=== PATIENT | female | born 1950 | race African-American/Black ===

== ENCOUNTER 2016-04-24 18:46 | Emergency (ER) | payer OTHER ==
[~2016-04-24] VITALS: Ht 162.6 cm; Wt 77.0 kg
[~2016-04-24 18:46] MED LIST: AMLO10TA2 PO; ASPI81TA11 PO; CHOL1TAB29 PO; LEVEMIR SQ; LIPI80TA PO; LOSA50TA PO/NG; MACR100C2 PO; MECL-62 PO; NOVOLOGP2 SQ; OMEP20TA PO
[2016-04-24 18:48] VITALS: BP 169/78; PULSE 86; RESP 16; TEMP 98.5; O2SAT 97
--- NOTE | 2016-04-24 23:25 | PD ---
HPI Chief Complaint: Complaint Time Seen by Provider: 23:24 Travel History International Travel<30 days: No Contact w/Intl Traveler<30days: No Traveled to known affect area: No History of Present Illness HPI 65-year-old female came to the emergency room with history of lower abdominal pain and lower back pain which seems to be chronic. However her daughter is here with her and the daughter says that every time she gets worsening of these pain symptoms she ends up having a UTI. This time it has been hurting for past 2 days. Also patient has history of renal insufficiency and has been followed up by the high man Dr. Gibson. Daughter wanted her to be checked out. Vital signs were stable. There was blood work was was initiated by the provider in triage. Patient has history of diabetes. PFSH Past Medical History Narrative Medical List of her past medical history is reviewed from the nursing note. Hx Anticoagulant Therapy: Yes (Warfarin for clot in arm per daughter ) Anemia: Yes Arthritis: Yes Blood Disorders: No Anxiety: No Depression: Yes Heart Rhythm Problems: No Cancer: No Cardiovascular Problems: Yes High Cholesterol: Yes Chemotherapy: No Chest Pain: Yes Congestive Heart Failure: No Cerebrovascular Accident: Yes (2015) Diabetes: Yes (INSULIN DEPENDENT) Diminished Hearing: No Deep Vein Thrombosis: Yes Endocrine: Yes Gastrointestinal Disorders: Yes (GERD) GERD: Yes Genitourinary: Yes (HISTORY OF RENAL DISEASE) Headaches: No Hypertension: Yes Immune Disorder: No Musculoskeletal: Yes (RIGHT BKA ) Neurologic: Yes (PERIPHERAL NEUROPATHY) Psychiatric: Yes Reproductive: Yes ( 20 YEARS AGO) Respiratory: No Integumentary: Yes (R BKA ULCER.) Seizures: Yes Thyroid Disease: No PNEUMOCCOCAL Vaccine (Year): 2 Menopausal: Yes : 6 Para: 4 : 2 Past Surgical History Abdominal Surgery: Yes (GALLBLADDER REMOVAL) Cardiac Surgery: No Section: Yes (X 1) Cholecystectomy: Yes Endocrine Surgery: No Eye Surgery: Yes (LASER) Gynecologic Surgery: Yes (CSECTION) Hysterectomy: No Oral Surgery: Yes (DENTURES) Thoracic Surgery: No Other Surgery: Yes (RIGHT BKA) Social History Alcohol Use: No Tobacco Use: No Substance Use: No Allergies-Medications (Allergen,Severity, Reaction): Coded Allergies: Amoxicillin (Verified Allergy, Severe, Hives, 04/24/16) Cipro (Verified Allergy, Intermediate, Hives, 04/24/16) Comments List of her allergies reviewed from the nursing note. Reported Meds & Prescriptions Reported Meds & Active Scripts Active Aspirin EC (Aspirin) 81 Mg Tabdr 162 Mg PO DAILY 30 Days Reported Novolog Inj (Insulin Aspart) 1,000 Unit/10 Ml Vial 0 SQ ACHS SLIDING SCALE Sliding Scale as directed. BSG <70 no insulin 150-199 1unit, 200-249 3units, 250-299 5units, 300-349 7units, >349 9units. max dose @ hs 2units. Amlodipine (Amlodipine Besylate) 10 Mg Tab 10 Mg PO DAILY D3 2000 (Cholecalciferol) 2,000 Unit Tab 1 Cap PO DAILY Levemir Inj (Insulin Detemir) 1,000 unit/ 10 ML Vial 15 Units SQ HS Do not mix with any other Insulin. Lipitor (Atorvastatin Calcium) 80 Mg Tab 80 Mg PO DAILY Losartan (Losartan Potassium) 50 Mg Tab 100 Mg PO/NG DAILY Narrative Medication List of her home medications reviewed from the nursing note. Review of Systems Except as stated in HPI: all other systems reviewed are Neg Physical Exam Narrative GENERAL: Awake, alert, no obvious distress. SKIN: Warm and dry. HEAD: Atraumatic. Normocephalic. EYES: Pupils equal and round. No scleral icterus. No injection or drainage. ENT: No nasal bleeding or discharge. Mucous membranes pink and moist. NECK: Trachea midline. No JVD. CARDIOVASCULAR: Regular rate and rhythm. No murmur appreciated. RESPIRATORY: No accessory muscle use. Clear to auscultation. Breath sounds equal bilaterally. GASTROINTESTINAL: Abdomen soft, non-tender, nondistended. Hepatic and splenic margins not palpable. MUSCULOSKELETAL: No obvious deformities. No clubbing. No cyanosis. No edema. Right BKA. NEUROLOGICAL: Awake and alert. No obvious cranial nerve deficits. Motor grossly within normal limits. Normal speech. PSYCHIATRIC: Appropriate mood and affect; insight and judgment normal. Data Data Last Documented VS Vital Signs Date Time Temp Pulse Resp B/P Pulse Ox O2 Delivery O2 Flow Rate FiO2 04/24/16 18:48 98.5 86 16 169/78 97 Room Air Orders Urinalysis - C+S If Indicated (04/24/16 21:01) Complete Blood Count With Diff (04/24/16 23:30) Comprehensive Metabolic Panel (04/24/16 23:30) Sodium Chlorid 0.9% 500 Ml Inj (Ns 500 M (04/25/16 01:00) Labs Laboratory Tests Test 04/24/16 04/25/16 23:50 00:00 White Blood Count 10.7 TH/MM3 Red Blood Count 3.42 MIL/MM3 Hemoglobin 10.7 GM/DL Hematocrit 31.5 % Mean Corpuscular Volume 92.1 FL Mean Corpuscular Hemoglobin 31.4 PG Mean Corpuscular Hemoglobin 34.1 % Concent Red Cell Distribution Width 15.5 % Platelet Count 245 TH/MM3 Mean Platelet Volume 8.7 FL Neutrophils (%) (Auto) 59.1 % Lymphocytes (%) (Auto) 33.9 % Monocytes (%) (Auto) 4.6 % Eosinophils (%) (Auto) 1.8 % Basophils (%) (Auto) 0.6 % Neutrophils # (Auto) 6.3 TH/MM3 Lymphocytes # (Auto) 3.6 TH/MM3 Monocytes # (Auto) 0.5 TH/MM3 Eosinophils # (Auto) 0.2 TH/MM3 Basophils # (Auto) 0.1 TH/MM3 CBC Comment DIFF FINAL Differential Comment Sodium Level 141 MEQ/L Potassium Level 4.2 MEQ/L Chloride Level 108 MEQ/L Carbon Dioxide Level 26.0 MEQ/L Anion Gap 7 MEQ/L Blood Urea Nitrogen 48 MG/DL Creatinine 2.27 MG/DL Estimat Glomerular Filtration 26 ML/MIN Rate Random Glucose 191 MG/DL Calcium Level 8.7 MG/DL Total Bilirubin 0.1 MG/DL Aspartate Amino Transf 9 U/L (AST/SGOT) Alanine Aminotransferase 22 U/L (ALT/SGPT) Alkaline Phosphatase 91 U/L Total Protein 8.0 GM/DL Albumin 3.3 GM/DL Urine Color LIGHT-YELLOW Urine Turbidity HAZY Urine pH 5.5 Urine Specific [place] 1.012 Urine Protein 100 mg/dL Urine Glucose (UA) NEG mg/dL Urine Ketones NEG mg/dL Urine Occult Blood NEG Urine Nitrite NEG Urine Bilirubin NEG Urine Urobilinogen LESS THAN 2.0 MG/DL Urine Leukocyte Esterase NEG Urine RBC 2 /hpf Urine WBC 2 /hpf Urine Amorphous Sediment OCC Microscopic Urinalysis Comment CATH-CULT NOT IND MDM Medical Decision Making Medical Screen Exam Complete: Yes Emergency Medical Condition: Yes Medical Record Reviewed: Yes Differential Diagnosis UTI, renal insufficiency Narrative Course 1:12 AM blood test results of back and within normal limit except for her BUN and creatinine which were elevated. When compared to her past BUN and creatinine this time it seems to be higher than before. I ordered 500 cc of IV fluid bolus. I have discussed this result with patient's daughter. I expressed my concern and asked her to follow up with her high man on Wednesday. Her UA did not show any infection. Procedures EKG Prior to Arrival: No Diagnosis Primary Impression: Chronic renal failure, stage 4 (severe) Additional Impressions: Chronic pelvic pain in female Dehydration Referrals: Primary Care Physician Additional Instructions: Please follow-up with your high man on Wednesday. Please return to the ER if the condition worsens. Drink lots of fluid. Med/Other Pt SpecificInfo: No Change to Meds Disposition: 01 DISCHARGE HOME Condition: Stable Mily Rios MD Apr 24, 2016 23:25
[2016-04-25 00:08] LABS: AUTOMATED NEUTROPHIL # 6.3 TH/MM3 (1.8-7.7); BASOPHIL # 0.1 TH/MM3 (0-0.2); BASOPHIL % 0.6 % (0.0-2.0); EOSINOPHIL # 0.2 TH/MM3 (0-0.4); EOSINOPHIL % 1.8 % (0.0-4.0); HEMATOCRIT 31.5 % (35.0-46.0); HEMO FLAGS DIFF FINAL; LYMPH % 33.9 % (9.0-44.0); LYMPHOCYTE # 3.6 TH/MM3 (1.0-4.8); MEAN CELL VOLUME 92.1 FL (80.0-100.0); MEAN CORPUSCULAR HEMOGLOBIN 31.4 PG (27.0-34.0); MEAN CORPUSCULAR HGB CONC 34.1 % (32.0-36.0); MONO % 4.6 % (0.0-8.0); NEUT % 59.1 % (16.0-70.0); PLATELET COUNT 245 TH/MM3 (150-450); RED BLOOD COUNT 3.42 MIL/MM3 (4.00-5.30); RED CELL DISTRIBUTION WIDTH 15.5 % (11.6-17.2); WHITE BLOOD COUNT 10.7 TH/MM3 (4.0-11.0)
[2016-04-25 00:30] LABS: ANION GAP 7 MEQ/L (5-15); AST (GOT) 9 U/L (15-37); BLOOD UREA NITROGEN 48 MG/DL (7-18); CHLORIDE 108 MEQ/L (98-107); GLOMERULAR FILTRATION RATE 26 ML/MIN (>89); POTASSIUM 4.2 MEQ/L (3.5-5.1); SODIUM (NA) 141 MEQ/L (136-145)
[2016-04-25 00:33] LABS: ALKALINE PHOSPHATASE 91 U/L (45-117); ALT (GPT) 22 U/L (10-53); TOTAL BILIRUBIN ADULT 0.1 MG/DL (0.2-1.0)
[2016-04-25 00:47] LABS: BLOOD, URINE NEG (NEG); GLUCOSE,URINE NEG (NEG); KETONE, URINE NEG (NEG); NITRITE,URINE NEG (NEG); PH, URINE 5.5 (5.0-8.5); URINE COLOR LIGHT-YELLOW (YELLW/STRAW)
[2016-04-25 00:49] LABS: COMMENT (UR) CATH-CULT NOT IND; CULTURE IF INDICATED CATH CULTURE NOT IND
[2016-04-25] MEDS ORDERED: SODIUM CHLORID 0.9% 500 ML INJ 500 ML IV ONE (01:00)
== END 2016-04-25 02:07 | disposition home or self-care (01) ==
LOC: NEPC 18:46
DX: N18.4 Chronic kidney disease, stage 4 (severe) (principal); I12.9 Hypertensive chronic kidney disease with stage 1 through stage 4 chronic kidney disease, or unspecified chronic kidney disease; G89.29 Other chronic pain; R10.2 Pelvic and perineal pain; E11.22 Type 2 diabetes mellitus with diabetic chronic kidney disease; R82.99 Other abnormal findings in urine; Z79.01 Long term (current) use of anticoagulants; D64.9 Anemia, unspecified; M19.90 Unspecified osteoarthritis, unspecified site; E78.00 Pure hypercholesterolemia, unspecified; Z79.4 Long term (current) use of insulin; Z89.511 Acquired absence of right leg below knee
CPT/HCPCS: 80053; 81001; 85025; 96360; 99284; J7040

== ENCOUNTER 2016-05-09 19:42 | Emergency (ER) | payer OTHER ==
[~2016-05-09] VITALS: Ht 167.6 cm; Wt 72.0 kg
[~2016-05-09 19:42] MED LIST changes: -MACR100C2 PO; -MECL-62 PO; -OMEP20TA PO
[2016-05-09 19:49] VITALS: BP 162/72; PULSE 76; RESP 16; TEMP 98.1; O2SAT 96
[2016-05-09] MEDS ORDERED: SODIUM CHLOR 0.9% 1000 ML INJ 1,000 ML IV SCH (19:58)
[2016-05-09] MEDS ORDERED: ONDANSETRON HCL 4 MG/2 ML VIAL IVP ONE (20:00)
[2016-05-09] MEDS ORDERED: SODIUM CHLORIDE 0.9% FLUSH 5 ML FLUSH IVF PRN (20:00)
--- NOTE | 2016-05-09 20:08 | PD ---
HPI . Abdominal discomfort Chief Complaint: Abdominal Pain Time Seen by Provider: 19:47 Travel History International Travel<30 days: No Contact w/Intl Traveler<30days: No Traveled to known affect area: No History of Present Illness HPI Patient presents by [facility] with the chief complaint of "my stomach feels yucky." She states that this started sometime after supper tonight. She is not able to further elaborate. She specifically denies fever, vomiting or diarrhea, urinary tract symptoms or constipation. She is unable to tell me whether or not there are any exacerbating or relieving factors. PFSH Past Medical History Hx Anticoagulant Therapy: Yes (Warfarin for clot in arm per daughter ) Anemia: Yes Arthritis: Yes Blood Disorders: No Anxiety: No Depression: Yes Heart Rhythm Problems: No Cancer: No Cardiovascular Problems: Yes High Cholesterol: Yes Chemotherapy: No Chest Pain: Yes Congestive Heart Failure: No Cerebrovascular Accident: Yes Diabetes: Yes Patient Takes Glucophage: No Diminished Hearing: No Deep Vein Thrombosis: Yes Endocrine: Yes Gastrointestinal Disorders: Yes (GERD) GERD: Yes Genitourinary: Yes (HISTORY OF RENAL DISEASE) Headaches: No Hypertension: Yes Immune Disorder: No Musculoskeletal: Yes (RIGHT BKA ) Neurologic: Yes (PERIPHERAL NEUROPATHY) Psychiatric: Yes Reproductive: Yes ( 20 YEARS AGO) Respiratory: No Integumentary: Yes (R BKA ULCER.) Seizures: Yes Thyroid Disease: No PNEUMOCCOCAL Vaccine (Year): 2 ?: Not Menopausal: Yes : 6 Para: 4 : 2 Past Surgical History Abdominal Surgery: Yes (GALLBLADDER REMOVAL) Cardiac Surgery: No Section: Yes (X 1) Cholecystectomy: Yes Endocrine Surgery: No Eye Surgery: Yes (LASER) Gynecologic Surgery: Yes (CSECTION) Hysterectomy: No Oral Surgery: Yes (DENTURES) Thoracic Surgery: No Other Surgery: Yes (RIGHT BKA) Social History Alcohol Use: No Tobacco Use: No (never) Substance Use: No Allergies-Medications (Allergen,Severity, Reaction): Coded Allergies: Amoxicillin (Verified Allergy, Severe, Hives, 05/09/16) Cipro (Verified Allergy, Intermediate, Hives, 05/09/16) Reported Meds & Prescriptions Reported Meds & Active Scripts Active Aspirin EC (Aspirin) 81 Mg Tabdr 162 Mg PO DAILY 30 Days Reported Novolog Inj (Insulin Aspart) 1,000 Unit/10 Ml Vial 0 SQ ACHS SLIDING SCALE Sliding Scale as directed. BSG <70 no insulin 150-199 1unit, 200-249 3units, 250-299 5units, 300-349 7units, >349 9units. max dose @ hs 2units. Amlodipine (Amlodipine Besylate) 10 Mg Tab 10 Mg PO DAILY D3 2000 (Cholecalciferol) 2,000 Unit Tab 1 Cap PO DAILY Levemir Inj (Insulin Detemir) 1,000 unit/ 10 ML Vial 15 Units SQ HS Do not mix with any other Insulin. Lipitor (Atorvastatin Calcium) 80 Mg Tab 80 Mg PO DAILY Losartan (Losartan Potassium) 50 Mg Tab 100 Mg PO/NG DAILY Review of Systems Except as stated in HPI: all other systems reviewed are Neg General / Constitutional: No: Fever, Chills Cardiovascular: No: Chest Pain or Discomfort Respiratory: No: Shortness of Breath Gastrointestinal: Positive: Abdominal Pain, No: Nausea, Vomiting, Diarrhea, Constipation Genitourinary: Positive: Decreased Urinary Output (per the daughter's history) , No: Urgency, Frequency, Dysuria Physical Exam Narrative GENERAL: The patient is smiling and interacting with the staff and in no distress. SKIN: Warm and dry. HEAD: Atraumatic. Normocephalic. EYES: Pupils equal and round. ENT: No nasal bleeding or discharge. Mucous membranes pink and moist. NECK: Trachea midline. Neck is supple. CARDIOVASCULAR: Regular rate and rhythm. Heart sounds are normal. RESPIRATORY: No accessory muscle use. Lungs are clear with full air movement throughout. GASTROINTESTINAL: Abdomen soft, non-tender, nondistended. MUSCULOSKELETAL: No obvious deformities. She is status post amputation of her right lower extremity. The left lower extremity has no edema. NEUROLOGICAL: Awake and alert. No obvious cranial nerve deficits. Motor grossly within normal limits. Normal speech. PSYCHIATRIC: Appropriate mood and affect; insight and judgment normal. Data Data Last Documented VS Vital Signs Date Time Temp Pulse Resp B/P Pulse Ox O2 Delivery O2 Flow Rate FiO2 05/09/16 22:00 68 18 143/63 97 Room Air 05/09/16 19:49 98.1 Orders Basic Metabolic Panel (Bmp) (05/09/16 19:58) Complete Blood Count With Diff (05/09/16 19:58) Urinalysis - C+S If Indicated (05/09/16 19:58) Abdomen, Flat & Upright (2/18/17 ) Iv Access Insert/Monitor (05/09/16 19:58) Ondansetron Inj (Zofran Inj) (05/09/16 20:00) Sodium Chlor 0.9% 1000 Ml Inj (Ns 1000 M (05/09/16 19:58) Sodium Chloride 0.9% Flush (Ns Flush) (05/09/16 20:00) Electrocardiogram (05/09/16 19:58) Chest, Single Ap (05/09/16 19:58) Cath For Specimen (05/09/16 19:58) Urine Culture (05/09/16 22:10) Labs Laboratory Tests Test 05/09/16 05/09/16 20:45 22:10 White Blood Count 9.5 TH/MM3 Red Blood Count 3.48 MIL/MM3 Hemoglobin 10.7 GM/DL Hematocrit 31.4 % Mean Corpuscular Volume 90.3 FL Mean Corpuscular Hemoglobin 30.9 PG Mean Corpuscular Hemoglobin 34.2 % Concent Red Cell Distribution Width 15.7 % Platelet Count 263 TH/MM3 Mean Platelet Volume 9.0 FL Neutrophils (%) (Auto) 56.1 % Lymphocytes (%) (Auto) 35.4 % Monocytes (%) (Auto) 4.7 % Eosinophils (%) (Auto) 1.8 % Basophils (%) (Auto) 2.0 % Neutrophils # (Auto) 5.3 TH/MM3 Lymphocytes # (Auto) 3.4 TH/MM3 Monocytes # (Auto) 0.4 TH/MM3 Eosinophils # (Auto) 0.2 TH/MM3 Basophils # (Auto) 0.2 TH/MM3 CBC Comment AUTO DIFF Differential Total Cells 100 Counted Neutrophils % (Manual) 57 % Band Neutrophils % 1 % Lymphocytes % 37 % Monocytes % 4 % Eosinophils % 1 % Neutrophils # (Manual) 5.5 TH/MM3 Differential Comment FINAL DIFF MANUAL Platelet Estimate NORMAL Platelet Morphology Comment NORMAL Red Cell Morphology Comment NORMAL Hematology Comments Sodium Level 141 MEQ/L Potassium Level 4.7 MEQ/L Chloride Level 108 MEQ/L Carbon Dioxide Level 24.5 MEQ/L Anion Gap 9 MEQ/L Blood Urea Nitrogen 42 MG/DL Creatinine 2.27 MG/DL Estimat Glomerular Filtration 26 ML/MIN Rate Random Glucose 166 MG/DL Calcium Level 8.3 MG/DL Urine Color LIGHT-YELLOW Urine Turbidity HAZY Urine pH 6.0 Urine Specific [place] 1.009 Urine Protein 100 mg/dL Urine Glucose (UA) NEG mg/dL Urine Ketones NEG mg/dL Urine Occult Blood NEG Urine Nitrite NEG Urine Bilirubin NEG Urine Urobilinogen LESS THAN 2.0 MG/DL Urine Leukocyte Esterase LARGE Urine RBC 11 /hpf Urine WBC 55 /hpf Urine WBC Clumps OCC Urine Squamous Epithelial 1 /hpf Cells Urine Bacteria OCC /hpf Microscopic Urinalysis Comment CULTURE INDICATED MDM Medical Decision Making Medical Screen Exam Complete: Yes Emergency Medical Condition: Yes Medical Record Reviewed: Yes (patient was seen here with very similar symptoms on 04/25. The only real abnormality at that time was slightly worsening renal function. She was treated with an IV fluid bolus.) Interpretation(s) EKG shows a normal sinus rhythm with a ventricular rate of 72. No ST segment elevation or depression. Differential Diagnosis Differential diagnosis of abdominal pain includes but is not limited to gastritis, pancreatitis, hepatitis, gastroenteritis, gallbladder disease, constipation, urinary retention, UTI, peptic ulcer disease, diverticulitis or appendicitis Narrative Course Patient presents some very vague complaints of abdominal discomfort. She has a benign abdominal exam. Last Impressions Chest X-Ray 05/09/161957 Signed Impressions: Service Date/Time: Monday, May 09, 2016 20:28 - CONCLUSION: 1. No acute findings. Efra Banks MD Abdomen X-Ray 05/09/16 0000 Signed Impressions: Service Date/Time: Monday, May 09, 2016 20:32 - CONCLUSION: 1. Nonspecific bowel gas pattern. Mild constipation. Mild lumbar levoscoliosis. Efra Banks MD X-rays were independently viewed by me. UA does show a UTI. Diagnosis Primary Impression: Abdominal pain Qualified Code: R10.84 - Generalized abdominal pain Additional Impressions: Constipation Qualified Code: K59.00 - Constipation, unspecified constipation type UTI (urinary tract infection) Qualified Code: N30.00 - Acute cystitis without hematuria Patient Instructions: Constipation (ED), General Instructions, Urinary Tract Infection in Women (DC) Med/Other Pt SpecificInfo: Prescription(s) given Scripts Cephalexin (Keflex)500 Mg [id number] Mg PO Q8H #21 CAP Ref 0 Prov:Peg Pastor MD 05/09/16 Disposition: 01 DISCHARGE HOME Condition: Stable Peg Pastor MD May 09, 2016 20:08
--- NOTE | 2016-05-09 20:51 | RADRPT ---
EXAM DATE/TIME: 05/09/2016 20:28 [facility] COMPARISON: No previous studies available for comparison. INDICATIONS : Patient has had headache, chest and abdomen pain for six months. MEDICAL HISTORY : Diabetes mellitus type I. SURGICAL HISTORY : None. ENCOUNTER: Initial ACUITY: 4 - 6 months PAIN SCORE: 7/10 LOCATION: Bilateral chest FINDINGS: A single view of the chest demonstrates no focal consolidation or effusion. Heart size within normal limits. No pneumothorax. CONCLUSION: 1. No acute findings. Efra Banks MD on May 09, 2016 at 20:48 Board Certified Radiologist. This report was verified electronically.
--- NOTE | 2016-05-09 20:52 | RADRPT ---
EXAM DATE/TIME: 05/09/2016 20:32 [facility] COMPARISON: No previous studies available for comparison. INDICATIONS : Patient has had headache, chest and abdomen pain for six months. MEDICAL HISTORY : Diabetes mellitus type I. SURGICAL HISTORY : None. ENCOUNTER: Initial ACUITY: 4 - 6 months PAIN SCORE: 10/10 LOCATION: Bilateral Abdomen. FINDINGS: Bowel gas pattern nonspecific without evidence for obstruction. Mild constipation. No free air. Advan sunni degenerative change in lumbar spine with mild levoscoliosis. CONCLUSION: 1. Nonspecific bowel gas pattern. Mild constipation. Mild lumbar levoscoliosis. Efra Banks MD on May 09, 2016 at 20:49 Board Certified Radiologist. This report was verified electronically.
[2016-05-09 21:08] LABS: AUTOMATED NEUTROPHIL # 5.3 TH/MM3 (1.8-7.7); BASOPHIL # 0.2 TH/MM3 (0-0.2); EOSINOPHIL # 0.2 TH/MM3 (0-0.4); EOSINOPHIL % 1.8 % (0.0-4.0); HEMATOCRIT 31.4 % (35.0-46.0); HEMO FLAGS AUTO DIFF; LYMPH % 35.4 % (9.0-44.0); LYMPHOCYTE # 3.4 TH/MM3 (1.0-4.8); MEAN CELL VOLUME 90.3 FL (80.0-100.0); MEAN CORPUSCULAR HEMOGLOBIN 30.9 PG (27.0-34.0); MEAN CORPUSCULAR HGB CONC 34.2 % (32.0-36.0); MONO % 4.7 % (0.0-8.0); NEUT % 56.1 % (16.0-70.0); PLATELET COUNT 263 TH/MM3 (150-450); RED BLOOD COUNT 3.48 MIL/MM3 (4.00-5.30); RED CELL DISTRIBUTION WIDTH 15.7 % (11.6-17.2); WHITE BLOOD COUNT 9.5 TH/MM3 (4.0-11.0)
[2016-05-09 21:31] LABS: BANDS 1 % (0-6); EOSINOPHILS 1 % (0-4); NEUTROPHIL # MANUAL DIFF 5.5 TH/MM3 (1.8-7.7); PLATELET ESTIMATE SMEAR NORMAL (NORMAL); PLATELET MORPHOLOGY NORMAL (NORMAL); POLYS (SEG NEUTROPHILS) 57 % (16-70); WBC DIFF SAMPLE 100
[2016-05-09 21:32] LABS: SCAN/DIFF FINAL DIFF MANUAL
[2016-05-09 21:41] LABS: BICARBONATE 24.5 MEQ/L (21.0-32.0); POTASSIUM 4.7 MEQ/L (3.5-5.1)
[2016-05-09 22:00] VITALS: BP 143/63; PULSE 68; RESP 18; O2SAT 97
[2016-05-09 22:33] LABS: BACTERIA, URINE OCC /hpf; BLOOD, URINE NEG (NEG); COMMENT (UR) CULTURE INDICATED; CULTURE IF INDICATED CULTURE INDICATED; GLUCOSE,URINE NEG (NEG); KETONE, URINE NEG (NEG); NITRITE,URINE NEG (NEG); SQUAMOUS EPITHELIAL CELL URINE 1 /hpf (0-5); URINE COLOR LIGHT-YELLOW (YELLW/STRAW)
[2016-05-09] MEDS ORDERED: CEPH-460 PO (22:50)
[2016-05-09] MEDS ORDERED: LIDOCAINE HCL 1% PF 30 ML VIAL XX ONE (23:00)
[2016-05-09] MEDS ORDERED: cefTRIAXone INJ 1,000 MG in SODIUM CHLORIDE 0.9% INJ 100 ML IV ONE (23:00)
--- NOTE | 2016-05-10 15:44 | EKG ---
Date Performed: 05/09/2016 Time Performed: 21:15:17 PTAGE: 65 years EKG: Sinus rhythm Borderline left axis deviation. Poor R wave progression which may be normal variant When compared to previous tracing, no significant change. ABNORMAL ECG PREVIOUS TRACING : 03/08/2016 19.13 DOCTOR: Trey Mora Interpretating Date/Time 05/10/2016 15:43:35
== END 2016-05-09 23:52 | disposition home or self-care (01) ==
LOC: NEPC 19:42
DX: R10.84 Generalized abdominal pain (principal); K59.00 Constipation, unspecified; N39.0 Urinary tract infection, site not specified; D64.9 Anemia, unspecified; E78.00 Pure hypercholesterolemia, unspecified; E11.9 Type 2 diabetes mellitus without complications; I10 Essential (primary) hypertension; Z86.718 Personal history of other venous thrombosis and embolism; Z86.73 Personal history of transient ischemic attack (TIA), and cerebral infarction without residual deficits; Z79.01 Long term (current) use of anticoagulants
CPT/HCPCS: 71010; 74020; 80048; 81001; 85007; 85027; 87086; 93005; 96372; 99284; J0696

== ENCOUNTER 2016-05-14 09:40 | Inpatient (IN) | payer OTHER, MEDICARE ==
[~2016-05-14] VITALS: Ht 162.6 cm; Wt 77.3 kg
[~2016-05-14 09:40] MED LIST changes: +CEPH-460 PO
[2016-05-14 09:44] VITALS: BP 171/76; PULSE 86; RESP 22; TEMP 98.3; O2SAT 98
[2016-05-14 09:48] VITALS: BP 171/76; PULSE 86; RESP 24; O2SAT 98
[2016-05-14] MEDS ORDERED: SODIUM CHLORIDE 0.9% FLUSH 5 ML FLUSH IVF PRN (10:00)
[2016-05-14 10:40] LABS: AUTOMATED NEUTROPHIL # 6.1 TH/MM3 (1.8-7.7); BASOPHIL # 0.1 TH/MM3 (0-0.2); BASOPHIL % 0.7 % (0.0-2.0); EOSINOPHIL # 0.1 TH/MM3 (0-0.4); HEMATOCRIT 32.7 % (35.0-46.0); HEMO FLAGS DIFF FINAL; LYMPH % 26.2 % (9.0-44.0); LYMPHOCYTE # 2.4 TH/MM3 (1.0-4.8); MEAN CELL VOLUME 91.9 FL (80.0-100.0); MEAN CORPUSCULAR HEMOGLOBIN 30.7 PG (27.0-34.0); MEAN CORPUSCULAR HGB CONC 33.4 % (32.0-36.0); MONO % 4.5 % (0.0-8.0); NEUT % 67.6 % (16.0-70.0); PLATELET COUNT 262 TH/MM3 (150-450); RED BLOOD COUNT 3.56 MIL/MM3 (4.00-5.30); RED CELL DISTRIBUTION WIDTH 15.7 % (11.6-17.2)
--- NOTE | 2016-05-14 10:44 | RADRPT ---
EXAM DATE/TIME: 05/14/2016 10:16 [facility] COMPARISON: CT BRAIN W/O CONTRAST, March 08, 2016, 17:54. INDICATIONS : Altered mental status. Confused and slurred speech. RADIATION DOSE: 36.37 CTDIvol (mGy) MEDICAL HISTORY : Cardiovascular disease. Diabetes mellitus type 2. CVA. SURGICAL HISTORY : None. ENCOUNTER: Initial ACUITY: 1 day PAIN SCALE: 0/10 LOCATION: cranial TECHNIQUE: Multiple contiguous axial images were obtained of the head. Using automated exposure control and adj ustment of the mA and/or kV according to patient size, radiation dose was kept as low as reasonably a chievable to obtain optimal diagnostic quality images. FINDINGS: There is stable left temporoparietal encephalomalacia and adjacent white matter hypodensity. Right he misphere is stable and unremarkable. There is no evidence of intracranial mass or hemorrhage. There i s nothing to suggest acute infarction. The visualized extracranial structures are stable and benign. CONCLUSION: Stable brain appearance. No acute intracranial finding Alton Garay MD on May 14, 2016 at 10:37 Board Certified Radiologist. This report was verified electronically.
[2016-05-14] MEDS ORDERED: ZANT150T2 PO (10:49)
[2016-05-14] MEDS ORDERED: LOSA100T PO (10:49)
[2016-05-14 10:50] LABS: APTT (PATIENT) 27.4 SEC (24.3-30.1); PROTHROMBIN TIME - PATIENT 10.9 SEC (9.8-11.6)
[2016-05-14 10:58] LABS: ALT (GPT) 23 U/L (10-53); ANION GAP 6 MEQ/L (5-15); AST (GOT) 14 U/L (15-37); BICARBONATE 27.8 MEQ/L (21.0-32.0); BLOOD UREA NITROGEN 40 MG/DL (7-18); CHLORIDE 107 MEQ/L (98-107); GLOMERULAR FILTRATION RATE 25 ML/MIN (>89); POTASSIUM 4.6 MEQ/L (3.5-5.1); SODIUM (NA) 141 MEQ/L (136-145)
[2016-05-14 11:00] LABS: ALKALINE PHOSPHATASE 91 U/L (45-117); TOTAL BILIRUBIN ADULT 0.3 MG/DL (0.2-1.0)
--- NOTE | 2016-05-14 11:13 | PD ---
HPI Chief Complaint: Altered Mental Status Time Seen by Provider: 09:46 Travel History International Travel<30 days: No Contact w/Intl Traveler<30days: No Traveled to known affect area: No History of Present Illness HPI This is a 65-year-old female who presents to the emergency department with onset of difficulty speaking. The patient was last seen normal at 2 AM last evening. When she woke up this morning she has been confused, having difficulty expressing herself and has been acting strangely. Patient came in as a stroke alert back in October of last year, and had very similar symptoms. At that time she had a reassuring MRI and was diagnosed with a possible TIA. She also had an intracranial hemorrhage several years ago. Patient is currently on 162 of aspirin for stroke prevention. Patient doesn't provide much history and history was obtained via [facility]. PFSH Past Medical History Medical History: Unable to Obtain Hx Anticoagulant Therapy: Yes (Warfarin for clot in arm per daughter ) Anemia: Yes Arthritis: Yes Blood Disorders: No Anxiety: No Depression: Yes Heart Rhythm Problems: No Cancer: No Cardiovascular Problems: Yes High Cholesterol: Yes Chemotherapy: No Chest Pain: Yes Congestive Heart Failure: No Cerebrovascular Accident: Yes Diabetes: Yes Patient Takes Glucophage: No Diminished Hearing: No Deep Vein Thrombosis: Yes Endocrine: Yes Gastrointestinal Disorders: Yes (GERD) GERD: Yes Genitourinary: Yes (HISTORY OF RENAL DISEASE) Headaches: No Hypertension: Yes Immune Disorder: No Musculoskeletal: Yes (RIGHT BKA ) Neurologic: Yes (PERIPHERAL NEUROPATHY) Psychiatric: Yes Reproductive: Yes ( 20 YEARS AGO) Respiratory: No Integumentary: Yes (R BKA ULCER.) Seizures: Yes Thyroid Disease: No Influenza Vaccination: No PNEUMOCCOCAL Vaccine (Year): 2 ?: Unknown Menopausal: Yes : 6 Para: 4 : 2 Past Surgical History Surgical History: Unable to Obtain Abdominal Surgery: Yes (GALLBLADDER REMOVAL) Cardiac Surgery: No Section: Yes (X 1) Cholecystectomy: Yes Endocrine Surgery: No Eye Surgery: Yes (LASER) Gynecologic Surgery: Yes (CSECTION) Hysterectomy: No Oral Surgery: Yes (DENTURES) Thoracic Surgery: No Other Surgery: Yes (RIGHT BKA) Social History Alcohol Use: No (UNABLE TO ASSESS) Tobacco Use: No (never) Substance Use: No Allergies-Medications (Allergen,Severity, Reaction): Coded Allergies: Amoxicillin (Verified Allergy, Severe, Hives, 2/23/17) Cipro (Verified Allergy, Intermediate, Hives, 05/14/16) Reported Meds & Prescriptions Reported Meds & Active Scripts Active Keflex (Cephalexin) 500 Mg Cap 500 Mg PO Q8H Aspirin EC (Aspirin) 81 Mg Tabdr 162 Mg PO DAILY 30 Days Reported Zantac (Ranitidine HCl) 150 Mg Tab 150 Mg PO BID Losartan (Losartan Potassium) 100 Mg Tab 100 Mg PO DAILY Novolog Inj (Insulin Aspart) 1,000 Unit/10 Ml Vial 0 SQ ACHS SLIDING SCALE Sliding Scale as directed. BSG <70 no insulin 150-199 1unit, 200-249 3units, 250-299 5units, 300-349 7units, >349 9units. max dose @ hs 2units. Amlodipine (Amlodipine Besylate) 10 Mg Tab 10 Mg PO DAILY D3 2000 (Cholecalciferol) 2,000 Unit Tab 2,000 Units PO DAILY Levemir Inj (Insulin Detemir) 1,000 unit/ 10 ML Vial 50 Units SQ HS Do not mix with any other Insulin. Lipitor (Atorvastatin Calcium) 80 Mg Tab 80 Mg PO DAILY Review of Systems ROS Limitations: Speech Impaired Physical Exam Narrative GENERAL:Well appearing, no acute distress SKIN: Warm and dry. HEAD: Atraumatic. Normocephalic. EYES: Pupils equal and round. No injection or drainage. ENT: Moist mucous membranes NECK: Trachea midline. CARDIOVASCULAR: Regular rate and rhythm. No murmur appreciated. RESPIRATORY: Clear to auscultation. Breath sounds equal bilaterally. GASTROINTESTINAL: Abdomen soft, non-tender, nondistended. MUSCULOSKELETAL: No obvious deformities. NEUROLOGICAL: Awake and alert. No obvious cranial nerve deficits. No upper or lower extremity drift. No upper extremity ataxia, but intermittently uncooperative with exam. Patient has no difficulty naming objects but intermittently diverse her attention to other things during her exam. She does appear to have some expressive aphasia, uncertain if this is organic PSYCHIATRIC: Incongruent mood and affect. Patient is smiling despite difficulty speaking and confusion. Data Data Last Documented VS Vital Signs Date Time Temp Pulse Resp B/P Pulse Ox O2 Delivery O2 Flow Rate FiO2 05/14/16 09:48 86 24 171/76 98 Room Air 05/14/16 09:44 98.3 Orders Prothrombin Time / Inr (Pt) (05/14/16 09:54) Act Partial Throm Time (Ptt) (05/14/16 09:54) Complete Blood Count With Diff (05/14/16 09:54) Comprehensive Metabolic Panel (05/14/16 09:54) Drug Screen, Random Urine (05/14/16 09:54) Urinalysis - C+S If Indicated (05/14/16 09:54) Ct Brain W/O Iv Contrast(Rout) (05/14/16 09:54) Ecg Monitoring (05/14/16 09:54) Iv Access Insert/Monitor (05/14/16 09:54) Oximetry (05/14/16 09:54) Sodium Chloride 0.9% Flush (Ns Flush) (05/14/16 10:00) Labs Laboratory Tests Test 05/14/16 10:30 White Blood Count 9.0 TH/MM3 Red Blood Count 3.56 MIL/MM3 Hemoglobin 10.9 GM/DL Hematocrit 32.7 % Mean Corpuscular Volume 91.9 FL Mean Corpuscular Hemoglobin 30.7 PG Mean Corpuscular Hemoglobin 33.4 % Concent Red Cell Distribution Width 15.7 % Platelet Count 262 TH/MM3 Mean Platelet Volume 9.2 FL Neutrophils (%) (Auto) 67.6 % Lymphocytes (%) (Auto) 26.2 % Monocytes (%) (Auto) 4.5 % Eosinophils (%) (Auto) 1.0 % Basophils (%) (Auto) 0.7 % Neutrophils # (Auto) 6.1 TH/MM3 Lymphocytes # (Auto) 2.4 TH/MM3 Monocytes # (Auto) 0.4 TH/MM3 Eosinophils # (Auto) 0.1 TH/MM3 Basophils # (Auto) 0.1 TH/MM3 CBC Comment DIFF FINAL Differential Comment Prothrombin Time 10.9 SEC Prothromb Time International 1.0 RATIO Ratio Activated Partial 27.4 SEC Thromboplast Time Sodium Level 141 MEQ/L Potassium Level 4.6 MEQ/L Chloride Level 107 MEQ/L Carbon Dioxide Level 27.8 MEQ/L Anion Gap 6 MEQ/L Blood Urea Nitrogen 40 MG/DL Creatinine 2.38 MG/DL Estimat Glomerular Filtration 25 ML/MIN Rate Random Glucose 188 MG/DL Calcium Level 8.4 MG/DL Total Bilirubin 0.3 MG/DL Aspartate Amino Transf 14 U/L (AST/SGOT) Alanine Aminotransferase 23 U/L (ALT/SGPT) Alkaline Phosphatase 91 U/L Total Protein 8.0 GM/DL Albumin 3.3 GM/DL MDM Medical Decision Making Medical Screen Exam Complete: Yes Emergency Medical Condition: Yes Interpretation(s) EKG: nsr, st depressions in the lateral leads No leukocytosis Anemia Chronic renal insufficiency Coags are normal CT of the head: No intercranial hemorrhage Differential Diagnosis Ischemic stroke, hemorrhagic stroke, TIA, stroke recrudescence, delirium, psychosis Narrative Course This is a 65-year-old female who presents to the emergency department with confusion and difficulty speaking. She seems to have receptive and expressive aphasia. The pattern of her difficulty speaking seems a little inconsistent and her ability to follow commands also is inconsistent. She is placed on a monitor and an IV was established. Labs are obtained which demonstrate chronic kidney disease but otherwise are unrevealing. CT of the head was negative for intracranial hemorrhage. Patient will be admitted for stroke evaluation. She may be having recrudescence of symptoms related to her prior intracranial hemorrhage, or this could reflect a new stroke. I also think a psychiatric etiology is on the differential diagnosis given the nature of her presentation. Diagnosis Primary Impression: Altered mental status Qualified Code: R41.82 - Altered mental status, unspecified altered mental status type Admitting Information Admitting Physician Requests: Fabiana Munoz MD May 14, 2016 11:12
[2016-05-14 11:27] VITALS: BP 156/68; PULSE 87; RESP 20; O2SAT 97
[2016-05-14] MEDS ORDERED: SODIUM CHLORIDE 0.9% FLUSH 5 ML FLUSH FLUSH PRN (12:30)
[2016-05-14] MEDS ORDERED: NALOXONE HCL 0.4 MG/ML AMP IV PRN (12:30)
[2016-05-14] MEDS: SODIUM CHLOR 0.9% 1000 ML INJ 1,000 ML IV SCH ×2 (13:26→20:04)
[2016-05-14 13:43] LABS: BACTERIA, URINE OCC /hpf; BLOOD, URINE NEG (NEG); COMMENT (UR) CATH-CULTURE IND; CULTURE IF INDICATED CATH CULTURE IND; GLUCOSE,URINE NEG (NEG); KETONE, URINE NEG (NEG); NITRITE,URINE NEG (NEG); PH, URINE 6.5 (5.0-8.5); SQUAMOUS EPITHELIAL CELL URINE 1 /hpf (0-5); URINE COLOR LIGHT-YELLOW (YELLW/STRAW)
[2016-05-14 13:45] LABS: CREATINE KINASE 87 U/L (26-192)
--- NOTE | 2016-05-14 13:53 | HHI.HP ---
[facility] Alton Mcqueen, DO Admission Diagnosis aphasia Diagnoses: (1) History of CVA with residual deficit (2) Aphasia (3) UTI (urinary tract infection) (4) History of DVT (deep vein thrombosis) (5) CKD (chronic kidney disease) stage 3, GFR 30-59 ml/min (6) Hyperlipidemia (7) Hypertension (8) Type 2 diabetes mellitus Travel History International Travel<30 Days: No Contact w/Intl Traveler <30 Da: No Traveled to Known Affected Are: No History of Present Illness 65-year-old female with a PMH of HTN, DM, Right BKA, h/o DVT , h/o ICH and h/o CVA with residual effects was brought to the ED by eval for evaluation of acute onset of worsening aphasia and increased confusion. Daughter stated patient as she was talking, she was not making sense and was quite incoherent with worsening aphasia. Symptoms lasted well over 5 minutes. Back in October 2015, patient was admitted to hospital for similar complaints and had a reassuring MRI and other times she was diagnosed with for possible TIA. She was recently seen in the ED and was diagnosed with UTI and discharged home on Keflex 500 mg 3 times a day 7 days, which patient started on 05/11/16. Although patient complains currently of nausea, she denies any emesis, febrile episode production. There is no GI bleed. Review of Systems Other 12 systems reviewed and are negative except for the one mentioned in the history of present illness Past Family Social History Past Medical History HTN, DM, Right BKA, h/o DVT , h/o ICH and h/o CVA Past Surgical History Right BKA, Cholecystectomy, Eye Surgery, Reported Medications Keflex (Cephalexin) 500 Mg Cap 500 Mg PO Q8H Aspirin EC (Aspirin) 81 Mg Tabdr 162 Mg PO DAILY 30 Days Reported Zantac (Ranitidine HCl) 150 Mg Tab 150 Mg PO BID Losartan (Losartan Potassium) 100 Mg Tab 100 Mg PO DAILY Novolog Inj (Insulin Aspart) 1,000 Unit/10 Ml Vial 0 SQ ACHS SLIDING SCALE Sliding Scale as directed. BSG <70 no insulin 150-199 1unit, 200-249 3units, 250-299 5units, 300-349 7units, >349 9units. max dose @ hs 2units. Amlodipine (Amlodipine Besylate) 10 Mg Tab 10 Mg PO DAILY D3 2000 (Cholecalciferol) 2,000 Unit Tab 2,000 Units PO DAILY Levemir Inj (Insulin Detemir) 1,000 unit/ 10 ML Vial 50 Units SQ HS Do not mix with any other Insulin. Lipitor (Atorvastatin Calcium) 80 Mg Tab 80 Mg PO DAILY Allergies: Coded Allergies: Amoxicillin (Verified Allergy, Severe, Hives, 05/14/16) Cipro (Verified Allergy, Intermediate, Hives, 05/14/16) Family History positive for DM and CAD. Social History Negative for alcohol, tobacco or drugs. Physical Exam Vital Signs Vital Signs Date Time Temp Pulse Resp B/P Pulse Ox O2 Delivery O2 Flow Rate FiO2 05/14/16 11:27 87 20 156/68 97 Room Air 05/14/16 09:48 86 24 171/76 98 Room Air 05/14/16 09:44 98.3 86 22 171/76 98 Physical Exam GENERAL: This is a well-nourished, well-developed patient, in no apparent distress. SKIN: No rashes, ecchymoses or lesions. Cool and dry. HEAD: Atraumatic. Normocephalic. No temporal or scalp tenderness. EYES: Pupils equal round and reactive. Extraocular motions intact. No scleral icterus. No injection or drainage. ENT: Nose without bleeding, purulent drainage or septal hematoma. Throat without erythema, tonsillar hypertrophy or exudate. Uvula midline. Airway patent. NECK: Trachea midline. No JVD or lymphadenopathy. Supple, nontender, no meningeal signs. CARDIOVASCULAR: Regular rate and rhythm without murmurs, gallops, or rubs. RESPIRATORY: Clear to auscultation. Breath sounds equal bilaterally. No wheezes , rales, or rhonchi. GASTROINTESTINAL: Abdomen soft, non-tender, nondistended. No hepato-splenomegaly , or palpable masses. No guarding. MUSCULOSKELETAL: Extremities without clubbing, cyanosis, or edema. No joint tenderness, effusion, or edema noted. Right BKA NEUROLOGICAL: Awake and alert. Cranial nerves II through XII intact. Motor and sensory grossly within normal limits. Aphasic Laboratory Laboratory Tests Test 05/14/16 05/14/16 05/14/16 10:30 12:35 13:20 White Blood Count 9.0 Red Blood Count 3.56 Hemoglobin 10.9 Hematocrit 32.7 Mean Corpuscular Volume 91.9 Mean Corpuscular Hemoglobin 30.7 Mean Corpuscular Hemoglobin 33.4 Concent Red Cell Distribution Width 15.7 Platelet Count 262 Mean Platelet Volume 9.2 Neutrophils (%) (Auto) 67.6 Lymphocytes (%) (Auto) 26.2 Monocytes (%) (Auto) 4.5 Eosinophils (%) (Auto) 1.0 Basophils (%) (Auto) 0.7 Neutrophils # (Auto) 6.1 Lymphocytes # (Auto) 2.4 Monocytes # (Auto) 0.4 Eosinophils # (Auto) 0.1 Basophils # (Auto) 0.1 CBC Comment DIFF FINAL Differential Comment Prothrombin Time 10.9 Prothromb Time International 1.0 Ratio Activated Partial 27.4 Thromboplast Time Sodium Level 141 Potassium Level 4.6 Chloride Level 107 Carbon Dioxide Level 27.8 Anion Gap 6 Blood Urea Nitrogen 40 Creatinine 2.38 Estimat Glomerular Filtration 25 Rate Random Glucose 188 Calcium Level 8.4 Total Bilirubin 0.3 Aspartate Amino Transf 14 (AST/SGOT) Alanine Aminotransferase 23 (ALT/SGPT) Alkaline Phosphatase 91 Total Protein 8.0 Albumin 3.3 Total Creatine Kinase 87 Troponin I LESS THAN 0.02 Urine Color LIGHT-YELLOW Urine Turbidity CLEAR Urine pH 6.5 Urine Specific [place] 1.013 Urine Protein 100 Urine Glucose (UA) NEG Urine Ketones NEG Urine Occult Blood NEG Urine Nitrite NEG Urine Bilirubin NEG Urine Urobilinogen LESS THAN 2.0 Urine Leukocyte Esterase SMALL Urine RBC LESS THAN 1 Urine WBC 10 Urine Squamous Epithelial 1 Cells Urine Bacteria OCC Microscopic Urinalysis Comment CATH-CULTURE IND Date/Time Procedure Status Source Growth 05/14/16 13:20 Urine Culture Received Urine Catheterized Urine Pending Result Diagram: 05/14/16 1030 05/14/16 1030 Imaging Last Impressions Head CT 05/14/16 0954 Signed Impressions: Service Date/Time: April 10:16 - CONCLUSION: Stable brain appearance. No acute intracranial finding Alton Garay MD Assessment and Plan Problem List: (1) Aphasia ICD Code: R47.01 Status: Acute (2) History of DVT (deep vein thrombosis) ICD Code: Z86.718 (3) CKD (chronic kidney disease) stage 3, GFR 30-59 ml/min ICD Code: N18.3 Status: Acute (4) Hypertension ICD Code: I10 Status: Chronic (5) Type 2 diabetes mellitus ICD Code: E11.9 Status: Chronic (6) History of intracranial hemorrhage ICD Code: Z86.79 (7) possible tia Status: Acute (8) History of CVA with residual deficit ICD Code: I69.30 Status: Acute Assessment and Plan 65-year-old female with History of CVA with residual effect now with worsening aphasia: CT head noted and review by me with finding of Stable brain appearance. No acute intracranial finding. Will consult neurology. Secondary to worsening renal function, will hydrate prior to obtaining brain MRI/MRA. Check carotid ultrasound as well as 2 -D echo. Allow for permissive hypertension. PT/OT/speech therapy consulted. Resume aspirin, Lipitor UTI: Complete antibiotic therapy with Keflex 500 mg by mouth daily 8H Diabetes type 2: Starts insulin sliding scale and resume outpatient medication Prior history of DVT: Chronic, patient no longer on Coumadin Hyperlipidemia: Resume statin Chronic kidney disease: Consult nephrology Dr. Thacker, check renal ultrasound DVT prophylaxis: Bilateral SCDs Code Status Full code Discussed Condition With Patient, daughter, ED physician Physician Certification 2 Midnight Certification Type: Admission for Inpatient Services Order for Inpatient Services The services are ordered in accordance with Medicare regulations or non- Medicare payer requirements, as applicable. In the case of services not specified as inpatient-only, they are appropriately provided as inpatient services in accordance with the 2-midnight benchmark. Estimated LOS (days): 2 days is the estimated time the patient will need to remain in the hospital, assuming treatment plan goals are met and no additional complications. Post-Hospital Plan: Not yet determined Keny Jj MD May 14, 2016 13:53
[2016-05-14] MEDS ORDERED: GLUCAGON 1 MG/ML VIAL OTHER PRN (14:00)
[2016-05-14] MEDS ORDERED: DEXTROSE 50% IN WATER 50 ML VIAL(D50) IV PUSH PRN (14:00)
[2016-05-14] MEDS: CEPHALEXIN MONOHYDRATE 500 MG CAP PO SCH ×2 (14:08→22:25)
[2016-05-14 14:18] LABS: AMPHETAMINE, URINE NEG (NEG); BARBITURATES, URINE NEG (NEG); COCAINE, URINE NEG (NEG)
[2016-05-14 15:08] VITALS: BP 178/79; PULSE 86; RESP 16; O2SAT 97
--- NOTE | 2016-05-14 15:08 | RADRPT ---
EXAM DATE/TIME: 05/14/2016 14:06 [facility] COMPARISON: US KIDNEY/RENAL/BLADDER, December 05, 2013, 13:56. INDICATIONS : Increased BUN and Creatinine. MEDICAL HISTORY : Gastroesophageal reflux disease. Stroke. Hypercholesterolemia. Hypertension. Peripheral neuropath y. Syncope. Renal disease. Diabetic. SURGICAL HISTORY : Cholecystectomy. section. Cataract surgery. Right below the knee amputation. ENCOUNTER: Subsequent ACUITY: 1 day PAIN SCORE: 3/10 LOCATION: Bilateral flank MEASUREMENTS: RIGHT KIDNEY: 11.9 x 6.2 x 6.2 cm LEFT KIDNEY: 12.8 x 5.4 x 5.3 cm FINDINGS: RIGHT KIDNEY: Renal cortex is normal in thickness and echotexture. No hydronephrosis, stone, or mass. LEFT KIDNEY: Renal cortex is normal in thickness and echotexture. No hydronephrosis, stone, or mass. Simple cyst exophytic from the lower pole and 1.5 x 1.4 x 1.0 cm. BLADDER: Within normal limits given the degree of distension. CONCLUSION: No acute findings. No evidence of hydronephrosis or mass. Jabari Gonzalez MD on May 14, 2016 at 15:06 Board Certified Radiologist. This report was verified electronically.
--- NOTE | 2016-05-14 15:34 | RADRPT ---
EXAM DATE/TIME: 05/14/2016 14:16 [facility] COMPARISON: US CAROTID ARTERIES, November 25, 2013, 22:04. INDICATIONS : Transient ischemic attack. MEDICAL HISTORY : Gastroesophageal reflux disease. Stroke. Hypercholesterolemia. Hypertension. Peripheral neuropath y. Syncope. Renal disease. Diabetic. SURGICAL HISTORY : Cholecystectomy. section. Cataract surgery. Right below the knee amputation. ENCOUNTER: Subsequent ACUITY: 1 day PAIN SCORE: 0/10 LOCATION: Bilateral neck PEAK SYSTOLIC VELOCITIES (cm/sec): ICA/CCA RATIO: Right: 2.6 Left: 1.0 ICA: Right: 200 Left: 94 CCA: Right: 77 Left: 97 ECA: Right: 103 Left: 128 VERTEBRAL: Right: 58 antegrade Left: 74 antegrade Elevated flow velocities and ICA/CCA ratios have been found to correlate with increased degrees of vessel stenosis, calculated as percentage of diameter relative to a normal segment of distal ICA/CCA FINDINGS: RIGHT CAROTID: No significant stenosis is visualized. There is mild calcified and noncalcified plaque in the caroti d bulb. The waveforms are within normal limits. LEFT CAROTID: No significant stenosis is visualized. There is mild calcified and noncalcified plaque in the caroti d bulb. The internal carotid artery is tortuous. The waveforms are within normal limits. VERTEBRAL ARTERIES: Antegrade flow is seen in both vertebral arteries. MISCELLANEOUS: None. CONCLUSION: 1. Mild atherosclerotic disease within the carotid bulbs bilaterally. However, no significant stenosi s is identified within either internal carotid artery (less than 50% stenosis). 2. There is antegrade flow in both vertebral arteries. Alton Tapia MD on May 14, 2016 at 15:30 Board Certified Radiologist. This report was verified electronically.
[2016-05-14] MEDS: INSULIN ASPART SUPPLEMENTAL SCALE SQ SCH ×2 (16:16→21:00)
[2016-05-14 17:00] VITALS: BP 146/66; PULSE 87; RESP 20; TEMP 97; O2SAT 95
--- NOTE | 2016-05-14 17:58 | MB ---
cc: DAVID SKY DATE OF CONSULTATION: 05/14/2016. HISTORY OF PRESENT ILLNESS: A 65-year-old right-handed woman with a history of right below-knee amputation who has been seen by neurology several times since 2010. The last visit was by Dr. Haji in December of 2015. He noted a history of hypertension, diabetes, the amputation, DVT on coumadin, history of left occipital stroke, left temporal thalamic stroke in 2013, left intracranial hemorrhage in June of 2014. He had her down as alert and oriented at that time. He thought she had a little bit of a homonymous hemianopsia, a little right facial droop. From a neurologic standpoint, he did not think she needed to be anticoagulated. The patient was just in the emergency room. She said her stomach did not feel good. She was subsequently discharged and came back in her to the emergency room today. Difficulty speaking. She was last seen normal about 2:00 a.m. last evening. She woke up this morning confused with difficulty expressing herself, acting strangely. She was on 162 of aspirin. REVIEW OF SYSTEMS: Really cannot get from the patient. ALLERGIES: 1. AMOXICILLIN. 2. CIPRO. MEDICATIONS: 1. Keflex. 2. Aspirin 162. 3. Zantac. 4. Losartan. 5. Insulin. 6. Amlodipine. 7. Levemir. 8. Lipitor. PHYSICAL EXAMINATION: VITAL SIGNS: She has been in sinus rhythm in the emergency room, afebrile, 86, 22, 178/79. NECK: There are no carotid bruits. HEART: Regular rhythm. I do not detect a murmur. NEUROLOGICAL EXAMINATION: Her visual arnold appear to be full. Face was symmetric. Tongue was midline. Pupils were equal. She moved all of her extremities well. Her left toe was down. DTRs are trace to absent. Her speech appears fluent but she does not know the month or the year and she may have some aphasia. She could not show me her thumb. She pointed to her stomach when I asked her where her thumbs were. LABORATORY DATA: CBC was essentially normal. Sedimentation rate was 92 back in 2013. Hepatitis screen has been negative. KARL has been negative in the past. Hypercoagulable screen has been negative in the past. Urine drug screen is normal. Urinalysis here: Small amount of leukocyte esterase only, 10 white cells. Basic metabolic profile: Creatinine 2.38, which appears to be about her baseline. Sodium is normal. Liver function tests are normal. Ammonia level is normal. Troponin is negative. An SPEP in the past was normal in 2015. LDL cholesterol has been normal in October of last year. B12 was normal in 2010. TSH was normal in 2010. Coags are normal. IMAGING STUDIES: Carotid ultrasound is negative. CT scan of the brain is noted as stable on review of the films. There appears to be an old left deep temporal lobe infarct and a left occipital lobe infarct. She had an MRI of the brain in 2011 which showed left occipital lobe infarct. MRA [place] at that time was read as normal. Another MRI in 2013: subacute infarct left thalamus and left temporal lobe and multiple infarcts on the left at that time. She had another MRI in November of 2013 that showed stable subacute infarcts. MRI of the brain normal in October of 2015. CTA of the head at that time was normal. CTA of the neck at that time was negative. Review of the MRI from October shows a left cerebellar chronic infarct, fairly large left medial temporal lobe infarct and some extension into the left occipital lobe white matter. Also a small old left thalamic infarct. IMPRESSION: Multiple infarcts in the past. A seizure is a possibility or another stroke. RECOMMENDATIONS / PLAN: 1. We will check an MRI of the brain. She has had multiple likely embolic infarcts and she has never been found to have atrial fibrillation, which I do not see in the chart. She certainly could have cardioembolic effects and this needs to be looked at with prolonged heart monitoring. 2. On reviewing her MRI films, she did have an acute left cortically based infarct in the left middle cerebral artery territory and a small left thalamic infarct subacute at that time in November of 2013. In November of 2011, films I cannot review unfortunately but it was read as an acute left occipital lobe infarct. She did have in June of 2014 a left medial temporal intracranial hemorrhage of moderate size. She is on coumadin with an INR of 3.9. She had another elevated INR of greater than 14 in December of 2015; however, did not have a hemorrhage at that time and did not have an acute stroke. So will see what her MRI shows now. MD JOHN Menjivar/CESAR /5:15 PM /5:35 PM
--- NOTE | 2016-05-14 19:30 | RADRPT ---
EXAM DATE/TIME: 05/14/2016 18:57 This report includes an Addendum and supersedes previous reports for this exam. [facility] COMPARISON: MRI BRAIN W/O CONTRAST, October 30, 2015, 14:59. CT BRAIN W/O CONTRAST, May 14, 2016, 10:16. INDICATIONS : CVA. Aphasia. MEDICAL HISTORY : Diabetes mellitus type 2. Renal insufficiency. Deep venous thrombosis. SURGICAL HISTORY : Cholecystectomy. section. Right BKA. Cataracts. ENCOUNTER: Subsequent ACUITY: 1 day PAIN SCORE: 0/10 LOCATION: head. TECHNIQUE: Multiplanar, multisequence MRI of the brain was performed without contrast. FINDINGS: Relative to prior MRI of the October 30, 2015 there is no significant interval change.Midline structur es and major anatomic landmarks are correctly situated with normal ventricles. No evidence of new hem orrhage, extradural defect, mass, or acute infarction or diffusion restriction abnormality. Persisten t evidence of scattered periventricular and deep white matter microvascular ischemic demyelinization is appreciated with stable evidence of remote left parietal-occipital and cerebellar hemispheric infa rct. CONCLUSION: Stable MRI of the brain as described above with no new acute abnormality Jairo Lubin MD on May 14, 2016 at 19:24 Board Certified Radiologist. This report was verified electronically. ADDENDUM: There is 5 mm area of restricted diffusion in the left occipital region. This would be consistent wi th an ischemic event. Flynn Garcia MD FACR on May 15, 2016 at 9:08 Board Certified Radiologist. This report was verified electronically.
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
[2016-05-14 20:00] VITALS: BP 131/74; PULSE 87; PULSE 89; RESP 22; TEMP 98.1; O2SAT 97
[2016-05-14] MEDS ORDERED: INSULIN DETEMIR 100 UNITS/ML VIAL SQ SCH (21:00)
[2016-05-14] MEDS: SODIUM CHLORIDE 0.9% FLUSH 5 ML FLUSH FLUSH SCH (21:00)
[2016-05-14] MEDS ORDERED: SENNOSIDES 8.6 MG TAB PO PRN (21:00)
[2016-05-14] MEDS: INSULIN DETEMIR 100 UNITS/ML VIAL SQ SCH (22:25)
[2016-05-14] MEDS: FAMOTIDINE 20 MG TAB PO SCH (22:25)
[2016-05-14 23:31] LABS: CREATINE KINASE 82 U/L (26-192)
[2016-05-15] VITALS (7 sets, daily range): BP systolic 70–173; BP diastolic 62–79; PULSE 50–84; RESP 18–20; TEMP 97.6–99; O2SAT 96–100
[2016-05-15] MEDS: SODIUM CHLOR 0.9% 1000 ML INJ 1,000 ML IV SCH ×3 (02:44→18:30)
[2016-05-15] MEDS: INSULIN ASPART SUPPLEMENTAL SCALE SQ SCH ×4 (05:58→21:00)
[2016-05-15] MEDS: CEPHALEXIN MONOHYDRATE 500 MG CAP PO SCH ×3 (05:58→21:45)
[2016-05-15 07:32] LABS: AUTOMATED NEUTROPHIL # 5.2 TH/MM3 (1.8-7.7); BASOPHIL # 0.1 TH/MM3 (0-0.2); BASOPHIL % 0.8 % (0.0-2.0); EOSINOPHIL # 0.1 TH/MM3 (0-0.4); EOSINOPHIL % 1.5 % (0.0-4.0); HEMATOCRIT 29.2 % (35.0-46.0); HEMO FLAGS DIFF FINAL; LYMPH % 31.3 % (9.0-44.0); LYMPHOCYTE # 2.7 TH/MM3 (1.0-4.8); MEAN CELL VOLUME 91.9 FL (80.0-100.0); MEAN CORPUSCULAR HEMOGLOBIN 31.2 PG (27.0-34.0); MEAN CORPUSCULAR HGB CONC 33.9 % (32.0-36.0); MONO % 6.1 % (0.0-8.0); NEUT % 60.3 % (16.0-70.0); PLATELET COUNT 227 TH/MM3 (150-450); RED BLOOD COUNT 3.18 MIL/MM3 (4.00-5.30); RED CELL DISTRIBUTION WIDTH 15.6 % (11.6-17.2); WHITE BLOOD COUNT 8.6 TH/MM3 (4.0-11.0)
[2016-05-15 07:48] LABS: ALKALINE PHOSPHATASE 81 U/L (45-117); ALT (GPT) 21 U/L (10-53); ANION GAP 8 MEQ/L (5-15); AST (GOT) 13 U/L (15-37); BICARBONATE 24.3 MEQ/L (21.0-32.0); BLOOD UREA NITROGEN 31 MG/DL (7-18); CHLORIDE 110 MEQ/L (98-107); GLOMERULAR FILTRATION RATE 30 ML/MIN (>89); HDL CHOLESTEROL 35.4 MG/DL (40.0-60.0); LDL CHOLESTEROL 74 MG/DL (0-99); POTASSIUM 4.5 MEQ/L (3.5-5.1); SODIUM (NA) 142 MEQ/L (136-145); TOTAL BILIRUBIN ADULT 0.2 MG/DL (0.2-1.0)
--- NOTE | 2016-05-15 08:28 | HHI.PR ---
Subjective Remarks sr Objective Vital Signs Date Time Temp Pulse Resp B/P Pulse Ox O2 Delivery O2 Flow Rate FiO2 05/15/16 08:22 98.7 79 18 165/76 98 05/15/16 04:00 97.7 82 18 70/ 98 05/15/16 03:37 84 05/15/16 00:00 97.6 50 20 138/70 97 05/14/16 20:00 98.1 89 22 131/74 97 05/14/16 20:00 87 05/14/16 17:00 97.0 87 20 146/66 95 05/14/16 15:08 86 16 178/79 97 Room Air 05/14/16 11:27 87 20 156/68 97 Room Air 05/14/16 09:48 86 24 171/76 98 Room Air 05/14/16 09:44 98.3 86 22 171/76 98 I/O 05/14/16 05/14/16 05/14/16 05/15/16 05/15/16 05/15/16 07:00 15:00 23:00 07:00 15:00 23:00 Intake Total 1396 ml Balance 1396 ml Intake Tube Feeding 1396 ml Result Diagram: 05/15/16 0658 05/15/16 0658 Objective Remarks awke confused some aphasia Assessment and Plan Assessment and Plan imp there is a small acute left occipital cva now considering all the prior cva mult territories she is having cardioemboli she needs loop recorder placed and for now i am recommending coumadin until we can document afib and if we can we could consider left atrial appendage ablation her daughter will need to closely follow and mange the inr as she had a ich with inr <3 in past and she had an inr 14 at one time willconsult cards for loop Darrius Moore MD May 15, 2016 08:28
[2016-05-15] MEDS: SODIUM CHLORIDE 0.9% FLUSH 5 ML FLUSH FLUSH SCH ×2 (09:36→21:45)
[2016-05-15] MEDS: ATORVASTATIN 80 MG TAB PO SCH (09:37)
[2016-05-15] MEDS: ASPIRIN EC 81 MG TABEC PO SCH (09:37)
[2016-05-15] MEDS: LOSARTAN 50 MG TAB PO SCH (09:38)
[2016-05-15] MEDS: FAMOTIDINE 20 MG TAB PO SCH ×2 (09:38→21:45)
--- NOTE | 2016-05-15 11:08 | HHI.PR ---
Subjective Remarks Follow-up small acute left occipital CVA 05/15/16-patient seen and examined, stable, still aphasic however improvement of mentation. Denies any chest pain or shortness of breath. Objective Vitals Vital Signs Date Time Temp Pulse Resp B/P Pulse Ox O2 Delivery O2 Flow Rate FiO2 05/15/16 08:22 98.7 79 18 165/76 98 05/15/16 04:00 97.7 82 18 70/ 98 05/15/16 03:37 84 05/15/16 00:00 97.6 50 20 138/70 97 05/14/16 20:00 98.1 89 22 131/74 97 05/14/16 20:00 87 05/14/16 17:00 97.0 87 20 146/66 95 05/14/16 15:08 86 16 178/79 97 Room Air 05/14/16 11:27 87 20 156/68 97 Room Air I/O 05/14/16 05/14/16 05/14/16 05/15/16 05/15/16 05/15/16 07:00 15:00 23:00 07:00 15:00 23:00 Intake Total 1396 ml Balance 1396 ml Intake Tube Feeding 1396 ml Result Diagram: 05/15/16 0658 05/15/16 0658 Imaging Last Impressions Brain MRI 05/14/16 1728 Signed Impressions: Service Date/Time: April 18:57 - CONCLUSION: Stable MRI of the brain as described above with no new acute abnormality Jairo Lubin MD ADDENDUM: There is 5 mm area of restricted diffusion in the left occipital region. This would be consistent with an ischemic event. Flynn Garcia MD FACR Head CT 05/14/16 0954 Signed Impressions: Service Date/Time: April 10:16 - CONCLUSION: Stable brain appearance. No acute intracranial finding Alton Garay MD Renal Ultrasound 05/14/16 0000 Signed Impressions: Service Date/Time: April 14:06 - CONCLUSION: No acute findings. No evidence of hydronephrosis or mass. Jabari Gonzalez MD Carotid Artery Ultrasound 05/14/16 0000 Signed Impressions: Service Date/Time: April 14:16 - CONCLUSION: 1. Mild atherosclerotic disease within the carotid bulbs bilaterally. However, no significant stenosis is identified within either internal carotid artery (less than 50%% stenosis). 2. There is antegrade flow in both vertebral arteries. Alton Tapia MD Objective Remarks GENERAL: NAD and aphasic SKIN: Warm and dry. HEAD: Normocephalic. EYES: No scleral icterus. No injection or drainage. NECK: Supple, trachea midline. No JVD or lymphadenopathy. CARDIOVASCULAR: Regular rate and rhythm without murmurs, gallops, or rubs. RESPIRATORY: Breath sounds equal bilaterally. No accessory muscle use. GASTROINTESTINAL: Abdomen soft, non-tender, nondistended. MUSCULOSKELETAL: No cyanosis, or edema. BACK: Nontender without obvious deformity. No CVA tenderness. A/P Problem List: (1) Aphasia ICD Code: R47.01 Status: Acute (2) History of DVT (deep vein thrombosis) ICD Code: Z86.718 (3) CKD (chronic kidney disease) stage 3, GFR 30-59 ml/min ICD Code: N18.3 Status: Acute (4) Hypertension ICD Code: I10 Status: Chronic (5) Type 2 diabetes mellitus ICD Code: E11.9 Status: Chronic (6) History of intracranial hemorrhage ICD Code: Z86.79 (7) possible tia Status: Acute (8) History of CVA with residual deficit ICD Code: I69.30 Status: Acute (9) Occipital stroke ICD Code: I63.9 Status: Acute (10) Acute renal failure superimposed on stage 3 chronic kidney disease ICD Code: N17.9 Status: Acute Assessment and Plan 65-year-old female with History of CVA with residual effect now with small acute left occipital CVA: CT head with finding of Stable brain appearance. Brain MRI with finding of 5 mm area of restricted diffusion in the left occipital region. Appreciate input from neurology pending consult from cardiology as patient will be needed loop recorder to rule out cardioembolic event. Needs Coumadin, continue with aspirin , Lipitor as well as permissive hypertension. PT/OT/speech therapy consulted. UTI: Complete antibiotic therapy with Keflex 500 mg by mouth daily 8H Diabetes type 2: insulin sliding scale and continue Levemir 50 units at bedtime Prior history of DVT: Chronic, patient no longer on Coumadin Hyperlipidemia: continue statin Acute on Chronic kidney disease III: Improving renal indices, continue gentle IV fluid hydration and appreciate input from nephrology. DVT prophylaxis: Bilateral SCDs Problem Qualifiers (1) Type 2 diabetes mellitus: Keny Jj MD May 15, 2016 11:08
--- NOTE | 2016-05-15 13:41 | HHI.NPPN ---
Subjective History of Present Illness 65 year old female with CKD CVA, now with a new CVA occipital area left Review of Systems General Constitutional: Fatigue Eyes Eyes: Vision Change Objective Data Data 05/14/16 05/15/16 19:00 07:00 Intake Total 1396 ml Balance 1396 ml Intake Tube Feeding 1396 ml Vital Signs Date Time Temp Pulse Resp B/P Pulse Ox O2 Delivery O2 Flow Rate FiO2 05/15/16 12:00 99.0 81 18 145/67 98 05/15/16 08:22 98.7 79 18 165/76 98 05/15/16 04:00 97.7 82 18 70/ 98 05/15/16 03:37 84 05/15/16 00:00 97.6 50 20 138/70 97 05/14/16 20:00 98.1 89 22 131/74 97 05/14/16 20:00 87 05/14/16 17:00 97.0 87 20 146/66 95 05/14/16 15:08 86 16 178/79 97 Room Air -: 05/15/16 0658 05/15/16 0658 Physical Exam General Appearance: Well Developed Neck Neck Exam: Neck Supple Pulmonary Resp Exam: Clear Bilaterally, Breath Sounds Equal Cardiology CV Exam: Regular, Normal Sinus Rhythm Gastrointestinal/Abdomen GI Exam: Soft, Non-Tender Assessment/Plan Problem List: (1) Acute renal failure Plan: Patient improved had CVA Cr declining UTI give Macrobid (2) CKD (chronic kidney disease) stage 3, GFR 30-59 ml/min Plan: GFR around 39 as baseline (3) Type 2 diabetes mellitus Plan: Monitor blood glucose level (4) UTI (urinary tract infection) Plan: start Macrobid (5) Occipital stroke Plan: Neurology following Problem Qualifiers (1) Acute renal failure: Qualified Code: N17.9 - Acute renal failure, unspecified acute renal failure type (2) Type 2 diabetes mellitus: Natasha Thacker MD May 15, 2016 13:40
[2016-05-15] MEDS: ACETAMINOPHEN 325 MG TAB PO PRN (14:59)
[2016-05-15] MEDS: NITROFURANTOIN MONOHYD MACROCR 100 MG CAP PO SCH ×2 (15:00→18:43)
--- NOTE | 2016-05-15 15:20 | MG ---
cc: FARHAN MCNEAL M.D. Lab No: [id number] Date: 05/15/2016 Age: 65 Sex: F Awake, drowsy, asleep, with photic stimulation only. EEG 11/30/2013 normal. MRI stable. A 65-year-old woman admitted with difficulty speaking, confused. She was a Stroke Alert, acting peculiar. History of dizziness, cataract, seizure, syncope, renal disease, anemia, right BKA, arthritis, hyperlipidemia. Medicines: Norvasc, Aspirin, Lipitor, Cozaar, insulin, Keflex. DESCRIPTION OF RECORD The patient is awake, has 8 Hz alpha at times, at times 7 Hz, is between normal alpha and theta frequency, 20 microvolts, symmetrical. Quite a bit of eye movement but overall there is no hindrance to the study. EKG looks sinus. Hyperventilation was not performed. Comparing the left side to the right side there may be some left hemispheric slowing frontal temporal at times. Some attenuation. She falls asleep. Photic stimulation, some driving response seen, minimal. IMPRESSION Abnormal EEG due to some left frontotemporal area slowing. At times she is between normal alpha and theta frequency. There may be a mild component of encephalopathy as well versus sedation but the slowing left frontotemporal may be due to structural lesion. Clinical correlation. MD OBIE Oden/SUKI /3:02 PM /3:14 PM
[2016-05-15 16:25] LABS: HEMOGLOBIN A1a 1.4 %; HEMOGLOBIN A1b 2.2 %; HEMOGLOBIN Ao 81.6 %; HEMOGLOBIN LA1C 2.4 %; HEMOGLOBIN P3 6.6 %
--- NOTE | 2016-05-15 17:19 | EKG ---
Date Performed: 05/14/2016 Time Performed: 12:31:28 PTAGE: 65 years EKG: Sinus rhythm NONSPECIFIC T-WAVE ABNORMALITY BORDERLINE ECG PREVIOUS TRACING : 05/09/2016 21.15 Since previous tracing, no significant change noted DOCTOR: Ligia Lewis Interpretating Date/Time 05/15/2016 17:15:28
--- NOTE | 2016-05-15 17:20 | EKG ---
Date Performed: 05/14/2016 Time Performed: 21:08:42 PTAGE: 65 years EKG: Sinus rhythm BORDERLINE LEFT AXIS DEVIATION MINIMAL VOLTAGE CRITERIA FOR LVH, CONSIDER NORMAL VARIANT NONSPECIFIC T-WAVE ABNORMALITY BORDERLINE ECG PREVIOUS TRACING : 05/14/2016 12.31 Since previous tracing, no significant change noted DOCTOR: Ligia Lewis Interpretating Date/Time 05/15/2016 17:15:36
--- NOTE | 2016-05-15 18:16 | MB ---
cc: GAURI LAU M.D. DATE OF CONSULTATION 05/15/16 REASON FOR CONSULTATION Consideration of an implantable loop recorder. HISTORY OF PRESENT ILLNESS The patient is a 65-year-old -[place] female with a history of hypertension, diabetes, deep venous thrombosis, CVAs, peripheral vascular disease status post right [id number] amputation, who presented to the emergency room with difficulty speaking. MRI of the brain shows old CVAs as well as a 5 mm area of possible ischemia in the left occipital region. The patient reports one episode of fluttering palpitations about a week ago lasting a few minutes. She denies any other palpitations. She also denies dizziness, syncope, near-syncope, chest pain, shortness of breath, pedal edema, paroxysmal nocturnal dyspnea. PAST MEDICAL HISTORY 1. Hypertension 2. Diabetes. 3. History of right upper extremity deep venous thrombosis diagnosed 11/28/13 4. History of multiple CVAs including a left temporal thalamic CVA 2013 and left intracranial hemorrhage June 2014 5. Chronic renal insufficiency. 6. Peripheral vascular disease status post right [id number] amputation. MEDICATIONS Cardiac medications 1. Losartan 100 mg daily. 2. Lipitor 80 mg q.h.s. 3. Amlodipine 10 mg daily. 4. Aspirin 162 mg daily. ALLERGIES AMOXICILLIN CIPRO FAMILY HISTORY There is no significant family history of early myocardial infarction. SOCIAL HISTORY The patient denies alcohol or tobacco abuse. REVIEW OF SYSTEMS As in the history of present illness otherwise negative or noncontributory. She also denies headache, visual changes, abdominal pain, melena, dyspepsia, bright red blood per rectum. PHYSICAL EXAMINATION VITAL SIGNS: Blood pressure 173/79 with a pulse of 82, respirations 18. GENERAL: She is a well-developed, well-nourished -[place] female in no acute distress. HEENT: Jugular venous pressure is normal. Carotid pulses are 2+ bilaterally and without bruits. CHEST: Examination of the chest reveals clear lung arnold. CARDIAC: On cardiac examination, she has a regular rhythm and rate without S3-S4 or murmur. ABDOMEN: On abdominal examination, she has a soft, nontender abdomen. Bowel sounds are present. There is no definite hepatosplenomegaly. EXTREMITIES: Examination of the extremities reveals no clubbing, cyanosis or edema. LABORATORY DATA WBC 8.6, hemoglobin 9.9, platelets 227, potassium 4.5, BUN 31, creatinine 2.02, troponin less than 0.02, CK 82. CARDIOLOGY STUDIES EKG shows sinus rhythm, leftward axis, nonspecific T-wave abnormality. IMPRESSION Overall stable cardiac status in this 65-year-old -[place] female with a history of hypertension, diabetes, deep venous thrombosis, multiple CVAs, chronic renal insufficiency admitted with difficulty speaking. I have been asked to see the patient for possible implantable loop recorder placement. She has no definite history of atrial fibrillation. At this point, I would initially recommend an outpatient 3-week Medicomp monitor. In my experience, I have found that the implantable loop recorder tracings sometimes have very low P-wave sensing, and some rhythms such as sinus rhythm with premature atrial complexes may appear to be atrial fibrillation when in fact it is not. RECOMMENDATIONS She can be discharged from a cardiac standpoint; we can set her up for a 3-week Medicomp monitor as an outpatient. MD CLAUDIA Johnson/ /4:28 PM /6:00 PM RADHA
[2016-05-15] MEDS: INSULIN DETEMIR 100 UNITS/ML VIAL SQ SCH (21:45)
[2016-05-16] VITALS (8 sets, daily range): BP systolic 130–177; BP diastolic 67–78; PULSE 79–154; RESP 16–18; TEMP 96.9–97.8; O2SAT 94–98
[2016-05-16] MEDS: SODIUM CHLOR 0.9% 1000 ML INJ 1,000 ML IV SCH (04:30)
[2016-05-16] MEDS: CEPHALEXIN MONOHYDRATE 500 MG CAP PO SCH ×3 (06:12→20:47)
[2016-05-16] MEDS: INSULIN ASPART SUPPLEMENTAL SCALE SQ SCH ×4 (06:13→20:48)
[2016-05-16 07:35] LABS: BICARBONATE 26.4 MEQ/L (21.0-32.0); POTASSIUM 4.5 MEQ/L (3.5-5.1)
[2016-05-16] MEDS: ATORVASTATIN 80 MG TAB PO SCH (08:53)
[2016-05-16] MEDS: NITROFURANTOIN MONOHYD MACROCR 100 MG CAP PO SCH ×2 (08:53→18:30)
[2016-05-16] MEDS: ASPIRIN EC 81 MG TABEC PO SCH (08:54)
[2016-05-16] MEDS: FAMOTIDINE 20 MG TAB PO SCH ×2 (08:54→20:47)
[2016-05-16] MEDS: LOSARTAN 50 MG TAB PO SCH (08:54)
[2016-05-16] MEDS: SODIUM CHLORIDE 0.9% FLUSH 5 ML FLUSH FLUSH SCH ×2 (09:00→20:48)
--- NOTE | 2016-05-16 12:09 | HHI.NPPN ---
Subjective History of Present Illness 65-year-old female with history of chronic kidney disease stage III, diabetes, hypertension, who had slurred speech and an multiphasic She states that she can speak now she has a problem with the left eye and light bothers her she said there was some weakness on the left side of the face. Patient has known history of chronic kidney disease. Additional Remarks Patient is alert, no SOB, feeling better. Review of Systems General Constitutional: Fatigue Eyes Eyes: Vision Change Objective Data Data 05/15/16 05/16/16 19:00 07:00 Intake Total 360 ml Balance 360 ml Intake Oral 360 ml # Voids 2 # Bowel Movements 1 Vital Signs Date Time Temp Pulse Resp B/P Pulse Ox O2 Delivery O2 Flow Rate FiO2 05/16/16 08:17 96.9 85 18 172/77 97 05/16/16 03:09 97.2 79 16 174/76 94 05/16/16 00:00 97.8 80 18 130/70 97 05/15/16 20:00 80 05/15/16 20:00 97.7 79 18 136/62 96 05/15/16 16:08 97.8 82 18 173/79 100 05/15/16 15:59 16 -: 05/15/16 0658 05/16/16 0645 Physical Exam General Appearance: No Acute Distress, Comfortable Neck Neck Exam: Neck Supple Pulmonary Resp Exam: Breath Sounds Equal, Decreased Bases, Diminished Breath Sounds Cardiology CV Exam: Regular, Normal Sinus Rhythm Gastrointestinal/Abdomen GI Exam: Soft, Non-Tender Extremeties Extremities Exam: Trace Edema Neurologic Neuro Exam: Alert, Awake Psychiatric Psych Exam: Appropriate Responses Assessment/Plan Problem List: (1) Acute renal failure Plan: Patient improved had CVA Creatinine is now 2.1, her baseline is close to 1.8. If discharged, will need follow up with Dr. Thacker. (2) CKD (chronic kidney disease) stage 3, GFR 30-59 ml/min Plan: GFR around 39 as baseline (3) Type 2 diabetes mellitus Plan: Monitor blood glucose level (4) UTI (urinary tract infection) Plan: start Macrobid (5) Occipital stroke Plan: Neurology following Problem Qualifiers (1) Acute renal failure: Qualified Code: N17.9 - Acute renal failure, unspecified acute renal failure type (2) Type 2 diabetes mellitus: Roxy Winter MD May 16, 2016 12:09
--- NOTE | 2016-05-16 12:15 | HHI.PR ---
Subjective Remarks Follow-up small acute left occipital CVA 05/15/16-patient seen and examined, stable, still aphasic however improvement of mentation. Denies any chest pain or shortness of breath. 05/16/16-patient seen and examined; speech improving and no complaint Objective Vitals Vital Signs Date Time Temp Pulse Resp B/P Pulse Ox O2 Delivery O2 Flow Rate FiO2 05/16/16 08:17 96.9 85 18 172/77 97 05/16/16 03:09 97.2 79 16 174/76 94 05/16/16 00:00 97.8 80 18 130/70 97 05/15/16 20:00 80 05/15/16 20:00 97.7 79 18 136/62 96 05/15/16 16:08 97.8 82 18 173/79 100 05/15/16 15:59 16 I/O 05/15/16 05/15/16 05/15/16 05/16/16 05/16/16 05/16/16 07:00 15:00 23:00 07:00 15:00 23:00 Intake Total 1396 ml 360 ml 0 ml Balance 1396 ml 360 ml 0 ml Intake Oral 360 ml IV Total 0 ml Tube Feeding 1396 ml # Voids 2 # Bowel Movements 1 Result Diagram: 05/15/16 0658 05/16/16 0645 Imaging Last Impressions Brain MRI 05/14/16 1728 Signed Impressions: Service Date/Time: April 18:57 - CONCLUSION: Stable MRI of the brain as described above with no new acute abnormality Jairo Lubin MD ADDENDUM: There is 5 mm area of restricted diffusion in the left occipital region. This would be consistent with an ischemic event. Flynn Garcia MD FACR Head CT 05/14/16 0954 Signed Impressions: Service Date/Time: April 10:16 - CONCLUSION: Stable brain appearance. No acute intracranial finding Alton Garay MD Renal Ultrasound 05/14/16 0000 Signed Impressions: Service Date/Time: April 14:06 - CONCLUSION: No acute findings. No evidence of hydronephrosis or mass. aJbari Gonzalez MD Carotid Artery Ultrasound 05/14/16 0000 Signed Impressions: Service Date/Time: April 14:16 - CONCLUSION: 1. Mild atherosclerotic disease within the carotid bulbs bilaterally. However, no significant stenosis is identified within either internal carotid artery (less than 50%% stenosis). 2. There is antegrade flow in both vertebral arteries. Alton Tapia MD Objective Remarks GENERAL: NAD and aphasic SKIN: Warm and dry. HEAD: Normocephalic. EYES: No scleral icterus. No injection or drainage. NECK: Supple, trachea midline. No JVD or lymphadenopathy. CARDIOVASCULAR: Regular rate and rhythm without murmurs, gallops, or rubs. RESPIRATORY: Breath sounds equal bilaterally. No accessory muscle use. GASTROINTESTINAL: Abdomen soft, non-tender, nondistended. MUSCULOSKELETAL: No cyanosis, or edema. BACK: Nontender without obvious deformity. No CVA tenderness. A/P Problem List: (1) Aphasia ICD Code: R47.01 Status: Acute (2) History of DVT (deep vein thrombosis) ICD Code: Z86.718 (3) CKD (chronic kidney disease) stage 3, GFR 30-59 ml/min ICD Code: N18.3 Status: Acute (4) Hypertension ICD Code: I10 Status: Chronic (5) Type 2 diabetes mellitus ICD Code: E11.9 Status: Chronic (6) History of intracranial hemorrhage ICD Code: Z86.79 (7) possible tia Status: Acute (8) History of CVA with residual deficit ICD Code: I69.30 Status: Acute (9) Occipital stroke ICD Code: I63.9 Status: Acute (10) Acute renal failure superimposed on stage 3 chronic kidney disease ICD Code: N17.9 Status: Acute Assessment and Plan 65-year-old female with History of CVA with residual effect now with small acute left occipital CVA: CT head with finding of Stable brain appearance. Brain MRI with finding of 5 mm area of restricted diffusion in the left occipital region. Appreciate input from neurology. Patient seen by cardiology and recommended 3 weeks Medicomp monitor outpatient. No evidence of A. fib. Continue with aspirin, Lipitor as well as permissive hypertension. PT/OT/speech therapy consulted. UTI: Complete antibiotic therapy with Keflex 500 mg by mouth daily 8H Diabetes type 2: insulin sliding scale and continue Levemir 50 units at bedtime Prior history of DVT: Chronic, patient no longer on Coumadin Hyperlipidemia: continue statin Acute on Chronic kidney disease III: Improving renal indices, continue gentle IV fluid hydration and appreciate input from nephrology. 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
[2016-05-16] MEDS: ONDANSETRON HCL 4 MG/2 ML VIAL IVP PRN ×2 (18:30→23:32)
[2016-05-16] MEDS: INSULIN DETEMIR 100 UNITS/ML VIAL SQ SCH (20:48)
[2016-05-16] MEDS: ACETAMINOPHEN 325 MG TAB PO PRN (20:50)
[2016-05-17] VITALS (13 sets, daily range): BP systolic 103–151; BP diastolic 51–79; PULSE 96–134; RESP 18–20; TEMP 96.5–101.2; O2SAT 93–98
[2016-05-17] MEDS: ACETAMINOPHEN 325 MG TAB PO PRN ×3 (00:31→09:19)
[2016-05-17] MEDS ORDERED: LACTATED RINGER'S 1000 ML INJ 1,000 ML IV SCH (00:45)
[2016-05-17] MEDS: CEFEPIME INJ 2,000 MG in SODIUM CHLORIDE 0.9% INJ 100 ML IV SCH (01:12)
[2016-05-17 06:18] LABS: BASOPHIL # 0.1 TH/MM3 (0-0.2); BASOPHIL % 0.3 % (0.0-2.0); EOSINOPHIL % 0.1 % (0.0-4.0); HEMO FLAGS DIFF FINAL; LYMPH % 3.1 % (9.0-44.0); LYMPHOCYTE # 0.7 TH/MM3 (1.0-4.8); MEAN CELL VOLUME 91.6 FL (80.0-100.0); MEAN CORPUSCULAR HEMOGLOBIN 31.1 PG (27.0-34.0); MONO % 1.7 % (0.0-8.0); NEUT % 94.8 % (16.0-70.0); PLATELET COUNT 236 TH/MM3 (150-450); RED CELL DISTRIBUTION WIDTH 14.8 % (11.6-17.2); WHITE BLOOD COUNT 22.1 TH/MM3 (4.0-11.0)
[2016-05-17] MEDS: INSULIN ASPART SUPPLEMENTAL SCALE SQ SCH ×4 (06:36→21:00)
[2016-05-17 06:39] LABS: BICARBONATE 23.3 MEQ/L (21.0-32.0); MAGNESIUM 1.7 MG/DL (1.5-2.5); POTASSIUM 5.2 MEQ/L (3.5-5.1)
[2016-05-17] MEDS: SODIUM CHLOR 0.9% 1000 ML INJ 1,000 ML IV SCH ×2 (07:02→21:57)
--- NOTE | 2016-05-17 09:14 | EKG ---
Date Performed: 05/17/2016 Time Performed: 00:41:14 PTAGE: 65 years EKG: Sinus tachycardia. Leftward axis Poor R wave progression Low QRS voltages in precordial kelly ds Abnormal ECG PREVIOUS TRACING : 05/14/2016 21.08 Compared to previous tracing, heart rate has increased. DOCTOR: Jairo Jaimes Interpretating Date/Time 05/17/2016 09:14:24
[2016-05-17] MEDS: ATORVASTATIN 80 MG TAB PO SCH (09:19)
[2016-05-17] MEDS: FAMOTIDINE 20 MG TAB PO SCH ×3 (09:19→21:58)
[2016-05-17] MEDS: ASPIRIN EC 81 MG TABEC PO SCH (09:20)
[2016-05-17] MEDS: LOSARTAN 50 MG TAB PO SCH (09:20)
[2016-05-17] MEDS: SODIUM CHLORIDE 0.9% FLUSH 5 ML FLUSH FLUSH SCH ×2 (09:20→21:00)
--- NOTE | 2016-05-17 10:34 | HHI.NPPN ---
Subjective History of Present Illness 65-year-old female with history of chronic kidney disease stage III, diabetes, hypertension, who had slurred speech and an multiphasic She states that she can speak now she has a problem with the left eye and light bothers her she said there was some weakness on the left side of the face. Patient has known history of chronic kidney disease. Additional Remarks Patient is alert, has low grade fever, no SOB, eating better as per patient. Review of Systems General Constitutional: Fatigue Eyes Eyes: Vision Change Objective Data Data 05/16/16 05/17/16 19:00 07:00 Intake Total 480 ml 1028 ml Balance 480 ml 1028 ml Intake Oral 480 ml 600 ml IV Total 0 ml 428 ml # Voids 3 3 # Bowel Movements 1 2 Vital Signs Date Time Temp Pulse Resp B/P Pulse Ox O2 Delivery O2 Flow Rate FiO2 05/17/16 08:00 100.4 107 18 127/60 98 05/17/16 06:38 98.9 05/17/16 05:35 104 05/17/16 05:24 20 05/17/16 05:09 99.5 05/17/16 04:24 101.2 105 20 137/62 93 05/17/16 02:00 99.4 05/17/16 00:14 100.6 134 20 151/79 94 05/16/16 22:28 154 05/16/16 21:50 20 05/16/16 20:00 83 05/16/16 20:00 97.7 81 18 139/67 98 05/16/16 16:00 97.6 81 18 171/78 95 05/16/16 12:18 97.0 80 18 177/77 96 -: 05/17/16 0600 05/17/16 0500 Microbiology 05/17/16 Aerobic Blood Culture, Received Pending 05/17/16 Anaerobic Blood Culture, Received Pending 05/17/16 Aerobic Blood Culture, Received Pending 05/17/16 Anaerobic Blood Culture, Received Pending Physical Exam General Appearance: No Acute Distress, Comfortable Neck Neck Exam: Neck Supple Pulmonary Resp Exam: Breath Sounds Equal, Decreased Bases, Diminished Breath Sounds Cardiology CV Exam: Regular, Normal Sinus Rhythm Gastrointestinal/Abdomen GI Exam: Soft, Non-Tender Extremeties Extremities Exam: Trace Edema Neurologic Neuro Exam: Alert, Awake Psychiatric Psych Exam: Appropriate Responses Assessment/Plan Problem List: (1) Acute renal failure Plan: Patient improved had CVA Creatinine increased to 2.7, her baseline is close to 1.8. Has also low grade fever. The increase in the Creatinine could be due to infection or pre renal. Started on IVF and now Cefepime. Dr. Thacker will follow from tomorrow. (2) CKD (chronic kidney disease) stage 3, GFR 30-59 ml/min Plan: GFR around 39 as baseline (3) Type 2 diabetes mellitus Plan: Monitor blood glucose level (4) UTI (urinary tract infection) Plan: start Macrobid (5) Occipital stroke Plan: Neurology following Problem Qualifiers (1) Acute renal failure: Qualified Code: N17.9 - Acute renal failure, unspecified acute renal failure type (2) Type 2 diabetes mellitus: Roxy Winter MD May 17, 2016 10:34
[2016-05-17] MEDS ORDERED: hydrALAZINE HCL 25 MG TAB PO PRN (11:30)
[2016-05-17] MEDS ORDERED: Vancomycin Consult Pharmacy 1 EA OTHER SCH (11:30)
[2016-05-17] MEDS ORDERED: VANCOMYCIN INJ 1,000 MG in SODIUM CHLOR 0.9% 250 ML INJ 250 ML IV SCH (11:30)
--- NOTE | 2016-05-17 11:32 | HHI.PR ---
Subjective Remarks Follow-up small acute left occipital CVA 05/15/16-patient seen and examined, stable, still aphasic however improvement of mentation. Denies any chest pain or shortness of breath. 05/16/16-patient seen and examined; speech improving and no complaint 05/17/16-patient seen and examined, Tmax 101.2 at 4:30 AM and currently temperature 100.4 at 8 AM patient was tachycardic with elevated WBC therefore meeting sepsis criteria for which she was started on cefepime last night. Objective Vitals Vital Signs Date Time Temp Pulse Resp B/P Pulse Ox O2 Delivery O2 Flow Rate FiO2 05/17/16 08:00 100.4 107 18 127/60 98 05/17/16 06:38 98.9 05/17/16 05:35 104 05/17/16 05:24 20 05/17/16 05:09 99.5 05/17/16 04:24 101.2 105 20 137/62 93 05/17/16 02:00 99.4 05/17/16 00:14 100.6 134 20 151/79 94 05/16/16 22:28 154 05/16/16 21:50 20 05/16/16 20:00 83 05/16/16 20:00 97.7 81 18 139/67 98 05/16/16 16:00 97.6 81 18 171/78 95 05/16/16 12:18 97.0 80 18 177/77 96 I/O 05/16/16 05/16/16 05/16/16 05/17/16 05/17/16 05/17/16 07:00 15:00 23:00 07:00 15:00 23:00 Intake Total 480 ml 400 ml 628 ml Balance 480 ml 400 ml 628 ml Intake Oral 480 ml 400 ml 200 ml IV Total 0 ml 428 ml # Voids 3 2 1 # Bowel Movements 1 2 Result Diagram: 05/17/16 0600 05/17/16 0500 Imaging Last Impressions Brain MRI 05/14/16 1728 Signed Impressions: Service Date/Time: April 18:57 - CONCLUSION: Stable MRI of the brain as described above with no new acute abnormality Jairo Lubin MD ADDENDUM: There is 5 mm area of restricted diffusion in the left occipital region. This would be consistent with an ischemic event. Flynn Garcia MD FACR Head CT 05/14/16 0954 Signed Impressions: Service Date/Time: April 10:16 - CONCLUSION: Stable brain appearance. No acute intracranial finding Alton Garay MD Renal Ultrasound 05/14/16 0000 Signed Impressions: Service Date/Time: April 14:06 - CONCLUSION: No acute findings. No evidence of hydronephrosis or mass. Jabari Gonzalez MD Carotid Artery Ultrasound 05/14/16 0000 Signed Impressions: Service Date/Time: April 14:16 - CONCLUSION: 1. Mild atherosclerotic disease within the carotid bulbs bilaterally. However, no significant stenosis is identified within either internal carotid artery (less than 50%% stenosis). 2. There is antegrade flow in both vertebral arteries. Alton Tapia MD Objective Remarks GENERAL: NAD and aphasic SKIN: Warm and dry. HEAD: Normocephalic. EYES: No scleral icterus. No injection or drainage. NECK: Supple, trachea midline. No JVD or lymphadenopathy. CARDIOVASCULAR: Regular rate and rhythm without murmurs, gallops, or rubs. RESPIRATORY: Breath sounds equal bilaterally. No accessory muscle use. GASTROINTESTINAL: Abdomen soft, non-tender, nondistended. MUSCULOSKELETAL: No cyanosis, or edema. BACK: Nontender without obvious deformity. No CVA tenderness. A/P Problem List: (1) Aphasia ICD Code: R47.01 Status: Acute (2) History of DVT (deep vein thrombosis) ICD Code: Z86.718 (3) CKD (chronic kidney disease) stage 3, GFR 30-59 ml/min ICD Code: N18.3 Status: Acute (4) Hypertension ICD Code: I10 Status: Chronic (5) Type 2 diabetes mellitus ICD Code: E11.9 Status: Chronic (6) History of intracranial hemorrhage ICD Code: Z86.79 (7) possible tia Status: Acute (8) History of CVA with residual deficit ICD Code: I69.30 Status: Acute (9) Occipital stroke ICD Code: I63.9 Status: Acute (10) Acute renal failure superimposed on stage 3 chronic kidney disease ICD Code: N17.9 Status: Acute (11) Sepsis ICD Code: A41.9 Status: Acute Assessment and Plan 65-year-old female with Sepsis: Initially no sepsis on admission however patient overnight had T>100.9 and WBC>12K with normal Lactic acid; source like UTI however will check chest x- ray to rule out pulmonary infiltrate. Currently on cefepime and add vancomycin pending blood, repeat urine culture. History of CVA with residual effect now with small acute left occipital CVA: CT head with finding of Stable brain appearance. Brain MRI with finding of 5 mm area of restricted diffusion in the left occipital region. Appreciate input from neurology. Patient seen by cardiology and recommended 3 weeks Medicomp monitor outpatient. No evidence of A. fib. Continue with aspirin, Lipitor as well as permissive hypertension. PT/OT/speech therapy consulted. UTI: Complete antibiotic therapy with Keflex 500 mg by mouth daily 8H Diabetes type 2: insulin sliding scale and continue Levemir 50 units at bedtime Prior history of DVT: Chronic, patient no longer on Coumadin Hyperlipidemia: continue statin Acute on Chronic kidney disease III: Worsening renal indices likely secondary to infection, continue gentle IV fluid hydration and appreciate input from nephrology. DVT prophylaxis: Bilateral SCDs Problem Qualifiers (1) Type 2 diabetes mellitus: Keny Jj MD May 17, 2016 11:31
--- NOTE | 2016-05-17 12:05 | RADRPT ---
EXAM DATE/TIME: 05/17/2016 11:57 [facility] COMPARISON: CHEST SINGLE AP, March 08, 2016, 18:06. CHEST SINGLE AP, May 09, 2016, 20:28. INDICATIONS : Fever MEDICAL HISTORY : Diabetes mellitus type II. SURGICAL HISTORY : None. ENCOUNTER: Subsequent ACUITY: 4 - 6 days PAIN SCORE: Non-responsive. LOCATION: Bilateral chest FINDINGS: No infiltrate, effusion or pneumothorax seen. Borderline cardiomegaly unchanged. CONCLUSION: No evidence of acute cardiopulmonary disease. Alton Nj MD on May 17, 2016 at 12:03 Board Certified Radiologist. This report was verified electronically.
[2016-05-17] MEDS ORDERED: VANCOMYCIN 1,500 MG/NS 500 ML IV ONE ×2 (13:00)
[2016-05-17] MEDS: ONDANSETRON HCL 4 MG/2 ML VIAL IVP PRN (14:53)
[2016-05-17 15:41] LABS: BACTERIA, URINE RARE /hpf; BLOOD, URINE TRACE (NEG); GLUCOSE,URINE NEG (NEG); KETONE, URINE NEG (NEG); NITRITE,URINE NEG (NEG); PH, URINE 5.5 (5.0-8.5); SQUAMOUS EPITHELIAL CELL URINE <1 /hpf (0-5); URINE COLOR YELLOW (YELLW/STRAW)
[2016-05-17 15:47] LABS: COMMENT (UR) CULTURE INDICATED; CULTURE IF INDICATED CULTURE INDICATED
[2016-05-17] MEDS: INSULIN DETEMIR 100 UNITS/ML VIAL SQ SCH (21:58)
[2016-05-17 22:24] LABS: C. DIFF TOXIN PCR POSITIVE (NEGATIVE)
[2016-05-17 22:28] LABS: C. DIFF EPI 027 PRESUMPTIVE POSITIVE (NEGATIVE)
[2016-05-18] VITALS (7 sets, daily range): BP systolic 113–138; BP diastolic 54–69; PULSE 84–125; RESP 18–20; TEMP 97.7–98.4; O2SAT 95–99
[2016-05-18] MEDS: CEFEPIME INJ 2,000 MG in SODIUM CHLORIDE 0.9% INJ 100 ML IV SCH (01:21)
[2016-05-18] MEDS: INSULIN ASPART SUPPLEMENTAL SCALE SQ SCH ×4 (06:18→20:47)
[2016-05-18 07:48] LABS: BASOPHIL # 0.1 TH/MM3 (0-0.2); BASOPHIL % 0.3 % (0.0-2.0); EOSINOPHIL # 0.1 TH/MM3 (0-0.4); EOSINOPHIL % 0.3 % (0.0-4.0); HEMATOCRIT 29.7 % (35.0-46.0); HEMO FLAGS DIFF FINAL; LYMPH % 9.2 % (9.0-44.0); LYMPHOCYTE # 1.8 TH/MM3 (1.0-4.8); MEAN CELL VOLUME 93.6 FL (80.0-100.0); MEAN CORPUSCULAR HEMOGLOBIN 30.1 PG (27.0-34.0); MEAN CORPUSCULAR HGB CONC 32.2 % (32.0-36.0); MONO % 2.8 % (0.0-8.0); NEUT % 87.4 % (16.0-70.0); PLATELET COUNT 187 TH/MM3 (150-450); RED BLOOD COUNT 3.17 MIL/MM3 (4.00-5.30); RED CELL DISTRIBUTION WIDTH 15.1 % (11.6-17.2); WHITE BLOOD COUNT 19.5 TH/MM3 (4.0-11.0)
--- NOTE | 2016-05-18 07:50 | HHI.PR ---
Subjective Remarks sr Objective Vital Signs Date Time Temp Pulse Resp B/P Pulse Ox O2 Delivery O2 Flow Rate FiO2 05/18/16 04:09 98.4 104 20 124/58 96 05/18/16 00:00 98.4 125 20 126/59 95 05/17/16 21:15 96 05/17/16 20:00 98.6 100 20 120/61 96 05/17/16 17:37 101 05/17/16 16:00 98.7 105 18 103/51 98 05/17/16 12:19 96.5 107 18 106/54 98 05/17/16 08:20 104 05/17/16 08:00 100.4 107 18 127/60 98 I/O 05/17/16 05/17/16 05/17/16 05/18/16 05/18/16 05/18/16 07:00 15:00 23:00 07:00 15:00 23:00 Intake Total 628 ml 120 ml 480 ml 1108 ml Balance 628 ml 120 ml 480 ml 1108 ml Intake Oral 200 ml 120 ml 480 ml IV Total 428 ml 1108 ml # Voids 1 3 1 1 # Bowel Movements 2 3 2 2 Result Diagram: 05/17/16 0600 05/17/16 0500 Objective Remarks awake confused some aphasia no change Assessment and Plan Assessment and Plan imp there is a small acute left occipital cva now considering all the prior cva mult territories she is having cardioemboli she needs loop recorder placed and for now i am recommending coumadin until we can document afib and if we can we could consider left atrial appendage ablation her daughter will need to closely follow and mange the inr as she had a ich with inr <3 in past and she had an inr 14 at one time consult cards they will do 30 day monitor to start i am rec med team start coumadin under guidance of daughter or someone who can monitor her daily meds and blood draws at home Darrius Osuna MD May 18, 2016 07:50
[2016-05-18 08:09] LABS: BICARBONATE 20.2 MEQ/L (21.0-32.0); POTASSIUM 4.5 MEQ/L (3.5-5.1)
[2016-05-18] MEDS: SODIUM CHLORIDE 0.9% FLUSH 5 ML FLUSH FLUSH SCH ×2 (09:00→20:48)
[2016-05-18] MEDS: FAMOTIDINE 20 MG TAB PO SCH ×2 (09:55→20:49)
[2016-05-18] MEDS: ASPIRIN EC 81 MG TABEC PO SCH (09:55)
[2016-05-18] MEDS: LOSARTAN 50 MG TAB PO SCH (09:55)
[2016-05-18] MEDS: ATORVASTATIN 80 MG TAB PO SCH (09:55)
[2016-05-18] MEDS: metroNIDAZOLE 500 MG TAB PO SCH ×3 (12:21→20:49)
--- NOTE | 2016-05-18 12:30 | HHI.PR ---
Subjective Remarks Follow-up small acute left occipital CVA 05/15/16-patient seen and examined, stable, still aphasic however improvement of mentation. Denies any chest pain or shortness of breath. 05/16/16-patient seen and examined; speech improving and no complaint 05/17/16-patient seen and examined, Tmax 101.2 at 4:30 AM and currently temperature 100.4 at 8 AM patient was tachycardic with elevated WBC therefore meeting sepsis criteria for which she was started on cefepime last night. 05/18/16-patient seen and examined, currently afebrile. C. difficile positive which patient was started on Flagyl. She is alert and oriented 3 Objective Vitals Vital Signs Date Time Temp Pulse Resp B/P Pulse Ox O2 Delivery O2 Flow Rate FiO2 05/18/16 08:00 97.7 96 18 113/57 98 05/18/16 04:09 98.4 104 20 124/58 96 05/18/16 00:00 98.4 125 20 126/59 95 05/17/16 21:15 96 05/17/16 20:00 98.6 100 20 120/61 96 05/17/16 17:37 101 05/17/16 16:00 98.7 105 18 103/51 98 05/17/16 12:19 96.5 107 18 106/54 98 I/O 05/17/16 05/17/16 05/17/16 05/18/16 05/18/16 05/18/16 07:00 15:00 23:00 07:00 15:00 23:00 Intake Total 628 ml 120 ml 480 ml 1108 ml 759 ml Balance 628 ml 120 ml 480 ml 1108 ml 759 ml Intake Oral 200 ml 120 ml 480 ml IV Total 428 ml 1108 ml 759 ml # Voids 1 3 1 1 # Bowel Movements 2 3 2 2 Result Diagram: 05/18/16 0704 05/18/16 0704 Imaging Last Impressions Chest X-Ray 05/17/16 0000 Signed Impressions: Service Date/Time: Tuesday, May 17, 2016 11:57 - CONCLUSION: No evidence of acute cardiopulmonary disease. Alton Nj MD Brain MRI 05/14/16 1728 Signed Impressions: Service Date/Time: April 18:57 - CONCLUSION: Stable MRI of the brain as described above with no new acute abnormality Jairo Lubin MD ADDENDUM: There is 5 mm area of restricted diffusion in the left occipital region. This would be consistent with an ischemic event. Flynn Garcia MD FACR Head CT 05/14/16 0954 Signed Impressions: Service Date/Time: April 10:16 - CONCLUSION: Stable brain appearance. No acute intracranial finding Alton Garay MD Renal Ultrasound 05/14/16 0000 Signed Impressions: Service Date/Time: April 14:06 - CONCLUSION: No acute findings. No evidence of hydronephrosis or mass. Jabari Gonzalez MD Carotid Artery Ultrasound 05/14/16 0000 Signed Impressions: Service Date/Time: April 14:16 - CONCLUSION: 1. Mild atherosclerotic disease within the carotid bulbs bilaterally. However, no significant stenosis is identified within either internal carotid artery (less than 50%% stenosis). 2. There is antegrade flow in both vertebral arteries. Alton Tapia MD Objective Remarks GENERAL: NAD SKIN: Warm and dry. HEAD: Normocephalic. EYES: No scleral icterus. No injection or drainage. NECK: Supple, trachea midline. No JVD or lymphadenopathy. CARDIOVASCULAR: Regular rate and rhythm without murmurs, gallops, or rubs. RESPIRATORY: Breath sounds equal bilaterally. No accessory muscle use. GASTROINTESTINAL: Abdomen soft, non-tender, nondistended. MUSCULOSKELETAL: No cyanosis, or edema. BACK: Nontender without obvious deformity. No CVA tenderness. Procedures none A/P Problem List: (1) Aphasia ICD Code: R47.01 Status: Acute (2) History of DVT (deep vein thrombosis) ICD Code: Z86.718 (3) CKD (chronic kidney disease) stage 3, GFR 30-59 ml/min ICD Code: N18.3 Status: Acute (4) Hypertension ICD Code: I10 Status: Chronic (5) Type 2 diabetes mellitus ICD Code: E11.9 Status: Chronic (6) History of intracranial hemorrhage ICD Code: Z86.79 (7) possible tia Status: Acute (8) History of CVA with residual deficit ICD Code: I69.30 Status: Acute (9) Occipital stroke ICD Code: I63.9 Status: Acute (10) Acute renal failure superimposed on stage 3 chronic kidney disease ICD Code: N17.9 Status: Acute (11) Sepsis ICD Code: A41.9 Status: Acute (12) Clostridium difficile diarrhea ICD Code: A04.7 Status: Acute Assessment and Plan 65-year-old female with Sepsis: Initially no sepsis on admission however patient overnight had T>100.9 and WBC>12K with normal Lactic acid; source like UTI + C. difficile diarrhea. Currently on cefepime and vancomycin, Flagyl. De-escalate antibiotics accordingly C. difficile diarrhea colitis: Currently on Flagyl and vancomycin History of CVA with residual effect now with small acute left occipital CVA: CT head with finding of Stable brain appearance. Brain MRI with finding of 5 mm area of restricted diffusion in the left occipital region. Appreciate input from neurology. Patient seen by cardiology and recommended 3 weeks Medicomp monitor outpatient. Resume Coumadin. Continue with aspirin, Lipitor . PT/OT/ speech therapy consulted. UTI: Currently on cefepime Diabetes type 2: insulin sliding scale and continue Levemir 50 units at bedtime Prior history of DVT: Chronic, patient no longer on Coumadin Hyperlipidemia: continue statin Acute on Chronic kidney disease III: Worsening renal indices likely secondary to infection, continue gentle IV fluid hydration and appreciate input from nephrology. DVT prophylaxis: Bilateral SCDs Problem Qualifiers (1) Type 2 diabetes mellitus: Keny Jj MD May 18, 2016 12:30
--- NOTE | 2016-05-18 12:49 | HHI.NPPN ---
Subjective History of Present Illness 65-year-old female with history of chronic kidney disease stage III, diabetes, hypertension, who had slurred speech and an multiphasic She states that she can speak now she has a problem with the left eye and light bothers her she said there was some weakness on the left side of the face. Patient has known history of chronic kidney disease. Interval History c diff positive 05/17 Additional Remarks Patient is alert, has low grade fever, no SOB,diarrhea Review of Systems General Constitutional: Fatigue Eyes Eyes: Vision Change Objective Data Data 05/17/16 05/18/16 19:00 07:00 Intake Total 120 ml 1588 ml Balance 120 ml 1588 ml Intake Oral 120 ml 480 ml IV Total 1108 ml # Voids 3 2 # Bowel Movements 3 4 Vital Signs Date Time Temp Pulse Resp B/P Pulse Ox O2 Delivery O2 Flow Rate FiO2 05/18/16 08:00 97.7 96 18 113/57 98 05/18/16 04:09 98.4 104 20 124/58 96 05/18/16 00:00 98.4 125 20 126/59 95 05/17/16 21:15 96 05/17/16 20:00 98.6 100 20 120/61 96 05/17/16 17:37 101 05/17/16 16:00 98.7 105 18 103/51 98 -: 05/18/16 0704 05/18/16 0704 Microbiology 05/17/16 Urine Culture - Preliminary, Resulted NO GROWTH IN 24 HOURS. Physical Exam General Appearance: No Acute Distress, Comfortable Neck Neck Exam: Neck Supple Pulmonary Resp Exam: Breath Sounds Equal, Decreased Bases, Diminished Breath Sounds Cardiology CV Exam: Regular, Normal Sinus Rhythm Gastrointestinal/Abdomen GI Exam: Soft, Non-Tender Extremeties Extremities Exam: Trace Edema Neurologic Neuro Exam: Alert, Awake Psychiatric Psych Exam: Appropriate Responses Assessment/Plan Problem List: (1) Acute renal failure Plan: Patient improved had CVA Creatinine increased to 3.17 give IVF NS change to 150 CC/HR, her baseline is close to 1.8. C diff positive colitis on Metronidazole uti Pseudomonas on Cefepime (2) CKD (chronic kidney disease) stage 3, GFR 30-59 ml/min Plan: GFR around 39 as baseline (3) Type 2 diabetes mellitus Plan: Monitor blood glucose level (4) UTI (urinary tract infection) Plan: start Macrobid (5) Occipital stroke Plan: Neurology following Problem Qualifiers (1) Acute renal failure: Qualified Code: N17.9 - Acute renal failure, unspecified acute renal failure type (2) Type 2 diabetes mellitus: Natasha Thacker MD May 18, 2016 12:49
[2016-05-18] MEDS: SODIUM CHLOR 0.9% 1000 ML INJ 1,000 ML IV SCH ×2 (16:28→20:50)
[2016-05-18 20:43] LABS: INTERNATIONAL NORMALIZED RATIO 1.1 RATIO; PROTHROMBIN TIME - PATIENT 11.8 SEC (9.8-11.6)
[2016-05-18] MEDS: INSULIN DETEMIR 100 UNITS/ML VIAL SQ SCH (20:50)
[2016-05-19] VITALS (8 sets, daily range): BP systolic 106–167; BP diastolic 53–73; PULSE 78–95; RESP 16–20; TEMP 97.1–98.8; O2SAT 95–100
[2016-05-19] MEDS: CEFEPIME INJ 2,000 MG in SODIUM CHLORIDE 0.9% INJ 100 ML IV SCH (01:28)
[2016-05-19] MEDS: INSULIN ASPART SUPPLEMENTAL SCALE SQ SCH ×4 (07:00→22:46)
[2016-05-19] MEDS: metroNIDAZOLE 500 MG TAB PO SCH ×3 (07:13→22:45)
[2016-05-19] MEDS: SODIUM CHLOR 0.9% 1000 ML INJ 1,000 ML IV SCH ×3 (07:14→17:20)
[2016-05-19 07:56] LABS: AUTOMATED NEUTROPHIL # 13.7 TH/MM3 (1.8-7.7); BASOPHIL % 0.2 % (0.0-2.0); EOSINOPHIL # 0.2 TH/MM3 (0-0.4); EOSINOPHIL % 1.2 % (0.0-4.0); HEMATOCRIT 27.7 % (35.0-46.0); HEMO FLAGS DIFF FINAL; LYMPH % 9.6 % (9.0-44.0); LYMPHOCYTE # 1.5 TH/MM3 (1.0-4.8); MEAN CELL VOLUME 93.4 FL (80.0-100.0); MEAN CORPUSCULAR HEMOGLOBIN 31.1 PG (27.0-34.0); MEAN CORPUSCULAR HGB CONC 33.3 % (32.0-36.0); MONO % 3.6 % (0.0-8.0); NEUT % 85.4 % (16.0-70.0); PLATELET COUNT 200 TH/MM3 (150-450); RED BLOOD COUNT 2.97 MIL/MM3 (4.00-5.30); RED CELL DISTRIBUTION WIDTH 15.4 % (11.6-17.2)
[2016-05-19 08:25] LABS: BICARBONATE 21.2 MEQ/L (21.0-32.0); POTASSIUM 4.1 MEQ/L (3.5-5.1)
[2016-05-19] MEDS: ATORVASTATIN 80 MG TAB PO SCH (09:53)
[2016-05-19] MEDS: FAMOTIDINE 20 MG TAB PO SCH ×2 (09:53→22:45)
[2016-05-19] MEDS: ASPIRIN EC 81 MG TABEC PO SCH (09:54)
[2016-05-19] MEDS: SODIUM CHLORIDE 0.9% FLUSH 5 ML FLUSH FLUSH SCH ×2 (09:59→22:52)
[2016-05-19] MEDS: LOSARTAN 50 MG TAB PO SCH (09:59)
[2016-05-19] MEDS ORDERED: VANCOMYCIN INJ 1,250 MG in SODIUM CHLOR 0.9% 250 ML INJ 250 ML IV ONE (11:00)
--- NOTE | 2016-05-19 12:47 | HHI.PR ---
Subjective Remarks Follow-up small acute left occipital CVA 05/15/16-patient seen and examined, stable, still aphasic however improvement of mentation. Denies any chest pain or shortness of breath. 05/16/16-patient seen and examined; speech improving and no complaint 05/17/16-patient seen and examined, Tmax 101.2 at 4:30 AM and currently temperature 100.4 at 8 AM patient was tachycardic with elevated WBC therefore meeting sepsis criteria for which she was started on cefepime last night. 05/18/16-patient seen and examined, currently afebrile. C. difficile positive which patient was started on Flagyl. She is alert and oriented 3 05/19/16-patient seen and examined. No diarrhea episodes 24 hours currently afebrile. No acute event overnight. Objective Vitals Vital Signs Date Time Temp Pulse Resp B/P Pulse Ox O2 Delivery O2 Flow Rate FiO2 05/19/16 09:50 85 05/19/16 09:30 95 05/19/16 08:00 97.1 78 20 106/56 98 05/19/16 05:29 98.8 86 16 143/73 100 05/19/16 00:51 97.7 89 16 117/66 97 05/18/16 20:29 98.3 84 18 124/61 98 05/18/16 18:07 98 05/18/16 16:00 98.0 91 20 138/69 96 I/O 05/18/16 05/18/16 05/18/16 05/19/16 05/19/16 05/19/16 07:00 15:00 23:00 07:00 15:00 23:00 Intake Total 1108 ml 1239 ml 512 ml Output Total 3 ml Balance 1108 ml 1236 ml 512 ml Intake Oral 480 ml IV Total 1108 ml 759 ml 512 ml Output Urine Total 3 ml # Voids 1 # Bowel Movements 2 3 2 Result Diagram: 05/19/1630 05/19/1630 Imaging Last Impressions Chest X-Ray 05/17/16 0000 Signed Impressions: Service Date/Time: Tuesday, May 17, 2016 11:57 - CONCLUSION: No evidence of acute cardiopulmonary disease. Alton Nj MD Brain MRI 05/14/16 1728 Signed Impressions: Service Date/Time: April 18:57 - CONCLUSION: Stable MRI of the brain as described above with no new acute abnormality Jairo Lubin MD ADDENDUM: There is 5 mm area of restricted diffusion in the left occipital region. This would be consistent with an ischemic event. Flynn Garcia MD FACR Head CT 05/14/16 0954 Signed Impressions: Service Date/Time: April 10:16 - CONCLUSION: Stable brain appearance. No acute intracranial finding Alton Garay MD Renal Ultrasound 05/14/16 0000 Signed Impressions: Service Date/Time: April 14:06 - CONCLUSION: No acute findings. No evidence of hydronephrosis or mass. Jabari Gonzalez MD Carotid Artery Ultrasound 05/14/16 Signed Impressions: Service Date/Time: April 14:16 - CONCLUSION: 1. Mild atherosclerotic disease within the carotid bulbs bilaterally. However, no significant stenosis is identified within either internal carotid artery (less than 50%% stenosis). 2. There is antegrade flow in both vertebral arteries. Atlon Tapia MD Objective Remarks GENERAL: NAD SKIN: Warm and dry. HEAD: Normocephalic. EYES: No scleral icterus. No injection or drainage. NECK: Supple, trachea midline. No JVD or lymphadenopathy. CARDIOVASCULAR: Regular rate and rhythm without murmurs, gallops, or rubs. RESPIRATORY: Breath sounds equal bilaterally. No accessory muscle use. GASTROINTESTINAL: Abdomen soft, non-tender, nondistended. MUSCULOSKELETAL: No cyanosis, or edema. BACK: Nontender without obvious deformity. No CVA tenderness. Procedures none A/P Problem List: (1) Aphasia ICD Code: R47.01 Status: Acute (2) History of DVT (deep vein thrombosis) ICD Code: Z86.718 (3) CKD (chronic kidney disease) stage 3, GFR 30-59 ml/min ICD Code: N18.3 Status: Acute (4) Hypertension ICD Code: I10 Status: Chronic (5) Type 2 diabetes mellitus ICD Code: E11.9 Status: Chronic (6) History of intracranial hemorrhage ICD Code: Z86.79 (7) possible tia Status: Acute (8) History of CVA with residual deficit ICD Code: I69.30 Status: Acute (9) Occipital stroke ICD Code: I63.9 Status: Acute (10) Acute renal failure superimposed on stage 3 chronic kidney disease ICD Code: N17.9 Status: Acute (11) Sepsis ICD Code: A41.9 Status: Acute (12) Clostridium difficile diarrhea ICD Code: A04.7 Status: Acute Assessment and Plan 65-year-old female with Sepsis: Initially no sepsis on admission however patient overnight had T>100.9 and WBC>12K with normal Lactic acid; now resolved. Source like UTI + C. difficile diarrhea. Currently on cefepime and Flagyl. C. difficile diarrhea colitis: Improved on Flagyl. History of CVA with residual effect now with small acute left occipital CVA: CT head with finding of Stable brain appearance. Brain MRI with finding of 5 mm area of restricted diffusion in the left occipital region. Appreciate input from neurology. Patient seen by cardiology and recommended 3 weeks Medicomp monitor outpatient. Continue with aspirin, Coumadin, Lipitor . PT/OT/speech therapy consulted. UTI: Currently on cefepime and will switch to by mouth as repeat urine culture negative Diabetes type 2: insulin sliding scale and continue Levemir 50 units at bedtime Prior history of DVT: Chronic, patient no longer on Coumadin Hyperlipidemia: continue statin Acute on Chronic kidney disease III: Improving renal indices likely secondary to infection, continue gentle IV fluid hydration and appreciate input from nephrology. DVT prophylaxis: Bilateral SCDs Problem Qualifiers (1) Type 2 diabetes mellitus: Keny Jj MD May 19, 2016 12:47
--- NOTE | 2016-05-19 13:02 | HHI.NPPN ---
Subjective History of Present Illness 65-year-old female with history of chronic kidney disease stage III, diabetes, hypertension, who had slurred speech and an multiphasic She states that she can speak now she has a problem with the left eye and light bothers her she said there was some weakness on the left side of the face. Patient has known history of chronic kidney disease. Additional Remarks Patient is alert, diarrhea Review of Systems General Constitutional: Fatigue Eyes Eyes: Vision Change Objective Data Data 05/18/16 05/19/16 19:00 07:00 Intake Total 1751 ml Output Total 3 ml Balance 1748 ml Intake Oral 480 ml IV Total 1271 ml Output Urine Total 3 ml # Bowel Movements 3 2 Vital Signs Date Time Temp Pulse Resp B/P Pulse Ox O2 Delivery O2 Flow Rate FiO2 05/19/16 09:50 85 05/19/16 09:30 95 05/19/16 08:00 97.1 78 20 106/56 98 05/19/16 05:29 98.8 86 16 143/73 100 05/19/16 00:51 97.7 89 16 117/66 97 05/18/16 20:29 98.3 84 18 124/61 98 05/18/16 18:07 98 05/18/16 16:00 98.0 91 20 138/69 96 -: 05/19/16 0730 05/19/16 0730 Physical Exam General Appearance: No Acute Distress, Comfortable Neck Neck Exam: Neck Supple Pulmonary Resp Exam: Breath Sounds Equal, Decreased Bases, Diminished Breath Sounds Cardiology CV Exam: Regular, Normal Sinus Rhythm Gastrointestinal/Abdomen GI Exam: Soft, Non-Tender Extremeties Extremities Exam: Trace Edema Neurologic Neuro Exam: Alert, Awake Psychiatric Psych Exam: Appropriate Responses Assessment/Plan Problem List: (1) Acute renal failure Plan: Patient improved had CVA Creatinine declined 2.6 with IVF NS change to 150 CC/HR, her baseline is close to 1.8. C diff positive colitis on Metronidazole uti Pseudomonas on Cefepime (2) CKD (chronic kidney disease) stage 3, GFR 30-59 ml/min Plan: GFR around 39 as baseline (3) Type 2 diabetes mellitus Plan: Monitor blood glucose level (4) UTI (urinary tract infection) Plan: start Macrobid (5) Occipital stroke Plan: Neurology following Problem Qualifiers (1) Acute renal failure: Qualified Code: N17.9 - Acute renal failure, unspecified acute renal failure type (2) Type 2 diabetes mellitus: Natasha Thacker MD May 19, 2016 13:02
[2016-05-19] MEDS ORDERED: LACTCHW3 CHEW (14:27)
[2016-05-19] MEDS ORDERED: METR-1 PO (14:27)
[2016-05-19] MEDS ORDERED: LEVA250T PO (14:27)
[2016-05-19] MEDS ORDERED: COUM5TAB PO (14:27)
--- NOTE | 2016-05-19 14:30 | HHI.DS ---
Discharge Summary Admission Date May 14, 2016 at 12:24 Discharge Date: May 19, 2016 Admitting Diagnosis aphasia (1) Aphasia ICD Code: R47.01 (2) History of DVT (deep vein thrombosis) ICD Code: Z86.718 (3) CKD (chronic kidney disease) stage 3, GFR 30-59 ml/min ICD Code: N18.3 (4) Hypertension ICD Code: I10 (5) Type 2 diabetes mellitus ICD Code: E11.9 (6) History of intracranial hemorrhage ICD Code: Z86.79 (7) possible tia (8) History of CVA with residual deficit ICD Code: I69.30 (9) Occipital stroke ICD Code: I63.9 (10) Acute renal failure superimposed on stage 3 chronic kidney disease ICD Code: N17.9 (11) Sepsis ICD Code: A41.9 (12) Clostridium difficile diarrhea ICD Code: A04.7 Procedures none Brief History - From Admission 65-year-old female with a PMH of HTN, DM, Right BKA, h/o DVT , h/o ICH and h/o CVA with residual effects was brought to the ED by eval for evaluation of acute onset of worsening aphasia and increased confusion. Daughter stated patient as she was talking, she was not making sense and was quite incoherent with worsening aphasia. Symptoms lasted well over 5 minutes. Back in October 2015, patient was admitted to hospital for similar complaints and had a reassuring MRI and other times she was diagnosed with for possible TIA. She was recently seen in the ED and was diagnosed with UTI and discharged home on Keflex 500 mg 3 times a day 7 days, which patient started on 05/11/16. Although patient complains currently of nausea, she denies any emesis, febrile episode production. There is no GI bleed. CBC/BMP: 05/19/16 0730 05/19/16 0730 Significant Findings Laboratory Tests Test 05/17/16 05/17/16 05/17/16 05/18/16 05:00 06:00 14:03 07:04 Potassium Level 5.2 MEQ/L (3.5-5.1) Chloride Level 108 MEQ/L 114 MEQ/L (98-107) (98-107) Blood Urea Nitrogen 39 MG/DL (7-18) 44 MG/DL (7-18) Creatinine 2.78 MG/DL 3.17 MG/DL (0.50-1.00) (0.50-1.00) Estimat Glomerular Filtration 21 ML/MIN (>89) 18 ML/MIN (>89) Rate Random Glucose 209 MG/DL (74-106) Calcium Level 8.2 MG/DL 8.2 MG/DL (8.5-10.1) (8.5-10.1) White Blood Count 22.1 TH/MM3 19.5 TH/MM3 (4.0-11.0) (4.0-11.0) Red Blood Count 3.60 MIL/MM3 3.17 MIL/MM3 (4.00-5.30) (4.00-5.30) Hemoglobin 11.2 GM/DL 9.6 GM/DL (11.6-15.3) (11.6-15.3) Hematocrit 33.0 % 29.7 % (35.0-46.0) (35.0-46.0) Neutrophils (%) (Auto) 94.8 % 87.4 % (16.0-70.0) (16.0-70.0) Lymphocytes (%) (Auto) 3.1 % (9.0-44.0) Neutrophils # (Auto) 21.0 TH/MM3 17.0 TH/MM3 (1.8-7.7) (1.8-7.7) Lymphocytes # (Auto) 0.7 TH/MM3 (1.0-4.8) Urine Turbidity HAZY (CLEAR) Urine Protein 300 mg/dL (NEG-TRACE) Urine Occult Blood TRACE (NEG) Urine Leukocyte Esterase TRACE (NEG) Urine RBC 4 /hpf (0-3) Urine WBC 6 /hpf (0-5) Urine WBC Clumps FEW (NONE) Urine Bacteria RARE /hpf (NONE) Stool C. difficile Toxin (PCR) POSITIVE (NEGATIVE) Stl C. difficile Toxin PRESUMPTIVE Epiderm 027 POSITIVE (NEGATIVE) Carbon Dioxide Level 20.2 MEQ/L (21.0-32.0) Test 05/18/16 05/19/16 19:55 07:30 Prothrombin Time 11.8 SEC (9.8-11.6) White Blood Count 16.0 TH/MM3 (4.0-11.0) Red Blood Count 2.97 MIL/MM3 (4.00-5.30) Hemoglobin 9.2 GM/DL (11.6-15.3) Hematocrit 27.7 % (35.0-46.0) Neutrophils (%) (Auto) 85.4 % (16.0-70.0) Neutrophils # (Auto) 13.7 TH/MM3 (1.8-7.7) Chloride Level 116 MEQ/L (98-107) Blood Urea Nitrogen 39 MG/DL (7-18) Creatinine 2.63 MG/DL (0.50-1.00) Estimat Glomerular Filtration 22 ML/MIN (>89) Rate Calcium Level 8.0 MG/DL (8.5-10.1) Imaging Last Impressions Chest X-Ray 05/17/16 0000 Signed Impressions: Service Date/Time: Tuesday, May 17, 2016 11:57 - CONCLUSION: No evidence of acute cardiopulmonary disease. Alton Nj MD Brain MRI 05/14/16 1728 Signed Impressions: Service Date/Time: April 18:57 - CONCLUSION: Stable MRI of the brain as described above with no new acute abnormality Jairo Lubin MD ADDENDUM: There is 5 mm area of restricted diffusion in the left occipital region. This would be consistent with an ischemic event. Flynn Garcia MD FACR Head CT 05/14/16 0954 Signed Impressions: Service Date/Time: April 10:16 - CONCLUSION: Stable brain appearance. No acute intracranial finding Alton Garay MD Renal Ultrasound 05/14/16 0000 Signed Impressions: Service Date/Time: April 14:06 - CONCLUSION: No acute findings. No evidence of hydronephrosis or mass. Jabari Gonzalez MD Carotid Artery Ultrasound 05/14/16 0000 Signed Impressions: Service Date/Time: April 14:16 - CONCLUSION: 1. Mild atherosclerotic disease within the carotid bulbs bilaterally. However, no significant stenosis is identified within either internal carotid artery (less than 50%% stenosis). 2. There is antegrade flow in both vertebral arteries. Alton Tapia MD PE at Discharge GENERAL: NAD SKIN: Warm and dry. HEAD: Normocephalic. EYES: No scleral icterus. No injection or drainage. NECK: Supple, trachea midline. No JVD or lymphadenopathy. CARDIOVASCULAR: Regular rate and rhythm without murmurs, gallops, or rubs. RESPIRATORY: Breath sounds equal bilaterally. No accessory muscle use. GASTROINTESTINAL: Abdomen soft, non-tender, nondistended. MUSCULOSKELETAL: No cyanosis, or edema. BACK: Nontender without obvious deformity. No CVA tenderness. Hospital Course Patient was initially admitted secondary to CVA for which neurology was consulted and ischemic stroke protocol was initiated. She was found to have a small acute left hospital CVA. Unable to rule out A. fib cardiology was consulted and recommended 3 weeks Medicomp monitor outpatient. Coumadin was resumed as patient was continued on Lipitor and oral antihypertensive medication will resume after provisional repetition were discontinued. Hospitalization was complicated by sepsis secondary to UTI and C. difficile for which patient was treated accordingly, initially with IV cefepime for UTI and by mouth Flagyl for C. difficile. Her conditions improved and she was subsequently switched to by mouth antibiotics. Due to worsening acute on chronic kidney disease, nephrology was consulted and patient's renal function improved with gentle IV fluid hydration and monitor BUN and creatinine. She was placed on a sliding scale insulin and basal insulin was resumed. PT/OT was consulted. Prior to discharge, patient conditions improved vitals remained stable Pt Condition on Discharge: Fair Discharge Disposition: Discharge to SNF Discharge Time: > 30 minutes Discharge Instructions DIET: Follow Instructions for: Diabetic Diet Speech Therapy-Diet Recommends: Mechanical Soft Activities you can perform: Regular-No Restrictions Follow up Referrals: Cardiology Neurology PCP Follow-up - 2-3 Days New Medications: Lactobacillus Acidophilus (Lactinex) 1 Chew 1 TAB CHEW DAILY Nutritional Supplement #30 Ref 0 TAB Levofloxacin (Levaquin) 250 Mg Tab 250 MG PO Q48H Infection #3 TAB Metronidazole (Flagyl) 500 Mg Tab 500 MG PO Q8HR Infection #30 TAB Warfarin (Coumadin) 5 Mg Tab 5 MG PO DAILY@1600 Prevent Blood Clot #30 TAB Continued Medications: Amlodipine (Amlodipine) 10 Mg Tab 10 MG PO DAILY Blood Pressure Management Ref [address] (Aspirin EC) 81 Mg Tabdr 162 MG PO DAILY prevent stroke Days 30 TAB Atorvastatin (Lipitor) 80 Mg Tab 80 MG PO DAILY Cholesterol Management Ref 0 TAB Cholecalciferol (D3 2000) 2,000 Unit Tab 2000 UNITS PO DAILY Nutritional Supplement Insulin Aspart Inj (Novolog Inj) 1,000 Unit/10 Ml Vial 0 SQ ACHS SLIDING SCALE Sliding Scale as directed. BSG <70 no insulin 150-199 1unit, 200-249 3units, 250-299 5units, 300-349 7units, >349 9units. max dose @ hs 2units. Blood Sugar Management Ref 0 ML Insulin Detemir Inj (Levemir Inj) 1,000 unit/ 10 ML Vial 15 UNITS SQ HS Do not mix with any other Insulin. Blood Sugar Management Ref 0 VIAL Losartan (Losartan) 100 Mg Tab 100 MG PO DAILY Blood Pressure Management #30 Ref 0 TAB Ranitidine (Zantac) 150 Mg Tab 150 MG PO BID Reduce Stomach Acid #60 Ref 0 TAB Discontinued Medications: Cephalexin (Keflex) 500 Mg Cap 500 MG PO Q8H Infection #21 Ref 0 Keny Zavala MD May 19, 2016 14:30 Losartan (Losartan) 100 Mg Tab 100 MG PO DAILY Blood Pressure Management #30 Ref 0 TAB Ranitidine (Zantac) 150 Mg Tab 150 MG PO BID Reduce Stomach Acid #60 Ref 0 TAB Discontinued Medications: Cephalexin (Keflex) 500 Mg Cap 500 MG PO Q8H Infection #21 Ref 0 Keny Zavala MD May 19, 2016 14:30
[2016-05-19] MEDS ORDERED: WARFARIN SOD 5 MG TAB PO SCH (16:00)
[2016-05-19] MEDS: WARFARIN SOD 5 MG TAB PO SCH (17:19)
[2016-05-19] MEDS: INSULIN DETEMIR 100 UNITS/ML VIAL SQ SCH (22:46)
[2016-05-20 01:12] VITALS: BP 151/69; PULSE 90; RESP 18; TEMP 98; O2SAT 100
[2016-05-20 05:34] VITALS: BP 144/79; PULSE 86; RESP 18; TEMP 98; O2SAT 98
[2016-05-20] MEDS: metroNIDAZOLE 500 MG TAB PO SCH ×2 (06:16→13:53)
[2016-05-20] MEDS: SODIUM CHLOR 0.9% 1000 ML INJ 1,000 ML IV SCH ×2 (06:16→14:40)
[2016-05-20] MEDS: INSULIN ASPART SUPPLEMENTAL SCALE SQ SCH ×2 (06:17→11:00)
[2016-05-20 08:00] VITALS: BP 149/68; PULSE 84; RESP 16; TEMP 97.3; O2SAT 96
[2016-05-20] MEDS ORDERED: PNEUMOCOCCAL POLYVALENT INJ 25 MCG/0.5 ML SYR IM ONE (09:00)
[2016-05-20] MEDS ORDERED: LEVOFLOXACIN 250 MG TAB PO SCH (09:00)
[2016-05-20] MEDS: SODIUM CHLORIDE 0.9% FLUSH 5 ML FLUSH FLUSH SCH (09:00)
[2016-05-20 09:28] LABS: AUTOMATED NEUTROPHIL # 8.8 TH/MM3 (1.8-7.7); BASOPHIL # 0.1 TH/MM3 (0-0.2); BASOPHIL % 0.4 % (0.0-2.0); EOSINOPHIL # 0.3 TH/MM3 (0-0.4); EOSINOPHIL % 2.1 % (0.0-4.0); HEMATOCRIT 27.9 % (35.0-46.0); HEMO FLAGS DIFF FINAL; LYMPH % 17.5 % (9.0-44.0); LYMPHOCYTE # 2.1 TH/MM3 (1.0-4.8); MEAN CORPUSCULAR HEMOGLOBIN 30.5 PG (27.0-34.0); MEAN CORPUSCULAR HGB CONC 32.4 % (32.0-36.0); MONO % 6.4 % (0.0-8.0); NEUT % 73.6 % (16.0-70.0); PLATELET COUNT 195 TH/MM3 (150-450); RED BLOOD COUNT 2.97 MIL/MM3 (4.00-5.30); RED CELL DISTRIBUTION WIDTH 15.3 % (11.6-17.2); WHITE BLOOD COUNT 11.9 TH/MM3 (4.0-11.0)
[2016-05-20 09:31] LABS: PROTHROMBIN TIME - PATIENT 10.6 SEC (9.8-11.6)
[2016-05-20 09:54] LABS: BICARBONATE 19.5 MEQ/L (21.0-32.0); POTASSIUM 4.2 MEQ/L (3.5-5.1)
--- NOTE | 2016-05-20 09:56 | HHI.PR ---
Subjective Remarks Follow-up small acute left occipital CVA 05/15/16-patient seen and examined, stable, still aphasic however improvement of mentation. Denies any chest pain or shortness of breath. 05/16/16-patient seen and examined; speech improving and no complaint 05/17/16-patient seen and examined, Tmax 101.2 at 4:30 AM and currently temperature 100.4 at 8 AM patient was tachycardic with elevated WBC therefore meeting sepsis criteria for which she was started on cefepime last night. 05/18/16-patient seen and examined, currently afebrile. C. difficile positive which patient was started on Flagyl. She is alert and oriented 3 05/19/16-patient seen and examined. No diarrhea episodes 24 hours currently afebrile. No acute event overnight. 05/20/16-patient seen and examined. Stable, diarrhea episodes resolved 48 hours. No complaint. Speech back to normal Objective Vitals Vital Signs Date Time Temp Pulse Resp B/P Pulse Ox O2 Delivery O2 Flow Rate FiO2 05/20/16 08:00 97.3 84 16 149/68 96 05/20/16 05:34 98.0 86 18 144/79 98 05/20/16 01:12 98.0 90 18 151/69 100 05/19/16 20:44 97.2 86 16 143/64 98 05/19/16 15:44 97.8 87 20 167/69 95 05/19/16 12:00 98.7 81 20 122/53 96 I/O 05/19/16 05/19/16 05/19/16 05/20/16 05/20/16 05/20/16 07:00 15:00 23:00 07:00 15:00 23:00 Intake Total 652 ml Balance 652 ml IV Total 652 ml # Voids 4 3 # Bowel Movements 2 3 2 Result Diagram: 05/20/16 0851 05/19/16 0730 Objective Remarks GENERAL: NAD SKIN: Warm and dry. HEAD: Normocephalic. EYES: No scleral icterus. No injection or drainage. NECK: Supple, trachea midline. No JVD or lymphadenopathy. CARDIOVASCULAR: Regular rate and rhythm without murmurs, gallops, or rubs. RESPIRATORY: Breath sounds equal bilaterally. No accessory muscle use. GASTROINTESTINAL: Abdomen soft, non-tender, nondistended. MUSCULOSKELETAL: No cyanosis, or edema. BACK: Nontender without obvious deformity. No CVA tenderness. Procedures none A/P Problem List: (1) Aphasia ICD Code: R47.01 Status: Acute (2) History of DVT (deep vein thrombosis) ICD Code: Z86.718 (3) CKD (chronic kidney disease) stage 3, GFR 30-59 ml/min ICD Code: N18.3 Status: Acute (4) Hypertension ICD Code: I10 Status: Chronic (5) Type 2 diabetes mellitus ICD Code: E11.9 Status: Chronic (6) History of intracranial hemorrhage ICD Code: Z86.79 (7) possible tia Status: Acute (8) History of CVA with residual deficit ICD Code: I69.30 Status: Acute (9) Occipital stroke ICD Code: I63.9 Status: Acute (10) Acute renal failure superimposed on stage 3 chronic kidney disease ICD Code: N17.9 Status: Acute (11) Sepsis ICD Code: A41.9 Status: Resolved (12) Clostridium difficile diarrhea ICD Code: A04.7 Status: Acute Assessment and Plan 65-year-old female with Sepsis: Initially no sepsis on admission. now resolved. Source like UTI + C. difficile diarrhea. C. difficile diarrhea colitis: Improved on Flagyl. History of CVA with residual effect now with small acute left occipital CVA: CT head with finding of Stable brain appearance. Brain MRI with finding of 5 mm area of restricted diffusion in the left occipital region. Appreciate input from neurology. Patient seen by cardiology and recommended 3 weeks Medicomp monitor outpatient. Continue with aspirin, Coumadin, Lipitor . PT/OT/speech therapy consulted. UTI: s/p Cefepime; give Levaquin 250 mg by mouth every 48H starting today Diabetes type 2: insulin sliding scale and continue Levemir 50 units at bedtime Prior history of DVT: Chronic, patient no longer on Coumadin Hyperlipidemia: continue statin Acute on Chronic kidney disease III: Improving , continue gentle IV fluid hydration and appreciate input from nephrology. DVT prophylaxis: Bilateral SCDs Discharge Planning Discharge to SNF today Problem Qualifiers (1) Type 2 diabetes mellitus: Keny Jj MD May 20, 2016 09:56
[2016-05-20] MEDS ORDERED: INFLUENZA VIRUS VACCINE (QUADRIVALENT) 0.5 ML SYR IM ONE (10:00)
[2016-05-20] MEDS ORDERED: LEVOFLOXACIN 250 MG TAB PO ONE (10:15)
--- NOTE | 2016-05-20 10:24 | HHI.NPPN ---
Subjective History of Present Illness 65-year-old female with history of chronic kidney disease stage III, diabetes, hypertension, who had slurred speech and an multiphasic She states that she can speak now she has a problem with the left eye and light bothers her she said there was some weakness on the left side of the face. Patient has known history of chronic kidney disease. Additional Remarks Patient is alert, diarrhea Review of Systems General Constitutional: Fatigue Eyes Eyes: Vision Change Objective Data Data 05/19/16 05/20/16 19:00 07:00 Intake Total 652 ml Balance 652 ml IV Total 652 ml # Voids 4 3 # Bowel Movements 3 2 Vital Signs Date Time Temp Pulse Resp B/P Pulse Ox O2 Delivery O2 Flow Rate FiO2 05/20/16 08:00 97.3 84 16 149/68 96 05/20/16 05:34 98.0 86 18 144/79 98 05/20/16 01:12 98.0 90 18 151/69 100 05/19/16 20:44 97.2 86 16 143/64 98 05/19/16 15:44 97.8 87 20 167/69 95 05/19/16 12:00 98.7 81 20 122/53 96 -: 05/20/16 0851 05/20/16 0851 Physical Exam General Appearance: No Acute Distress, Comfortable Neck Neck Exam: Neck Supple Pulmonary Resp Exam: Breath Sounds Equal, Decreased Bases, Diminished Breath Sounds Cardiology CV Exam: Regular, Normal Sinus Rhythm Gastrointestinal/Abdomen GI Exam: Soft, Non-Tender Extremeties Extremities Exam: Trace Edema Neurologic Neuro Exam: Alert, Awake Psychiatric Psych Exam: Appropriate Responses Assessment/Plan Problem List: (1) Acute renal failure Plan: Patient improved had CVA Creatinine declined 2.2 with IVF NS 150 CC/HR, I will decrease IVF to 100 cc / hr her baseline is close to 1.8. C diff positive colitis on Metronidazole uti Pseudomonas off Cefepime (2) CKD (chronic kidney disease) stage 3, GFR 30-59 ml/min Plan: GFR around 39 as baseline (3) Type 2 diabetes mellitus Plan: Monitor blood glucose level (4) UTI (urinary tract infection) Plan: start Macrobid (5) Occipital stroke Plan: Neurology following Problem Qualifiers (1) Acute renal failure: Qualified Code: N17.9 - Acute renal failure, unspecified acute renal failure type (2) Type 2 diabetes mellitus: Natasha Thacker MD May 20, 2016 10:24
[2016-05-20] MEDS: FAMOTIDINE 20 MG TAB PO SCH (10:35)
[2016-05-20] MEDS: ATORVASTATIN 80 MG TAB PO SCH (10:36)
[2016-05-20] MEDS: ASPIRIN EC 81 MG TABEC PO SCH (10:36)
[2016-05-20] MEDS: LOSARTAN 50 MG TAB PO SCH (10:36)
[2016-05-20 12:00] VITALS: BP 152/68; PULSE 81; RESP 16; TEMP 97.1; O2SAT 97
[2016-05-20 15:37] VITALS: BP 142/68; PULSE 85; RESP 16; TEMP 97.3; O2SAT 97
[2016-05-20] MEDS: WARFARIN SOD 5 MG TAB PO SCH (15:54)
== END 2016-05-20 16:05 | DRG 64 ==
LOC: NEPC 09:40 → NEDA 11:48 → OBSVTOIN 12:24 → N05B 17:07
PROVIDERS: ADMIT Hospitalist; ATTEND Hospitalist
DX: I63.9 Cerebral infarction, unspecified (principal); A41.9 Sepsis, unspecified organism; N17.9 Acute kidney failure, unspecified; N18.4 Chronic kidney disease, stage 4 (severe); E11.21 Type 2 diabetes mellitus with diabetic nephropathy; N39.0 Urinary tract infection, site not specified; A04.7 Enterocolitis due to Clostridium difficile; R47.01 Aphasia; Z86.718 Personal history of other venous thrombosis and embolism; E78.5 Hyperlipidemia, unspecified; B96.5 Pseudomonas (aeruginosa) (mallei) (pseudomallei) as the cause of diseases classified elsewhere; D64.9 Anemia, unspecified; E11.22 Type 2 diabetes mellitus with diabetic chronic kidney disease; E11.319 Type 2 diabetes mellitus with unspecified diabetic retinopathy without macular edema; I73.9 Peripheral vascular disease, unspecified; G62.9 Polyneuropathy, unspecified; I12.9 Hypertensive chronic kidney disease with stage 1 through stage 4 chronic kidney disease, or unspecified chronic kidney disease; K21.9 Gastro-esophageal reflux disease without esophagitis; M19.90 Unspecified osteoarthritis, unspecified site; R56.9 Unspecified convulsions; Z79.01 Long term (current) use of anticoagulants; Z89.511 Acquired absence of right leg below knee; F32.9 Major depressive disorder, single episode, unspecified; Z86.73 Personal history of transient ischemic attack (TIA), and cerebral infarction without residual deficits
CPT/HCPCS: 70450; 70551; 71010; 76775; 76937; 80048; 80053; 80061; 80202; 80307; 81001; 82140; 82550; 82948; 83036; 83605; 83735; 84484; 85025; 85610; 85730; 87040; 87077; 87086; 87186; 87493; 90686; 90732; 93005; 93880; 95819; J0692; J1815; J2405; J3370; J7030; J7040; J7050; J7120; Q2038

== ENCOUNTER 2016-07-31 18:38 | Emergency (ER) | payer OTHER ==
[~2016-07-31] VITALS: Ht 162.6 cm; Wt 78.0 kg
[~2016-07-31 18:38] MED LIST changes: -CEPH-460 PO; +COUM5TAB PO; +LACTCHW3 CHEW; +LEVA250T PO; +LOSA100T PO; -LOSA50TA PO/NG; +METR-1 PO; +ZANT150T2 PO
[2016-07-31 18:39] VITALS: BP 156/70; PULSE 84; RESP 16; TEMP 97.5; O2SAT 97
--- NOTE | 2016-07-31 18:48 | PD ---
Physical Exam Date Seen by Provider: July 31, 2016 Time Seen by Provider: 18:43 Narrative 66 YOBF BACK PAIN,N/V WAS ON MEDS FOR UTI LAST WEEK. H/O CVA 10/10 PAIN. WORSE WITH MOVEMENT BETTER ON HER SIDE VS NOTED wating for bed asignment Data Data Last Documented VS Vital Signs Date Time Temp Pulse Resp B/P Pulse Ox O2 Delivery O2 Flow Rate FiO2 07/31/16 18:39 97.5 84 16 156/70 97 Room Air [facility] Medical Record Reviewed: No Supervised Visit with BAHMAN: Efra Plata July 31, 2016 18:48
[2016-07-31] MEDS ORDERED: APIX2.5T PO (19:01)
--- NOTE | 2016-07-31 19:19 | PD ---
HPI Chief Complaint: Pain: Acute or Chronic Time Seen by Provider: 19:05 Travel History International Travel<30 days: No Contact w/Intl Traveler<30days: No Traveled to known affect area: No History of Present Illness HPI Patient is a 66-year-old female with history of frequent UTIs here with complaint of same. Patient just finished Cipro last week for UTI. Today she began to have suprapubic pressure, radiating to the low back with small volume urinary frequency, hesitancy. Urine is darker in color but no camilo hematuria. Patient states that since December 2015 she has been getting frequent urinary tract infection that this is fairly classic for her. Review patient has had Escherichia coli and pseudomonal urinary tract infections back in April on file with us here. No flank pain, nausea vomiting, fevers or chills. PFSH Past Medical History Hx Anticoagulant Therapy: Yes (Warfarin for clot in arm per daughter ) Anemia: Yes Arthritis: Yes Blood Disorders: No Anxiety: No Depression: Yes Heart Rhythm Problems: No Cancer: No Cardiovascular Problems: Yes High Cholesterol: Yes Chemotherapy: No Chest Pain: Yes Congestive Heart Failure: No Cerebrovascular Accident: Yes (RIGHT CVA 2014) Diabetes: Yes Patient Takes Glucophage: No Diminished Hearing: No Deep Vein Thrombosis: Yes Endocrine: Yes Gastrointestinal Disorders: Yes (GERD) GERD: Yes Genitourinary: Yes (HISTORY OF RENAL DISEASE) Headaches: No Hypertension: Yes Immune Disorder: No Musculoskeletal: Yes (RIGHT BKA ) Neurologic: Yes (PERIPHERAL NEUROPATHY) Psychiatric: Yes Reproductive: Yes ( 20 YEARS AGO) Respiratory: No Integumentary: Yes (R BKA ULCER.) Seizures: Yes Thyroid Disease: No Tetanus Vaccination: < 5 Years Influenza Vaccination: Yes PNEUMOCCOCAL Vaccine (Year): 2 Menopausal: Yes : 6 Para: 4 : 2 Past Surgical History Abdominal Surgery: Yes (GALLBLADDER REMOVAL) Cardiac Surgery: No Section: Yes (X 1) Cholecystectomy: Yes Endocrine Surgery: No Eye Surgery: Yes (LASER) Gynecologic Surgery: Yes (CSECTION) Hysterectomy: No Oral Surgery: Yes (DENTURES) Thoracic Surgery: No Other Surgery: Yes (RIGHT BKA) Social History Alcohol Use: No Tobacco Use: No Substance Use: No Allergies-Medications (Allergen,Severity, Reaction): Coded Allergies: Amoxicillin (Verified Allergy, Severe, Hives, 07/31/16) Cipro (Verified Allergy, Intermediate, Hives, 07/31/16) Reported Meds & Prescriptions Reported Meds & Active Scripts Active Lactinex (Lactobacillus Acidophilus) 1 Chew 1 Tab CHEW DAILY Reported Eliquis (Apixaban) 2.5 Mg Tab 2.5 Mg PO BID Losartan (Losartan Potassium) 100 Mg Tab 100 Mg PO DAILY Novolog Inj (Insulin Aspart) 1,000 Unit/10 Ml Vial 0 SQ ACHS SLIDING SCALE Sliding Scale as directed. BSG <70 no insulin 150-199 1unit, 200-249 3units, 250-299 5units, 300-349 7units, >349 9units. max dose @ hs 2units. Amlodipine (Amlodipine Besylate) 10 Mg Tab 10 Mg PO DAILY D3 2000 (Cholecalciferol) 2,000 Unit Tab 2,000 Units PO DAILY Levemir Inj (Insulin Detemir) 1,000 unit/ 10 ML Vial 15 Units SQ HS Do not mix with any other Insulin. Lipitor (Atorvastatin Calcium) 80 Mg Tab 80 Mg PO DAILY Review of Systems Except as stated in HPI: all other systems reviewed are Neg Physical Exam Narrative GENERAL: Pleasant female in no acute distress SKIN: Focused skin assessment warm/dry. HEAD: Normocephalic. EYES: No scleral icterus. No injection or drainage. ENT: Mucous membranes pink and moist. CARDIOVASCULAR: Regular rate and rhythm. RESPIRATORY: No accessory muscle use. GASTROINTESTINAL: Abdomen soft, non-tender, nondistended. No CVA tenderness MUSCULOSKELETAL: Normal gait NEUROLOGICAL: Awake and alert. Normal speech. PSYCHIATRIC: Appropriate mood and affect; insight and judgment normal. Data Data Last Documented VS Vital Signs Date Time Temp Pulse Resp B/P Pulse Ox O2 Delivery O2 Flow Rate FiO2 07/31/16 18:55 17 07/31/16 18:39 97.5 84 156/70 97 Room Air Orders Urinalysis - C+S If Indicated (07/31/16 19:05) Cath For Specimen (07/31/16 19:15) Labs Laboratory Tests Test 07/31/16 19:30 Urine Color LIGHT-YELLOW Urine Turbidity HAZY Urine pH 5.5 Urine Specific [place] 1.007 Urine Protein 100 mg/dL Urine Glucose (UA) NEG mg/dL Urine Ketones NEG mg/dL Urine Occult Blood NEG Urine Nitrite NEG Urine Bilirubin NEG Urine Urobilinogen LESS THAN 2.0 MG/DL Urine Leukocyte Esterase TRACE Urine WBC LESS THAN 1 /hpf Urine Squamous Epithelial <1 /hpf Cells Urine Amorphous Sediment OCC Urine Bacteria OCC /hpf Urine Hyaline Casts 169 /lpf Microscopic Urinalysis Comment CULT NOT INDICATED MDM Medical Decision Making Medical Screen Exam Complete: Yes Emergency Medical Condition: Yes Medical Record Reviewed: Yes Differential Diagnosis 66-year-old female with small volume frequent urinary frequency, dark urine 1 day. Differential includes UTI, cystitis versus pyelonephritis, ureterolithiasis, interstitial cystitis. Narrative Course Urinalysis showed leukocyte esterase and bacteria. Given her symptoms we'll treat. Diagnosis Primary Impression: Cystitis Referrals: Primary Care Physician as needed Additional Instructions: Antibiotics as prescribed. Med/Other Pt SpecificInfo: Prescription(s) given Scripts Cephalexin (Keflex)500 Mg [id number] Mg PO Q8H 7 Days Ref 0 Prov:Judith Sam MD 07/31/16 Disposition: 01 DISCHARGE HOME Condition: Stable Judith Sam MD July 31, 2016 19:19
[2016-07-31 20:07] LABS: BACTERIA, URINE OCC /hpf; BLOOD, URINE NEG (NEG); COMMENT (UR) CULT NOT INDICATED; CULTURE IF INDICATED CULT NOT INDICATED; GLUCOSE,URINE NEG (NEG); HYALINE CAST, URINE 169 /lpf (RARE); KETONE, URINE NEG (NEG); NITRITE,URINE NEG (NEG); PH, URINE 5.5 (5.0-8.5); SQUAMOUS EPITHELIAL CELL URINE <1 /hpf (0-5); URINE COLOR LIGHT-YELLOW (YELLW/STRAW)
[2016-07-31] MEDS ORDERED: CEPH-460 PO (20:20)
== END 2016-07-31 20:59 | disposition home or self-care (01) ==
LOC: NEPD 18:38
DX: N30.90 Cystitis, unspecified without hematuria (principal); F32.9 Major depressive disorder, single episode, unspecified; E78.00 Pure hypercholesterolemia, unspecified; Z86.73 Personal history of transient ischemic attack (TIA), and cerebral infarction without residual deficits; E11.9 Type 2 diabetes mellitus without complications; Z86.718 Personal history of other venous thrombosis and embolism; K21.9 Gastro-esophageal reflux disease without esophagitis; I10 Essential (primary) hypertension
CPT/HCPCS: 81001; 99283; P9612

== ENCOUNTER 2016-10-30 11:32 | Emergency (ER) | payer OTHER ==
[~2016-10-30] VITALS: Ht 162.6 cm; Wt 75.0 kg
[~2016-10-30 11:32] MED LIST changes: +APIX2.5T PO; -ASPI81TA11 PO; +CEPH-460 PO; -COUM5TAB PO; -LEVA250T PO; -METR-1 PO; -ZANT150T2 PO
[2016-10-30 11:33] VITALS: BP 153/67; PULSE 79; RESP 12; TEMP 98.6; O2SAT 97
--- NOTE | 2016-10-30 11:40 | PD ---
Physical Exam Date Seen by Provider: Oct 30, 2016 Time Seen by Provider: 11:37 Narrative Pt states she has been nauseated and has had a loss of appetite since yesterday. LUQ abdominal pain. Intermittent in nature for the last 24 hours, no fevers, dysuria. Reports pain as a 2/10. Pt is a diabetic, denies hyperglycemia. Data Data Last Documented VS Vital Signs Date Time Temp Pulse Resp B/P Pulse Ox O2 Delivery O2 Flow Rate FiO2 10/30/16 11:33 98.6 79 12 153/67 97 MDM Supervised Visit with BAHMAN: Lizz Dumont Oct 30, 2016 11:40
[2016-10-30 12:14] LABS: AUTOMATED NEUTROPHIL # 7.1 TH/MM3 (1.8-7.7); BASOPHIL # 0.1 TH/MM3 (0-0.2); BASOPHIL % 0.8 % (0.0-2.0); EOSINOPHIL # 0.1 TH/MM3 (0-0.4); EOSINOPHIL % 1.3 % (0.0-4.0); HEMATOCRIT 33.5 % (35.0-46.0); HEMO FLAGS DIFF FINAL; LYMPH % 31.6 % (9.0-44.0); LYMPHOCYTE # 3.6 TH/MM3 (1.0-4.8); MEAN CELL VOLUME 93.1 FL (80.0-100.0); MEAN CORPUSCULAR HEMOGLOBIN 30.3 PG (27.0-34.0); MEAN CORPUSCULAR HGB CONC 32.6 % (32.0-36.0); MONO % 3.1 % (0.0-8.0); NEUT % 63.2 % (16.0-70.0); PLATELET COUNT 275 TH/MM3 (150-450); RED CELL DISTRIBUTION WIDTH 14.5 % (11.6-17.2); WHITE BLOOD COUNT 11.3 TH/MM3 (4.0-11.0)
[2016-10-30 12:19] LABS: BACTERIA, URINE FEW /hpf; BLOOD, URINE TRACE (NEG); COMMENT (UR) CULTURE INDICATED; CULTURE IF INDICATED CULTURE INDICATED; GLUCOSE,URINE NEG (NEG); KETONE, URINE NEG (NEG); NITRITE,URINE NEG (NEG); PH, URINE 5.5 (5.0-8.5); SQUAMOUS EPITHELIAL CELL URINE 2 /hpf (0-5); URINE COLOR LIGHT-YELLOW (YELLW/STRAW)
[2016-10-30 12:36] LABS: ANION GAP 6 MEQ/L (5-15); AST (GOT) 20 U/L (15-37); BICARBONATE 22.8 MEQ/L (21.0-32.0); BLOOD UREA NITROGEN 52 MG/DL (7-18); CHLORIDE 107 MEQ/L (98-107); GLOMERULAR FILTRATION RATE 23 ML/MIN (>89); POTASSIUM 4.2 MEQ/L (3.5-5.1); SODIUM (NA) 136 MEQ/L (136-145)
[2016-10-30 12:37] LABS: ALT (GPT) 36 U/L (10-53)
[2016-10-30 12:39] LABS: ALKALINE PHOSPHATASE 116 U/L (45-117); TOTAL BILIRUBIN ADULT 0.2 MG/DL (0.2-1.0)
[2016-10-30 12:42] VITALS: BP 146/65; PULSE 75; RESP 16; TEMP 98; O2SAT 97
[2016-10-30] MEDS ORDERED: INSU1INJ14 SQ (12:47)
[2016-10-30] MEDS ORDERED: CEPHALEXIN MONOHYDRATE 500 MG CAP PO ONE (13:00)
[2016-10-30] MEDS ORDERED: CEPH-460 PO (13:22)
--- NOTE | 2016-10-30 13:23 | PD ---
HPI Chief Complaint: GI Complaint Time Seen by Provider: 12:37 Travel History International Travel<30 days: No Contact w/Intl Traveler<30days: No Traveled to known affect area: No History of Present Illness HPI This 66 year-old woman who presents to the emergency department complaining of feeling sick with assessed on for the past couple days. Decreased appetite but no vomiting. She had some mild lower abdominal pain and some back pain similar to previous urinary tract infections. No fevers or chills. She is prone to urinary tract infections and is following up with urology to look more into this. 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 Chronic kidney disease PNEUMOCCOCAL Vaccine (Year): 2 Menopausal: Yes : 6 Para: 4 Social History Alcohol Use: No Tobacco Use: No Allergies-Medications (Allergen,Severity, Reaction): Coded Allergies: Amoxicillin (Verified Allergy, Severe, Hives, 07/31/16) Cipro (Verified Allergy, Intermediate, Hives, 07/31/16) Reported Meds & Prescriptions Reported Meds & Active Scripts Active Reported Tresiba Flextouch Pen Inj (Insulin Degludec Inj) 300 unit/3 ML Pen 15 Units SQ DAILY Eliquis (Apixaban) 2.5 Mg Tab 2.5 Mg PO BID Losartan (Losartan Potassium) 100 Mg Tab 100 Mg PO DAILY Amlodipine (Amlodipine Besylate) 10 Mg Tab 10 Mg PO DAILY D3 2000 (Cholecalciferol) 2,000 Unit Tab 2,000 Units PO DAILY Levemir Inj (Insulin Detemir) 1,000 unit/ 10 ML Vial 15 Units SQ HS Do not mix with any other Insulin. Lipitor (Atorvastatin Calcium) 80 Mg Tab 80 Mg PO DAILY Review of Systems Except as stated in HPI: all other systems reviewed are Neg Physical Exam Narrative GENERAL: Well-appearing 89 old woman, no acute distress. SKIN: Focused skin assessment warm/dry. HEAD: Atraumatic. Normocephalic. EYES: Pupils equal and round. No scleral icterus. No injection or drainage. ENT: No nasal bleeding or discharge. Mucous membranes pink and moist. NECK: Trachea midline. No JVD. CARDIOVASCULAR: Regular rate and rhythm. No murmur appreciated. RESPIRATORY: No accessory muscle use. Clear to auscultation. Breath sounds equal bilaterally. GASTROINTESTINAL: Abdomen soft, non-tender, nondistended. Hepatic and splenic margins not palpable. Data Data Last Documented VS Vital Signs Date Time Temp Pulse Resp B/P Pulse Ox O2 Delivery O2 Flow Rate FiO2 10/30/16 12:45 16 10/30/16 12:42 98.0 75 146/65 97 Room Air Orders Complete Blood Count With Diff (10/30/16 11:39) Comprehensive Metabolic Panel (10/30/16 11:39) Urinalysis - C+S If Indicated (10/30/16 11:39) Lipase (10/30/16 11:39) Urine Culture (10/30/16 11:55) Cephalexin (Keflex) (10/30/16 13:00) Labs Laboratory Tests Test 10/30/16 11:55 White Blood Count 11.3 TH/MM3 Red Blood Count 3.60 MIL/MM3 Hemoglobin 10.9 GM/DL Hematocrit 33.5 % Mean Corpuscular Volume 93.1 FL Mean Corpuscular Hemoglobin 30.3 PG Mean Corpuscular Hemoglobin 32.6 % Concent Red Cell Distribution Width 14.5 % Platelet Count 275 TH/MM3 Mean Platelet Volume 8.2 FL Neutrophils (%) (Auto) 63.2 % Lymphocytes (%) (Auto) 31.6 % Monocytes (%) (Auto) 3.1 % Eosinophils (%) (Auto) 1.3 % Basophils (%) (Auto) 0.8 % Neutrophils # (Auto) 7.1 TH/MM3 Lymphocytes # (Auto) 3.6 TH/MM3 Monocytes # (Auto) 0.4 TH/MM3 Eosinophils # (Auto) 0.1 TH/MM3 Basophils # (Auto) 0.1 TH/MM3 CBC Comment DIFF FINAL Differential Comment Urine Color LIGHT-YELLOW Urine Turbidity HAZY Urine pH 5.5 Urine Specific [place] 1.010 Urine Protein 100 mg/dL Urine Glucose (UA) NEG mg/dL Urine Ketones NEG mg/dL Urine Occult Blood TRACE Urine Nitrite NEG Urine Bilirubin NEG Urine Urobilinogen LESS THAN 2.0 MG/DL Urine Leukocyte Esterase LARGE Urine RBC 5 /hpf Urine WBC 55 /hpf Urine Squamous Epithelial 2 /hpf Cells Urine Bacteria FEW /hpf Microscopic Urinalysis Comment CULTURE INDICATED Sodium Level 136 MEQ/L Potassium Level 4.2 MEQ/L Chloride Level 107 MEQ/L Carbon Dioxide Level 22.8 MEQ/L Anion Gap 6 MEQ/L Blood Urea Nitrogen 52 MG/DL Creatinine 2.51 MG/DL Estimat Glomerular Filtration 23 ML/MIN Rate Random Glucose 103 MG/DL Calcium Level 8.8 MG/DL Total Bilirubin 0.2 MG/DL Aspartate Amino Transf 20 U/L (AST/SGOT) Alanine Aminotransferase 36 U/L (ALT/SGPT) Alkaline Phosphatase 116 U/L Total Protein 8.3 GM/DL Albumin 3.1 GM/DL Lipase 105 U/L [facility] Medical Decision Making Medical Screen Exam Complete: Yes Emergency Medical Condition: Yes Interpretation(s) LABS: CBC remarkable for mild leukocytosis, mild anemia CMP remarkable for creatinine of 2.5 consistent with baseline UA remarkable for pyuria Differential Diagnosis UTI, colitis, appendicitis, sepsis, other Narrative Course Medical decision-making 66 year-old woman presents emergent department with nausea and decreased appetite lower abdominal pain is some back pain consistent with previous urinary tract infections. UA does show pyuria. The suggestive of UTI. She looks otherwise well. She is allergic to penicillin but has done okay with later generation cephalosporins in the past. We'll give her a dose of Keflex here as well as some Zofran. Outpatient follow-up. Diagnosis Primary Impression: UTI (urinary tract infection) Additional Instructions: Take Keflex as prescribed. Return to the emergency department for any new or worsening symptoms. Follow-up with your primary doctor as planned. Med/Other Pt SpecificInfo: Prescription(s) given Scripts Cephalexin (Keflex)500 Mg [id number] Mg PO Q12HR 7 Days Ref 0 Prov:Armando Ramos MD 10/30/16 Disposition: 01 DISCHARGE HOME Condition: Stable Armando Ramos MD Oct 30, 2016 13:22
== END 2016-10-30 14:05 | disposition home or self-care (01) ==
LOC: NEPD 11:32
DX: N39.0 Urinary tract infection, site not specified (principal); I12.9 Hypertensive chronic kidney disease with stage 1 through stage 4 chronic kidney disease, or unspecified chronic kidney disease; E11.22 Type 2 diabetes mellitus with diabetic chronic kidney disease; N18.9 Chronic kidney disease, unspecified; Z79.4 Long term (current) use of insulin; Z86.718 Personal history of other venous thrombosis and embolism; Z79.01 Long term (current) use of anticoagulants; Z86.73 Personal history of transient ischemic attack (TIA), and cerebral infarction without residual deficits
CPT/HCPCS: 80053; 81001; 83690; 85025; 87086; 99283

== ENCOUNTER 2017-01-20 09:14 | Emergency (ER) | payer OTHER ==
[~2017-01-20 09:14] MED LIST changes: -CHOL1TAB29 PO; +D200CAP PO; +INSU1INJ14 SQ; -LACTCHW3 CHEW; -LEVEMIR SQ; -NOVOLOGP2 SQ
[2017-01-20 09:30] VITALS: BP 183/77; PULSE 86; RESP 20; TEMP 98.5; O2SAT 99
[2017-01-20] MEDS ORDERED: SODIUM CHLOR 0.9% 1000 ML INJ 1,000 ML IV SCH (09:39)
--- NOTE | 2017-01-20 09:46 | PD ---
HPI Chief Complaint: weakness, right leg pain Time Seen by Provider: 09:30 Travel History International Travel<30 days: No Contact w/Intl Traveler<30days: No Traveled to known affect area: No History of Present Illness HPI This is a 66-year-old female with a history of HTN, DM, Right BKA, h/o DVT , h /o ICH and h/o CVA who presents via EMS for evaluation. The patient is complaining of generalized weakness and right leg pain. This is been going on for the past few days. According to EMS the daughter spoke to the patient over the phone this morning and her daughter called EMS because the patient reported that she could not get out of bed. According to EMS she was covered and diarrhea in bed. Her right leg pain seems to be localized to the right knee region and she reports that it is a mild aching pain. The patient was seen here on January 17 and diagnosed with presumed urinary tract infection. She was started on Keflex which she reports that she has been taking as prescribed. She reports that the diarrhea started this morning. She is a poor historian. She denies abdominal pain, nausea or vomiting, fevers or chills, headache, focal weakness, slurred speech. She has no other complaints. PFSH Past Medical History Hx Anticoagulant Therapy: Yes Anemia: Yes Arthritis: Yes Blood Disorders: No Anxiety: No Depression: Yes Heart Rhythm Problems: No Cancer: No Cardiovascular Problems: Yes (HTN) High Cholesterol: Yes Chemotherapy: No Chest Pain: Yes Congestive Heart Failure: No Cerebrovascular Accident: Yes Diabetes: Yes Diminished Hearing: No Deep Vein Thrombosis: Yes Endocrine: Yes Gastrointestinal Disorders: Yes (GERD) GERD: Yes Genitourinary: Yes (renal disease, chronic UTI) Headaches: No Hypertension: Yes Immune Disorder: No Musculoskeletal: Yes (RIGHT BKA ) Neurologic: Yes (PERIPHERAL NEUROPATHY) Psychiatric: Yes Reproductive: Yes ( 20 YEARS AGO) Respiratory: No Integumentary: Yes (R BKA ULCER.) Seizures: Yes Thyroid Disease: No PNEUMOCCOCAL Vaccine (Year): 2 Menopausal: Yes : 6 Para: 4 : 2 Past Surgical History Abdominal Surgery: Yes (GALLBLADDER REMOVAL) Cardiac Surgery: No Section: Yes (X 1) Cholecystectomy: Yes Endocrine Surgery: No Eye Surgery: Yes (LASER) Gynecologic Surgery: Yes (CSECTION) Hysterectomy: No Oral Surgery: Yes (DENTURES) Thoracic Surgery: No Other Surgery: Yes (RIGHT BKA) Social History Alcohol Use: No Tobacco Use: No Substance Use: No Allergies-Medications (Allergen,Severity, Reaction): Coded Allergies: amoxicillin (Unverified Allergy, Severe, Hives, 01/17/17) ciprofloxacin (Unverified Allergy, Intermediate, Hives, 01/17/17) Reported Meds & Prescriptions Reported Meds & Active Scripts Active Keflex (Cephalexin) 500 Mg Capsule 500 Mg PO Q12HR 7 Days Reported D3 Super Strength (Cholecalciferol) 2,000 Unit Cap 2,000 Units PO DAILY Tresiba Flextouch Pen Inj (Insulin Degludec Inj) 300 unit/3 ML Pen 15 Units SQ DAILY Eliquis (Apixaban) 2.5 Mg Tab 2.5 Mg PO BID Losartan (Losartan Potassium) 100 Mg Tab 100 Mg PO DAILY Amlodipine (Amlodipine Besylate) 10 Mg Tab 10 Mg PO DAILY Lipitor (Atorvastatin Calcium) 80 Mg Tab 80 Mg PO DAILY Review of Systems Except as stated in HPI: all other systems reviewed are Neg Physical Exam Narrative GENERAL: Pleasant well-developed well-nourished female who is awake and alert. She is oriented to person and place but does not know what year it is. SKIN: Warm and dry. HEAD: Atraumatic. Normocephalic. EYES: Pupils equal and round. No scleral icterus. No injection or drainage. ENT: No nasal bleeding or discharge. Mucous membranes pink and moist. NECK: Trachea midline. No JVD. CARDIOVASCULAR: Regular rate and rhythm. No murmur appreciated. RESPIRATORY: No accessory muscle use. Clear to auscultation. Breath sounds equal bilaterally. GASTROINTESTINAL: Abdomen soft, non-tender, nondistended. Hepatic and splenic margins not palpable. MUSCULOSKELETAL: Right leg BKA. The right leg is nontender to palpation. There is no edema. The leg feels warm and well perfused. There is no ulceration or erythema. NEUROLOGICAL: Awake and alert, oriented to person and place. No obvious cranial nerve deficits. Motor grossly within normal limits. Normal speech. Data Data Last Documented VS Vital Signs Date Time Temp Pulse Resp B/P (MAP) Pulse Ox O2 Delivery O2 Flow Rate FiO2 01/20/17 09:48 86 20 98 Room Air 01/20/17 09:48 98.5 183/77 (112) Orders Orders Complete Blood Count With Diff (11/1/17 09:39) Comprehensive Metabolic Panel (01/20/17 09:39) Sodium Chlor 0.9% 1000 Ml Inj (Ns 1000 M (01/20/17 09:39) Electrocardiogram (01/20/17 09:39) Act Partial Throm Time (Ptt) (01/20/17 09:39) Prothrombin Time / Inr (Pt) (01/20/17 09:39) C Diff Toxin Pcr (01/20/17 09:39) Ct Brain W/O Iv Contrast(Rout) (01/20/17 ) Labs Laboratory Tests Test 01/20/17 10:15 White Blood Count 10.3 TH/MM3 Red Blood Count 3.45 MIL/MM3 Hemoglobin 10.5 GM/DL Hematocrit 32.1 % Mean Corpuscular Volume 93.0 FL Mean Corpuscular Hemoglobin 30.4 PG Mean Corpuscular Hemoglobin Concent 32.7 % Red Cell Distribution Width 14.3 % Platelet Count 225 TH/MM3 Mean Platelet Volume 8.2 FL Neutrophils (%) (Auto) 68.9 % Lymphocytes (%) (Auto) 25.1 % Monocytes (%) (Auto) 4.2 % Eosinophils (%) (Auto) 1.0 % Basophils (%) (Auto) 0.8 % Neutrophils # (Auto) 7.1 TH/MM3 Lymphocytes # (Auto) 2.6 TH/MM3 Monocytes # (Auto) 0.4 TH/MM3 Eosinophils # (Auto) 0.1 TH/MM3 Basophils # (Auto) 0.1 TH/MM3 CBC Comment DIFF FINAL Differential Comment Prothrombin Time 11.4 SEC Prothromb Time International Ratio 1.0 RATIO Activated Partial Thromboplast Time 30.4 SEC Blood Urea Nitrogen 42 MG/DL Creatinine 2.30 MG/DL Random Glucose 108 MG/DL Total Protein 7.3 GM/DL Albumin 2.8 GM/DL Calcium Level 8.6 MG/DL Alkaline Phosphatase 113 U/L Aspartate Amino Transf (AST/SGOT) 19 U/L Alanine Aminotransferase (ALT/SGPT) 25 U/L Total Bilirubin 0.3 MG/DL Sodium Level 143 MEQ/L Potassium Level 4.3 MEQ/L Chloride Level 111 MEQ/L Carbon Dioxide Level 22.9 MEQ/L Anion Gap 9 MEQ/L Estimat Glomerular Filtration Rate 26 ML/MIN MDM Medical Decision Making Medical Screen Exam Complete: Yes Emergency Medical Condition: Yes Medical Record Reviewed: Yes Differential Diagnosis Phantom limb pain, diabetic neuropathy, muscle strain, DVT, arterial occlusion, osteomyelitis, C. difficile, dehydration, electrolyte abnormality Narrative Course Plan is for basic lab work, EKG. She'll be given IV fluids. Reportedly she is developed diarrhea this morning and she was prescribed Keflex 3 days ago so we will attempt to obtain C. difficile PCR. I spoke to the patient's daughter on the phone he reports that she was concerned because yesterday while on a walk the patient is complaining of some weakness in her right arm. The weakness resolved shortly afterwards yesterday according to the daughter. She has a history of CVA in the past and they're concerned that this may be causing her symptoms today and that is why EMS was called. She has no weakness on examination. The patient's lab and imaging studies have been reviewed and found to be reassuring. She has chronic kidney disease. She has no leukocytosis, fever or tachycardia and her abdomen is nontender so I doubt that the patient has C. difficile. The patient's daughter has arrived and discussed her workup with her and she is agreeable with her going home. The Keflex will be discontinued. Prior to discharge if she is able to make a stool sample this will be sent for C. difficile testing. Diagnosis Primary Impression: Generalized weakness Additional Impression: Diarrhea Qualified Codes: R19.7 - Diarrhea, unspecified Additional Instructions: Quit taking Keflex. Follow-up close with primary care physician. Return for any new or worsening symptoms. Med/Other Pt SpecificInfo: No Change to Meds Disposition: 01 DISCHARGE HOME Condition: Stable Dylon Minaya Jan 20, 2017 09:45
[2017-01-20 09:48] VITALS: BP 183/77; PULSE 86; RESP 20; TEMP 98.5; O2SAT 99
[2017-01-20 10:34] LABS: AUTOMATED NEUTROPHIL # 7.1 TH/MM3 (1.8-7.7); BASOPHIL # 0.1 TH/MM3 (0-0.2); BASOPHIL % 0.8 % (0.0-2.0); EOSINOPHIL # 0.1 TH/MM3 (0-0.4); HEMATOCRIT 32.1 % (35.0-46.0); HEMO FLAGS DIFF FINAL; LYMPH % 25.1 % (9.0-44.0); LYMPHOCYTE # 2.6 TH/MM3 (1.0-4.8); MEAN CORPUSCULAR HEMOGLOBIN 30.4 PG (27.0-34.0); MEAN CORPUSCULAR HGB CONC 32.7 % (32.0-36.0); MONO % 4.2 % (0.0-8.0); NEUT % 68.9 % (16.0-70.0); PLATELET COUNT 225 TH/MM3 (150-450); RED BLOOD COUNT 3.45 MIL/MM3 (4.00-5.30); RED CELL DISTRIBUTION WIDTH 14.3 % (11.6-17.2); WHITE BLOOD COUNT 10.3 TH/MM3 (4.0-11.0)
[2017-01-20 10:43] LABS: APTT (PATIENT) 30.4 SEC (24.3-30.1); PROTHROMBIN TIME - PATIENT 11.4 SEC (9.8-11.6)
[2017-01-20 10:51] LABS: ANION GAP 9 MEQ/L (5-15); AST (GOT) 19 U/L (15-37); BICARBONATE 22.9 MEQ/L (21.0-32.0); BLOOD UREA NITROGEN 42 MG/DL (7-18); CHLORIDE 111 MEQ/L (98-107); GLOMERULAR FILTRATION RATE 26 ML/MIN (>89); POTASSIUM 4.3 MEQ/L (3.5-5.1); SODIUM (NA) 143 MEQ/L (136-145)
[2017-01-20 10:56] LABS: ALKALINE PHOSPHATASE 113 U/L (45-117); ALT (GPT) 25 U/L (10-53); TOTAL BILIRUBIN ADULT 0.3 MG/DL (0.2-1.0)
--- NOTE | 2017-01-20 11:10 | RADRPT ---
EXAM DATE/TIME: 01/20/2017 10:50 [facility] COMPARISON: MRI BRAIN W/O CONTRAST, May 14, 2016, 18:57. CT BRAIN W/O CONTRAST, May 14, 2016, 10:16. INDICATIONS : Generalized weakness. RADIATION DOSE: 56.35 CTDIvol (mGy) MEDICAL HISTORY : Stroke. Seizures. Hypertension. SURGICAL HISTORY : None. ENCOUNTER: Initial ACUITY: 1 day PAIN SCALE: 0/10 LOCATION: Bilateral cranial TECHNIQUE: Multiple contiguous axial images were obtained of the head. Using automated exposure control and adj ustment of the mA and/or kV according to patient size, radiation dose was kept as low as reasonably a chievable to obtain optimal diagnostic quality images. DICOM format image data is available electro nically for review and comparison. FINDINGS: Study remains abnormal with an old infarct deep in the left mid to posterior temporal region. The ri ght hemisphere is unremarkable. Moderate periventricular white matter changes are noted. Ventricle size is appropriate. There are no extra-axial fluid collections appreciated. Posterior fossa is unremarkable. CONCLUSION: Negative for acute process. Flynn Garcia MD FACR on January 20, 2017 at 11:07 Board Certified Radiologist. This report was verified electronically.
[2017-01-20 12:58] VITALS: BP 162/78
[2017-01-20 15:40] LABS: C. DIFF EPI 027 PRESUMPTIVE NEGATIVE (NEGATIVE)
--- NOTE | 2017-01-21 16:51 | EKG ---
Date Performed: 01/20/2017 Time Performed: 10:01:10 PTAGE: 66 years EKG: Sinus rhythm POSSIBLE LEFT ATRIAL ENLARGEMENT When compare to previous tracing, rate has slowed. BORDERLINE ECG PREVIOUS TRACING : 05/17/2016 00.41 DOCTOR: Oumar Nascimento Interpretating Date/Time 01/21/2017 16:49:26
== END 2017-01-20 12:59 | disposition home or self-care (01) ==
LOC: NEPD 09:14
DX: R53.1 Weakness (principal); R19.7 Diarrhea, unspecified; E11.42 Type 2 diabetes mellitus with diabetic polyneuropathy; I10 Essential (primary) hypertension; E78.00 Pure hypercholesterolemia, unspecified; K21.9 Gastro-esophageal reflux disease without esophagitis; D64.9 Anemia, unspecified; Z86.73 Personal history of transient ischemic attack (TIA), and cerebral infarction without residual deficits; Z89.511 Acquired absence of right leg below knee
CPT/HCPCS: 70450; 80053; 85025; 85610; 85730; 87493; 93005; 96360; 96361; 99285; J7030

== ENCOUNTER 2017-01-29 15:50 | Emergency (ER) | payer OTHER ==
[~2017-01-29] VITALS: Ht 154.9 cm; Wt 82.0 kg
[2017-01-29 15:51] VITALS: BP 191/81; PULSE 90; RESP 14; TEMP 97.9; O2SAT 98
--- NOTE | 2017-01-29 17:03 | PD ---
HPI Chief Complaint: Pain: Acute or Chronic Time Seen by Provider: 16:21 Travel History International Travel<30 days: No Contact w/Intl Traveler<30days: No Traveled to known affect area: No History of Present Illness HPI 66-year-old female with a history of HTN, DM, Right BKA ,and h/o CVA presents to the emergency room for evaluation of right eye blurriness. Patient is difficult to extract information from. States she has been having right eye blurriness for the past year. She states she can see better if only one eye is open. When closing her left eye, she has extreme blurriness in the right eye but if she closes her right eye, she can see okay with the left. When both eyes are open she states it is too difficult to see. She has associated photophobia and the right eye. She has history of recurrent headaches over the past year as well but none at this time. Her daughter provides a better history. Daughter states she has been complaining of eye problems for the past year. She went to the bun icer 2 months ago and has a follow-up appointment at the end of this month. Daughter called the bun icer today for an emergency appointment and he recommended she come to the emergency room for evaluation. Daughter states over the past week she has had increasingly worsening vision in the right eye. PFSH Past Medical History Hx Anticoagulant Therapy: Yes Anemia: Yes Arthritis: Yes Blood Disorders: No Anxiety: No Depression: Yes Heart Rhythm Problems: No Cancer: No Cardiovascular Problems: Yes (HTN) High Cholesterol: Yes Chemotherapy: No Chest Pain: Yes Congestive Heart Failure: No Cerebrovascular Accident: Yes Diabetes: Yes Patient Takes Glucophage: No Diminished Hearing: No Deep Vein Thrombosis: Yes Endocrine: Yes Gastrointestinal Disorders: Yes (GERD) GERD: Yes Genitourinary: Yes (renal disease, chronic UTI) Headaches: No Hypertension: Yes Immune Disorder: No Implanted Vascular Access Dvce: No Musculoskeletal: Yes (RIGHT BKA ) Neurologic: Yes (PERIPHERAL NEUROPATHY) Psychiatric: Yes Reproductive: Yes ( 20 YEARS AGO) Respiratory: No Integumentary: Yes (R BKA ULCER.) Seizures: Yes Thyroid Disease: No PNEUMOCCOCAL Vaccine (Year): 2 Menopausal: Yes : 6 Para: 4 : 2 Past Surgical History Abdominal Surgery: Yes (GALLBLADDER REMOVAL) Cardiac Surgery: No Section: Yes (X 1) Cholecystectomy: Yes Endocrine Surgery: No Eye Surgery: Yes (LASER) Gynecologic Surgery: Yes (CSECTION) Hysterectomy: No Neurologic Surgery: No Oral Surgery: Yes (DENTURES) Pacemaker: No Thoracic Surgery: No Other Surgery: Yes (RIGHT BKA) Social History Alcohol Use: No Tobacco Use: No Substance Use: No Allergies-Medications (Allergen,Severity, Reaction): Coded Allergies: amoxicillin (Unverified Allergy, Severe, Hives, 01/29/17) ciprofloxacin (Unverified Allergy, Intermediate, Hives, 01/29/17) Reported Meds & Prescriptions Reported Meds & Active Scripts Active Keflex (Cephalexin) 500 Mg Capsule 500 Mg PO Q12HR 7 Days Reported D3 Super Strength (Cholecalciferol) 2,000 Unit Cap 2,000 Units PO DAILY Tresiba Flextouch Pen Inj (Insulin Degludec Inj) 300 unit/3 ML Pen 15 Units SQ DAILY Eliquis (Apixaban) 2.5 Mg Tab 2.5 Mg PO BID Losartan (Losartan Potassium) 100 Mg Tab 100 Mg PO DAILY Amlodipine (Amlodipine Besylate) 10 Mg Tab 10 Mg PO DAILY Lipitor (Atorvastatin Calcium) 80 Mg Tab 80 Mg PO DAILY Review of Systems Except as stated in HPI: all other systems reviewed are Neg Physical Exam Narrative GENERAL: Well-nourished, well-developed female in no acute distress. Afebrile. Ambulatory. Patient opens both eyes while wearing sunglasses without difficulty. SKIN: Focused skin assessment warm/dry. HEAD: Normocephalic. EYES: PERRL, EOMI, no discharge or injection. No scleral icterus. Visual acuity is 20/40 in the right and 20/200 in the left. Fluorescein staining reveals no corneal abrasion, foreign body, or ulceration. Diffuse uptake bilaterally. Negative Simona sign. Intraocular pressure is 18 mmHg in the right eye. NECK: Supple, trachea midline. No JVD or lymphadenopathy. CARDIOVASCULAR: Regular rate and rhythm without murmurs, gallops, or rubs. RESPIRATORY: Breath sounds equal bilaterally. No accessory muscle use. PSYCHIATRIC: No delusional thought processes. No hallucinations. Data Data Last Documented VS Vital Signs Date Time Temp Pulse Resp B/P (MAP) Pulse Ox O2 Delivery O2 Flow Rate FiO2 01/29/17 15:51 97.9 90 14 191/81 (117) 98 MDM Medical Decision Making Medical Screen Exam Complete: Yes Emergency Medical Condition: Yes Medical Record Reviewed: Yes Differential Diagnosis Somatization, foreign body, corneal abrasion, diabetic retinopathy Narrative Course 66-year-old female with a history of HTN, DM, Right BKA, and h/o CVA presents to the emergency room for evaluation of right eye blurriness with associated photophobia and discomfort for the past year that has worsened especially over the past week. Physical exam is reassuring. Patient is sitting up in bed with sunglasses on and both eyes open. EOMI without pain. No injection or drainage. Fluorescein staining is negative. Intraocular pressure is 18 mmHg in the right eye. She does have significant decrease in visual acuity, 20/40 on the left and 20/200 on the right. No focal neurological deficits. She had a CT 9 days ago that was unremarkable. I suspect diabetic retinopathy. Patient has BKA and chronic renal failure likely from diabetes and hypertension. Patient and her daughter were reassured. They were told to follow-up with her bun icer sooner than planned if possible for recheck. Told to return for worsening symptoms. She understands and agrees to plan. Diagnosis Primary Impression: Diabetic retinopathy associated with controlled type 2 diabetes mellitus Referrals: Online Project Manager Additional Instructions: Follow-up with bun icer this week. Call Wednesday for an appointment. Return sooner for worsening symptoms. Disposition: DISCHARGE HOME Condition: Stable Lin Blackburn Jan 29, 2017 17:03
== END 2017-01-29 18:26 | disposition home or self-care (01) ==
LOC: NEPD 15:50
DX: E11.319 Type 2 diabetes mellitus with unspecified diabetic retinopathy without macular edema (principal); I10 Essential (primary) hypertension; K21.9 Gastro-esophageal reflux disease without esophagitis; Z89.511 Acquired absence of right leg below knee; Z86.73 Personal history of transient ischemic attack (TIA), and cerebral infarction without residual deficits; Z86.718 Personal history of other venous thrombosis and embolism; Z79.01 Long term (current) use of anticoagulants
CPT/HCPCS: 99283

== ENCOUNTER 2017-02-06 11:55 | Observation (INO) | payer OTHER ==
[~2017-02-06] VITALS: Ht 162.6 cm; Wt 80.5 kg
[2017-02-06 11:59] VITALS: BP 185/79; PULSE 83; RESP 18; TEMP 97.3; O2SAT 99
[2017-02-06 12:19] VITALS: BP 184/84; PULSE 78; RESP 15; O2SAT 99
[2017-02-06] MEDS ORDERED: SODIUM CHLOR 0.9% 1000 ML INJ 1,000 ML IV SCH (12:27)
[2017-02-06] MEDS ORDERED: ONDANSETRON HCL 4 MG/2 ML VIAL IVP ONE (12:30)
[2017-02-06] MEDS ORDERED: FAMOTIDINE 20 MG/2 ML VIAL IV PUSH ONE (12:30)
[2017-02-06] MEDS ORDERED: SODIUM CHLORIDE 0.9% FLUSH 10 ML FLUSH IV FLUSH PRN (12:30)
--- NOTE | 2017-02-06 12:32 | PD ---
HPI Chief Complaint: General Weakness Time Seen by Provider: 12:17 Travel History International Travel<30 days: No Contact w/Intl Traveler<30days: No Traveled to known affect area: No History of Present Illness HPI 66-year-old female complains of abdominal cramping and nausea and vomiting and poor appetite generalized malaise and weakness. Patient states that she started having generalized malaise and weakness 2 weeks ago. Patient was seen in emergency room and workup was negative. Patient states that she had transient episodes of diarrhea at that time however that resolved completely. Patient states that she has intermittent abdominal cramping for the past 2 weeks and started having nausea vomiting since yesterday. Patient denies any headache. Patient denies any chest pain or shortness of breath. Patient states that the abdominal cramping is intermittent and diffuse over the abdomen. Patient denies any pain radiation. Patient denies any dysuria or frequency. Patient denies any vaginal discharge or bleeding. Patient denies any fever chills. Patient has history of hypertension, diabetes, hyperlipidemia. Patient states that her blood sugar has been in good control recently. PFSH Past Medical History Hx Anticoagulant Therapy: Yes Anemia: Yes Arthritis: Yes Blood Disorders: No Anxiety: No Depression: Yes Heart Rhythm Problems: No Cancer: No Cardiovascular Problems: No High Cholesterol: Yes Chemotherapy: No Chest Pain: Yes Congestive Heart Failure: No Cerebrovascular Accident: Yes Developmental Delay: No Diabetes: Yes Patient Takes Glucophage: No Diminished Hearing: No Deep Vein Thrombosis: Yes Endocrine: Yes Gastrointestinal Disorders: Yes (GERD) GERD: Yes Genitourinary: Yes (renal disease, chronic UTI) Headaches: No Hypertension: Yes Immune Disorder: No Implanted Vascular Access Dvce: No Musculoskeletal: Yes (RIGHT BKA ) Neurologic: Yes (PERIPHERAL NEUROPATHY) Psychiatric: Yes Reproductive: Yes ( 20 YEARS AGO) Respiratory: No Integumentary: Yes (R BKA ULCER.) Seizures: Yes Thyroid Disease: No PNEUMOCCOCAL Vaccine (Year): 2 ?: Unknown Menopausal: Yes : 6 Para: 4 : 2 Past Surgical History Abdominal Surgery: Yes (GALLBLADDER REMOVAL) Cardiac Surgery: No Section: Yes (X 1) Cholecystectomy: Yes Endocrine Surgery: No Eye Surgery: Yes (LASER) Gynecologic Surgery: Yes (CSECTION) Hysterectomy: No Neurologic Surgery: No Oral Surgery: Yes (DENTURES) Pacemaker: No Thoracic Surgery: No Other Surgery: Yes (RIGHT BKA with prosthetic) Social History Alcohol Use: No Tobacco Use: No Substance Use: No Allergies-Medications (Allergen,Severity, Reaction): Coded Allergies: amoxicillin (Unverified Allergy, Severe, Hives, 02/06/17) ciprofloxacin (Unverified Allergy, Intermediate, Hives, 02/06/17) Reported Meds & Prescriptions Reported Meds & Active Scripts Active Reported D3 Super Strength (Cholecalciferol) 2,000 Unit Cap 2,000 Units PO DAILY Tresiba Flextouch Pen Inj (Insulin Degludec Inj) 300 unit/3 ML Pen 15 Units SQ DAILY Eliquis (Apixaban) 2.5 Mg Tab 2.5 Mg PO BID Losartan (Losartan Potassium) 100 Mg Tab 100 Mg PO DAILY Amlodipine (Amlodipine Besylate) 10 Mg Tab 10 Mg PO DAILY Lipitor (Atorvastatin Calcium) 80 Mg Tab 80 Mg PO DAILY Review of Systems General / Constitutional: No: Fever Eyes: No: Visual changes HENT: No: Headaches Cardiovascular: No: Chest Pain or Discomfort Respiratory: No: Shortness of Breath Gastrointestinal: Positive: Nausea, Vomiting, Abdominal Pain Genitourinary: No: Dysuria Musculoskeletal: No: Pain Skin: No Rash Neurologic: No: Weakness Psychiatric: No: Depression Endocrine: No: Polydipsia Hematologic/Lymphatic: No: Easy Bruising Physical Exam Narrative GENERAL: Well-nourished, well-developed patient. SKIN: Focused skin assessment warm/dry. HEAD: Normocephalic. EYES: No scleral icterus. No injection or drainage. NECK: Supple, trachea midline. No JVD or lymphadenopathy. CARDIOVASCULAR: Regular rate and rhythm without murmurs, gallops, or rubs. RESPIRATORY: Breath sounds equal bilaterally. No accessory muscle use. GASTROINTESTINAL: Abdomen soft, nondistended. Patient has mild diffuse tenderness over the abdomen. No rebound tenderness. No mass. MUSCULOSKELETAL: No cyanosis, or edema. BACK: Nontender without obvious deformity. No CVA tenderness. Neurologic exam normal. Data Data Last Documented VS Vital Signs Date Time Temp Pulse Resp B/P (MAP) Pulse Ox O2 Delivery O2 Flow Rate FiO2 02/06/17 12:19 78 15 184/84 (117) 99 Room Air 02/06/17 11:59 97.3 Orders Orders Complete Blood Count With Diff (02/06/17 12:27) Comprehensive Metabolic Panel (02/06/17 12:27) Lipase (02/06/17 12:27) Prothrombin Time / Inr (Pt) (02/06/17 12:27) Act Partial Throm Time (Ptt) (02/06/17 12:27) Urinalysis - C+S If Indicated (02/06/17 12:27) Iv Access Insert/Monitor (02/06/17 12:27) Ecg Monitoring (02/06/17 12:27) Oximetry (02/06/17 12:27) Ondansetron Inj (Zofran Inj) (02/06/17 12:30) Sodium Chlor 0.9% 1000 Ml Inj (Ns 1000 M (02/06/17 12:27) Sodium Chloride 0.9% Flush (Ns Flush) (02/06/17 12:30) Electrocardiogram (02/06/17 12:27) Famotidine Inj (Pepcid Inj) (02/06/17 12:30) Urine Culture (02/06/17 12:35) Ct Abd/Pel W/O Iv Contrast (02/06/17 12:27) Cefepime Inj (Maxipime Inj) (02/06/17 16:30) Labs Laboratory Tests Test 02/06/17 12:35 02/06/17 12:40 Urine Color LIGHT-YELLOW Urine Turbidity CLEAR Urine pH 5.5 Urine Specific [place] 1.005 Urine Protein 100 mg/dL Urine Glucose (UA) NEG mg/dL Urine Ketones NEG mg/dL Urine Occult Blood NEG Urine Nitrite NEG Urine Bilirubin NEG Urine Urobilinogen LESS THAN 2.0 MG/DL Urine Leukocyte Esterase LARGE Urine WBC 9-14 /hpf Urine WBC Clumps OCC Urine Squamous Epithelial Cells 0-5 /hpf Urine Bacteria FEW /hpf Microscopic Urinalysis Comment CULTURE INDICATED White Blood Count 10.5 TH/MM3 Red Blood Count 3.46 MIL/MM3 Hemoglobin 11.0 GM/DL Hematocrit 31.8 % Mean Corpuscular Volume 91.8 FL Mean Corpuscular Hemoglobin 31.7 PG Mean Corpuscular Hemoglobin Concent 34.6 % Red Cell Distribution Width 14.0 % Platelet Count 240 TH/MM3 Mean Platelet Volume 8.9 FL Neutrophils (%) (Auto) 67.5 % Lymphocytes (%) (Auto) 27.8 % Monocytes (%) (Auto) 3.0 % Eosinophils (%) (Auto) 1.1 % Basophils (%) (Auto) 0.6 % Neutrophils # (Auto) 7.1 TH/MM3 Lymphocytes # (Auto) 2.9 TH/MM3 Monocytes # (Auto) 0.3 TH/MM3 Eosinophils # (Auto) 0.1 TH/MM3 Basophils # (Auto) 0.1 TH/MM3 CBC Comment DIFF FINAL Differential Comment Blood Urea Nitrogen 39 MG/DL Creatinine 2.26 MG/DL Random Glucose 132 MG/DL Total Protein 8.1 GM/DL Albumin 3.0 GM/DL Calcium Level 8.5 MG/DL Alkaline Phosphatase 126 U/L Aspartate Amino Transf (AST/SGOT) 25 U/L Alanine Aminotransferase (ALT/SGPT) 32 U/L Total Bilirubin 0.3 MG/DL Sodium Level 135 MEQ/L Potassium Level 5.0 MEQ/L Chloride Level 104 MEQ/L Carbon Dioxide Level 23.9 MEQ/L Anion Gap 7 MEQ/L Estimat Glomerular Filtration Rate 26 ML/MIN Lipase 167 U/L MDM Medical Decision Making Medical Screen Exam Complete: Yes Emergency Medical Condition: Yes Interpretation(s) Last Impressions Abdomen/Pelvis CT 02/06/17 1227 Signed Impressions: Service Date/Time: Monday, February 06, 2017 13:58 - CONCLUSION: Atherosclerosis. Left renal cyst. Shashank Young MD 1621 PM. CBC within normal limit. BUN 39. Creatinine 2.26. GFR 26. Alkaline phosphatase 126. UA positive with WBC and bacteria. Differential Diagnosis Differential diagnosis including gastritis, PUD, pancreatitis, cholecystitis, colitis, UTI, pyelonephritis, nephrolithiasis. Narrative Course 66-year-old female with abdominal pain, nausea vomiting, generalized malaise and weakness. Normal saline solution 1 25 cc an hour. Zofran 4 mg IV. Pepcid 20 mg IV. Patient had UTI from pseudomonas in the past. Patient's allergic to amoxicillin and Cipro. Cefepime 1 g IV given. Diagnosis Primary Impression: Abdominal pain Qualified Codes: R10.9 - Unspecified abdominal pain Additional Impression: UTI (urinary tract infection) Qualified Codes: N30.00 - Acute cystitis without hematuria Vikash Johnson MD Feb 06, 2017 12:32
[2017-02-06 12:51] LABS: AUTOMATED NEUTROPHIL # 7.1 TH/MM3 (1.8-7.7); BASOPHIL # 0.1 TH/MM3 (0-0.2); BASOPHIL % 0.6 % (0.0-2.0); EOSINOPHIL # 0.1 TH/MM3 (0-0.4); EOSINOPHIL % 1.1 % (0.0-4.0); HEMATOCRIT 31.8 % (35.0-46.0); HEMO FLAGS DIFF FINAL; LYMPH % 27.8 % (9.0-44.0); LYMPHOCYTE # 2.9 TH/MM3 (1.0-4.8); MEAN CELL VOLUME 91.8 FL (80.0-100.0); MEAN CORPUSCULAR HEMOGLOBIN 31.7 PG (27.0-34.0); MEAN CORPUSCULAR HGB CONC 34.6 % (32.0-36.0); NEUT % 67.5 % (16.0-70.0); PLATELET COUNT 240 TH/MM3 (150-450); RED BLOOD COUNT 3.46 MIL/MM3 (4.00-5.30); WHITE BLOOD COUNT 10.5 TH/MM3 (4.0-11.0)
[2017-02-06 12:56] LABS: BLOOD, URINE NEG (NEG); GLUCOSE,URINE NEG (NEG); KETONE, URINE NEG (NEG); NITRITE,URINE NEG (NEG); PH, URINE 5.5 (5.0-8.5); URINE COLOR LIGHT-YELLOW (YELLW/STRAW)
[2017-02-06 13:12] LABS: SQUAMOUS EPITHELIAL CELL URINE 0-5 /hpf (0-5)
[2017-02-06 13:12] LABS: ALT (GPT) 32 U/L (10-53); ANION GAP 7 MEQ/L (5-15); AST (GOT) 25 U/L (15-37); BICARBONATE 23.9 MEQ/L (21.0-32.0); BLOOD UREA NITROGEN 39 MG/DL (7-18); CHLORIDE 104 MEQ/L (98-107); GLOMERULAR FILTRATION RATE 26 ML/MIN (>89); SODIUM (NA) 135 MEQ/L (136-145)
[2017-02-06 13:13] LABS: BACTERIA, URINE FEW /hpf
[2017-02-06 13:13] LABS: ALKALINE PHOSPHATASE 126 U/L (45-117); TOTAL BILIRUBIN ADULT 0.3 MG/DL (0.2-1.0)
[2017-02-06 13:14] LABS: COMMENT (UR) CULTURE INDICATED; CULTURE IF INDICATED CULTURE INDICATED
--- NOTE | 2017-02-06 14:11 | RADRPT ---
EXAM DATE/TIME: 02/06/2017 13:58 [facility] COMPARISON: CT ABDOMEN & PELVIS W/O CONTRAST, January 11, 2016, 18:34. INDICATIONS : Abdominal pain and generalized weakness. ORAL CONTRAST: No oral contrast ingested. RADIATION DOSE: 13.18 CTDIvol (mGy) MEDICAL HISTORY : Peripheral vascular disease. Diabetes mellitus type 2. Deep venous thrombosis.Hypertension, anemia. SURGICAL HISTORY : Cholecystectomy. section. ENCOUNTER: Initial ACUITY: 2 weeks PAIN SCALE: 2/10 LOCATION: Bilateral lower quadrant TECHNIQUE: Volumetric scanning of the abdomen and pelvis was performed. Using automated exposure control and ad justment of the mA and/or kV according to patient size, radiation dose was kept as low as reasonably achievable to obtain optimal diagnostic quality images. DICOM format image data is available electro nically for review and comparison. FINDINGS: Lung bases are clear. Osseous structures demonstrate degenerative changes of the spine. No pleural ef fusions. Trace the cardial fluid. Liver, spleen, pancreas, adrenal glands are unremarkable. There are bilateral renal vascular calcifications and atherosclerotic calcification of the aorta. There is an exophytic cyst at the lower pole of the left kidney measuring 2.6 cm. There is no hydronephrosis. Ti ny calcific densities within the bilateral kidneys are felt to be vascular in nature. The urinary michelle dder, uterus are unremarkable. The bilateral ovaries are not well visualized. There is no adenopathy or aneurysm. Degenerative changes of the spine are noted. CONCLUSION: Atherosclerosis. Left renal cyst. Shashank Young MD on February 06, 2017 at 14:07 Board Certified Radiologist. This report was verified electronically.
--- NOTE | 2017-02-06 16:02 | EKG ---
Date Performed: 02/06/2017 Time Performed: 13:07:09 PTAGE: 66 years EKG: Sinus rhythm Compared to prior tracing no significant change NORMAL ECG PREVIOUS TRACING : 01/20/2017 10.01 DOCTOR: Darrius Collins Interpretating Date/Time 02/06/2017 16:01:17
[2017-02-06] MEDS ORDERED: CEFEPIME INJ 1,000 MG in SODIUM CHLORIDE 0.9% INJ 100 ML IV ONE (16:30)
[2017-02-06] MEDS ORDERED: MAGNESIUM HYDROXIDE SUSP 30 ML CUP PO PRN (17:15)
[2017-02-06] MEDS ORDERED: ACETAMINOPHEN 325 MG TAB PO PRN (17:15)
[2017-02-06] MEDS ORDERED: BISACODYL 10 MG SUPP RECTAL PRN (17:15)
[2017-02-06] MEDS ORDERED: NALOXONE HCL 0.4 MG/ML AMP IV PUSH PRN (17:15)
[2017-02-06] MEDS ORDERED: ONDANSETRON HCL 4 MG/2 ML VIAL IVP PRN (17:15)
[2017-02-06] MEDS ORDERED: GLUCAGON 1 MG/ML VIAL OTHER PRN (17:30)
[2017-02-06] MEDS ORDERED: DEXTROSE 50% IN WATER 50 ML VIAL(D50) IV PUSH PRN (17:30)
[2017-02-06 17:40] VITALS: BP 152/67; PULSE 82; RESP 17; O2SAT 99
--- NOTE | 2017-02-06 17:41 | HHI.HP ---
HPI Service [facility] Primary Care Physician Unknown Admission Diagnosis UTI. Generalized weakness. Chronic kidney disease. Diagnoses: (1) UTI (urinary tract infection) Diagnosis: Principal Chief Complaint: pain with urination Travel History International Travel<30 Days: No Contact w/Intl Traveler <30 Da: No Traveled to Known Affected Are: No History of Present Illness 66-year-old female who presented to the ED with complaints of dealing lousy today, fevers, chills, and dysuria. Patient with a past medical history of hypertension, diabetes, chronic renal insufficiency, CVA with intracranial bleed. Patient reports that she was recently in the hospital earlier in the month but is unsure what she was treated for. Review of hospital records show that patient was hospitalized in April of this year and treated for Pseudomonas UTI with Levaquin, and treated for C. difficile as well. She was once again in the emergency department on 01/17 were possible UTI, she was treated with Keflex by mouth and sent home. Should also return to the ED on January 20 with complaints of weakness and leg pain, C. difficile was checked and was negative. At the present time she is laying comfortably in stretcher with complaints of feeling lousy. She does report nausea and vomiting today, no diarrhea but states that earlier today she moved her bowels more than usual and no liquid stools. She denies any back back pain. Endorses dysuria, frequency, hematuria or hesitancy. Review of Systems Constitutional: COMPLAINS OF: Fever, Chills Gastrointestinal: COMPLAINS OF: Nausea, Vomiting, DENIES: Diarrhea Genitourinary: COMPLAINS OF: Urinary frequency, Dysuria, DENIES: Hematuria Except as stated in HPI: all other systems reviewed are Neg Past Family Social History Past Medical History CVA with intracranial hemorrhage History of DVT Hypertension Diabetes Chronic renal insufficiency Past Surgical History Right below the knee amputation Allergies: Coded Allergies: amoxicillin (Unverified Allergy, Severe, Hives, 02/06/17) ciprofloxacin (Unverified Allergy, Intermediate, Hives, 02/06/17) Family History Mother: Renal insufficiency and cancer (does not know what kind) Social History Tobacco use: Denies Alcohol use: Socially Licit drug use: Denies Physical Exam Vital Signs Vital Signs Date Time Temp Pulse Resp B/P (MAP) Pulse Ox O2 Delivery O2 Flow Rate FiO2 02/06/17 12:19 78 15 184/84 (117) 99 Room Air 02/06/17 11:59 97.3 83 18 185/79 (114) 99 Room Air Physical Exam GENERAL: This is a well-nourished, overweight patient, in no apparent distress. SKIN: No rashes, ecchymoses or lesions. Cool and dry. HEAD: Atraumatic. Normocephalic. No temporal or scalp tenderness. EYES: Pupils equal round and reactive. Extraocular motions intact. No scleral icterus. No injection or drainage. ENT: Nose without bleeding, purulent drainage or septal hematoma. Throat without erythema, tonsillar hypertrophy or exudate. Uvula midline. Airway patent. NECK: Trachea midline, supple, nontender. CARDIOVASCULAR: Regular rate and rhythm without murmurs, gallops, or rubs. RESPIRATORY: Clear to auscultation. Breath sounds equal bilaterally. No wheezes , rales, or rhonchi. GASTROINTESTINAL: Abdomen soft, suprapubic tenderness, nondistended. No guarding. MUSCULOSKELETAL: Extremities without clubbing, cyanosis, or edema. Right BKA with prosthesis in place. No joint tenderness, effusion, or edema noted. No calf tenderness. No CVA tenderness. NEUROLOGICAL: Awake and alert. Motor and sensory grossly within normal limits. Five out of 5 muscle strength bilateral upper extremities and left lower extremity, right BKA. Normal speech. Laboratory Laboratory Tests Test 02/06/17 12:35 02/06/17 12:40 Urine Color LIGHT-YELLOW Urine Turbidity CLEAR Urine pH 5.5 Urine Specific Varnell 1.005 Urine Protein 100 Urine Glucose (UA) NEG Urine Ketones NEG Urine Occult Blood NEG Urine Nitrite NEG Urine Bilirubin NEG Urine Urobilinogen LESS THAN 2.0 Urine Leukocyte Esterase LARGE Urine WBC 9-14 Urine WBC Clumps OCC Urine Squamous Epithelial Cells 0-5 Urine Bacteria FEW Microscopic Urinalysis Comment CULTURE INDICATED White Blood Count 10.5 Red Blood Count 3.46 Hemoglobin 11.0 Hematocrit 31.8 Mean Corpuscular Volume 91.8 Mean Corpuscular Hemoglobin 31.7 Mean Corpuscular Hemoglobin Concent 34.6 Red Cell Distribution Width 14.0 Platelet Count 240 Mean Platelet Volume 8.9 Neutrophils (%) (Auto) 67.5 Lymphocytes (%) (Auto) 27.8 Monocytes (%) (Auto) 3.0 Eosinophils (%) (Auto) 1.1 Basophils (%) (Auto) 0.6 Neutrophils # (Auto) 7.1 Lymphocytes # (Auto) 2.9 Monocytes # (Auto) 0.3 Eosinophils # (Auto) 0.1 Basophils # (Auto) 0.1 CBC Comment DIFF FINAL Differential Comment Blood Urea Nitrogen 39 Creatinine 2.26 Random Glucose 132 Total Protein 8.1 Albumin 3.0 Calcium Level 8.5 Alkaline Phosphatase 126 Aspartate Amino Transf (AST/SGOT) 25 Alanine Aminotransferase (ALT/SGPT) 32 Total Bilirubin 0.3 Sodium Level 135 Potassium Level 5.0 Chloride Level 104 Carbon Dioxide Level 23.9 Anion Gap 7 Estimat Glomerular Filtration Rate 26 Lipase 167 Date/Time Source Procedure Growth Status 02/06/17 12:35 Urine Clean Catch Urine Culture Pending Received Result Diagram: 02/06/17 1240 02/06/17 1240 Imaging Last Impressions Abdomen/Pelvis CT 02/06/17 1227 Signed Impressions: Service Date/Time: Wednesday, February 06, 2017 13:58 - CONCLUSION: Atherosclerosis. Left renal cyst. Shashank Young MD Caprini VTE Risk Assessment Caprini VTE Risk Assessment: Mod/High Risk (score >= 2) Caprini Risk Assessment Model Point Value = 1 Point Value = 2 Point Value = 3 Point Value = 5 Age 41-60 Minor surgery BMI > 25 kg/m2 Swollen legs Varicose veins or History of unexplained or recurrent spontaneous Oral contraceptives or hormone replacement Sepsis (< 1 month) Serious lung disease, including pneumonia (< 1 month) Abnormal pulmonary function Acute myocardial infarction Congestive heart failure (< 1 month) History of inflammatory bowel disease Medical patient at bed rest Age 61-74 Arthroscopic surgery Major open surgery (> 45 min) Laparoscopic surgery (> 45 min) Malignancy Confined to bed (> 72 hours) Immobilizing plaster cast Central venous access Age >= 75 History of VTE Family history of VTE Factor V Leiden Prothrombin [id number] Lupus anticoagulant Anticardiolipin antibodies Elevated serum homocysteine Heparin-induced thrombocytopenia Other congenital or acquired thrombophilia Stroke (< 1 month) Elective arthroplasty Hip, pelvis, or leg fracture Acute spinal cord injury (< 1 month) Prophylaxis Regimen Total Risk Factor Score Risk Level Prophylaxis Regimen 0-1 Low Early ambulation 2 Moderate Order ONE of the following: *Sequential Compression Device (SCD) *Heparin 5000 units SQ BID 3-4 Higher Order ONE of the following medications: *Heparin 5000 units SQ TID *Enoxaparin/Lovenox 40 mg SQ daily (WT < 150 kg, CrCl > 30 mL/min) *Enoxaparin/Lovenox 30 mg SQ daily (WT < 150 kg, CrCl > 10-29 mL/min) *Enoxaparin/Lovenox 30 mg SQ BID (WT < 150 kg, CrCl > 30 mL/min) AND/OR *Sequential Compression Device (SCD) 5 or more Highest Order ONE of the following medications: *Heparin 5000 units SQ TID (Preferred with Epidurals) *Enoxaparin/Lovenox 40 mg SQ daily (WT < 150 kg, CrCl > 30 mL/min) *Enoxaparin/Lovenox 30 mg SQ daily (WT < 150 kg, CrCl > 10-29 mL/min) *Enoxaparin/Lovenox 30 mg SQ BID (WT < 150 kg, CrCl > 30 mL/min) AND *Sequential Compression Device (SCD) Assessment and Plan Problem List: (1) UTI (urinary tract infection) ICD Code: N39.0 - Urinary tract infection, site not specified Status: Acute (2) Renal insufficiency ICD Code: N28.9 - Disorder of kidney and ureter, unspecified Status: Acute (3) Type 2 diabetes mellitus ICD Code: E11.9 - Type 2 diabetes mellitus without complications Status: Chronic (4) Hypertension ICD Code: I10 - Essential (primary) hypertension Status: Chronic Assessment and Plan 66-year-old female who presented to the ED with complaints of dealing lousy today, fevers, chills, and dysuria. Patient with a past medical history of hypertension, diabetes, chronic renal insufficiency, CVA with intracranial bleed. UTI - Patient with complaints of dysuria, fevers and chills. - CBC with no leukocytosis, recheck CBC tomorrow. - CT of the abdomen and pelvis with arthrosclerosis and left renal cyst. - UA showing large leukocyte esterase, high WBCs with clumps, few urine bacteria. Culture for UA pending, follow sensitivity. - Patient was given 1 g of cefepime IV while in ED, will continue cefepime 1 g to 24 hours. - Will also add Flagyl and Lactinex PO prophylactically, patient with a history of C. difficile in the past. - Tylenol for pain Chronic kidney insufficiency, chronic - Renal insufficiency unchanged when compared to prior labs of this year. - BUN 39, creatinine 2.26, GFR 26, continue to monitor renal function. - Gentle hydration, NS 50ml/hr, recheck BMP tomorrow. Nausea and vomiting possibly secondary to UTI - Zofran when necessary DM II, chronic - Hold Tresiba, start Levemir 5 units daily at bedtime, insulin sliding scale , monitor blood sugar and adjust dosing accordingly - ADA diet Hypertension, elevated - Will resume home medications - Monitor her blood pressure trends and adjust accordingly History of CVA and DVT - Will resume patient's Eliquis 2.5mg PO BID VTE - Home anticoagulant resumed. Attestation Patient seen and examined with KIAH Zamarripa. The exam, history, and the medical decision-making described in the above note were completed with the assistance of the dictating practitioner. I attest that I had a [id number] encounter with the patient on the same day, and personally performed all of the history, exam, or medical decision making. Discussed case with him thoroughly after seeing the patient, reviewed and agreed with the plan. Please see addendum in History, Physical examination and Plan. See below for any errata/ additional input: This is a 66-year-old female with history of hypertension, diabetes, chronic renal failure, CVA and C. difficile in April presenting with fever, chills and dysuria. She was previously hospitalized in April for Pseudomonas UTI treated with Levaquin and another episode of UTI in December for which she was sent home from the emergency department with Keflex. Patient has been having weakness and leg pain with intermittent diarrhea but C. difficile was checked at the emergency department and was negative. She denies any fever, abdominal pain, hematuria or flank pain. Not in distress, forgetful Regular rate and rhythm Clear breath sounds Abdomen soft, nontender, no CVA tenderness Prosthetic right leg in place Awake and oriented 3 Admit to observation, start cefepime, since this is broad-spectrum with history of C. difficile in patient has multiple comorbidities, will prophylactically start Flagyl. CT scan of the abdomen unremarkable. Recheck CBC and BMP tomorrow. Follow-up urine culture. Kidney function is stable, continue all medications from home including eliquis. Discharged once urine cultures back Code Status Full code Celsa Kelley Feb 06, 2017 17:41 Jan Szymanski MD Feb 06, 2017 17:59
[2017-02-06] MEDS: ATORVASTATIN 80 MG TAB PO SCH (18:09)
[2017-02-06] MEDS: LOSARTAN 50 MG TAB PO SCH (18:09)
[2017-02-06] MEDS: SODIUM CHLOR 0.9% 1000 ML INJ 1,000 ML IV SCH (18:09)
[2017-02-06] MEDS: metroNIDAZOLE 500 MG TAB PO SCH (18:09)
[2017-02-06 18:11] VITALS: BP 143/65; PULSE 83
[2017-02-06 20:00] VITALS: BP 167/72; PULSE 86; RESP 18; TEMP 97.8; O2SAT 97
[2017-02-06] MEDS: INSULIN ASPART SUPPLEMENTAL SCALE SQ SCH (21:00)
[2017-02-06] MEDS: APIXABAN 2.5 MG TABLET PO SCH (21:32)
[2017-02-06] MEDS: LACTOBACILLUS ACIDOPHILUS TAB PO SCH (21:32)
[2017-02-06] MEDS: INSULIN DETEMIR 100 UNITS/ML VIAL SQ SCH (21:36)
[2017-02-07] VITALS (7 sets, daily range): BP systolic 123–157; BP diastolic 64–76; PULSE 71–84; RESP 18–19; TEMP 96.8–98.6; O2SAT 96–99
[2017-02-07 00:18] LABS: INTERNATIONAL NORMALIZED RATIO 1.1 RATIO
[2017-02-07] MEDS: metroNIDAZOLE 500 MG TAB PO SCH ×2 (02:00→08:44)
[2017-02-07] MEDS: INSULIN ASPART SUPPLEMENTAL SCALE SQ SCH ×4 (07:37→21:00)
[2017-02-07 08:28] LABS: MEAN CELL VOLUME 92.6 FL (80.0-100.0); MEAN CORPUSCULAR HEMOGLOBIN 31.5 PG (27.0-34.0); PLATELET COUNT 206 TH/MM3 (150-450); RED BLOOD COUNT 3.13 MIL/MM3 (4.00-5.30); RED CELL DISTRIBUTION WIDTH 14.2 % (11.6-17.2); REVIEW FLAG FINAL
[2017-02-07 08:36] LABS: BICARBONATE 23.5 MEQ/L (21.0-32.0); POTASSIUM 4.6 MEQ/L (3.5-5.1)
[2017-02-07] MEDS: LACTOBACILLUS ACIDOPHILUS TAB PO SCH ×2 (08:43→21:50)
[2017-02-07] MEDS: CHOLECALCIFEROL (VIT D3) 1000 UNIT TAB PO SCH (08:44)
[2017-02-07] MEDS: APIXABAN 2.5 MG TABLET PO SCH ×2 (08:44→21:51)
[2017-02-07] MEDS: ATORVASTATIN 80 MG TAB PO SCH (08:44)
[2017-02-07] MEDS: LOSARTAN 50 MG TAB PO SCH (08:44)
[2017-02-07] MEDS: SODIUM CHLOR 0.9% 1000 ML INJ 1,000 ML IV SCH (08:46)
[2017-02-07] MEDS ORDERED: CEFEPIME INJ 1,000 MG in SODIUM CHLORIDE 0.9% INJ 100 ML IV SCH (11:00)
--- NOTE | 2017-02-07 11:52 | HHI.PR ---
Subjective Remarks Follow-up for UTI, diabetes mellitus. Patient is sitting in her chair. Denies any acute concerns. Denies any chest pain, shortness of breath, fever or chills. Objective Vitals Vital Signs Date Time Temp Pulse Resp B/P (MAP) Pulse Ox O2 Delivery O2 Flow Rate FiO2 02/07/17 08:00 96.8 82 19 157/71 (99) 98 02/07/17 04:00 98.4 80 18 148/67 (94) 99 02/07/17 00:00 97.8 84 18 141/64 (89) 98 02/06/17 20:00 97.8 86 18 167/72 (103) 97 02/06/17 18:11 83 143/65 (91) 02/06/17 17:40 82 17 152/67 (95) 99 Room Air 02/06/17 12:19 78 15 184/84 (117) 99 Room Air 02/06/17 11:59 97.3 83 18 185/79 (114) 99 Room Air I/O 02/06/17 02/06/17 02/06/17 02/07/17 02/07/17 02/07/17 07:00 15:00 23:00 07:00 15:00 23:00 # Voids 1 3 # Bowel Movements 0 Result Diagram: 02/07/17 0714 02/07/17 0714 Imaging Last Impressions Abdomen/Pelvis CT 02/06/17 1227 Signed Impressions: Service Date/Time: Monday, February 06, 2017 13:58 - CONCLUSION: Atherosclerosis. Left renal cyst. Shashank Young MD Objective Remarks GENERAL: Alert, NAD. SKIN: Warm and dry. HEAD: Normocephalic. EYES: No scleral icterus. No injection or drainage. NECK: Supple, trachea midline. No JVD or lymphadenopathy. CARDIOVASCULAR: Regular rate and rhythm without murmurs, gallops, or rubs. RESPIRATORY: Breath sounds equal bilaterally. No accessory muscle use. GASTROINTESTINAL: Abdomen soft, non-tender, nondistended. MUSCULOSKELETAL: No cyanosis, or edema. BACK: Nontender without obvious deformity. Mild CVA tenderness bilaterally. Procedures None A/P Problem List: (1) UTI (urinary tract infection) ICD Code: N39.0 - Urinary tract infection, site not specified Status: Acute (2) Renal insufficiency ICD Code: N28.9 - Disorder of kidney and ureter, unspecified Status: Acute (3) Type 2 diabetes mellitus ICD Code: E11.9 - Type 2 diabetes mellitus without complications Status: Chronic (4) Hypertension ICD Code: I10 - Essential (primary) hypertension Status: Chronic Assessment and Plan 66-year-old female who presented to the ED with complaints of dealing lousy today, fevers, chills, and dysuria. Patient with a past medical history of hypertension, diabetes, chronic renal insufficiency, CVA with intracranial bleed. Possible UTI - CBC with no leukocytosis. - CT of the abdomen and pelvis with arthrosclerosis and left renal cyst. - UA showing large leukocyte esterase, high WBCs with clumps, few urine bacteria. Culture shows mixed kristy. - Patient was given 1 g of cefepime IV while in ED - d/c Cefepime as well as Flagyl. - Tylenol for pain Chronic kidney insufficiency, chronic - Renal insufficiency unchanged when compared to prior labs of this year. - BUN 39, creatinine 2.26, GFR 26, continue to monitor renal function. - Gentle hydration, NS 50ml/hr. Creatinine is 2.20 today. - K+ 5.0 --> 4.6. Nausea and vomiting - Zofran when necessary DM II, chronic - Hold Tresiba, start Levemir 5 units daily at bedtime, insulin sliding scale , monitor blood sugar and adjust dosing accordingly - ADA diet Hypertension, elevated - Continue losartan 100mg Qday, Amlodipine 10mg Qday. History of CVA and DVT - Continue apixaban 2.5mg PO BID Full code. Apixaban. Will observe patient without any abx today. Likely discharge home tomorrow without any home health (PT recs). Tigre Morris DO Feb 07, 2017 11:52 am
[2017-02-07] MEDS: INSULIN DETEMIR 100 UNITS/ML VIAL SQ SCH (21:52)
[2017-02-08] VITALS: BP 159/70; PULSE 83; RESP 18; TEMP 98; O2SAT 98
[2017-02-08 04:00] VITALS: BP 146/65; PULSE 84; RESP 18; TEMP 98.8; O2SAT 97
[2017-02-08 08:00] VITALS: PULSE 83
[2017-02-08] MEDS: INSULIN ASPART SUPPLEMENTAL SCALE SQ SCH (08:00)
[2017-02-08 08:34] VITALS: BP 150/72; PULSE 83; RESP 18; TEMP 98.2; O2SAT 98
[2017-02-08] MEDS: SODIUM CHLOR 0.9% 1000 ML INJ 1,000 ML IV SCH ×2 (09:45→11:48)
[2017-02-08] MEDS: CHOLECALCIFEROL (VIT D3) 1000 UNIT TAB PO SCH (10:15)
[2017-02-08] MEDS: LACTOBACILLUS ACIDOPHILUS TAB PO SCH (10:15)
[2017-02-08] MEDS: ATORVASTATIN 80 MG TAB PO SCH (10:15)
[2017-02-08] MEDS: APIXABAN 2.5 MG TABLET PO SCH (10:15)
[2017-02-08] MEDS: LOSARTAN 50 MG TAB PO SCH (10:16)
[2017-02-08 12:48] VITALS: BP 163/74; PULSE 80; RESP 18; TEMP 98.3; O2SAT 98
--- NOTE | 2017-02-08 19:37 | HHI.DS ---
Discharge Summary Admission Date Feb 06, 2017 at 16:54 Discharge Date: Feb 08, 2017 Admitting Diagnosis UTI. Generalized weakness. Chronic kidney disease. (1) UTI (urinary tract infection) ICD Code: N39.0 - Urinary tract infection, site not specified Status: Acute (2) Renal insufficiency ICD Code: N28.9 - Disorder of kidney and ureter, unspecified Status: Acute (3) Type 2 diabetes mellitus ICD Code: E11.9 - Type 2 diabetes mellitus without complications Status: Chronic (4) Hypertension ICD Code: I10 - Essential (primary) hypertension Status: Chronic Procedures None Brief History - From Admission 66-year-old female who presented to the ED with complaints of dealing lousy today, fevers, chills, and dysuria. Patient with a past medical history of hypertension, diabetes, chronic renal insufficiency, CVA with intracranial bleed. Patient reports that she was recently in the hospital earlier in the month but is unsure what she was treated for. Review of hospital records show that patient was hospitalized in April of this year and treated for Pseudomonas UTI with Levaquin, and treated for C. difficile as well. She was once again in the emergency department on 01/17 were possible UTI, she was treated with Keflex by mouth and sent home. Should also return to the ED on January 20 with complaints of weakness and leg pain, C. difficile was checked and was negative. At the present time she is laying comfortably in stretcher with complaints of feeling lousy. She does report nausea and vomiting today, no diarrhea but states that earlier today she moved her bowels more than usual and no liquid stools. She denies any back back pain. Endorses dysuria, frequency, hematuria or hesitancy. CBC/BMP: 02/07/17 0714 02/07/17 0714 Significant Findings Laboratory Tests Test 02/06/17 12:35 02/06/17 12:40 02/06/17 23:40 02/07/17 07:14 Urine Protein 100 mg/dL (NEG-TRACE) Urine Leukocyte Esterase LARGE (NEG) Urine WBC 9-14 /hpf (0-5) Urine WBC Clumps OCC (NONE) Urine Bacteria FEW /hpf (NONE) Red Blood Count 3.46 MIL/MM3 (4.00-5.30) 3.13 MIL/MM3 (4.00-5.30) Hemoglobin 11.0 GM/DL (11.6-15.3) 9.9 GM/DL (11.6-15.3) Hematocrit 31.8 % (35.0-46.0) 29.0 % (35.0-46.0) Blood Urea Nitrogen 39 MG/DL (7-18) 36 MG/DL (7-18) Creatinine 2.26 MG/DL (0.50-1.00) 2.20 MG/DL (0.50-1.00) Random Glucose 132 MG/DL (74-106) Albumin 3.0 GM/DL (3.4-5.0) Alkaline Phosphatase 126 U/L (45-117) Sodium Level 135 MEQ/L (136-145) Estimat Glomerular Filtration Rate 26 ML/MIN (>89) 27 ML/MIN (>89) Prothrombin Time 12.0 SEC (9.8-11.6) Activated Partial Thromboplast Time 32.0 SEC (24.3-30.1) Calcium Level 8.1 MG/DL (8.5-10.1) Chloride Level 111 MEQ/L (98-107) Imaging Last Impressions Abdomen/Pelvis CT 02/06/17 1227 Signed Impressions: Service Date/Time: Monday, February 06, 2017 13:58 - CONCLUSION: Atherosclerosis. Left renal cyst. Shashank Young MD PE at Discharge GENERAL: Alert, NAD. SKIN: Warm and dry. HEAD: Normocephalic. EYES: No scleral icterus. No injection or drainage. NECK: Supple, trachea midline. No JVD or lymphadenopathy. CARDIOVASCULAR: Regular rate and rhythm without murmurs, gallops, or rubs. RESPIRATORY: Breath sounds equal bilaterally. No accessory muscle use. GASTROINTESTINAL: Abdomen soft, non-tender, nondistended. MUSCULOSKELETAL: No cyanosis, or edema. BACK: Nontender without obvious deformity. Mild CVA tenderness bilaterally. Pt update on day of discharge Patient is doing well. Denies any chest pain, SOB, fever, chills. Denies any dysuria, hematuria. Hospital Course 66-year-old female who presented to the ED with complaints of dealing lousy today, fevers, chills, and dysuria. Patient with a past medical history of hypertension, diabetes, chronic renal insufficiency, CVA with intracranial bleed. Possible UTI - CBC with no leukocytosis. - CT of the abdomen and pelvis with arthrosclerosis and left renal cyst. - UA showing large leukocyte esterase, high WBCs with clumps, few urine bacteria. Culture shows mixed kristy. - Patient was given 1 g of cefepime IV while in ED - d/c Cefepime as well as Flagyl. - Tylenol for pain Chronic kidney insufficiency, chronic - Renal insufficiency unchanged when compared to prior labs of this year. - BUN 39, creatinine 2.26, GFR 26, continue to monitor renal function. - Gentle hydration, NS 50ml/hr. Creatinine is 2.20 - K+ 5.0 --> 4.6. Nausea and vomiting - Zofran when necessary DM II, chronic - In hospital, we provided Levemir 5 units daily at bedtime, insulin sliding scale, monitor blood sugar and adjust dosing accordingly - ADA diet. Continue home medication on discharge. Hypertension, elevated - Continue losartan 100mg Qday, Amlodipine 10mg Qday. History of CVA and DVT - Continue apixaban 2.5mg PO BID Full code. Apixaban. Pt Condition on Discharge: Good Discharge Disposition: Discharge Home Discharge Time: <= 30 minutes Discharge Instructions DIET: Follow Instructions for: Diabetic Diet Activities you can perform: Regular-No Restrictions Follow up Referrals: PCP Follow-up - 1 Week Continued Medications: Amlodipine (Amlodipine) 10 Mg Tab 10 MG PO DAILY for Blood Pressure Management, TAB 0 Refills Apixaban (Eliquis) 2.5 Mg Tab 2.5 MG PO BID for Blood Clot Prevention, TAB 0 Refills Atorvastatin (Lipitor) 80 Mg Tab 80 MG PO DAILY for Cholesterol Management, TAB 0 Refills Cholecalciferol (D3 Super Strength) 2,000 Unit Cap 2000 UNITS PO DAILY for Nutritional Supplement, #30 CAP 0 Refills Insulin Degludec Inj (Tresiba Flextouch Pen Inj) 300 unit/3 ML Pen 15 UNITS SQ DAILY for Blood Sugar Management, #15 ML 0 Refills Losartan (Losartan) 100 Mg Tab 100 MG PO DAILY for Blood Pressure Management, #30 TAB 0 Refills Tigre Morris DO Feb 08, 2017 19:37
== END 2017-02-08 14:05 | disposition home or self-care (01) ==
LOC: NEPE 11:55 → INTOOBSV 16:54 → NEDA 16:54 → N05A 17:56
PROVIDERS: ADMIT Hospitalist; ATTEND Hospitalist
DX: N30.01 Acute cystitis with hematuria (principal); N18.9 Chronic kidney disease, unspecified; E11.22 Type 2 diabetes mellitus with diabetic chronic kidney disease; I12.9 Hypertensive chronic kidney disease with stage 1 through stage 4 chronic kidney disease, or unspecified chronic kidney disease; N28.1 Cyst of kidney, acquired; B96.89 Other specified bacterial agents as the cause of diseases classified elsewhere; R11.2 Nausea with vomiting, unspecified; Z79.01 Long term (current) use of anticoagulants; F32.9 Major depressive disorder, single episode, unspecified; D64.9 Anemia, unspecified; M19.90 Unspecified osteoarthritis, unspecified site; E78.00 Pure hypercholesterolemia, unspecified; Z86.73 Personal history of transient ischemic attack (TIA), and cerebral infarction without residual deficits; K21.9 Gastro-esophageal reflux disease without esophagitis; Z89.511 Acquired absence of right leg below knee; Z79.899 Other long term (current) drug therapy; Z79.4 Long term (current) use of insulin
CPT/HCPCS: 74176; 80048; 80053; 81001; 82948; 83690; 85025; 85027; 85610; 85730; 87086; 93005; 96361; 96365; 96372; 96375; 97110; 97116; 97162; 97167; 99285; G0378; G8987; G8988; G8989; J0692; J2405; J7030

== ENCOUNTER 2017-04-01 10:16 | Emergency (ER) | payer MEDICARE, MEDICAID ==
[~2017-04-01] VITALS: Ht 162.6 cm; Wt 80.0 kg
[~2017-04-01 10:16] MED LIST changes: -CEPH-460 PO
[2017-04-01 10:17] VITALS: BP 198/84; PULSE 81; RESP 18; TEMP 98.4; O2SAT 98
[2017-04-01] MEDS ORDERED: ONDANSETRON HCL 4 MG/2 ML VIAL IV PUSH ONE (10:45)
[2017-04-01] MEDS ORDERED: SODIUM CHLORIDE 0.9% FLUSH 10 ML FLUSH IV FLUSH PRN (10:45)
[2017-04-01] MEDS ORDERED: SODIUM CHLORID 0.9% 500 ML INJ 500 ML IV ONE (10:45)
--- NOTE | 2017-04-01 11:00 | PD ---
HPI Chief Complaint: Altered Mental Status Time Seen by Provider: 10:33 Travel History International Travel<30 days: No Contact w/Intl Traveler<30days: No Traveled to known affect area: No History of Present Illness HPI The patient is a 66-year-old Roseann female who presents to the emergency department for nausea, decreased bowel movement, and possible UTI. The patient is accompanied by her daughter who provides most of the history. The patient has a history of previous CVA and currently takes Eliquis. The daughter states that the patient occasionally will have slight change in mentation, nausea, decreased appetite with the recurrent urinary tract infections. She states the patient had a bowel movement yesterday, however, was unable to have a bowel movement this morning. She complained of abdominal pain earlier today which is currently resolved. The daughter states the patient 's current mental status is at baseline, she is able to answer questions regards to place, date of , name, but does not know the current month or year. The patient denies any current physical complaints. The daughter does state the patient had some nausea this morning with dry heaves but had no actual vomiting. There has been no diarrhea. The patient is currently between physicians that she recently changed from [facility] to [facility]. The patient's previous physician was Dr. Mcqueen. [facility] Past Medical History Hx Anticoagulant Therapy: Yes (ELIQUIS ) Anemia: Yes Arthritis: Yes Blood Disorders: No Anxiety: No Depression: Yes Heart Rhythm Problems: No Cancer: No Cardiovascular Problems: Yes High Cholesterol: Yes Chemotherapy: No Chest Pain: Yes Congestive Heart Failure: No Cerebrovascular Accident: Yes Developmental Delay: No Diabetes: Yes Patient Takes Glucophage: No Diminished Hearing: No Deep Vein Thrombosis: Yes Endocrine: Yes Gastrointestinal Disorders: Yes (NAUSEA/ CRAMPING) GERD: Yes Genitourinary: No Headaches: No Hypertension: Yes Immune Disorder: No Implanted Vascular Access Dvce: No Musculoskeletal: No Neurologic: Yes Psychiatric: No Reproductive: No Respiratory: No Integumentary: Yes (R BKA ULCER.) Seizures: Yes Thyroid Disease: No Tetanus Vaccination: < 5 Years PNEUMOCCOCAL Vaccine (Year): 2 Menopausal: Yes : 6 Para: 4 : 2 Past Surgical History Abdominal Surgery: Yes Cardiac Surgery: No Section: Yes (X 1) Cholecystectomy: Yes Ear Surgery: No Endocrine Surgery: No Eye Surgery: Yes (R PROSTHETIC EYE) Genitourinary Surgery: No Gynecologic Surgery: No Hysterectomy: No Neurologic Surgery: No Oral Surgery: Yes Pacemaker: No Thoracic Surgery: No Other Surgery: Yes (RIGHT BKA with prosthetic) Social History Alcohol Use: No Tobacco Use: No Substance Use: No Allergies-Medications (Allergen,Severity, Reaction): Coded Allergies: amoxicillin (Unverified Allergy, Severe, Hives, 02/06/17) ciprofloxacin (Unverified Allergy, Intermediate, Hives, 02/06/17) Reported Meds & Prescriptions Reported Meds & Active Scripts Active Reported D3 Super Strength (Cholecalciferol) 2,000 Unit Cap 2,000 Units PO DAILY Tresiba Flextouch Pen Inj (Insulin Degludec Inj) 300 unit/3 ML Pen 15 Units SQ DAILY Eliquis (Apixaban) 2.5 Mg Tab 2.5 Mg PO BID Losartan (Losartan Potassium) 100 Mg Tab 100 Mg PO DAILY Amlodipine (Amlodipine Besylate) 10 Mg Tab 10 Mg PO DAILY Lipitor (Atorvastatin Calcium) 80 Mg Tab 80 Mg PO DAILY Review of Systems Except as stated in HPI: all other systems reviewed are Neg General / Constitutional: Positive: Other (decreased appetite), No: Fever Cardiovascular: No: Chest Pain or Discomfort Respiratory: No: Shortness of Breath Gastrointestinal: Positive: Nausea, Abdominal Pain, No: Vomiting, Diarrhea Genitourinary: No: Dysuria Musculoskeletal: No: Weakness Neurologic: No: Weakness, Change in Mentation Physical Exam Narrative GENERAL: Awake, alert, very pleasant 66-year-old female appears her stated age and is in no acute respiratory distress. She appears very well taking care of with dyed blonde hair and well manicured nails. SKIN: Focused skin assessment warm/dry. HEAD: Atraumatic. Normocephalic. EYES: Pupils equal and round. No injection or drainage. ENT: No nasal bleeding or discharge. Mucous membranes pink and moist. NECK: Trachea midline. No JVD. CARDIOVASCULAR: Regular rate and rhythm. No murmur appreciated. RESPIRATORY: No accessory muscle use. Clear to auscultation. Breath sounds equal bilaterally. GASTROINTESTINAL: Abdomen soft, mild suprapubic tenderness, but no guarding or rigidity. MUSCULOSKELETAL: No obvious deformities. No clubbing. No cyanosis. No edema. NEUROLOGICAL: Awake and alert. No obvious cranial nerve deficits. Motor grossly within normal limits. Normal speech. Patient is oriented to place, daughter, and person. She thought the month was February and did not know the current year. PSYCHIATRIC: Appropriate mood and affect; insight and judgment normal. Data Data Last Documented VS Vital Signs Date Time Temp Pulse Resp B/P (MAP) Pulse Ox O2 Delivery O2 Flow Rate FiO2 04/01/17 11:10 97.9 77 16 178/77 (110) 100 Room Air Orders Orders Electrocardiogram (04/01/17 10:42) Complete Blood Count With Diff (04/01/17 10:42) Comprehensive Metabolic Panel (04/01/17 10:42) Creatine Kinase (Cpk) (04/01/17 10:42) Troponin I (04/01/17 10:42) Thyroid Stimulating Hormone (04/01/17 10:42) Urinalysis - C+S If Indicated (04/01/17 10:42) Blood Glucose (04/01/17 10:42) Ecg Monitoring (04/01/17 10:42) Iv Access Insert/Monitor (04/01/17 10:42) Oximetry (04/01/17 10:42) Sodium Chloride 0.9% Flush (Ns Flush) (04/01/17 10:45) Ondansetron Inj (Zofran Inj) (04/01/17 10:45) Sodium Chlorid 0.9% 500 Ml Inj (Ns 500 M (04/01/17 10:45) Abdomen, Flat & Upright (04/01/17 ) Lactic Acid (04/01/17 10:42) Amlodipine (Norvasc) (04/01/17 11:00) Labs Laboratory Tests Test 04/01/17 11:50 04/01/17 11:55 White Blood Count 10.8 TH/MM3 Red Blood Count 3.77 MIL/MM3 Hemoglobin 11.8 GM/DL Hematocrit 34.5 % Mean Corpuscular Volume 91.5 FL Mean Corpuscular Hemoglobin 31.2 PG Mean Corpuscular Hemoglobin Concent 34.1 % Red Cell Distribution Width 14.0 % Platelet Count 254 TH/MM3 Mean Platelet Volume 8.7 FL Neutrophils (%) (Auto) 71.5 % Lymphocytes (%) (Auto) 23.7 % Monocytes (%) (Auto) 2.9 % Eosinophils (%) (Auto) 1.3 % Basophils (%) (Auto) 0.6 % Neutrophils # (Auto) 7.7 TH/MM3 Lymphocytes # (Auto) 2.6 TH/MM3 Monocytes # (Auto) 0.3 TH/MM3 Eosinophils # (Auto) 0.1 TH/MM3 Basophils # (Auto) 0.1 TH/MM3 CBC Comment DIFF FINAL Differential Comment Blood Urea Nitrogen 31 MG/DL Creatinine 2.24 MG/DL Random Glucose 150 MG/DL Total Protein 8.0 GM/DL Albumin 3.0 GM/DL Calcium Level 8.5 MG/DL Alkaline Phosphatase 128 U/L Aspartate Amino Transf (AST/SGOT) 12 U/L Alanine Aminotransferase (ALT/SGPT) 29 U/L Total Bilirubin 0.2 MG/DL Sodium Level 134 MEQ/L Potassium Level 4.1 MEQ/L Chloride Level 102 MEQ/L Carbon Dioxide Level 19.8 MEQ/L Anion Gap 12 MEQ/L Estimat Glomerular Filtration Rate 27 ML/MIN Lactic Acid Level 1.2 mmol/L Total Creatine Kinase 99 U/L Troponin I LESS THAN 0.02 NG/ML Thyroid Stimulating Hormone 3rd Gen 2.220 uIU/ML Urine Color LIGHT-YELLOW Urine Turbidity CLEAR Urine pH 5.5 Urine Specific [place] 1.003 Urine Protein 100 mg/dL Urine Glucose (UA) NEG mg/dL Urine Ketones NEG mg/dL Urine Occult Blood NEG Urine Nitrite NEG Urine Bilirubin NEG Urine Urobilinogen LESS THAN 2.0 MG/DL Urine Leukocyte Esterase NEG Urine RBC LESS THAN 1 /hpf Urine WBC 1 /hpf Urine Squamous Epithelial Cells <1 /hpf Urine Mucus FEW /lpf Microscopic Urinalysis Comment CATH-CULT NOT IND MDM Medical Decision Making Medical Screen Exam Complete: Yes Emergency Medical Condition: Yes Medical Record Reviewed: Yes Interpretation(s) EKG reveals normal sinus rhythm with a rate of 77. No ischemic changes or ectopy noted. Laboratory Tests Test 04/01/17 11:50 04/01/17 11:55 White Blood Count 10.8 TH/MM3 Red Blood Count 3.77 MIL/MM3 Hemoglobin 11.8 GM/DL Hematocrit 34.5 % Mean Corpuscular Volume 91.5 FL Mean Corpuscular Hemoglobin 31.2 PG Mean Corpuscular Hemoglobin Concent 34.1 % Red Cell Distribution Width 14.0 % Platelet Count 254 TH/MM3 Mean Platelet Volume 8.7 FL Neutrophils (%) (Auto) 71.5 % Lymphocytes (%) (Auto) 23.7 % Monocytes (%) (Auto) 2.9 % Eosinophils (%) (Auto) 1.3 % Basophils (%) (Auto) 0.6 % Neutrophils # (Auto) 7.7 TH/MM3 Lymphocytes # (Auto) 2.6 TH/MM3 Monocytes # (Auto) 0.3 TH/MM3 Eosinophils # (Auto) 0.1 TH/MM3 Basophils # (Auto) 0.1 TH/MM3 CBC Comment DIFF FINAL Differential Comment Blood Urea Nitrogen 31 MG/DL Creatinine 2.24 MG/DL Random Glucose 150 MG/DL Total Protein 8.0 GM/DL Albumin 3.0 GM/DL Calcium Level 8.5 MG/DL Alkaline Phosphatase 128 U/L Aspartate Amino Transf (AST/SGOT) 12 U/L Alanine Aminotransferase (ALT/SGPT) 29 U/L Total Bilirubin 0.2 MG/DL Sodium Level 134 MEQ/L Potassium Level 4.1 MEQ/L Chloride Level 102 MEQ/L Carbon Dioxide Level 19.8 MEQ/L Anion Gap 12 MEQ/L Estimat Glomerular Filtration Rate 27 ML/MIN Lactic Acid Level 1.2 mmol/L Total Creatine Kinase 99 U/L Troponin I LESS THAN 0.02 NG/ML Thyroid Stimulating Hormone 3rd Gen 2.220 uIU/ML Urine Color LIGHT-YELLOW Urine Turbidity CLEAR Urine pH 5.5 Urine Specific [place] 1.003 Urine Protein 100 mg/dL Urine Glucose (UA) NEG mg/dL Urine Ketones NEG mg/dL Urine Occult Blood NEG Urine Nitrite NEG Urine Bilirubin NEG Urine Urobilinogen LESS THAN 2.0 MG/DL Urine Leukocyte Esterase NEG Urine RBC LESS THAN 1 /hpf Urine WBC 1 /hpf Urine Squamous Epithelial Cells <1 /hpf Urine Mucus FEW /lpf Microscopic Urinalysis Comment CATH-CULT NOT IND Last Impressions Abdomen X-Ray 04/01/17 0000 Signed Impressions: Service Date/Time: March 11:16 - CONCLUSION: Normal examination. Leftward upper lumbar scoliosis Armando Watson MD Differential Diagnosis Differential diagnosis includes UTI, delirium, hyponatremia, constipation, small bowel obstruction, ileus, electrolyte abnormality, dehydration, dementia. Narrative Course IV was established, labs are drawn and sent, and the patient was placed on cardiac telemetry monitoring and continuous pulse oximetry monitoring. Patient' s blood pressure was elevated, she did not take her morning medications, therefore, Norvasc 10 mg orally was ordered. The patient was in ministered Zofran and 500 cc of normal saline. UA was sent to lab. EKG was ordered and interpreted. The patient is nonfocal on exam and mental status is baseline according to the daughter, therefore, no CT the brain was obtained. UA is unremarkable. Patient's creatinine is elevated, however, when compared to previous visits is at baseline. TSH is normal. Sodium is unremarkable. The patient may have progressing symptoms of dementia, no obvious reversible cause of delirium. X-ray was unremarkable, no evidence of obstruction, no air-fluid levels. The family will be provided a copy of lab work at discharge, or advised to follow-up with her primary physician and return if symptoms worsen or progress. Diagnosis Primary Impression: Chronic renal failure, stage 4 (severe) Patient Instructions: General Instructions Additional Instructions: Please provide the daughter a copy of the patient's labs and x-ray findings at discharge. Follow-up with a primary physician. Return if symptoms worsen or progress. Med/Other Pt SpecificInfo: No Change to Meds Disposition: 01 DISCHARGE HOME Condition: Stable Jadiel Xiao MD Apr 01, 2017 11:00
[2017-04-01 11:10] VITALS: BP 178/77; PULSE 77; RESP 16; TEMP 97.9; O2SAT 100
[2017-04-01 12:10] LABS: AUTOMATED NEUTROPHIL # 7.7 TH/MM3 (1.8-7.7); BASOPHIL # 0.1 TH/MM3 (0-0.2); BASOPHIL % 0.6 % (0.0-2.0); EOSINOPHIL # 0.1 TH/MM3 (0-0.4); EOSINOPHIL % 1.3 % (0.0-4.0); HEMATOCRIT 34.5 % (35.0-46.0); HEMOGLOBIN 11.8 GM/DL (11.6-15.3); LYMPH % 23.7 % (9.0-44.0); LYMPHOCYTE # 2.6 TH/MM3 (1.0-4.8); MEAN CELL VOLUME 91.5 FL (80.0-100.0); MEAN CORPUSCULAR HEMOGLOBIN 31.2 PG (27.0-34.0); MEAN CORPUSCULAR HGB CONC 34.1 % (32.0-36.0); MEAN PLATELET VOLUME 8.7 FL (7.0-11.0); MONO % 2.9 % (0.0-8.0); MONOCYTE # 0.3 TH/MM3 (0-0.9); NEUT % 71.5 % (16.0-70.0); PLATELET COUNT 254 TH/MM3 (150-450); RED BLOOD COUNT 3.77 MIL/MM3 (4.00-5.30); WHITE BLOOD COUNT 10.8 TH/MM3 (4.0-11.0)
[2017-04-01 12:12] LABS: BILIRUBIN, URINE NEG (NEG); BLOOD, URINE NEG (NEG); GLUCOSE,URINE NEG (NEG); KETONE, URINE NEG (NEG); MUCUS URINE FEW /lpf (OCC); NITRITE,URINE NEG (NEG); PH, URINE 5.5 (5.0-8.5); SQUAMOUS EPITHELIAL CELL URINE <1 /hpf (0-5); URINE COLOR LIGHT-YELLOW (YELLW/STRAW); URINE LEUKOCYTE ESTERASE NEG (NEG)
--- NOTE | 2017-04-01 12:18 | RADRPT ---
EXAM DATE/TIME: 04/01/2017 11:16 [facility] COMPARISON: No previous studies available for comparison. INDICATIONS : Abdominal pain. MEDICAL HISTORY : Peripheral vascular disease. Diabetes mellitus type II. Deep venous thrombosis. Hypertension, ane lory. SURGICAL HISTORY : Cholecystectomy. section. ENCOUNTER: Initial ACUITY: 1 day PAIN SCORE: 3/10 LOCATION: middle abdomen FINDINGS: Supine and upright views of the abdomen were performed. The abdominal bowel gas pattern is normal. No air fluid levels are seen. No abnormal masses, calcifications, or organomegaly is seen. The visu alized lower lungs are clear. No evidence of free intraperitoneal gas. The osseous structures are u nremarkable. CONCLUSION: Normal examination. Leftward upper lumbar scoliosis Armando Watson MD on April 01, 2017 at 12:15 Board Certified Radiologist. This report was verified electronically.
[2017-04-01 12:22] LABS: AST (GOT) 12 U/L (15-37); BICARBONATE 19.8 MEQ/L (21.0-32.0); BLOOD UREA NITROGEN 31 MG/DL (7-18); CALCIUM 8.5 MG/DL (8.5-10.1); CHLORIDE 102 MEQ/L (98-107); CREATININE 2.24 MG/DL (0.50-1.00); GLOMERULAR FILTRATION RATE 27 ML/MIN (>89); GLUCOSE,RANDOM 150 MG/DL (74-106); SODIUM (NA) 134 MEQ/L (136-145)
[2017-04-01 12:23] LABS: ALT (GPT) 29 U/L (10-53)
[2017-04-01 12:33] LABS: ALKALINE PHOSPHATASE 128 U/L (45-117); TOTAL BILIRUBIN ADULT 0.2 MG/DL (0.2-1.0); TROPONIN I LESS THAN 0.02 NG/ML (0.02-0.05)
[2017-04-01 13:18] VITALS: BP 168/69
--- NOTE | 2017-04-02 15:57 | EKG ---
Date Performed: 04/01/2017 Time Performed: 10:52:38 PTAGE: 66 years EKG: Sinus rhythm NORMAL ECG PREVIOUS TRACING : 02/06/2017 13.07 Since previous tracing, no significant change noted DOCTOR: Gautam Palmer Interpretating Date/Time 04/02/2017 15:56:47
== END 2017-04-01 13:20 | disposition home or self-care (01) ==
LOC: NEPD 10:16
DX: I12.9 Hypertensive chronic kidney disease with stage 1 through stage 4 chronic kidney disease, or unspecified chronic kidney disease (principal); N18.4 Chronic kidney disease, stage 4 (severe); E11.22 Type 2 diabetes mellitus with diabetic chronic kidney disease; E78.00 Pure hypercholesterolemia, unspecified; F32.9 Major depressive disorder, single episode, unspecified; K21.9 Gastro-esophageal reflux disease without esophagitis; Z86.73 Personal history of transient ischemic attack (TIA), and cerebral infarction without residual deficits; Z86.718 Personal history of other venous thrombosis and embolism; Z89.511 Acquired absence of right leg below knee
CPT/HCPCS: 74019; 80053; 81001; 82550; 83605; 84443; 84484; 85025; 93005; 96361; 96374; 99285; J2405; J7040

== ENCOUNTER 2017-04-26 20:17 | Emergency (ER) | payer MEDICARE, MEDICAID ==
[2017-04-26 20:19] VITALS: BP 163/74; PULSE 94; RESP 16; TEMP 97.7; O2SAT 98
--- NOTE | 2017-04-26 21:04 | PD ---
HPI Chief Complaint: General Weakness Time Seen by Provider: 21:03 Travel History International Travel<30 days: No Contact w/Intl Traveler<30days: No Traveled to known affect area: No History of Present Illness HPI The patient is a 66 year old female who presents to the [facility] emergency department with a history of headache that began on Wednesday associated with sleeping and increased fatigue. She has nausea without vomiting. She has a decreased appetite. She reports having a bitemporal headache associated with this. She reports that it comes and goes. According to her family member at the bedside whom she resides with her headache was not relieved with Tylenol today. She has a history of intracranial hemorrhage in 2014 and she was concerned that this may be a recurrence. The patient's blood pressure has been higher than usual today. The patient arrives with a systolic blood pressure in the 160s. Related to the patient's prior stroke she does have memory problems, confusion. The patient unfortunately is a poor historian , however her family member is able to provide a significant amount of her history. She has not had any diarrhea. Her urine has been darker than usual, however she denies having any dysuria or urinary urgency. Her family member denies her having any stronger than usual odor to her urine. She has not had any noted fevers, cough or congestion, neck stiffness, chest pain, shortness of breath, abdominal pain, diarrhea, one-sided weakness, slurred speech, facial droop, or increased difficulty with word finding ability. She last moved her bowel yesterday. [facility] Past Medical History Narrative Medical The patient's past medical history is significant for a cerebrovascular accident with intracranial hemorrhage, history of DVT, hypertension, diabetes mellitus, chronic renal insufficiency, history of memory problems Hx Anticoagulant Therapy: Yes Anemia: Yes Arthritis: Yes Blood Disorders: No Anxiety: No Depression: Yes Heart Rhythm Problems: No Cancer: No Cardiovascular Problems: Yes High Cholesterol: Yes Chemotherapy: No Chest Pain: Yes Congestive Heart Failure: No Cerebrovascular Accident: Yes Developmental Delay: No Diabetes: Yes Diminished Hearing: No Deep Vein Thrombosis: Yes Endocrine: Yes Gastrointestinal Disorders: Yes (NAUSEA/ CRAMPING) GERD: Yes Genitourinary: No Headaches: No Hypertension: Yes Immune Disorder: No Implanted Vascular Access Dvce: No Musculoskeletal: No Neurologic: Yes Psychiatric: No Reproductive: No Respiratory: No Integumentary: Yes (R BKA ULCER.) Seizures: Yes Thyroid Disease: No PNEUMOCCOCAL Vaccine (Year): 2 Menopausal: Yes : 6 Para: 4 : 2 Past Surgical History Narrative Surgical The patient's past surgical history is significant for a right below the knee amputation as a complication of diabetes. Abdominal Surgery: Yes Cardiac Surgery: No Section: Yes (X 1) Cholecystectomy: Yes Ear Surgery: No Endocrine Surgery: No Eye Surgery: Yes (R PROSTHETIC EYE) Genitourinary Surgery: No Gynecologic Surgery: No Hysterectomy: No Neurologic Surgery: No Oral Surgery: Yes Pacemaker: No Thoracic Surgery: No Other Surgery: Yes (RIGHT BKA with prosthetic) Social History Alcohol Use: No Tobacco Use: No Substance Use: No Allergies-Medications (Allergen,Severity, Reaction): Coded Allergies: amoxicillin (Unverified Allergy, Severe, Hives, 02/06/17) ciprofloxacin (Unverified Allergy, Intermediate, Hives, 02/06/17) Reported Meds & Prescriptions Reported Meds & Active Scripts Active Reported D3 Super Strength (Cholecalciferol) 2,000 Unit Cap 2,000 Units PO DAILY Tresiba Flextouch Pen Inj (Insulin Degludec Inj) 300 unit/3 ML Pen 15 Units SQ DAILY Eliquis (Apixaban) 2.5 Mg Tab 2.5 Mg PO BID Losartan (Losartan Potassium) 100 Mg Tab 100 Mg PO DAILY Amlodipine (Amlodipine Besylate) 10 Mg Tab 10 Mg PO DAILY Lipitor (Atorvastatin Calcium) 80 Mg Tab 80 Mg PO DAILY Review of Systems Except as stated in HPI: all other systems reviewed are Neg General / Constitutional: No: Fever Eyes: No: Visual changes HENT: Positive: Headaches, No: Rhinorrhea, Congestion, Neck Stiffness, Neck Pain Cardiovascular: No: Chest Pain or Discomfort Respiratory: No: Cough, Shortness of Breath Gastrointestinal: Positive: Nausea, Loss of Appetite, No: Vomiting, Diarrhea, Abdominal Pain Genitourinary: No: Dysuria Musculoskeletal: No: Pain Skin: No Rash Neurologic: Positive: Weakness (Generalized weakness with fatigue), Change in Mentation, No: Focal Abnormalities, Slurred Speech, Sensory Disturbance Psychiatric: No: Depression Endocrine: No: Polydipsia Hematologic/Lymphatic: No: Easy Bruising Physical Exam Narrative General: The patient is a well-developed well-nourished female in no acute distress. Head and Neck exam: Head is normocephalic atraumatic. Eyes: EOMI, pupils are equal round and reactive to light. Nose: Midline septum with pink mucous membranes Mouth: Dentition unremarkable. Moist mucus membranes. Posterior oropharynx is not erythematous. No tonsillar hypertrophy. Uvula midline. Airway patent. Neck: No palpable lymphadenopathy. No nuchal rigidity. No thyromegaly. Cardiovascular: Regular rate and rhythm without murmurs, gallops, or rubs. Lungs: Clear to auscultation bilaterally. No wheezes, rhonchi, or rales. Abdomen: Soft, without tenderness to palpation in all 4 quadrants of the abdomen. No guarding, rebound, or rigidity. Normal bowel sounds are audible. No tenderness on palpation of McBurney's point Extremities: No clubbing, cyanosis, or edema. 2+ pulses in all 4 extremities. No calf tenderness on palpation. Back: No costovertebral angle tenderness to palpation. Neurologic Exam: Cranial nerves 2-12 were intact on exam. Strength is 5/5 in all 4 extremities. No sensory deficits noted. The patient is oriented to person, place, however not time or situation. This is the patient's baseline according to the patient' s family. Skin Exam: No rash noted. Intact skin that is warm and dry. Data Data Last Documented VS Vital Signs Date Time Temp Pulse Resp B/P (MAP) Pulse Ox O2 Delivery O2 Flow Rate FiO2 04/26/17 21:40 16 99 Room Air 04/26/17 20:19 97.7 94 Orders Orders Electrocardiogram (04/26/17 21:25) Complete Blood Count With Diff (04/26/17 21:25) Comprehensive Metabolic Panel (04/26/17 21:25) Creatine Kinase (Cpk) (04/26/17 21:25) Ckmb (Isoenzyme) Profile (04/26/17 21:25) Troponin I (04/26/17 21:25) B-Type Natriuretic Peptide (04/26/17 21:25) Prothrombin Time / Inr (Pt) (04/26/17 21:25) Act Partial Throm Time (Ptt) (04/26/17 21:25) Lipase (04/26/17 21:25) Urinalysis - C+S If Indicated (04/26/17 21:25) Thyroid Stimulating Hormone (04/26/17 21:25) Chest, Single Ap (04/26/17 21:25) Ct Brain W/O Iv Contrast(Rout) (04/26/17 21:25) Iv Access Insert/Monitor (04/26/17 21:25) Ecg Monitoring (04/26/17 21:25) Oximetry (04/26/17 21:25) Cath For Specimen (04/26/17:25) CKMB (04/26/17 23:00) CKMB% (04/26/17 23:00) Sodium Chlorid 0.9% 500 Ml Inj (Ns 500 M (04/27/17 00:30) Acetaminophen (Tylenol) (04/27/17 00:30) Urine Culture (04/27/17 00:00) Ceftriaxone Inj (Rocephin Inj) (04/27/17 00:45) Labs Laboratory Tests Test 04/26/17 23:00 04/27/17 00:00 White Blood Count 11.0 TH/MM3 Red Blood Count 3.58 MIL/MM3 Hemoglobin 11.0 GM/DL Hematocrit 32.5 % Mean Corpuscular Volume 90.9 FL Mean Corpuscular Hemoglobin 30.7 PG Mean Corpuscular Hemoglobin Concent 33.7 % Red Cell Distribution Width 14.6 % Platelet Count 251 TH/MM3 Mean Platelet Volume 9.6 FL Neutrophils (%) (Auto) 68.7 % Lymphocytes (%) (Auto) 26.1 % Monocytes (%) (Auto) 3.5 % Eosinophils (%) (Auto) 1.2 % Basophils (%) (Auto) 0.5 % Neutrophils # (Auto) 7.6 TH/MM3 Lymphocytes # (Auto) 2.9 TH/MM3 Monocytes # (Auto) 0.4 TH/MM3 Eosinophils # (Auto) 0.1 TH/MM3 Basophils # (Auto) 0.1 TH/MM3 CBC Comment DIFF FINAL Differential Comment Prothrombin Time 10.1 SEC Prothromb Time International Ratio 1.0 RATIO Activated Partial Thromboplast Time 23.9 SEC Blood Urea Nitrogen 38 MG/DL Creatinine 2.48 MG/DL Random Glucose 152 MG/DL Total Protein 8.6 GM/DL Albumin 3.1 GM/DL Calcium Level 8.5 MG/DL Alkaline Phosphatase 130 U/L Aspartate Amino Transf (AST/SGOT) 31 U/L Alanine Aminotransferase (ALT/SGPT) 45 U/L Total Bilirubin 0.2 MG/DL Sodium Level 138 MEQ/L Potassium Level 4.8 MEQ/L Chloride Level 105 MEQ/L Carbon Dioxide Level 25.3 MEQ/L Anion Gap 8 MEQ/L Estimat Glomerular Filtration Rate 24 ML/MIN Total Creatine Kinase 184 U/L Creatine Kinase MB 0.6 NG/ML Troponin I LESS THAN 0.02 NG/ML B-Type Natriuretic Peptide 11 PG/ML Lipase 234 U/L Thyroid Stimulating Hormone 3rd Gen 3.640 uIU/ML Urine Color LIGHT-YELLOW Urine Turbidity HAZY Urine pH 5.5 Urine Specific [place] 1.007 Urine Protein 100 mg/dL Urine Glucose (UA) NEG mg/dL Urine Ketones NEG mg/dL Urine Occult Blood NEG Urine Nitrite NEG Urine Bilirubin NEG Urine Urobilinogen LESS THAN 2.0 MG/DL Urine Leukocyte Esterase LARGE Urine RBC 9 /hpf Urine WBC 17 /hpf Urine Squamous Epithelial Cells 4 /hpf Urine Transitional Epithelial Cells <1 /hpf Urine Bacteria FEW /hpf Urine Mucus FEW /lpf Microscopic Urinalysis Comment CULTURE INDICATED MDM Medical Decision Making Medical Screen Exam Complete: Yes Emergency Medical Condition: Yes Medical Record Reviewed: Yes Interpretation(s) Last Impressions Head CT 04/26/172124 Signed Impressions: Service Date/Time: Wednesday, April 26, 2017 22:05 - CONCLUSION: 1. Stable old left temporal lobe and left parietal lobe infarct. 2. Stable CT scan of the brain compared to the prior exam. Mark Borjas MD Chest X-Ray 04/26/172124 Signed Impressions: Service Date/Time: Wednesday, April 26, 2017 21:58 - CONCLUSION: No acute disease. No significant change has occurred. Mark Borjas MD Differential Diagnosis Intracranial hemorrhage, versus viral syndrome, versus electrolyte derangements , versus urinary tract infection, versus pneumonia Narrative Course During the course of the patient's emergency department visit, the patient's history, examination, and differential diagnosis were reviewed with the patient. The patient was placed on a program attendant with oximetry and frequent blood pressure monitoring. The patient had IV access obtained and blood work sent for analysis. EKG was done on arrival that shows a sinus rhythm heart rate of 88, no acute ST segment elevation, QRS duration is 85 ms, QTC 378 ms. Patient's repeat blood pressure after resting in the emergency department was 146 systolic. The patient was initially provided normal saline 500 mL bolus 1, Tylenol 650 p.o. 1 for pain. The patient's laboratory studies were reviewed and remarkable for a white count of 11, hemoglobin 11, platelets 251 with a normal differential, CMP is remarkable for a BUN of 38, creatinine 2.48, glucose 152, alk phos 130, cardiac enzymes within normal limits, BNP is 11, albumin 3.1, lipase 234, TSH 3.64, PT 10.1, PTT 23.9, urinalysis shows 100 protein 9 RBCs 17 WBCs, few bacteria, culture indicated. The patient was given Rocephin 1 g IV. Radiology studies were reviewed and remarkable for a chest x-ray that shows no acute cardiopulmonary disease, CT scan of the brain shows stable old left temporal lobe and left parietal lobe infarct, stable CT scan of the brain compared to the prior exam. The patient has remained stable and improved since her emergency department evaluation. The patient was instructed that her symptoms could be related to urinary tract infection which was confirmed on urinalysis. The patient will be discharged home with a prescription for Keflex. The patient is resting comfortably and feels better, is alert and in no distress. The patient's results and examination findings were discussed with the patient. The repeat examination is unremarkable and benign. The history, exam, diagnostic testing, and current condition do not suggest any significant pathology to warrant further testing, continued ED treatment, admission, or surgical evaluation at this point. The vital signs have been stable. The patient does not have uncontrollable pain, intractable vomiting, or other significant symptoms. The patient's condition is stable and appropriate for discharge. The patient will pursue further outpatient evaluation with a primary care physician or other designated or consulting physician as indicated in the discharge instructions. The patient expressed understanding and was agreeable with this plan. Diagnosis Primary Impression: Generalized weakness Additional Impression: Urinary tract infection Qualified Codes: N30.01 - Acute cystitis with hematuria Referrals: Primary Care Physician 2 days Patient Instructions: General Instructions, Urinary Tract Infection in Women ( ED), Weakness (ED) Scripts Cephalexin (Keflex) 500 Mg Capsule 500 MG PO Q8H for Infection for 7 Days, #21 CAP 0 Refills Prov: Joyce Wood MD 04/27/17 Disposition: 01 DISCHARGE HOME Condition: Stable Joyce Wood MD Apr 26, 2017 21:04
[2017-04-26 21:40] VITALS: RESP 16; O2SAT 99
--- NOTE | 2017-04-26 22:15 | RADRPT ---
EXAM DATE/TIME: 04/26/2017 21:58 [facility] COMPARISON: CHEST SINGLE AP, May 17, 2016, 11:57. INDICATIONS : Cough. MEDICAL HISTORY : None. SURGICAL HISTORY : None. ENCOUNTER: Initial ACUITY: 3 days PAIN SCORE: 0/10 LOCATION: Bilateral chest FINDINGS: A single view of the chest demonstrates the lungs to be symmetrically aerated without evidence of mas s, infiltrate or effusion. The heart size is stable and mildly enlarged.. Osseous structures are in tact. CONCLUSION: No acute disease. No significant change has occurred. Mark Borjas MD on April 26, 2017 at 22:12 Board Certified Radiologist. This report was verified electronically.
--- NOTE | 2017-04-26 22:21 | RADRPT ---
EXAM DATE/TIME: 04/26/2017 22:05 [facility] COMPARISON: CT BRAIN W/O CONTRAST, January 20, 2017, 10:50. INDICATIONS : Cephalgia. RADIATION DOSE: 35.03 CTDIvol (mGy) MEDICAL HISTORY : Stroke. Cardiovascular disease Hypertension. SURGICAL HISTORY : Cholecystectomy. ENCOUNTER: Initial ACUITY: 1 day PAIN SCALE: 5/10 LOCATION: cranial TECHNIQUE: Multiple contiguous axial images were obtained of the head. Using automated exposure control and adj ustment of the mA and/or kV according to patient size, radiation dose was kept as low as reasonably a chievable to obtain optimal diagnostic quality images. DICOM format image data is available electro nically for review and comparison. FINDINGS: CEREBRUM: The ventricles are normal for age. No evidence of midline shift, mass lesion, hemorrhage or acute in farction. No extra-axial fluid collections are seen. There is a stable old infarct in the left tempo ral and left posterior parietal lobe. No change compared to the prior study. There is stable bilatera l chronic white matter changes. POSTERIOR FOSSA: The cerebellum and brainstem are intact. The 4th ventricle is midline. The cerebellopontine angle i s unremarkable. EXTRACRANIAL: The visualized portion of the orbits is intact. SKULL: The calvaria is intact. No evidence of skull fracture. No significant change compared to the prior exam. CONCLUSION: 1. Stable old left temporal lobe and left parietal lobe infarct. 2. Stable CT scan of the brain compared to the prior exam. Mark Borjas MD on April 26, 2017 at 22:17 Board Certified Radiologist. This report was verified electronically.
[2017-04-26 23:15] LABS: AUTOMATED NEUTROPHIL # 7.6 TH/MM3 (1.8-7.7); BASOPHIL # 0.1 TH/MM3 (0-0.2); BASOPHIL % 0.5 % (0.0-2.0); EOSINOPHIL # 0.1 TH/MM3 (0-0.4); EOSINOPHIL % 1.2 % (0.0-4.0); HEMATOCRIT 32.5 % (35.0-46.0); LYMPH % 26.1 % (9.0-44.0); LYMPHOCYTE # 2.9 TH/MM3 (1.0-4.8); MEAN CELL VOLUME 90.9 FL (80.0-100.0); MEAN CORPUSCULAR HEMOGLOBIN 30.7 PG (27.0-34.0); MEAN CORPUSCULAR HGB CONC 33.7 % (32.0-36.0); MEAN PLATELET VOLUME 9.6 FL (7.0-11.0); MONO % 3.5 % (0.0-8.0); MONOCYTE # 0.4 TH/MM3 (0-0.9); NEUT % 68.7 % (16.0-70.0); PLATELET COUNT 251 TH/MM3 (150-450); RED BLOOD COUNT 3.58 MIL/MM3 (4.00-5.30); RED CELL DISTRIBUTION WIDTH 14.6 % (11.6-17.2)
[2017-04-26 23:26] LABS: PROTHROMBIN TIME - PATIENT 10.1 SEC (9.8-11.6)
[2017-04-26 23:52] LABS: ALBUMIN 3.1 GM/DL (3.4-5.0); ALKALINE PHOSPHATASE 130 U/L (45-117); ALT (GPT) 45 U/L (10-53); AST (GOT) 31 U/L (15-37); BICARBONATE 25.3 MEQ/L (21.0-32.0); BLOOD UREA NITROGEN 38 MG/DL (7-18); CALCIUM 8.5 MG/DL (8.5-10.1); CHLORIDE 105 MEQ/L (98-107); CREATININE 2.48 MG/DL (0.50-1.00); GLOMERULAR FILTRATION RATE 24 ML/MIN (>89); GLUCOSE,RANDOM 152 MG/DL (74-106); SODIUM (NA) 138 MEQ/L (136-145); TOTAL BILIRUBIN ADULT 0.2 MG/DL (0.2-1.0); TOTAL PROTEIN 8.6 GM/DL (6.4-8.2); TROPONIN I LESS THAN 0.02 NG/ML (0.02-0.05)
[2017-04-27 00:28] LABS: BACTERIA, URINE FEW /hpf; BILIRUBIN, URINE NEG (NEG); BLOOD, URINE NEG (NEG); GLUCOSE,URINE NEG (NEG); KETONE, URINE NEG (NEG); MUCUS URINE FEW /lpf (OCC); NITRITE,URINE NEG (NEG); PH, URINE 5.5 (5.0-8.5); SQUAMOUS EPITHELIAL CELL URINE 4 /hpf (0-5); TRANSITIONAL EPI CELLS, URINE <1 /hpf; URINE COLOR LIGHT-YELLOW (YELLW/STRAW); URINE LEUKOCYTE ESTERASE LARGE (NEG)
[2017-04-27] MEDS ORDERED: ACETAMINOPHEN 325 MG TAB PO ONE (00:30)
[2017-04-27] MEDS ORDERED: SODIUM CHLORID 0.9% 500 ML INJ 500 ML IV ONE (00:30)
[2017-04-27] MEDS ORDERED: cefTRIAXone INJ 1,000 MG in SODIUM CHLORIDE 0.9% INJ 100 ML IV ONE (00:45)
[2017-04-27] MEDS ORDERED: CEPH-460 PO (01:00)
--- NOTE | 2017-04-27 15:38 | EKG ---
Date Performed: 04/26/2017 Time Performed: 21:36:49 PTAGE: 66 years EKG: Sinus rhythm NONSPECIFIC T-WAVE ABNORMALITY BORDERLINE ECG Since the prior tracing, there has been no significant change PREVIOUS TRACING : 04/01/2017 10.52 DOCTOR: Casey Chicas Interpretating Date/Time 04/27/2017 16:12:55
== END 2017-04-27 02:08 | disposition home or self-care (01) ==
LOC: NEPE 20:17
DX: R53.1 Weakness (principal); N30.01 Acute cystitis with hematuria; I12.9 Hypertensive chronic kidney disease with stage 1 through stage 4 chronic kidney disease, or unspecified chronic kidney disease; N18.9 Chronic kidney disease, unspecified; E11.22 Type 2 diabetes mellitus with diabetic chronic kidney disease; E78.00 Pure hypercholesterolemia, unspecified; R94.31 Abnormal electrocardiogram [ECG] [EKG]; Z79.4 Long term (current) use of insulin
CPT/HCPCS: 70450; 71045; 80053; 81001; 82550; 82552; 83690; 83880; 84443; 84484; 85025; 85610; 85730; 87086; 93005; 96361; 96365; 99285; J0696; J7040

== ENCOUNTER 2017-05-03 21:05 | Emergency (ER) | payer MEDICARE, MEDICAID ==
[~2017-05-03 21:05] MED LIST changes: +CEPH-460 PO
[2017-05-03 21:06] VITALS: BP 165/70; PULSE 83; RESP 16; TEMP 98.1; O2SAT 100
[2017-05-03] MEDS ORDERED: INSULIN HUMAN REGULAR 1,000 UNITS/10 ML VIAL SQ ONE (22:30)
[2017-05-03] MEDS ORDERED: MECLIZINE HCL 25 MG TAB PO ONE (22:45)
[2017-05-03] MEDS ORDERED: MECL-62 PO (22:53)
--- NOTE | 2017-05-03 22:53 | PD ---
HPI Chief Complaint: Medical Clearance Time Seen by Provider: 22:19 Travel History International Travel<30 days: No Contact w/Intl Traveler<30days: No Traveled to known affect area: No History of Present Illness HPI 66-year-old female complaining of dizziness, ear ringing, left-sided abdominal pain. Patient states that the symptoms started this evening. Patient was seen in emergency room a week ago with diagnosis of UTI. Patient was given prescription for Keflex. Patient had been taking the medication as directed. Patient states that she is not having dizziness, was good head movement this evening. Patient also started having intermittent ear ringing also 2. Patient denies any headache. Patient denies any visual change. Patient denies any neck pain. Patient denies any chest pain or shortness of breath. Patient patient states that she started having left-sided flank pain when she lying on the left side. Patient does not have pain on standing or lying on the right side. Patient denies any fever chills. Patient denies any focal weakness or numbness of the extremity. Patient has history of chronic kidney disease, seizure, diabetes, status post CVA, DVT, GERD, hyperlipidemia, hypertension, anemia. Patient's on Eliquis. [facility] Past Medical History Hx Anticoagulant Therapy: Yes Anemia: Yes Arthritis: Yes Blood Disorders: No Anxiety: No Depression: Yes Heart Rhythm Problems: No Cancer: No Cardiovascular Problems: Yes High Cholesterol: Yes Chemotherapy: No Chest Pain: Yes Congestive Heart Failure: No Cerebrovascular Accident: Yes Developmental Delay: No Diabetes: Yes Patient Takes Glucophage: No Diminished Hearing: No Deep Vein Thrombosis: Yes Endocrine: Yes Gastrointestinal Disorders: Yes (NAUSEA/ CRAMPING) GERD: Yes Genitourinary: No Headaches: No Hypertension: Yes Immune Disorder: No Implanted Vascular Access Dvce: No Musculoskeletal: No Neurologic: Yes Psychiatric: No Reproductive: No Respiratory: No Integumentary: Yes (R BKA ULCER.) Immunizations Current: Yes Seizures: Yes Thyroid Disease: No Tetanus Vaccination: < 5 Years Influenza Vaccination: Yes PNEUMOCCOCAL Vaccine (Year): 2 Menopausal: Yes : 6 Para: 4 : 2 Past Surgical History Abdominal Surgery: Yes Cardiac Surgery: No Section: Yes (X 1) Cholecystectomy: Yes Ear Surgery: No Endocrine Surgery: No Eye Surgery: Yes (R PROSTHETIC EYE) Genitourinary Surgery: No Gynecologic Surgery: No Hysterectomy: No Neurologic Surgery: No Oral Surgery: Yes Pacemaker: No Thoracic Surgery: No Other Surgery: Yes (RIGHT BKA with prosthetic) Social History Alcohol Use: No Tobacco Use: No Substance Use: No Allergies-Medications (Allergen,Severity, Reaction): Coded Allergies: amoxicillin (Unverified Allergy, Severe, Hives, 05/03/17) ciprofloxacin (Unverified Allergy, Intermediate, Hives, 05/03/17) Reported Meds & Prescriptions Reported Meds & Active Scripts Active Meclizine (Meclizine HCl) 25 Mg Tab 25 Mg PO TID PRN Keflex (Cephalexin) 500 Mg Capsule 500 Mg PO Q8H 7 Days Reported D3 Super Strength (Cholecalciferol) 2,000 Unit Cap 2,000 Units PO DAILY Tresiba Flextouch Pen Inj (Insulin Degludec Inj) 300 unit/3 ML Pen 15 Units SQ DAILY Eliquis (Apixaban) 2.5 Mg Tab 2.5 Mg PO BID Losartan (Losartan Potassium) 100 Mg Tab 100 Mg PO DAILY Amlodipine (Amlodipine Besylate) 10 Mg Tab 10 Mg PO DAILY Lipitor (Atorvastatin Calcium) 80 Mg Tab 80 Mg PO DAILY Review of Systems General / Constitutional: No: Fever Eyes: No: Visual changes HENT: No: Headaches Cardiovascular: No: Chest Pain or Discomfort Respiratory: No: Shortness of Breath Gastrointestinal: No: Abdominal Pain Genitourinary: No: Dysuria Musculoskeletal: Positive: Pain Skin: No Rash Neurologic: No: Weakness Psychiatric: No: Depression Endocrine: No: Polydipsia Hematologic/Lymphatic: No: Easy Bruising Physical Exam Narrative GENERAL: Well-nourished, well-developed patient. SKIN: Focused skin assessment warm/dry. HEAD: Normocephalic. EYES: No scleral icterus. No injection or drainage. NECK: Supple, trachea midline. No JVD or lymphadenopathy. CARDIOVASCULAR: Regular rate and rhythm without murmurs, gallops, or rubs. RESPIRATORY: Breath sounds equal bilaterally. No accessory muscle use. GASTROINTESTINAL: Abdomen soft, non-tender, nondistended. MUSCULOSKELETAL: No cyanosis, or edema. BACK: Nontender without obvious deformity. No CVA tenderness. Patient has no tenderness on palpation of left flank area, left back area left abdomen area or left hip area. Neurologic exam normal. Data Data Last Documented VS Vital Signs Date Time Temp Pulse Resp B/P (MAP) Pulse Ox O2 Delivery O2 Flow Rate FiO2 05/03/17 21:06 98.1 83 16 165/70 (101) 100 Room Air Orders Orders Insulin Human Regular Inj (Novolin R Inj (05/03/17 22:30) Urinalysis - C+S If Indicated (05/03/17 22:42) Meclizine (Antivert) (05/03/17 22:45) Labs Laboratory Tests Test 05/03/17 22:45 Urine Color LIGHT-YELLOW Urine Turbidity CLEAR Urine pH 5.5 Urine Specific [place] 1.010 Urine Protein 100 mg/dL Urine Glucose (UA) NEG mg/dL Urine Ketones NEG mg/dL Urine Occult Blood NEG Urine Nitrite NEG Urine Bilirubin NEG Urine Urobilinogen LESS THAN 2.0 MG/DL Urine Leukocyte Esterase NEG Urine RBC 1 /hpf Urine WBC 1 /hpf Urine Squamous Epithelial Cells 1 /hpf Urine Renal Epithelial Cells <1 /hpf Urine Mucus FEW /lpf Microscopic Urinalysis Comment CULT NOT INDICATED MDM Medical Decision Making Medical Screen Exam Complete: Yes Emergency Medical Condition: Yes Interpretation(s) 23:13 PM. UA is negative. Differential Diagnosis Differential diagnosis including musculoskeletal pain, vertigo. Narrative Course 66-year-old female with left-sided pain that is evening and dizziness and ear ringing. Patient was seen in emergency room a week ago with blood test done and UA done at that time. Culture shows no growth. Contamination. Meclizine 25 mg p.o. even. Diagnosis Primary Impression: Acute onset of severe vertigo Additional Impression: Muscle strain Patient Instructions: General Instructions Additional Instructions: Meclizine as needed for dizziness. Tylenol for pain. Follow-up with personal physician. Return if worse. Med/Other Pt SpecificInfo: Prescription(s) given Scripts Meclizine (Meclizine) 25 Mg Tab 25 MG PO TID Y for VERTIGO, #30 TAB 0 Refills Prov: Vikash Johnson MD 05/03/17 Disposition: 01 DISCHARGE HOME Condition: Stable Vikash Johnson MD May 03, 2017 22:53
[2017-05-03 23:10] LABS: BILIRUBIN, URINE NEG (NEG); BLOOD, URINE NEG (NEG); GLUCOSE,URINE NEG (NEG); KETONE, URINE NEG (NEG); MUCUS URINE FEW /lpf (OCC); NITRITE,URINE NEG (NEG); PH, URINE 5.5 (5.0-8.5); RENAL EPITHELIAL CELLS <1 /hpf; SQUAMOUS EPITHELIAL CELL URINE 1 /hpf (0-5); URINE COLOR LIGHT-YELLOW (YELLW/STRAW); URINE LEUKOCYTE ESTERASE NEG (NEG)
== END 2017-05-03 23:27 | disposition home or self-care (01) ==
LOC: NEPD 21:05
DX: R42 Dizziness and giddiness (principal); I12.9 Hypertensive chronic kidney disease with stage 1 through stage 4 chronic kidney disease, or unspecified chronic kidney disease; N18.9 Chronic kidney disease, unspecified; E11.22 Type 2 diabetes mellitus with diabetic chronic kidney disease; E78.00 Pure hypercholesterolemia, unspecified; F32.9 Major depressive disorder, single episode, unspecified; D64.9 Anemia, unspecified; T14.8XXA Other injury of unspecified body region, initial encounter; X58.XXXA Exposure to other specified factors, initial encounter; Z86.73 Personal history of transient ischemic attack (TIA), and cerebral infarction without residual deficits; Z86.718 Personal history of other venous thrombosis and embolism; Z88.1 Allergy status to other antibiotic agents; Z79.01 Long term (current) use of anticoagulants
CPT/HCPCS: 81001; 96372

== ENCOUNTER 2017-05-12 14:03 | Inpatient (IN) | payer MEDICARE, MEDICAID ==
[~2017-05-12] VITALS: Ht 162.6 cm; Wt 72.0 kg
[~2017-05-12 14:03] MED LIST changes: +MECL-62 PO
[2017-05-12 14:19] VITALS: BP 182/84; RESP 18; TEMP 98.9; O2SAT 98
[2017-05-12] MEDS ORDERED: MIDAZOLAM HCL 5 MG/ML VIAL (1 ML) ONE (14:33)
[2017-05-12 14:35] LABS: AUTOMATED NEUTROPHIL # 6.9 TH/MM3 (1.8-7.7); BASOPHIL # 0.1 TH/MM3 (0-0.2); EOSINOPHIL # 0.1 TH/MM3 (0-0.4); EOSINOPHIL % 1.2 % (0.0-4.0); HEMOGLOBIN 10.7 GM/DL (11.6-15.3); LYMPH % 28.5 % (9.0-44.0); MEAN CELL VOLUME 89.1 FL (80.0-100.0); MEAN CORPUSCULAR HEMOGLOBIN 32.9 PG (27.0-34.0); MEAN PLATELET VOLUME 8.6 FL (7.0-11.0); MONO % 3.6 % (0.0-8.0); MONOCYTE # 0.4 TH/MM3 (0-0.9); NEUT % 65.7 % (16.0-70.0); PLATELET COUNT 246 TH/MM3 (150-450); RED BLOOD COUNT 3.25 MIL/MM3 (4.00-5.30); RED CELL DISTRIBUTION WIDTH 13.7 % (11.6-17.2); WHITE BLOOD COUNT 10.4 TH/MM3 (4.0-11.0)
[2017-05-12 14:37] LABS: MEAN CORPUSCULAR HGB CONC 36.9 % (32.0-36.0)
--- NOTE | 2017-05-12 14:39 | PD ---
HPI Chief Complaint: Stroke Alert Time Seen by Provider: 14:22 Travel History International Travel<30 days: No Contact w/Intl Traveler<30days: No Traveled to known affect area: No History of Present Illness HPI This patient was initially brought in as a stroke alert but she after initial evaluation is not a stroke alert. She was talking with family members at home and abruptly became obtunded and minimally responsive. There is no specific neuro deficits such as muscle weakness or sensory loss or speech slurring or aphasia. She essentially is nonverbal. Does not follow commands. Cannot provide any useful history or review of systems. She does have history of intracranial hemorrhage and that is a major concern at this point. She is taking blood thinner for history of both DVT and ischemic stroke. PFSH Past Medical History Hx Anticoagulant Therapy: Yes Anemia: Yes Arthritis: Yes Blood Disorders: No Anxiety: No Depression: Yes Heart Rhythm Problems: No Cancer: No Cardiovascular Problems: Yes High Cholesterol: Yes Chemotherapy: No Chest Pain: Yes Congestive Heart Failure: No Cerebrovascular Accident: Yes Developmental Delay: No Diabetes: Yes Diminished Hearing: No Deep Vein Thrombosis: Yes Endocrine: Yes Gastrointestinal Disorders: Yes (NAUSEA/ CRAMPING) GERD: Yes Genitourinary: No Headaches: No Hypertension: Yes Immune Disorder: No Implanted Vascular Access Dvce: No Musculoskeletal: No Neurologic: Yes Psychiatric: No Reproductive: No Respiratory: No Integumentary: Yes (R BKA ULCER.) Immunizations Current: Yes Seizures: Yes Thyroid Disease: No PNEUMOCCOCAL Vaccine (Year): 2 Menopausal: Yes : 6 Para: 4 : 2 Past Surgical History Abdominal Surgery: Yes Cardiac Surgery: No Section: Yes (X 1) Cholecystectomy: Yes Ear Surgery: No Endocrine Surgery: No Eye Surgery: Yes (R PROSTHETIC EYE) Genitourinary Surgery: No Gynecologic Surgery: No Hysterectomy: No Neurologic Surgery: No Oral Surgery: Yes Pacemaker: No Thoracic Surgery: No Other Surgery: Yes (RIGHT BKA with prosthetic) Social History Alcohol Use: No Tobacco Use: No Substance Use: No Allergies-Medications (Allergen,Severity, Reaction): Coded Allergies: amoxicillin (Unverified Allergy, Severe, Hives, 05/12/17) ciprofloxacin (Unverified Allergy, Intermediate, Hives, 05/12/17) Reported Meds & Prescriptions Reported Meds & Active Scripts Active Meclizine (Meclizine HCl) 25 Mg Tab 25 Mg PO TID PRN Keflex (Cephalexin) 500 Mg Capsule 500 Mg PO Q8H 7 Days Reported D3 Super Strength (Cholecalciferol) 2,000 Unit Cap 2,000 Units PO DAILY Tresiba Flextouch Pen Inj (Insulin Degludec Inj) 300 unit/3 ML Pen 15 Units SQ DAILY Eliquis (Apixaban) 2.5 Mg Tab 2.5 Mg PO BID Losartan (Losartan Potassium) 100 Mg Tab 100 Mg PO DAILY Amlodipine (Amlodipine Besylate) 10 Mg Tab 10 Mg PO DAILY Lipitor (Atorvastatin Calcium) 80 Mg Tab 80 Mg PO DAILY Review of Systems General / Constitutional: No: Fever Eyes: No: Visual changes HENT: No: Headaches Cardiovascular: No: Chest Pain or Discomfort Respiratory: No: Shortness of Breath Gastrointestinal: No: Abdominal Pain Genitourinary: No: Dysuria Musculoskeletal: No: Pain Skin: No Rash Neurologic: Positive: Change in Mentation, No: Weakness Psychiatric: No: Depression Endocrine: No: Polydipsia Hematologic/Lymphatic: No: Easy Bruising Physical Exam Narrative GENERAL: Restless and obtunded. Does not follow commands. well-developed SKIN: Focused skin assessment reveals no rash and nodules. Skin is Warm and dry. HEAD: Atraumatic. Normocephalic. EYES: Pupils equal and round. No scleral icterus. No injection or drainage. ENT: No nasal bleeding or discharge. Mucous membranes pink and moist. NECK: Trachea midline. No JVD. Normal gag reflex. Controlling her airway CARDIOVASCULAR: Regular rate and rhythm. No murmur appreciated. RESPIRATORY: No accessory muscle use. Clear to auscultation. Breath sounds equal bilaterally. GASTROINTESTINAL: Abdomen soft, non-tender, nondistended. Hepatic and splenic margins not palpable. MUSCULOSKELETAL: Has a right leg amputation . No clubbing. No cyanosis. No edema. NEUROLOGICAL: Moves all 4 extremities and a purposeless and restless manner. Nonverbal. Does not follow commands. Very confused appearing PSYCHIATRIC: Restless and agitated mood and affect; insight and judgment poor . Data Data Last Documented VS Vital Signs Date Time Temp Pulse Resp B/P (MAP) Pulse Ox O2 Delivery O2 Flow Rate FiO2 05/12/17 15:42 88 173/77 (109) 05/12/17 15:32 18 100 Room Air 05/12/17 14:50 98.9 Orders Orders Iv Access Insert/Monitor (05/12/17 14:26) Complete Blood Count With Diff (05/12/17 14:26) Comprehensive Metabolic Panel (05/12/17 14:26) Prothrombin Time / Inr (Pt) (05/12/17 14:26) Act Partial Throm Time (Ptt) (05/12/17 14:26) Ct Brain W/O Iv Contrast(Rout) (05/12/17 ) Electrocardiogram (05/12/17 ) Restraints Non-Violent BRITT.Q3H (05/12/17 14:26) Midazolam Inj (Versed Inj) (05/12/17 14:33) I-Stat Profile (05/12/17 13:17) Alcohol (Ethanol) (05/12/17 14:46) Drug Screen, Random Urine (05/12/17 14:46) Urinalysis - C+S If Indicated (05/12/17 14:46) Cath For Specimen (05/12/17 14:46) Labetalol Inj (Trandate Inj) (05/12/17 15:30) Place In Observation (05/12/17 ) Vital Signs (Adult) Q4H (05/12/17 16:40) Neuro Checks Q4H (05/12/17 16:40) Activity Oob With Assistance (05/12/17 16:40) Alterations Expert / Telemetry .CONTINUOUS (05/12/17 16:40) Diet 1800 Ada Cons Carb (05/12/17 Dinner) Diet Heart Healthy (05/12/17 Dinner) Sodium Chloride 0.9% Flush (Ns Flush) (05/12/17 16:45) Sodium Chloride 0.9% Flush (Ns Flush) (05/12/17 21:00) Basic Metabolic Panel (Bmp) (05/13/17 06:00) Complete Blood Count With Diff (05/13/17 06:00) Pt Request For Service (05/12/17 16:40) Case Management Consult (05/12/17 16:40) Naloxone Inj (Narcan Inj) (05/12/17 16:45) Echo 2d Comp With Doppler (05/12/17 ) Us Carotid Arteries Comp Bilat (05/12/17 ) Eeg Study (05/12/17 ) ^ Seizure Precautions (05/12/17 16:40) Consult Neurology (05/12/17 ) (Hub Use Only)Inp Phy Cons/Ref (05/12/17 ) Us Abdomen Complete (05/12/17 ) Lactic Acid (05/12/17 17:18) Chest, Single Ap (05/12/17 ) Mri Brain W/O Contrast (05/12/17 ) Mra Brain W/O Contrast (Cow) (05/12/17 ) Blood Culture (05/12/17 17:32) Dext 5%-Nacl 0.45% 1000 Ml Inj (D5w-1/2 (05/12/17 17:45) Bedside Glucose BRITT.CSUGAR (05/12/17 17:38) Blood Glucose Goal (Criteria) (05/12/17 17:38) Hypoglycemia 70 Mg/Dl Or < (05/12/17 17:38) Notify Dr: Other (05/12/17 17:38) Dextrose 50% In Davina (Vial) Inj (D50w (Vi (05/12/17 17:45) Glucagon Inj (Glucagon Inj) (05/12/17 17:45) Insulin Aspart Supplemtl Scale (Novolog (05/12/17 21:00) Cefepime Inj (Maxipime Inj) (05/12/17 17:45) Admit To Inpatient (05/12/17 ) Inpatient Certification (05/12/17 ) Ammonia (05/12/17 17:41) Labs Laboratory Tests Test 05/12/17 13:17 05/12/17 16:45 05/12/17 16:50 White Blood Count 10.4 TH/MM3 Red Blood Count 3.25 MIL/MM3 Hemoglobin 10.7 GM/DL Bedside Hemoglobin 10.2 G/DL Hematocrit 29.0 % Bedside Hematocrit 30.0 % Mean Corpuscular Volume 89.1 FL Mean Corpuscular Hemoglobin 32.9 PG Mean Corpuscular Hemoglobin Concent 36.9 % Red Cell Distribution Width 13.7 % Platelet Count 246 TH/MM3 Mean Platelet Volume 8.6 FL Neutrophils (%) (Auto) 65.7 % Lymphocytes (%) (Auto) 28.5 % Monocytes (%) (Auto) 3.6 % Eosinophils (%) (Auto) 1.2 % Basophils (%) (Auto) 1.0 % Neutrophils # (Auto) 6.9 TH/MM3 Lymphocytes # (Auto) 3.0 TH/MM3 Monocytes # (Auto) 0.4 TH/MM3 Eosinophils # (Auto) 0.1 TH/MM3 Basophils # (Auto) 0.1 TH/MM3 CBC Comment AUTO DIFF Differential Comment AUTO DIFF CONFIRMED Bedside Sodium 134 MMOL/L Blood Urea Nitrogen 34 MG/DL Creatinine 2.26 MG/DL Random Glucose 109 MG/DL Total Protein 7.7 GM/DL Albumin 2.9 GM/DL Calcium Level 8.5 MG/DL Alkaline Phosphatase 109 U/L Aspartate Amino Transf (AST/SGOT) 24 U/L Alanine Aminotransferase (ALT/SGPT) 21 U/L Total Bilirubin 0.4 MG/DL Sodium Level 133 MEQ/L Potassium Level 4.6 MEQ/L Chloride Level 102 MEQ/L Carbon Dioxide Level 22.8 MEQ/L Bedside Potassium 4.7 MMOL/L Bedside Chloride 101 MMOL/L Anion Gap 8 MEQ/L Bedside Blood Urea Nitrogen 40 MG/DL Bedside Creatinine 2.5 MG/DL Estimat Glomerular Filtration Rate 26 ML/MIN Bedside Glucose 115 MG/DL Urine Color LIGHT-YELLOW Urine Turbidity CLEAR Urine pH 6.0 Urine Specific Mellott 1.008 Urine Protein 100 mg/dL Urine Glucose (UA) NEG mg/dL Urine Ketones NEG mg/dL Urine Occult Blood TRACE Urine Nitrite NEG Urine Bilirubin NEG Urine Urobilinogen LESS THAN 2.0 MG/DL Urine Leukocyte Esterase NEG Urine RBC 2 /hpf Urine WBC 1 /hpf Urine Squamous Epithelial Cells <1 /hpf Urine Amorphous Sediment OCC Urine Bacteria RARE /hpf Microscopic Urinalysis Comment CULT NOT INDICATED Prothrombin Time 10.7 SEC Prothromb Time International Ratio 1.1 RATIO Activated Partial Thromboplast Time 25.2 SEC [facility] Medical Decision Making Medical Screen Exam Complete: Yes Emergency Medical Condition: Yes Medical Record Reviewed: Yes Differential Diagnosis Intracranial hemorrhage, ischemic stroke, hypoglycemia Narrative Course I have reviewed the patient's electronic medical record. Patient is a frequent visitor to the hospital. She is admitted frequently. She has had both ischemic and hemorrhagic stroke in the past. I have evaluated her and immediately sent her for CT scanning to rule out intracranial hemorrhage I reviewed i-STAT. Electrolytes and sugar are normal, creatinine is elevated at 2.5 which is chronic Brain CT is negative When she comes back from brain CT her systolic is 220 I gave her 20 mg IV labetalol He came down to 180 systolic CBC is normal I do not see evidence of focal neurologic deficit to suggest acute ischemic CVA Her presentation was more global obtunded and altered mental status Given her altered consciousness and confusion she may have been postictal Nobody specifically witnessed any seizure activity she has no history of that She gradually improved Did get a dose of Versed for CT given her agitation level At this point she requires admission and she is still altered and confused although now she will follow occasional commands and answers yes or no questions which is a big improvement History of you to the hospitalist will admit Critical Care Narrative Aggregate critical care time was 34 minutes. Time to perform other separately billable procedures was not included in the critical care time. My time did not include minutes spent treating any other patients simultaneously or on activities that did not directly contribute to the patient's treatment. The services I provided to this patient were to treat and/or prevent clinically significant deterioration that could result in: Acute ischemic stroke, acute hemorrhagic stroke, toxic encephalopathy I provided critical care services requiring my management, as noted below: Chart data review, documentation time, medication orders and management, vital sign assessments/reviewing monitor data, ordering and reviewing lab tests, ordering and interpreting/reviewing x-rays and diagnostic studies, care of the patient and discussion of the patient with the admitting physicians. Diagnosis Primary Impression: Encephalopathy Additional Impressions: Hypertensive urgency Type 2 diabetes mellitus Qualified Codes: E11.8 - Type 2 diabetes mellitus with unspecified complications; Z79.4 - intermediate manager (current) use of insulin Admitting Information Admitting Physician Requests: Shree Esqueda MD May 12, 2017 14:39
[2017-05-12 14:50] VITALS: BP 164/74; PULSE 92; RESP 18; TEMP 98.9; O2SAT 100
--- NOTE | 2017-05-12 14:52 | RADRPT ---
EXAM DATE/TIME: 05/12/2017 14:31 [facility] COMPARISON: CT BRAIN W/O CONTRAST, April 26, 2017, 22:05. INDICATIONS : Altered mental status RADIATION DOSE: 35.89 CTDIvol (mGy) This report was called by Jarrod Brdaley at 1448 MEDICAL HISTORY : Non-responsive. SURGICAL HISTORY : Non-responsive. ENCOUNTER: Initial ACUITY: 1 day PAIN SCALE: Non-responsive LOCATION: cranial TECHNIQUE: Multiple contiguous axial images were obtained of the head. Using automated exposure control and adj ustment of the mA and/or kV according to patient size, radiation dose was kept as low as reasonably a chievable to obtain optimal diagnostic quality images. DICOM format image data is available electro nically for review and comparison. FINDINGS: There is stable encephalomalacia in the left temporal region. There is patchy mild diminished attenua tion in periventricular white matter which is also unchanged. There is no evidence of intracranial he morrhage or mass. There is nothing to indicate acute infarction. The extracranial structures are marietta gn and intact. CONCLUSION: Stable brain appearance. No acute intracranial findings. Alton Garay MD on May 12, 2017 at 14:48 Board Certified Radiologist. This report was verified electronically.
[2017-05-12 14:57] LABS: ALKALINE PHOSPHATASE 109 U/L (45-117); TOTAL BILIRUBIN ADULT 0.4 MG/DL (0.2-1.0); TOTAL PROTEIN 7.7 GM/DL (6.4-8.2)
[2017-05-12 15:14] LABS: ALBUMIN 2.9 GM/DL (3.4-5.0); ALT (GPT) 21 U/L (10-53); AST (GOT) 24 U/L (15-37); BICARBONATE 22.8 MEQ/L (21.0-32.0); BLOOD UREA NITROGEN 34 MG/DL (7-18); CALCIUM 8.5 MG/DL (8.5-10.1); CHLORIDE 102 MEQ/L (98-107); CREATININE 2.26 MG/DL (0.50-1.00); GLOMERULAR FILTRATION RATE 26 ML/MIN (>89); GLUCOSE,RANDOM 109 MG/DL (74-106); SODIUM (NA) 133 MEQ/L (136-145)
[2017-05-12] MEDS ORDERED: LABETALOL HCL 100 MG/20 ML VIAL IV PUSH ONE (15:30)
[2017-05-12 15:32] VITALS: BP 216/76; PULSE 93; RESP 18; O2SAT 100
[2017-05-12 15:42] VITALS: BP 173/77; PULSE 88
[2017-05-12] MEDS ORDERED: NALOXONE HCL 0.4 MG/ML AMP IV PUSH PRN (16:45)
[2017-05-12] MEDS ORDERED: SODIUM CHLORIDE 0.9% FLUSH 10 ML FLUSH IV FLUSH PRN (16:45)
[2017-05-12 17:13] LABS: AMORPHOUS SEDIMENT, URINE OCC; BACTERIA, URINE RARE /hpf; BILIRUBIN, URINE NEG (NEG); BLOOD, URINE TRACE (NEG); GLUCOSE,URINE NEG (NEG); KETONE, URINE NEG (NEG); NITRITE,URINE NEG (NEG); SQUAMOUS EPITHELIAL CELL URINE <1 /hpf (0-5); URINE COLOR LIGHT-YELLOW (YELLW/STRAW); URINE LEUKOCYTE ESTERASE NEG (NEG)
--- NOTE | 2017-05-12 17:24 | HHI.HP ---
[facility] Primary Care Physician No Primary Care Physician Admission Diagnosis Diagnoses: Travel History International Travel<30 Days: No Contact w/Intl Traveler <30 Da: No Traveled to Known Affected Are: No History of Present Illness History from patient's daughter at the bedside, and review medical records, and ER physician. Patient's daughter stated the patient usually lives by herself. The daughter visited the patient around 1:15 PM this afternoon because the patient was not answering her telephone a few minutes prior to that. The daughter reports that when she came to the door, the patient came to open the door. But however patient was looking quite "spacey" and would not talk back to the daughter. When she talked back, it did not make sense Patient then walked from the door to the couch and was mostly sleeping and did not talk much. Therefore the daughter thought that patient was having expressive aphasia and decided to call 911. The arrived emergency room at around 1:50 PM or so. While she has been in the emergency room as well, patient was not answering any questions. She had this blank stare to both family member and staffs. Daughter reported that this is how patient usually looks when she had her previous strokes. Daughter also stated that yesterday patient was complaining about abdominal pain. She had vomited once. No coffee color or red color. It was just food. She also had associated diarrhea but this was also normal brown color. Such as 1 times episode. She states that since then, patient has not been eating or drinking well. No fever. no congestion or shortness of breath but since vomiting, she has been coughing a bit on wednesday , had 2 days ago, patient was at dentist - they had to put cap for her implant , no local or anesthesia no antibiotics was needed wednesday, she had seafood with her other daughter. usually get urine infections with symptoms similar to stroke but was not c/o any urinary symptoms did have dizziness on review of records and per maricarmen, pt was here with similar symptoms twice in this month prior . This was on April 26, 2017 and May 03, 2017. Urine cultures were negative. Review of Systems Except as stated in HPI: all other systems reviewed are Neg Past Family Social History Past Medical History htn dm cva- residual weakness- but more of balance issue, and fear of falling down ckd right arm DVT chronic anticoagulation on eliquis right below knee amputation- diabetic complication hx of cdiff 04/2016 hx of UTIs Past Surgical History cholecystectomy c section right bka feeding tube Allergies: Coded Allergies: amoxicillin (Unverified Allergy, Severe, Hives, 05/12/17) ciprofloxacin (Unverified Allergy, Intermediate, Hives, 05/12/17) Family History parents- dm, htn Social History never smoked never etoh abuse or drug abuse lives by herself, but daughter is there majority of the time Physical Exam Vital Signs Vital Signs Date Time Temp Pulse Resp B/P (MAP) Pulse Ox O2 Delivery O2 Flow Rate FiO2 05/12/17 15:42 88 173/77 (109) 05/12/17 15:32 93 18 216/76 (122) 100 Room Air 05/12/17 14:50 98.9 92 18 164/74 (104) 100 Room Air 05/12/17 14:20 92 18 100 Room Air 05/12/17 14:19 98.9 18 182/84 (116) 98 Physical Exam GENERAL: This is a well-nourished, well-developed patient, in no apparent distress. Nonverbal. Does not follow commands. Since simply would stare. SKIN: Right upper extremity extensor surface with mild redness and skin ulceration. HEAD: Atraumatic. Normocephalic. No temporal or scalp tenderness. EYES: No scleral icterus. No injection or drainage. ENT: Nose without bleeding, purulent drainage or septal hematoma. Airway patent. NECK: Trachea midline. No JVD. Supple, nontender, no meningeal signs. CARDIOVASCULAR: Regular rate and rhythm without murmurs, gallops, or rubs. RESPIRATORY: Clear to auscultation. Breath sounds equal bilaterally. No wheezes , rales, or rhonchi. GASTROINTESTINAL: Abdomen soft, non-tender, nondistended. . No guarding. MUSCULOSKELETAL: Extremities without clubbing, cyanosis, or edema. No calf tenderness. NEUROLOGICAL: Awake, confused. Nonverbal. Motor and sensory grossly within normal limits. Not following commands. Limited exam. Laboratory Laboratory Tests Test 05/12/17 13:17 05/12/17 16:45 05/12/17 16:50 White Blood Count 10.4 Red Blood Count 3.25 Hemoglobin 10.7 Bedside Hemoglobin 10.2 Hematocrit 29.0 Bedside Hematocrit 30.0 Mean Corpuscular Volume 89.1 Mean Corpuscular Hemoglobin 32.9 Mean Corpuscular Hemoglobin Concent 36.9 Red Cell Distribution Width 13.7 Platelet Count 246 Mean Platelet Volume 8.6 Neutrophils (%) (Auto) 65.7 Lymphocytes (%) (Auto) 28.5 Monocytes (%) (Auto) 3.6 Eosinophils (%) (Auto) 1.2 Basophils (%) (Auto) 1.0 Neutrophils # (Auto) 6.9 Lymphocytes # (Auto) 3.0 Monocytes # (Auto) 0.4 Eosinophils # (Auto) 0.1 Basophils # (Auto) 0.1 CBC Comment AUTO DIFF Differential Comment AUTO DIFF CONFIRMED Bedside Sodium 134 Blood Urea Nitrogen 34 Creatinine 2.26 Random Glucose 109 Total Protein 7.7 Albumin 2.9 Calcium Level 8.5 Alkaline Phosphatase 109 Aspartate Amino Transf (AST/SGOT) 24 Alanine Aminotransferase (ALT/SGPT) 21 Total Bilirubin 0.4 Sodium Level 133 Potassium Level 4.6 Chloride Level 102 Carbon Dioxide Level 22.8 Bedside Potassium 4.7 Bedside Chloride 101 Anion Gap 8 Bedside Blood Urea Nitrogen 40 Bedside Creatinine 2.5 Estimat Glomerular Filtration Rate 26 Bedside Glucose 115 Result Diagram: 05/12/17 1317 05/12/17 1317 Imaging Last [address] 05/12/17 0000 Signed Impressions: Service Date/Time: Friday, May 12, 2017 14:31 - CONCLUSION: Stable brain appearance. No acute intracranial findings. Alton Garay MD Chest X-Ray 05/12/17 0000 Signed Impressions: Service Date/Time: Friday, May 12, 2017 17:37 - CONCLUSION: Fairly well compensated cardiac enlargement Alton Garay MD Carotid Artery Ultrasound 05/12/17 0000 Signed Impressions: Service Date/Time: Friday, May 12, 2017 17:56 - CONCLUSION: Bilateral plaque formation with hemodynamic profile on both sides characteristic of less than 50%% stenosis. Jabari Gonzalez MD Abdomen Ultrasound 05/12/17 0000 Signed Impressions: Service Date/Time: Friday, May 12, 2017 17:40 - CONCLUSION: 1. Negative exam other than left renal cyst. MD Simi Barnard VTE Risk Assessment Caprini VTE Risk Assessment: Mod/High Risk (score >= 2) Caprini Risk Assessment Model Point Value = 1 Point Value = 2 Point Value = 3 Point Value = 5 Age 41-60 Minor surgery BMI > 25 kg/m2 Swollen legs Varicose veins or History of unexplained or recurrent spontaneous Oral contraceptives or hormone replacement Sepsis (< 1 month) Serious lung disease, including pneumonia (< 1 month) Abnormal pulmonary function Acute myocardial infarction Congestive heart failure (< 1 month) History of inflammatory bowel disease Medical patient at bed rest Age 61-74 Arthroscopic surgery Major open surgery (> 45 min) Laparoscopic surgery (> 45 min) Malignancy Confined to bed (> 72 hours) Immobilizing plaster cast Central venous access Age >= 75 History of VTE Family history of VTE Factor V Leiden Prothrombin [id number] Lupus anticoagulant Anticardiolipin antibodies Elevated serum homocysteine Heparin-induced thrombocytopenia Other congenital or acquired thrombophilia Stroke (< 1 month) Elective arthroplasty Hip, pelvis, or leg fracture Acute spinal cord injury (< 1 month) Prophylaxis Regimen Total Risk Factor Score Risk Level Prophylaxis Regimen 0-1 Low Early ambulation 2 Moderate Order ONE of the following: *Sequential Compression Device (SCD) *Heparin 5000 units SQ BID 3-4 Higher Order ONE of the following medications: *Heparin 5000 units SQ TID *Enoxaparin/Lovenox 40 mg SQ daily (WT < 150 kg, CrCl > 30 mL/min) *Enoxaparin/Lovenox 30 mg SQ daily (WT < 150 kg, CrCl > 10-29 mL/min) *Enoxaparin/Lovenox 30 mg SQ BID (WT < 150 kg, CrCl > 30 mL/min) AND/OR *Sequential Compression Device (SCD) 5 or more Highest Order ONE of the following medications: *Heparin 5000 units SQ TID (Preferred with Epidurals) *Enoxaparin/Lovenox 40 mg SQ daily (WT < 150 kg, CrCl > 30 mL/min) *Enoxaparin/Lovenox 30 mg SQ daily (WT < 150 kg, CrCl > 10-29 mL/min) *Enoxaparin/Lovenox 30 mg SQ BID (WT < 150 kg, CrCl > 30 mL/min) AND *Sequential Compression Device (SCD) Assessment and Plan Assessment and Plan Impression: Encephalopathy CVA vs metabolic encephalopathy possible underlying infection Right upper extremity cellulitis versus allergic reaction. Daughter reports that this only started on Wednesday after patient's report of being bit by an insect. abdominal pain nausea/ vomiting/ diarrhea- benign abodmen on exam- difficult to access ischemic bowel or not based on hx ; pt has CKD limiting contrast studies ; but on chronic anticoagulation htn dm cva- residual weakness- but more of balance issue, and fear of falling down ckd right arm DVT chronic anticoagulation on eliquis right below knee amputation- diabetic complication hx of cdiff 04/2016 hx of UTIs Plan: Neurochecks every 4 hours. Telemetry monitoring. Echocardiogram. Carotid sono. MRI/MRA of the brain. EEG in a.m. Neurology consult. PT evaluation. Permissive hypertension for now while CVA is being ruled out. Obtain blood cultures. UA and urine culture. Ammonia levels. Lactic acid level to rule out bowel ischemia. Contrast studies cannot be done due to renal failure. Start patient on cefepime 2 g IV every 12 hours after blood cultures. Monitor fingersticks closely. Start patient on D5 normal saline at 84 cc per hour. DVT prophylaxis on Eliquis Discussed Condition With Patient, ER physician, nursing staff, patient's daughter at the bedside Cris Coronel MD May 12, 2017 17:24
[2017-05-12 17:39] LABS: INTERNATIONAL NORMALIZED RATIO 1.1 RATIO; PROTHROMBIN TIME - PATIENT 10.7 SEC (9.8-11.6)
[2017-05-12] MEDS ORDERED: DEXTROSE 50% IN WATER 50 ML VIAL(D50) IV PUSH PRN (17:45)
[2017-05-12] MEDS ORDERED: GLUCAGON 1 MG/ML VIAL OTHER PRN (17:45)
--- NOTE | 2017-05-12 17:59 | RADRPT ---
EXAM DATE/TIME: 05/12/2017 17:37 [facility] COMPARISON: CHEST SINGLE AP, April 26, 2017, 21:58. INDICATIONS : Short of breath. MEDICAL HISTORY : Stroke. Cardiovascular disease Hypertension. SURGICAL HISTORY : Cholecystectomy. ENCOUNTER: Initial ACUITY: 1 day PAIN SCORE: Non-responsive. LOCATION: Bilateral chest FINDINGS: Heart is mildly enlarged. There is mild central vascular congestion. No focal infiltrate or effusion. CONCLUSION: Fairly well compensated cardiac enlargement Alton Garay MD on May 12, 2017 at 17:57 Board Certified Radiologist. This report was verified electronically.
--- NOTE | 2017-05-12 18:25 | RADRPT ---
EXAM DATE/TIME: 05/12/2017 17:40 [facility] COMPARISON: US ABDOMEN - COMPLETE, January 17, 2016, 12:08. INDICATIONS : Abdominal pain. MEDICAL HISTORY : Hypercholesterolemia. Hypertension. Deep venous thrombosis. Cerebrovascular accident. Seizures. Synco pe. Numbness. Anticoagulant therapy. GERD. . Arthritis. . Diabetes. Depression. Anem ia. Measles. Cdiff. SURGICAL HISTORY : Cholecystectomy. Right below the knee amuputation. ENCOUNTER: Subsequent ACUITY: 1 day PAIN SCORE: 0/10 LOCATION: Bilateral upper quadrant MEASUREMENTS: LIVER: 13.2 cm length COMMON DUCT: 7 mm RIGHT KIDNEY: 11.9 x 6.2 x 4.9 cm LEFT KIDNEY: 12.6 x 5.7 x 5.8 cm SPLEEN: 8.4 cm length AORTA: 2.2cm maximal FINDINGS: LIVER: Normal echotexture without focal lesion or ductal dilatation. Hepatopedal flow is seen in the portal vein. COMMON DUCT: No intraluminal mass or stone visualized. GALLBLADDER: Cholecystectomy. PANCREAS: The visualized portions are within normal limits. RIGHT KIDNEY: No hydronephrosis, stone or mass. LEFT KIDNEY: No hydronephrosis, stone or mass. Exophytic cyst arising from the lower pole measuring 2.9 x 2.3 cm. SPLEEN: No focal lesion. AORTA: Non aneurysmal. IVC: Within normal limits. CONCLUSION: 1. Negative exam other than left renal cyst. Jabari Gonzalez MD on May 12, 2017 at 18:21 Board Certified Radiologist. This report was verified electronically.
[2017-05-12] MEDS ORDERED: MIDAZOLAM HCL 5 MG/5 ML VIAL IV PUSH ONE (18:30)
--- NOTE | 2017-05-12 18:30 | RADRPT ---
EXAM DATE/TIME: 05/12/2017 17:56 [facility] COMPARISON: US CAROTID ARTERIES, May 14, 2016, 14:16. INDICATIONS : Cerebrovascular accident. MEDICAL HISTORY : Hypercholesterolemia. Hypertension. Deep venous thrombosis. Cerebrovascular accident. Seizures. Synco pe. Numbness. Anticoagulant therapy. GERD. . Arthritis. . Diabetes. Depression. Anem ia. Measles. Cdiff. SURGICAL HISTORY : Cholecystectomy. Right below the knee amputation. ENCOUNTER: Subsequent ACUITY: 1 day PAIN SCORE: 0/10 LOCATION: Bilateral neck PEAK SYSTOLIC VELOCITIES (cm/sec): ICA/CCA RATIO: Right: 0.9 Left: 1.1 ICA: Right: 78 Left: 93 CCA: Right: 85 Left: 88 ECA: Right: 146 Left: 119 VERTEBRAL: Right: 74 antegrade Left: 58 antegrade Elevated flow velocities and ICA/CCA ratios have been found to correlate with increased degrees of vessel stenosis, calculated as percentage of diameter relative to a normal segment of distal ICA/CCA FINDINGS: RIGHT CAROTID: Moderate plaque formation in the common and internal carotid artery. No significant stenosis is visu alized. The waveforms are within normal limits. LEFT CAROTID: Moderate plaque formation in the common and internal carotid artery. No significant stenosis is visu alized. The waveforms are within normal limits. VERTEBRAL ARTERIES: Antegrade flow is seen in both vertebral arteries. MISCELLANEOUS: None. CONCLUSION: Bilateral plaque formation with hemodynamic profile on both sides characteristic of less than 50% lary nosis. Jabari Gonzalez MD on May 12, 2017 at 18:27 Board Certified Radiologist. This report was verified electronically.
[2017-05-12 19:40] VITALS: PULSE 92; RESP 18; O2SAT 97
[2017-05-12 20:00] VITALS: BP 161/66; PULSE 94; RESP 18; TEMP 96.6; O2SAT 100
[2017-05-12] MEDS: SODIUM CHLORIDE 0.9% FLUSH 10 ML FLUSH IV FLUSH SCH (20:38)
[2017-05-12] MEDS: INSULIN ASPART SUPPLEMENTAL SCALE SQ SCH (20:38)
[2017-05-12] MEDS ORDERED: LORazepam 2 MG/ML VIAL IV PUSH ONE (21:00)
--- NOTE | 2017-05-12 21:39 | RADRPT ---
EXAM DATE/TIME: 05/12/2017 21:08 [facility] COMPARISON: MRI BRAIN W/O CONTRAST, May 14, 2016, 18:57. INDICATIONS : CVA. MEDICAL HISTORY : Hypertension. Diabetes mellitus type 2. SURGICAL HISTORY : Cholecystectomy. section. Feeding tube, Right side BKA. ENCOUNTER: Initial ACUITY: 1 day PAIN SCORE: Nonresponsive. LOCATION: Bilateral cranial TECHNIQUE: Multiplanar, multisequence MRI of the brain was performed without contrast. FINDINGS: Axial inversion recovery images demonstrate an area of encephalomalacia involving the left temporal c ortex with surrounding gliosis. Findings would be consistent with an old area of infarct. There is co lpocephalic dilation of the temporal horn of the left lateral ventricle. There are scattered areas of increased T2 signal in the white matter most consistent with microvascul ar ischemic demyelinative change. The diffusion restricted images demonstrate a single punctate area of restricted diffusion signal in the right occipital cortex. This would be consistent with a punctate area of cortical infarct. No abnormal extra-axial fluid collections are seen. There is no acute intracranial hemorrhage. The appearance of the posterior fossa is unremarkable. CONCLUSION: 1. Punctate area of acute cortical infarct involving the right occipital cortex. 2. Old area of infarct involving the left temporal lobe. Reinier Garcia MD on May 12, 2017 at 21:36 Board Certified Radiologist. This report was verified electronically.
[2017-05-12] MEDS ORDERED: HEPARIN SODIUM - SQ 10,000 UNITS/ML VIAL SQ SCH (22:00)
[2017-05-12] MEDS: DEXT 5%-NACL 0.45% 1000 ML INJ 1,000 ML IV SCH (22:24)
[2017-05-12] MEDS: CEFEPIME INJ 2,000 MG in SODIUM CHLORIDE 0.9% INJ 100 ML IV SCH (22:25)
--- NOTE | 2017-05-12 22:41 | RADRPT ---
EXAM DATE/TIME: 05/12/2017 21:08 [facility] COMPARISON: MRI BRAIN W/O CONTRAST, May 12, 2017, 21:08. MRI BRAIN W/O CONTRAST, May 14, 2016, 18:57. INDICATIONS : CVA. MEDICAL HISTORY : Diabetes mellitus type 2. Hypertension. SURGICAL HISTORY : Cholecystectomy. section. Feeding tube, Right side BKA. ENCOUNTER: Initial ACUITY: 1 day PAIN SCORE: Nonresponsive. LOCATION: Bilateral cranial Please note a normal MRA of the brain does not entirely exclude the possibility of a small aneurysm, nor the possibility of distal intracranial vessel disease. TECHNIQUE: 3D time of flight MRA was performed. Source images, multiplanar STS MIP, and 3D volume MIP reconstru ctions were reviewed. FINDINGS: There is excellent visualization of the major intracranial arteries out to the second-order branch ve ssels. There is no evidence for aneurysm, vessel truncation or stenosis, and no evidence for vascula r malformation. CONCLUSION: 1. Negative examination. Reinier Garcia MD on May 12, 2017 at 22:38 Board Certified Radiologist. This report was verified electronically.
[2017-05-13] VITALS (8 sets, daily range): BP systolic 140–163; BP diastolic 62–72; PULSE 82–98; RESP 16–18; TEMP 96.6–98.4; O2SAT 98–100
[2017-05-13] MEDS: DEXT 5%-NACL 0.45% 1000 ML INJ 1,000 ML IV SCH ×2 (05:13→17:06)
[2017-05-13 07:34] LABS: AUTOMATED NEUTROPHIL # 6.9 TH/MM3 (1.8-7.7); BASOPHIL % 0.5 % (0.0-2.0); EOSINOPHIL # 0.1 TH/MM3 (0-0.4); EOSINOPHIL % 0.9 % (0.0-4.0); HEMATOCRIT 28.4 % (35.0-46.0); HEMOGLOBIN 9.8 GM/DL (11.6-15.3); LYMPH % 20.2 % (9.0-44.0); LYMPHOCYTE # 1.9 TH/MM3 (1.0-4.8); MEAN CELL VOLUME 90.5 FL (80.0-100.0); MEAN CORPUSCULAR HEMOGLOBIN 31.3 PG (27.0-34.0); MEAN CORPUSCULAR HGB CONC 34.6 % (32.0-36.0); MEAN PLATELET VOLUME 8.1 FL (7.0-11.0); MONO % 3.6 % (0.0-8.0); MONOCYTE # 0.3 TH/MM3 (0-0.9); NEUT % 74.8 % (16.0-70.0); PLATELET COUNT 241 TH/MM3 (150-450); RED BLOOD COUNT 3.13 MIL/MM3 (4.00-5.30); RED CELL DISTRIBUTION WIDTH 13.7 % (11.6-17.2); WHITE BLOOD COUNT 9.2 TH/MM3 (4.0-11.0)
[2017-05-13 07:41] LABS: BICARBONATE 24.2 MEQ/L (21.0-32.0); CALCIUM 8.2 MG/DL (8.5-10.1); CREATININE 2.39 MG/DL (0.50-1.00)
--- NOTE | 2017-05-13 08:06 | EKG ---
Date Performed: 05/12/2017 Time Performed: 19:04:21 PTAGE: 66 years EKG: Sinus rhythm POSSIBLE LEFT ATRIAL ENLARGEMENT BORDERLINE ECG PREVIOUS TRACING : 04/26/2017 21.36 Since the prior tracing, there has been no significant hernandez DOCTOR: Ligia Lewis Interpretating Date/Time 05/13/2017 08:04:43
[2017-05-13] MEDS ORDERED: APIXABAN 2.5 MG TABLET PO SCH (09:00)
[2017-05-13] MEDS: ASPIRIN EC 81 MG TABEC PO SCH (09:14)
[2017-05-13] MEDS: SODIUM CHLOR 0.9% 1000 ML INJ 1,000 ML IV SCH ×2 (09:15→19:37)
[2017-05-13] MEDS: ATORVASTATIN 80 MG TAB PO SCH (09:15)
[2017-05-13] MEDS: SODIUM CHLORIDE 0.9% FLUSH 10 ML FLUSH IV FLUSH SCH ×2 (09:15→19:31)
[2017-05-13] MEDS: INSULIN ASPART SUPPLEMENTAL SCALE SQ SCH ×4 (09:15→19:36)
--- NOTE | 2017-05-13 09:30 | MB ---
cc: DAVID SKY DATE OF CONSULTATION 05/13/2017 REASON FOR CONSULTATION The patient is a 65-year-old right-handed woman with a history of right below-knee amputation. Please see my dictation from 05/14/2016 for explicit details, but she has been seen by neurology several times in the last six years. She had a history of DVT on Coumadin, amputation, diabetes, hypertension, history of left occipital and left thalamic infarct in 2013, left intracranial hemorrhage in June of 2014 in the medial temporal lobe on the left. She has had a hemorrhage in the past with an INR of 3.9. Another time her INR had been up around 14, but no hemorrhage. I had seen her nevertheless in April 2016 and she has had a small acute infarct and I have recommended anticoagulation. She evidently was put on Eliquis at that time 2.5 mg b.i.d. due to some renal insufficiency. She just came in yesterday with change in mental status and less responsive than usual and was found to have a right small acute deep occipital lobe infarct at this time. Looking at the chart here, family members thought she suddenly became obtunded, minimally responsive, nonverbal. Also according to the H&P note, a daughter visited her at 01:15 p.m. She was not answering the telephone for a few minutes prior to that. She came to the door, she opened the door. She looked a bit spacey. Would not talk to her daughter. She was not making sense when she talked. Possible expressive aphasia. She was not answering any questions in the ER, a blank stare, but no obtundation according to the H&P. She was at the dentist's office two days ago and it is unclear to me whether she had her Eliquis stopped during that time or not. REVIEW OF SYSTEMS Unable to get from the patient. LABORATORY DATA In the past, she has had a sed rate of 92 back in 2013. Hepatitis screen has been negative. KARL has been negative. Hyper-coag screen, urine drug screen, LFTs, ammonia level, troponin, S-PEP, LDL cholesterol, B12, carotid ultrasound, thyroid, coag's have all been normal in the past. She had an MRI in 2011 which showed a left occipital lobe infarct. MRA [place] was normal. Another MRI in 2013 showed a subacute left thalamic and left temporal lobe, multiple infarcts on the left at that time. CTA of the head was normal. CT of the neck was normal in 2016. 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 Reviewing her films in the past, she had an acute left cortically based infarct in the left MCA territory and a small left thalamic infarct in 2013 and November 2011, she had an acute left occipital lobe infarct and in June of 2014, she had a left medial temporal intracranial hemorrhage of moderate size with an INR of 3.9. When I saw her one year ago, I recommended anticoagulation and a loop recorder as she had a small acute left occipital stroke. I thought she was likely having a cardioembolic events, although she has never had any documented definite A. Fib. Cardiology saw her and was going to do a 30-day monitoring and if that was negative, a loop recorder. It is unclear whether she actually had the loop recorder placed. ALLERGIES SHE IS ALLERGIC TO AMOXICILLIN AND CIPRO. MEDICATIONS 1. She takes meclizine. 2. Keflex 3. Insulin 4. Eliquis 2.5 b.i.d. 5. Losartan 6. Amlodipine 7. Lipitor 8. Cefepime SOCIAL HISTORY Not a smoker or a drinker. Lives with her daughter. PAST MEDICAL HISTORY As above. PHYSICAL EXAM On exam, she has been in sinus rhythm here 140/67. I did not detect a loop recorder under her skin on a limited exam this morning. HEART: Regular rhythm. I did not detect a murmur. There were no carotid bruits. Visual arnold appeared to be full or mostly full. She is not greatly cooperative to exam. Face is symmetric. Tongue was midline. She had normal strength in the upper and lower extremities bilaterally. There is a right below-knee amp. The left toe was down. DTRs are about 3+ and symmetric at the knees. Pinprick appeared to be intact throughout. She had some difficulty in naming. She did know the date. She knows she lives in [facility]. She follows some commands well, others not so well, appears to have some aphasia. LABORATORY DATA As noted before. On this admission, CBC, her hematocrit is 28. She has a history of some anemia in the past. In December 2015 it was 28 also, although it has been as high as 32 in January of this past year. Sed rate was 92 in 2013 and we will repeat that. Her metabolic profile creatinine is 2.39 and it has been elevated roughly since December of 2015. Her BUN is 32. Sodium is normal. Glucose 158. Ammonia was normal. LDL cholesterol is normal. CA-125 was normal in 2016, thyroid was normal earlier this month. Urine drug screen was positive for benzos only. HSV has been negative in the past. KARL has been negative twice. Her UA on this admission negative. She had a lupus anticoagulant that was read as positive in 2013, although it is only 47, normal is less than 45. IMPRESSION Multiple infarcts. We will recheck her lupus anticoagulant and her sed rate. Check an RPR. She has had now multiple strokes probably over five strokes and including now and I am recommending we could either increase her Eliquis to 5 b.i.d. with the elevated renal function or put her back on Coumadin and get her up her INR 2-3. I will let the med team decide this, but she a change in her anticoagulation at this time. We will also check the noted labs and I note her last echocardiogram in 2014 showed some mild left atrial enlargement with a normal ejection fraction. The left atrial size is 44. Mitral and aortic valves were negative. Could consider having hematology see her with the multiple infarcts to see if she is otherwise hypercoagulable not picked up prior and as noted, we will repeat that lupus anticoagulant. We will also check an EEG on her, although with the stroke, I think a seizures is probably less likely. She certainly is at an increased risk for seizures with the old temporal lobe damage. I note her EEG done here a year ago showed some slowing, but no sharp activity and she has had an EEG back in 2013 that showed some sharps over the right which I thought was artifactual. I will add a baby aspirin on now until the med team decides how to change her anticoagulation, then they can stop the aspirin. She has been in sinus rhythm here. Carotid ultrasound on this admission negative. MD JOHN Menjivar/TRICIA /8:01 AM /8:45 AM
--- NOTE | 2017-05-13 09:39 | HHI.PR ---
Subjective Remarks in no acute distress. overall doing fine. denies pain. d/w the PT at the bedside. Objective Vitals Vital Signs Date Time Temp Pulse Resp B/P (MAP) Pulse Ox O2 Delivery O2 Flow Rate FiO2 05/13/17 07:43 98.3 84 16 140/67 (91) 99 05/13/17 04:00 87 05/13/17 04:00 98.1 90 18 152/63 (92) 98 05/13/17 02:30 90 05/13/17 00:00 96.6 98 18 159/62 (94) 100 05/12/17 20:00 96.6 94 18 161/66 (97) 100 05/12/17 19:40 92 18 97 Room Air 05/12/17 15:42 88 173/77 (109) 05/12/17 15:32 93 18 216/76 (122) 100 Room Air 05/12/17 14:50 98.9 92 18 164/74 (104) 100 Room Air 05/12/17 14:20 92 18 100 Room Air 05/12/17 14:19 98.9 18 182/84 (116) 98 I/O 05/12/17 05/12/17 05/12/17 05/13/17 05/13/17 05/13/17 07:00 15:00 23:00 07:00 15:00 23:00 Intake Total 0 ml Balance 0 ml Intake Oral 0 ml # Voids 1 # Bowel Movements 0 Result Diagram: 05/13/17 0625 05/13/17 0635 Imaging Last Impressions Head Magnetic Resonance Angiography 05/12/17 0000 Signed Impressions: Service Date/Time: Friday, May 12, 2017 21:08 - CONCLUSION: 1. Negative examination. Reinier Garcia MD Head CT 05/12/17 0000 Signed Impressions: Service Date/Time: Friday, May 12, 2017 14:31 - CONCLUSION: Stable brain appearance. No acute intracranial findings. Alton Garay MD Chest X-Ray 05/12/17 0000 Signed Impressions: Service Date/Time: Friday, May 12, 2017 17:37 - CONCLUSION: Fairly well compensated cardiac enlargement Alton Garay MD Carotid Artery Ultrasound 05/12/17 0000 Signed Impressions: Service Date/Time: Friday, May 12, 2017 17:56 - CONCLUSION: Bilateral plaque formation with hemodynamic profile on both sides characteristic of less than 50%% stenosis. Jabari Gonzalez MD Brain MRI 05/12/17 0000 Signed Impressions: Service Date/Time: Friday, May 12, 2017 21:08 - CONCLUSION: 1. Punctate area of acute cortical infarct involving the right occipital cortex. 2. Old area of infarct involving the left temporal lobe. Reinier Garcia MD Abdomen Ultrasound 05/12/17 0000 Signed Impressions: Service Date/Time: Friday, May 12, 2017 17:40 - CONCLUSION: 1. Negative exam other than left renal cyst. Jabari Gonzalez MD Objective Remarks GENERAL: This is a well-nourished, well-developed patient, in no apparent distress. CARDIOVASCULAR: Regular rate and regular rhythm without murmurs, gallops, or rubs. RESPIRATORY: Clear to auscultation. Breath sounds equal bilaterally. No wheezes , rales, or rhonchi. GASTROINTESTINAL: Abdomen soft, non-tender, nondistended. Normal, active bowel sounds MUSCULOSKELETAL: Extremities without clubbing, cyanosis, or edema. NEURO: Alert & Oriented x4 to person, place, time, situation. Moves all ext x4 Medications and IVs Inpatient Medications Apixaban (Eliquis) 2.5 mg BID PO Last administered on 05/13/17at 09:15; Start at 09:00 Aspirin (Ecotrin Ec) 81 mg DAILY PO Last administered on 05/13/17at 09:14; Start 05/13/17 at 08:15 Atorvastatin Calcium (Lipitor) 80 mg DAILY PO Last administered on 05/13/17at 09 :15; Start 05/13/17 at 09:00 Cefepime HCl 2000 mg/Sodium Chloride 100 ml @ 200 mls/hr Q24H IV Last administered on 05/12/17at 22:25; Start 05/12/17 at 20:00 Dextrose (D50w (Vial) Inj) 50 ml UNSCH PRN IV PUSH HYPOGLYCEMIA-SEE COMMENTS; Start 05/12/17 at 17:45 Dextrose/Sodium Chloride 1,000 ml @ 84 mls/hr [id number] IV Last administered on 05/13/17at 05:13; Start 05/12/17 at 19:00 Glucagon (Glucagon Inj) 1 mg UNSCH PRN OTHER HYPOGLYCEMIA-SEE COMMENTS; Start 05/12/17 at 17:45 Insulin Aspart (NovoLOG SUPPLEMENTAL SCALE) 1 ACHS SLIDING SCALE SQ Last administered on 05/13/17at 09:15; Start 05/12/17 at 21:00 Labetalol HCl (Trandate Inj) 20 mg ONCE ONCE IV PUSH Last administered on 05/12at 15:39; Start 05/12/17 at 15:30; Stop 05/12/17 at 15:31; Status DC Lorazepam (Ativan Inj) 0.5 mg ONCE ONCE IV PUSH Last administered on at 20:35; Start 05/12/17 at 21:00; Stop 05/12/17 at 21:01; Status DC Midazolam HCl (Versed Inj) 2.5 mg ONCE ONCE IV PUSH ; Start 05/12/17 at 18:30; Stop 05/12/17 at 18:31; Status DC Naloxone HCl (Narcan Inj) 0.4 mg UNSCH PRN IV PUSH SEE LABEL COMMENTS; Start at 16:45 Sodium Chloride 1,000 ml @ 75 mls/hr [id number] IV Last administered on at 09:15; Start 05/13/17 at 08:12 Sodium Chloride (NS Flush) 2 ml BID IV FLUSH Last administered on 05/12/17at 20: 38; Start 05/12/17 at 21:00 A/P Assessment and Plan A/P acute CVA continue aspirin, eliquis and lipitor- echo pending- neurology consult appreciated. hematology consulted. continue PT. possible underlying infection / Right upper extremity cellulitis versus allergic reaction. Daughter reports that this only started on Wednesday after patient's report of being bit by an insect. continue antibiotic- will follow the cultures- Hypertension; permissive hypertension for now- continue to monitor. diabetes mellitus; accu-check with SSI chronic renal insufficiency- will monitor right arm DVT ; continue eliquis right below knee amputation- diabetic complication Donavan De Jesus MD May 13, 2017 09:39
--- NOTE | 2017-05-13 11:40 | ECHRPT ---
Indication: syncope/vstia CONCLUSIONS Normal left ventricular size. Moderate concentric left ventricular hypertrophy. The left ventricular systolic function is normal with an estimated ejection fraction in the range of 55-60%. Mild mitral valve regurgitation. No aortic valve regurgitation. No aortic valve stenosis. There is mild tricuspid valve regurgitation. The estimated pulmonary arterial pressure is 49.4 mmHg. BP: / HR: Rhythm: MEASUREMENTS (Male / Female) Normal Values Technical Quality:Good 2D ECHO LV Diastolic Diameter PLAX 4.1 cm 4.2 - 5.9 / 3.9 - 5.3 cm LV Systolic Diameter PLAX 3.1 cm IVS Diastolic Thickness 1.8 cm 0.6 - 1.0 / 0.6 - 0.9 cm LVPW Diastolic Thickness 1.1 cm 0.6 - 1.0 / 0.6 - 0.9 cm LV Relative Wall Thickness 0.7 RV Internal Dim ED PLAX 2.8 cm DOPPLER Mitral E Point Velocity 39.0 cm/s Mitral A Point Velocity 68.6 cm/s Mitral E to A Ratio 0.6 LV E' Lateral Velocity 4.1 cm/s Mitral E to LV E' Lateral Ratio 9.5 LV E' Septal Velocity 5.2 cm/s Mitral E to LV E' Septal Ratio 7.5 TR Peak Velocity 314.0 cm/s TR Peak Gradient 39.4 mmHg Right Atrial Pressure 10.0 mmHg Pulmonary Artery Systolic Pressu 49.4 mmHg Right Ventricular Systolic Press 49.4 mmHg FINDINGS LEFT VENTRICLE Normal left ventricular size. Moderate concentric left ventricular hypertrophy. The left ventricular systolic function is normal with an estimated ejection fraction in the range of 55-60%. RIGHT VENTRICLE Normal right ventricular size and systolic function. LEFT ATRIUM The left atrial size is normal. RIGHT ATRIUM The right atrial size is normal. ATRIAL SEPTUM Normal atrial septal thickness without atrial level shunting by limited color doppler interrogation. AORTA The aortic root and proximal ascending aorta are normal in size on limited imaging. MITRAL VALVE Structurally normal mitral valve. Mild mitral valve regurgitation. AORTIC VALVE Trileaflet aortic valve. No aortic valve regurgitation. No aortic valve stenosis. TRICUSPID VALVE Structurally normal tricuspid valve. There is mild tricuspid valve regurgitation. The estimated pulmonary arterial pressure is 49.4 mmHg. PULMONARY VALVE No pulmonary valve regurgitation or stenosis. VESSELS The inferior vena cava is normal in size. PERICARDIUM No pericardial effusion. Gautam Palmer MD, FACC, FSCAI (Electronically Signed) Final Date:13 May 2017 11:39
[2017-05-13 12:50] LABS: C-REACTIVE PROTEIN 1.18 MG/DL (0.00-0.30)
[2017-05-13 12:51] LABS: RHEUMATOID FACTOR SCREEN NEGATIVE (NEGATIVE)
[2017-05-13 13:38] LABS: FOLATE 8.6 NG/ML (3.1-17.5); TROPONIN I LESS THAN 0.02 NG/ML (0.02-0.05)
[2017-05-13] MEDS: CEFEPIME INJ 2,000 MG in SODIUM CHLORIDE 0.9% INJ 100 ML IV SCH (19:32)
[2017-05-13] MEDS: HEPARIN-D5W 25,000 U/250 ML 250 ML IV PRN (21:55)
[2017-05-13 22:44] LABS: HEMOGLOBIN 9.2 GM/DL (11.6-15.3); MEAN CELL VOLUME 90.3 FL (80.0-100.0); MEAN CORPUSCULAR HEMOGLOBIN 30.7 PG (27.0-34.0); PLATELET COUNT 240 TH/MM3 (150-450); RED BLOOD COUNT 2.99 MIL/MM3 (4.00-5.30); RED CELL DISTRIBUTION WIDTH 13.8 % (11.6-17.2); WHITE BLOOD COUNT 8.3 TH/MM3 (4.0-11.0)
[2017-05-13 22:57] LABS: INTERNATIONAL NORMALIZED RATIO 1.1 RATIO; PROTHROMBIN TIME - PATIENT 11.3 SEC (9.8-11.6)
[2017-05-13 23:10] LABS: % SATURATION IRON PROFILE 21.7 % (20-50); IRON (FE) 45 MCG/DL (50-170); TOTAL IRON BINDING CAPACITY 207 MCG/DL (250-450)
[2017-05-13 23:13] LABS: FERRITIN 99 NG/ML (8-252)
[2017-05-14] VITALS: BP 159/72; PULSE 82; PULSE 87; RESP 18; TEMP 97.5; O2SAT 97
[2017-05-14 04:00] VITALS: BP 165/73; PULSE 85; PULSE 87; RESP 18; TEMP 96.6; O2SAT 98
--- NOTE | 2017-05-14 07:10 | HHI.PR ---
Subjective Remarks slept well Objective Vital Signs Date Time Temp Pulse Resp B/P (MAP) Pulse Ox O2 Delivery O2 Flow Rate FiO2 05/14/17 04:00 85 05/14/17 04:00 96.6 87 18 165/73 (103) 98 05/14/17 00:00 82 05/14/17 00:00 97.5 87 18 159/72 (101) 97 05/13/17 20:00 98.1 85 18 163/72 (102) 99 05/13/17 20:00 84 05/13/17 16:00 98.4 86 16 158/68 (98) 99 05/13/17 12:00 98.0 84 16 151/65 (93) 99 05/13/17 07:45 82 05/13/17 07:43 98.3 84 16 140/67 (91) 99 I/O 05/13/17 05/13/17 05/13/17 05/14/17 05/14/17 05/14/17 07:00 15:00 23:00 07:00 15:00 23:00 Intake Total 0 ml 1720 ml 451 ml Balance 0 ml 1720 ml 451 ml Intake Oral 0 ml 620 ml 120 ml IV Total 1100 ml 331 ml # Voids 1 3 3 # Bowel Movements 0 3 2 Result Diagram: 05/13/17223105/13/1735 Objective Remarks aphasic this am somewhat awake alert Assessment and Plan Assessment and Plan imp now on hep drip will defer to heme and med team on anticoag as in my consult note but needs change with mult old cva and new one now her esr>140 and was 92 in 2014 crp up some will defer to heme about what they think is there some underlying inflammatory or auto immune cdz? echo neg could consider devyn she had neg rheum agee in past unclear if worth redoing something unusual going on here though besides just mult cva from neuro point of view can dc when heme clears and anticoag differently fu eeg Darrius Moore MD May 14, 2017 07:10
[2017-05-14 07:31] LABS: CHOLESTEROL/ HDL RATIO 4.17 RATIO; HDL CHOLESTEROL 32.1 MG/DL (40.0-60.0)
[2017-05-14 08:00] VITALS: BP 137/64; PULSE 92; RESP 18; TEMP 98.4; O2SAT 97
[2017-05-14] MEDS: INSULIN ASPART SUPPLEMENTAL SCALE SQ SCH ×4 (08:00→20:16)
--- NOTE | 2017-05-14 08:51 | MB ---
cc: DAVID SKY ZAFAR M.D. DATE OF CONSULTATION 05/13/2017 DATE OF 1950 REASON FOR CONSULTATION Recurrent strokes despite being on anticoagulation with intermediate dose Eliquis and antiplatelet therapy with aspirin. CHIEF COMPLAINT Ms. Pedro tells me she had a "stroke." She tells me she was sick with soreness of the throat as well. The patient is, however, somewhat confused, she has expressive aphasia and most of the history was obtained from the electronic medical record and from her daughter, Ms. Vanesa Pedro. HISTORY OF PRESENT ILLNESS Ms. Pedro is a 66-year-old female with a history of recurrent strokes. She started having strokes in 2016. At baseline per the daughter the patient has significant expressive aphasia and at times is confused especially when meeting new people or when she is exasperated or anxious. Ms. Pedro lives on her own but relies on her daughters to be with her throughout the day. Her daughters handle all of her financial affairs and handle all of her personal affairs as well. Per the patient's daughter Ms. Pedro over the past few weeks had been unwell. The patient had a urinary tract infection and as a result was reporting abdominal pain and dizziness. The patient had an ER visit about 2 weeks ago and the patient was recommended antibiotics. Following that she developed nausea, vomiting and diarrhea. These symptoms resolved and on the day of admission, 05/12/2017, the patient was noted to be confused and unable to recognize her daughter. This was at about 12:30/1:00 p.m. on 05/12/2017. The patient was brought into the emergency department where imaging studies were performed. An MRI of the brain revealed an acute ischemic infarct involving the right occipital cortex. Carotid artery ultrasound studies performed on 05/12/2017 revealed bilateral plaque formation with hemodynamic profile on both sides characteristic of less than 50% stenosis. The hematology service has been asked to see the patient to render an opinion regarding appropriate anticoagulation combination with antiplatelet therapy for recurrent strokes as well as to perform a possible prothrombotic work-up. Prior to this stroke the patient had been on anticoagulation with Eliquis 2.5 mg twice daily and aspirin. It should be noted the patient does have chronic renal insufficiency. In the past a prothrombotic work-up had been performed and the patient was noted in 2013 to have an intermediate circulating lupus anticoagulant. In 2013 antiphospholipid antibodies were noted to be uniformly negative. PAST MEDICAL HISTORY 1. Recurrent strokes. 2. Left temporoparietal parenchymal hematoma diagnosed in June 2014. 3. Diabetes. 4. Hypertension. 5. Hyperlipidemia. 6. Peripheral arterial disease. PAST SURGICAL HISTORY 1. Cholecystectomy. 2. Feeding tube placement. 3. . 4. Right diboh-lgl-pxof amputation. FAMILY HISTORY Diabetes and hypertension. Parents are both . ALLERGIES 1. AMOXICILLIN. 2. CIPROFLOXACIN. MEDICATIONS Current inpatient medications: 1. Cefepime 2 grams IV q.24h. 2. Normal saline 75 cc per hour. 3. Eliquis 2.5 mg p.o. b.i.d. 4. Aspirin 81 mg daily. 5. Atorvastatin 80 mg p.o. daily. 6. Low-dose insulin subcu a.c. and h.s. per protocol. REVIEW OF SYSTEMS Unable to obtain due to the patient's confusion. PHYSICAL EXAMINATION VITAL SIGNS: Temperature 98.4 degrees Fahrenheit, heart rate 86 beats per minute, respiratory rate 16, blood pressure 158/68. O2 sats are 99% on room air. GENERAL APPEARANCE: Ms. Pedro is a middle-aged lady lying in bed. She is very pleasant. She is awake and alert. She is unable to answer questions, for example, when asked what year it was she told me it was August. When asked where she is she told me [place], and when asked what month it was she told me [place]. HEENT: Head is atraumatic, normocephalic. Conjunctivae are not pale. Sclerae are anicteric. EOMI. PERRLA. Oral exam has no pharyngeal erythema. NECK: No palpable cervical or supraclavicular lymphadenopathy. LUNGS: Good air movement bilaterally. No added breath sounds. HEART: Regular rate and rhythm, S1, S2. No obvious murmurs, rubs or gallops. ABDOMEN: Thin belly, soft, nontender, nondistended. No palpable organ enlargement. EXTREMITIES: Left Leg: No pretibial edema or calf tenderness. Right Leg: She has an vgwwq-qyv-[id number] amputation. NEUROLOGIC: The patient has expressive aphasia. She is mildly confused. She moves all four limbs spontaneously including her partially amputated right leg. LABORATORY FINDINGS Blood work dated 05/13/2017: WBC count 9.2, hemoglobin 9.8 gm/dl, hematocrit 28.4%, MCV 90, platelet count 241, absolute neutrophil count 6.9. ESR is greater than 140. Sodium 138, potassium 4.2, chloride 105, bicarb 24, BUN 32, creatinine 2.4, EGFR 25 mL per minute, random glucose 148, calcium 8.2. CRP is 1.18. Liver function testing indicates albumin 2.9, AST 24, ALT 21, alkaline phosphatase 109. IMAGING STUDIES MRI of the brain dated 05/12/2017 indicates a punctate area of acute cortical infarct involving the right occipital cortex. Old area of infarct involving the left temporal lobe. Carotid artery ultrasound dated 05/12/2017 indicates bilateral plaque formation with hemodynamic profile on both sides characteristic of less than 50% stenosis. ASSESSMENT Ms. Pedro is a very pleasant 66-year-old female with a history of recurrent ischemic strokes. She has had strokes going back to 2011. She was on anticoagulation with warfarin up until 2014 when she suffered an intraparenchymal hemorrhage within the brain involving the left temporoparietal lobe. Her INR at that time was 3.9. This lady was subsequently transitioned to an alternate agent, i.e. Eliquis. Her Eliquis dosing has been reduced to accommodate for her renal dysfunction. Unfortunately she has had continued recurrence of ischemic strokes and the etiology of this has not been ascertained, although cardiac thromboembolic phenomenon/events have been suspected. It is not clear to me if she has been worked up by cardiology thus far. The patient's baseline per the daughter is that of chronic expressive aphasia with chronic confusion and debility to the point where the patient relies on her daughters to manage her personal affairs. In the past she has undergone a prothrombotic work-up and she was noted to have a circulating lupus anticoagulant which was borderline positive but previously she was noted to have normal antiphospholipid antibody titers and was found to have no inherited prothrombotic condition such as factor V Leiden. RECOMMENDATIONS Recurrent strokes: At this point I would recommend continuing antiplatelet therapy with aspirin. I would, however, recommend discontinuing Eliquis given the apparent failure. This could be therapeutic. I would recommend considering transitioning her to heparin infusion at least for the time being until we can answer some basic questions which include ruling out underlying prothrombotic conditions. She will also need to be worked up for anemia given the progressive worsening of her anemia at this point. Her prothrombotic work-up has been reviewed. She was thoroughly investigated in 2013. At that time she was found to have no evidence of factor V Leiden mutation. She was found to have normal protein-C and protein-S activity levels. Her antithrombin III activity level was normal. Her factor VIII activity level, however, was elevated. Prothrombin gene [id number] was not detected. She did, however, have evidence of an intermediate positive lupus anticoagulant. RECOMMENDATIONS 1. Repeat circulating lupus anticoagulant and antiphospholipid antibodies if these have not already been done. 2. Consider cardiac work-up for possible cardiogenic origin of the thromboembolism. 3. Consider vascular surgery evaluation given the plaque in bilateral carotid arteries to determine if these may be the source of the emboli. MD INEZ Ferris/SUKI /6:26 PM /8:13 AM
[2017-05-14] MEDS: ATORVASTATIN 80 MG TAB PO SCH (09:06)
[2017-05-14] MEDS: SODIUM CHLORIDE 0.9% FLUSH 10 ML FLUSH IV FLUSH SCH ×2 (09:07→20:13)
[2017-05-14] MEDS: ASPIRIN EC 81 MG TABEC PO SCH (09:07)
--- NOTE | 2017-05-14 09:23 | HHI.PR ---
Subjective Remarks in no acute distress. but confused. daughter at the bedside. d/w the RN. Objective Vitals Vital Signs Date Time Temp Pulse Resp B/P (MAP) Pulse Ox O2 Delivery O2 Flow Rate FiO2 05/14/17 04:00 85 05/14/17 04:00 96.6 87 18 165/73 (103) 98 05/14/17 00:00 82 05/14/17 00:00 97.5 87 18 159/72 (101) 97 05/13/17 20:00 98.1 85 18 163/72 (102) 99 05/13/17 20:00 84 05/13/17 16:00 98.4 86 16 158/68 (98) 99 05/13/17 12:00 98.0 84 16 151/65 (93) 99 I/O 05/13/17 05/13/17 05/13/17 05/14/17 05/14/17 05/14/17 07:00 15:00 23:00 07:00 15:00 23:00 Intake Total 0 ml 1720 ml 451 ml Balance 0 ml 1720 ml 451 ml Intake Oral 0 ml 620 ml 120 ml IV Total 1100 ml 331 ml # Voids 1 3 3 # Bowel Movements 0 3 2 Result Diagram: 05/13/17223105/13/17 0635 Imaging Last Impressions Head Magnetic Resonance Angiography 05/12/17 0000 Signed Impressions: Service Date/Time: Friday, May 12, 2017 21:08 - CONCLUSION: 1. Negative examination. Reinier Garcia MD Head CT 05/12/17 0000 Signed Impressions: Service Date/Time: Friday, May 12, 2017 14:31 - CONCLUSION: Stable brain appearance. No acute intracranial findings. Alton Garay MD Chest X-Ray 05/12/17 0000 Signed Impressions: Service Date/Time: Friday, May 12, 2017 17:37 - CONCLUSION: Fairly well compensated cardiac enlargement Alton Garay MD Carotid Artery Ultrasound 05/12/17 0000 Signed Impressions: Service Date/Time: Friday, May 12, 2017 17:56 - CONCLUSION: Bilateral plaque formation with hemodynamic profile on both sides characteristic of less than 50%% stenosis. Jabari Gonzalez MD Brain MRI 05/12/17 0000 Signed Impressions: Service Date/Time: Friday, May 12, 2017 21:08 - CONCLUSION: 1. Punctate area of acute cortical infarct involving the right occipital cortex. 2. Old area of infarct involving the left temporal lobe. Reinier Garcia MD Abdomen Ultrasound 05/12/17 0000 Signed Impressions: Service Date/Time: Friday, May 12, 2017 17:40 - CONCLUSION: 1. Negative exam other than left renal cyst. Jabari Gonzalez MD Objective Remarks GENERAL: This is a well-nourished, well-developed patient, in no apparent distress. CARDIOVASCULAR: Regular rate and regular rhythm without murmurs, gallops, or rubs. RESPIRATORY: Clear to auscultation. Breath sounds equal bilaterally. No wheezes , rales, or rhonchi. GASTROINTESTINAL: Abdomen soft, non-tender, nondistended. Normal, active bowel sounds MUSCULOSKELETAL: Extremities without clubbing, cyanosis, or edema. NEURO: Alert & Oriented x4 to person, place, time, situation. Moves all ext x4 Medications and IVs Inpatient Medications Apixaban (Eliquis) 2.5 mg BID PO Last administered on 05/13/17at 09:15; Start at 09:00; Stop 05/13/17 at 18:49; Status DC Aspirin (Ecotrin Ec) 81 mg DAILY PO Last administered on 05/14/17at 09:07; Start 05/13/17 at 08:15 Atorvastatin Calcium (Lipitor) 80 mg DAILY PO Last administered on 05/14/17at 09 :06; Start 05/13/17 at 09:00 Cefepime HCl 2000 mg/Sodium Chloride 100 ml @ 200 mls/hr Q24H IV Last administered on 05/13/17at 19:32; Start 05/12/17 at 20:00 Dextrose (D50w (Vial) Inj) 50 ml UNSCH PRN IV PUSH HYPOGLYCEMIA-SEE COMMENTS; Start 05/12/17 at 17:45 Dextrose/Sodium Chloride 1,000 ml @ 84 mls/hr [id number] IV Last administered on 05/13/17at 05:13; Start 05/12/17 at 19:00 Glucagon (Glucagon Inj) 1 mg UNSCH PRN OTHER HYPOGLYCEMIA-SEE COMMENTS; Start 05/12/17 at 17:45 Heparin Sodium/ Dextrose 250 ml @ 9 mls/hr TITRATE PRN IV Coagulation Management Last administered on 05/13/17at 21:55; Start 05/13/17 at 19:00 Insulin Aspart (NovoLOG SUPPLEMENTAL SCALE) 1 ACHS SLIDING SCALE SQ Last administered on 05/13/17at 09:15; Start 05/12/17 at 21:00 Labetalol HCl (Trandate Inj) 20 mg ONCE ONCE IV PUSH Last administered on 05/12at 15:39; Start 05/12/17 at 15:30; Stop 05/12/17 at 15:31; Status DC Lorazepam (Ativan Inj) 0.5 mg ONCE ONCE IV PUSH Last administered on at 20:35; Start 05/12/17 at 21:00; Stop 05/12/17 at 21:01; Status DC Midazolam HCl (Versed Inj) 2.5 mg ONCE ONCE IV PUSH ; Start 05/12/17 at 18:30; Stop 05/12/17 at 18:31; Status DC Naloxone HCl (Narcan Inj) 0.4 mg UNSCH PRN IV PUSH SEE LABEL COMMENTS; Start at 16:45 Sodium Chloride 1,000 ml @ 75 mls/hr [id number] IV Last administered on at 19:37; Start 05/13/17 at 08:12 Sodium Chloride (NS Flush) 2 ml BID IV FLUSH Last administered on 05/14/17at 09: 07; Start 05/12/17 at 21:00 A/P Assessment and Plan A/P acute CVA continue aspirin, and lipitor- echo with EF 55% and LVH. neurology and hematology evaluation appreciated;eliquis was stopped and started on Heparin drip. hypercoagulable state panel pending. PT consulted. possible underlying infection / Right upper extremity cellulitis versus allergic reaction. Daughter reports that this only started on Wednesday after patient's report of being bit by an insect. continue antibiotic- will follow the cultures; will deescalate the antibiotic regimen soon if the cultures remain negative. Hypertension; permissive hypertension for now- continue to monitor. diabetes mellitus; accu-check with SSI chronic renal insufficiency- will monitor right arm DVT ; on Heparin drip. right below knee amputation- diabetic complication Discharge Planning work-up in progress. on Heparin drip. not ready for discharge yet. Donavan De Jesus MD May 14, 2017 09:23
[2017-05-14] MEDS ORDERED: MAGNESIUM HYDROXIDE SUSP 30 ML CUP PO PRN (10:45)
[2017-05-14] MEDS: SODIUM CHLOR 0.9% 1000 ML INJ 1,000 ML IV SCH (10:52)
--- NOTE | 2017-05-14 11:27 | PD.ONC.PN ---
Subjective Subjective Remarks Afebrile overnight. Patient more confused today per daughter. the patient has expressive aphasia when i speak with her. she is not able to answer all my questions. per daughter this is not her baseline. daughter also states she has been favoring her left side today. Objective Data Date Time Temp Pulse Resp B/P (MAP) Pulse Ox O2 Delivery O2 Flow Rate FiO2 05/14/17 08:00 98.4 92 18 137/64 (88) 97 05/14/17 04:00 85 05/14/17 04:00 96.6 87 18 165/73 (103) 98 05/14/17 00:00 82 05/14/17 00:00 97.5 87 18 159/72 (101) 97 05/13/17 20:00 98.1 85 18 163/72 (102) 99 05/13/17 20:00 84 05/13/17 16:00 98.4 86 16 158/68 (98) 99 05/13/17 12:00 98.0 84 16 151/65 (93) 99 05/14/17 05/14/17 05/14/17 07:00 15:00 23:00 Intake Total 451 ml Balance 451 ml Result Diagram: 05/13/17223105/13/17 0635 Laboratory Results Laboratory Tests Test 05/13/17 11:43 05/13/17 11:44 05/13/17 11:47 05/13/17 22:32 Erythrocyte Sedimentation Rate GREATER THAN 140 mm/hr Rheumatoid Factor Screen NEGATIVE Rheumatoid Factor Titer IU/ML Total Creatine Kinase 143 U/L Troponin I LESS THAN 0.02 NG/ML C-Reactive Protein 1.18 MG/DL Vitamin B12 Level 566 PG/ML Folate 8.6 NG/ML White Blood Count 8.3 TH/MM3 Red Blood Count 2.99 MIL/MM3 Hemoglobin 9.2 GM/DL Hematocrit 27.0 % Mean Corpuscular Volume 90.3 FL Mean Corpuscular Hemoglobin 30.7 PG Mean Corpuscular Hemoglobin Concent 34.0 % Red Cell Distribution Width 13.8 % Platelet Count 240 TH/MM3 Mean Platelet Volume 8.0 FL Prothrombin Time 11.3 SEC Prothromb Time International Ratio 1.1 RATIO Activated Partial Thromboplast Time 29.6 SEC Iron Level 45 MCG/DL Total Iron Binding Capacity 207 MCG/DL Percent Iron Saturation 21.7 % Ferritin 99 NG/ML Test 2/23/18 06:10 Triglycerides Level 131 MG/DL Cholesterol Level 134 MG/DL LDL Cholesterol 76 MG/DL HDL Cholesterol 32.1 MG/DL Cholesterol/HDL Ratio 4.17 RATIO Culture Results Microbiology Date/Time Source Procedure Growth Status 05/12/17 19:10 Blood Peripheral Aerobic Blood Culture - Preliminary NO GROWTH IN 2 DAYS Resulted 05/12/17 19:10 Blood Peripheral Anaerobic Blood Culture - Preliminary NO GROWTH IN 2 DAYS Resulted 05/12/17 19:10 Blood Peripheral Aerobic Blood Culture - Preliminary NO GROWTH IN 2 DAYS Resulted 05/12/17 19:10 Blood Peripheral Anaerobic Blood Culture - Preliminary NO GROWTH IN 2 DAYS Resulted Administered Medications Medications (Trade) Dose Ordered Sig/Kaitlyn Route PRN Reason Start Time Stop Time Status Last Admin Dose Admin Sodium Chloride (NS Flush) 2 ml BID IV FLUSH 05/12/17 21:00 05/14/17 09:07 Dextrose/Sodium Chloride 1,000 ml @ 84 mls/hr [id number] IV 05/12/17 19:00 05/13/17 05:13 Insulin Aspart (NovoLOG SUPPLEMENTAL SCALE) 1 ACHS SLIDING SCALE SQ 05/12/17 21:00 05/13/17 09:15 Cefepime HCl 2000 mg/Sodium Chloride 100 ml @ 200 mls/hr Q24H IV 05/12/17 20:00 05/13/17 19:32 Atorvastatin Calcium (Lipitor) 80 mg DAILY PO 05/13/17 09:00 05/14/17 09:06 Aspirin (Ecotrin Ec) 81 mg DAILY PO 05/13/17 08:15 05/14/17 09:07 Sodium Chloride 1,000 ml @ 75 mls/hr [id number] IV 05/13/17 08:12 05/13/17 19:37 Heparin Sodium/ Dextrose 250 ml @ 9 mls/hr TITRATE PRN IV Coagulation Management 05/13/17 19:00 05/13/17 21:55 Objective Remarks GENERAL: Elderly female, lying in bed resting. SKIN: Warm and dry. HEAD: Normocephalic. EYES: No injection or drainage. NECK: Supple, trachea midline. CARDIOVASCULAR: Regular rate and rhythm RESPIRATORY: Breath sounds equal bilaterally. No accessory muscle use. GASTROINTESTINAL: Abdomen soft, non-tender, nondistended. EXTREMITIES: No cyanosis, or edema. MUSCULOSKELETAL: Adequate muscle tone. NEUROLOGICAL: +expressive aphasia. oriented to self only. able to move all extremities. facial movements symmetric. Assessment/Plan Problem List: (1) Chronic ischemic left SENIOR ADMINISTRATIVE ASSISTANT stroke ICD Codes: Z86.73 - Chronic ischemic left SENIOR ADMINISTRATIVE ASSISTANT stroke Status: Acute Plan: 05/14: --continue heparin gtt for now. will obtain STAT CT as the patient has AMS. I have also asked the nurse to contact Dr. Moore and inform him of the patients AMS. await hypercoagulable workup, although that will not change her immediate management History (brought forward for continuity of care): has had strokes going back to 2011. She was on anticoagulation with warfarin up until 2014 when she suffered an intraparenchymal hemorrhage within the brain involving the left temporoparietal lobe. Her INR at that time was 3.9. This lady was subsequently transitioned to an alternate agent, i.e. Eliquis. Her Eliquis dosing has been reduced to accommodate for her renal dysfunction. Unfortunately she has had continued recurrence of ischemic strokes and the etiology of this has not been ascertained, although cardiac thromboembolic phenomenon/events have been suspected. (2) Normocytic anemia ICD Codes: D64.9 - Anemia, unspecified Plan: 05/14/17: elevated ESR may be d/t anemia. will obtain stool sample for occult bleeding. --has a normocytic anemia, --no obvious source of bleeding. --iron is low but TIBC is also low suggesting this is an anemia of chronic disease, which is consistent with the patient's multiple comorbidities including CKD. Assessment 66y/o female with recurrent strokes despite being on anticoagulation with intermediate dose Eliquis and antiplatelet therapy with aspirin. HPI (brought forward for continuity of care): Ms. Pedro is a 66-year-old female with a history of recurrent strokes. She started having strokes in 2016. At baseline per the daughter the patient has significant expressive aphasia and at times is confused especially when meeting new people or when she is exasperated or anxious. Ms. Pedro lives on her own but relies on her daughters to be with her throughout the day. Her daughters handle all of her financial affairs and handle all of her personal affairs as well. Per the patient's daughter Ms. Pedro over the past few weeks had been unwell. The patient had a urinary tract infection and as a result was reporting abdominal pain and dizziness. The patient had an ER visit about 2 weeks ago and the patient was recommended antibiotics. Following that she developed nausea, vomiting and diarrhea. These symptoms resolved and on the day of admission, 05/12/2017, the patient was noted to be confused and unable to recognize her daughter. This was at about 12:30/1:00 p.m. on 05/12/2017. The patient was brought into the emergency department where imaging studies were performed. An MRI of the brain revealed an acute ischemic infarct involving the right occipital cortex. Carotid artery ultrasound studies performed on 05/12 revealed bilateral plaque formation with hemodynamic profile on both sides characteristic of less than 50% stenosis. The hematology service has been asked to see the patient to render an opinion regarding appropriate anticoagulation combination with antiplatelet therapy for recurrent strokes as well as to perform a possible prothrombotic work-up. Prior to this stroke the patient had been on anticoagulation with Eliquis 2.5 mg twice daily and aspirin. It should be noted the patient does have chronic renal insufficiency. In the past a prothrombotic work-up had been performed and the patient was noted in 2013 to have an intermediate circulating lupus anticoagulant. In 2013 antiphospholipid antibodies were noted to be uniformly negative. h/o Recurrent strokes. Left temporoparietal parenchymal hematoma diagnosed in June 2014. Diabetes. Hypertension. Hyperlipidemia. Peripheral arterial disease. Attending Statement The exam, history, and the medical decision-making described in the above note were completed with the assistance of the mid-level provider. I reviewed and agree with the findings presented. I attest that I had a [id number] encounter with the patient on the same day, and personally performed and documented my assessment and findings in the medical record. Patient is confused and aphasic. This morning has an acute change in mental status per her daughter who is at bedside. STAT CT head obtained = NO bleeding. Continue heparin for recurrent CVA. Neurology to follow for further management of recurrent CVA. Kayla Rosas May 14, 2017 11:27 Favio Schulz MD May 14, 2017 23:17
[2017-05-14 12:00] VITALS: BP 187/87; PULSE 89; RESP 18; TEMP 97.5; O2SAT 100
--- NOTE | 2017-05-14 12:16 | RADRPT ---
EXAM DATE/TIME: 05/14/2017 11:59 [facility] COMPARISON: MRI BRAIN W/O CONTRAST, May 12, 2017, 21:08. INDICATIONS : Altered mental status. RADIATION DOSE: 60.45 CTDIvol (mGy) ; Tabletop CT Head MEDICAL HISTORY : Cardiovascular disease. Seizures. Cerebrovascular disease.HTN, CVA, DVT,GERD SURGICAL HISTORY : Cholecystectomy. ENCOUNTER: Initial ACUITY: 1 day PAIN SCALE: 0/10 LOCATION: cranial TECHNIQUE: Multiple contiguous axial images were obtained of the head. Using automated exposure control and adj ustment of the mA and/or kV according to patient size, radiation dose was kept as low as reasonably a chievable to obtain optimal diagnostic quality images. DICOM format image data is available electro nically for review and comparison. FINDINGS: Compare May 12. Again seen is a remote infarct in the left temporal lobe. No acute infarct ident ified on CT. No mass effect or shift. No hydrocephalus. Visualized paranasal sinuses are clear. CONCLUSION: 1. Remote infarct left temporal lobe. No acute intracranial abnormalities on CT. Efra Banks MD on May 14, 2017 at 12:11 Board Certified Radiologist. This report was verified electronically.
[2017-05-14 16:00] VITALS: BP 160/80; PULSE 92; RESP 18; TEMP 97.6; O2SAT 99
[2017-05-14 17:28] LABS: HEMOGLOBIN 10.1 GM/DL (11.6-15.3); MEAN CELL VOLUME 90.4 FL (80.0-100.0); MEAN CORPUSCULAR HEMOGLOBIN 31.5 PG (27.0-34.0); MEAN CORPUSCULAR HGB CONC 34.8 % (32.0-36.0); MEAN PLATELET VOLUME 8.6 FL (7.0-11.0); PLATELET COUNT 244 TH/MM3 (150-450); RED CELL DISTRIBUTION WIDTH 14.1 % (11.6-17.2); WHITE BLOOD COUNT 10.1 TH/MM3 (4.0-11.0)
[2017-05-14] MEDS: DEXT 5%-NACL 0.45% 1000 ML INJ 1,000 ML IV SCH (17:29)
[2017-05-14 17:37] LABS: BICARBONATE 21.7 MEQ/L (21.0-32.0); CALCIUM 8.8 MG/DL (8.5-10.1); CREATININE 2.48 MG/DL (0.50-1.00)
--- NOTE | 2017-05-14 17:40 | MB ---
cc: CODEY JANSEN MD DATE OF CONSULTATION 05/14/17 INDICATIONS Stroke HISTORY OF PRESENT ILLNESS This is a 65-year-old female with prior history of [id number] amputation on the right side. She also has history of DVT on Coumadin, diabetes and hypertension. She has had multiple strokes over the course of the past several years. Back in 2013, she had a left occipital and left thalamic stroke and then in June 2014 had a medial temporal lobe stroke on the left. She was switched from Coumadin to Eliquis and now presents with another suspected stroke. We were consulted for further recommendations. No hypercoagulable state was identified. PAST MEDICAL HISTORY As mentioned above, 1. Hypertension, 2. Stroke, 3. Deep venous thrombosis 4. Peripheral arterial disease with right lower extremity amputation REVIEW OF SYSTEMS Patient is slightly confused. Otherwise review of systems is negative. ALLERGIES AMOXICILLIN CIPRO MEDICATIONS See med reconciliation. SOCIAL HISTORY Denies alcohol, tobacco or drug use. PHYSICAL EXAMINATION VITAL SIGNS: Temperature 97, pulse 89, blood pressure 187/87 mmHg. GENERAL: Alert. HEENT: Pupils reactive, accommodate to light. Extraocular movements are intact. No elevation in jugular venous distension. No hepatomegaly, no lymphadenopathy. No carotid bruits. LUNGS: Clear to auscultation bilaterally. HEART: Regular rate and rhythm without murmurs, rubs or gallops. ABDOMEN: Nontender, nondistended. Good bowel sounds. No hepatosplenomegaly. EXTREMITIES: No clubbing, cyanosis or edema. Good peripheral pulses. Cranial nerves intact. LABORATORY DATA WBC 8.3, hemoglobin 9.2, platelet count 240, INR is 1.1, BUN is 32, creatinine is 2.39. ASSESSMENT 1. Recurrent stroke in multiple territories now with expressive aphasia. 2. Normocytic anemia. PLAN The patient has recurrent strokes on two separate anticoagulation agents. Hematology is on board to work up for hypercoagulability. It appears that the patient has been compliant. No obvious source as of right now for her strokes. These are involving multiple territories. Cardioembolic etiology needs to be strongly considered. At this point, we will proceed with transesophageal echocardiogram on Wednesday. We will keep her n.p.o. after midnight on Wednesday evening. We will monitor telemetry. If that is unremarkable and the transesophageal echocardiogram is unremarkable, then may consider a loop recorder. With that being said, let us not reinitiate any oral anticoagulants until after the transesophageal echocardiogram on Wednesday. We will evaluate for paradoxical systemic embolization, given her history of DVT, to make sure she does not have a PFO or ASD. In addition, we will look for a left atrial appendage as she may have unrecognized atrial fibrillation with left atrial clot. If that is the case, we may actually have to consider a watchman left atrial appendage closure device. Call if needed over the weekend. I am not going to see her on a daily basis. I plan to the transesophageal echocardiogram on Wednesday. MD JC Queen/ /2:00 PM /5:27 PM
[2017-05-14 20:00] VITALS: BP 190/87; PULSE 89; PULSE 90; RESP 20; TEMP 98.8; O2SAT 96
[2017-05-14] MEDS: CEFEPIME INJ 2,000 MG in SODIUM CHLORIDE 0.9% INJ 100 ML IV SCH (20:15)
[2017-05-14] MEDS ORDERED: cloNIDine HCL 0.1 MG TAB PO ONE (21:15)
--- NOTE | 2017-05-14 21:56 | MG ---
cc: LAVONNE CESPEDES MD Corrected: 05/17/2017 Lab No: Date: 05/14/17 Age: 66 Sex: F Race: An EEG was obtained on this 66-year-old patient being evaluated for syncope. The patient is awake and asleep. There are low amplitude beta rhythms diffusely. There are theta and delta rhythms bilaterally. The slowing is sometimes shifting with questionable right hemisphere slower activity. Photic stimulation disclosed no significant change. INTERPRETATION Abnormal EEG because of intermittent shifting of the slowing. This is suggestive of possible mild bilateral structural abnormalities. At times, there is possible more attenuation on the right than left, but the slowing itself seems to be slightly more on the left than right. No epileptiform features present. Imaging correlation. Lavonne Cespedes MD OFC/SA /9:13 PM /9:49 PM [facility]ITALMaria Dolores
[2017-05-15] VITALS (8 sets, daily range): BP systolic 133–199; BP diastolic 79–87; PULSE 85–98; RESP 18–24; TEMP 96.4–99; O2SAT 95–100
[2017-05-15] MEDS: SODIUM CHLOR 0.9% 1000 ML INJ 1,000 ML IV SCH ×2 (00:12→12:28)
[2017-05-15] MEDS: DEXT 5%-NACL 0.45% 1000 ML INJ 1,000 ML IV SCH ×2 (06:35→18:23)
[2017-05-15] MEDS: INSULIN ASPART SUPPLEMENTAL SCALE SQ SCH ×4 (08:00→20:47)
[2017-05-15] MEDS: HEPARIN-D5W 25,000 U/250 ML 250 ML IV PRN (08:21)
[2017-05-15] MEDS: SODIUM CHLORIDE 0.9% FLUSH 10 ML FLUSH IV FLUSH SCH ×2 (08:24→20:45)
[2017-05-15] MEDS: ASPIRIN EC 81 MG TABEC PO SCH (08:27)
[2017-05-15] MEDS: ATORVASTATIN 80 MG TAB PO SCH (08:27)
--- NOTE | 2017-05-15 08:38 | PD.ONC.PN ---
Subjective Subjective Remarks Afebrile overnight. Patient resting in bed. Patient answers sometimes with one word "yes or no" or does not answer at all. daughter at bedside is concerned as this is worsened from yesterday. Objective Data Date Time Temp Pulse Resp B/P (MAP) Pulse Ox O2 Delivery O2 Flow Rate FiO2 05/15/17 04:00 99.0 91 18 186/85 (118) 96 05/15/17 03:45 93 05/15/17 00:00 94 05/15/17 00:00 98 18 157/81 (106) 95 05/14/17 20:00 89 05/14/17 20:00 98.8 90 20 190/87 (121) 96 05/14/17 16:00 97.6 92 18 160/80 (106) 99 05/14/17 12:00 97.5 89 18 187/87 (120) 100 05/15/17 05/15/17 05/15/17 07:00 15:00 23:00 Intake Total 1108 ml Balance 1108 ml Result Diagram: 05/14/17 1600 05/14/17 1600 Laboratory Results Laboratory Tests Test 05/14/17 16:00 05/14/17 21:24 White Blood Count 10.1 TH/MM3 Red Blood Count 3.20 MIL/MM3 Hemoglobin 10.1 GM/DL Hematocrit 29.0 % Mean Corpuscular Volume 90.4 FL Mean Corpuscular Hemoglobin 31.5 PG Mean Corpuscular Hemoglobin Concent 34.8 % Red Cell Distribution Width 14.1 % Platelet Count 244 TH/MM3 Mean Platelet Volume 8.6 FL Activated Partial Thromboplast Time 52.7 SEC 60.7 SEC Blood Urea Nitrogen 35 MG/DL Creatinine 2.48 MG/DL Random Glucose 90 MG/DL Calcium Level 8.8 MG/DL Sodium Level 143 MEQ/L Potassium Level 4.1 MEQ/L Chloride Level 112 MEQ/L Carbon Dioxide Level 21.7 MEQ/L Anion Gap 9 MEQ/L Estimat Glomerular Filtration Rate 24 ML/MIN Culture Results Microbiology Date/Time Source Procedure Growth Status 05/12/17 19:10 Blood Peripheral Aerobic Blood Culture - Preliminary NO GROWTH IN 2 DAYS Resulted 05/12/17 19:10 Blood Peripheral Anaerobic Blood Culture - Preliminary NO GROWTH IN 2 DAYS Resulted 05/12/17 19:10 Blood Peripheral Aerobic Blood Culture - Preliminary NO GROWTH IN 2 DAYS Resulted 05/12/17 19:10 Blood Peripheral Anaerobic Blood Culture - Preliminary NO GROWTH IN 2 DAYS Resulted Administered Medications Medications (Trade) Dose Ordered Sig/Kaitlyn Route PRN Reason Start Time Stop Time Status Last Admin Dose Admin Sodium Chloride (NS Flush) 2 ml BID IV FLUSH 05/12/17 21:00 05/14/17 09:07 Dextrose/Sodium Chloride 1,000 ml @ 84 mls/hr [id number] IV 05/12/17 19:00 05/13/17 05:13 Insulin Aspart (NovoLOG SUPPLEMENTAL SCALE) 1 ACHS SLIDING SCALE SQ 05/12/17 21:00 05/13/17 09:15 Cefepime HCl 2000 mg/Sodium Chloride 100 ml @ 200 mls/hr Q24H IV 05/12/17 20:00 05/14/17 20:15 Atorvastatin Calcium (Lipitor) 80 mg DAILY PO 05/13/17 09:00 05/15/17 08:27 Aspirin (Ecotrin Ec) 81 mg DAILY PO 05/13/17 08:15 05/15/17 08:27 Sodium Chloride 1,000 ml @ 75 mls/hr [id number] IV 05/13/17 08:12 05/15/17 00:12 Heparin Sodium/ Dextrose 250 ml @ 9 mls/hr TITRATE PRN IV Coagulation Management 05/13/17 19:00 05/15/17 08:21 Objective Remarks GENERAL: Elderly female, lying in bed. SKIN: Warm and dry. HEAD: Normocephalic. EYES: No injection or drainage. NECK: Supple, trachea midline. CARDIOVASCULAR: Regular rate and rhythm RESPIRATORY: Breath sounds equal bilaterally. No accessory muscle use. GASTROINTESTINAL: Abdomen soft, non-tender, nondistended. EXTREMITIES: No cyanosis, or edema. MUSCULOSKELETAL: Adequate muscle tone. NEUROLOGICAL: awake. tracks with eyes. does not follow commands. 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 She was on anticoagulation with warfarin up until 2014 when she suffered an intraparenchymal hemorrhage within the brain involving the left temporoparietal lobe. Her INR at that time was 3.9. This lady was subsequently transitioned to an alternate agent, i.e. Eliquis. Her Eliquis dosing has been reduced to accommodate for her renal dysfunction. Unfortunately she has had continued recurrence of ischemic strokes and the etiology of this has not been ascertained, although cardiac thromboembolic phenomenon/events have been suspected. (2) Normocytic anemia ICD Codes: D64.9 - Anemia, unspecified Plan: --has a normocytic anemia, --no obvious source of bleeding. --iron is low but TIBC is also low suggesting this is an anemia of chronic disease, which is consistent with the patient's multiple comorbidities including CKD. Assessment 66y/o female with recurrent strokes despite being on anticoagulation with intermediate dose Eliquis and antiplatelet therapy with aspirin. HPI (brought forward for continuity of care): Ms. Pedro is a 66-year-old female with a history of recurrent strokes. She started having strokes in 2015. At baseline per the daughter the patient has significant expressive aphasia and at times is confused especially when meeting new people or when she is exasperated or anxious. Ms. Pedro lives on her own but relies on her daughters to be with her throughout the day. Her daughters handle all of her financial affairs and handle all of her personal affairs as well. Per the patient's daughter Ms. Pedro over the past few weeks had been unwell. The patient had a urinary tract infection and as a result was reporting abdominal pain and dizziness. The patient had an ER visit about 2 weeks ago and the patient was recommended antibiotics. Following that she developed nausea, vomiting and diarrhea. These symptoms resolved and on the day of admission, 05/12/2017, the patient was noted to be confused and unable to recognize her daughter. This was at about 12:30/1:00 p.m. on 05/12/2017. The patient was brought into the emergency department where imaging studies were performed. An MRI of the brain revealed an acute ischemic infarct involving the right occipital cortex. Carotid artery ultrasound studies performed on 05/12 revealed bilateral plaque formation with hemodynamic profile on both sides characteristic of less than 50% stenosis. The hematology service has been asked to see the patient to render an opinion regarding appropriate anticoagulation combination with antiplatelet therapy for recurrent strokes as well as to perform a possible prothrombotic work-up. Prior to this stroke the patient had been on anticoagulation with Eliquis 2.5 mg twice daily and aspirin. It should be noted the patient does have chronic renal insufficiency. In the past a prothrombotic work-up had been performed and the patient was noted in 2013 to have an intermediate circulating lupus anticoagulant. In 2013 antiphospholipid antibodies were noted to be uniformly negative. h/o Recurrent strokes. Left temporoparietal parenchymal hematoma diagnosed in June 2014. Diabetes. Hypertension. Hyperlipidemia. Peripheral arterial disease. Plan 1. patient's AMS seems to be worsening. she is no longer following commands and she is speaking less. She has MRI already ordered for this AM. CT from last night showed no bleeding. 2. continue heparin gtt. 3. CRISTINA Wednesday Attending Statement The exam, history, and the medical decision-making described in the above note were completed with the assistance of the mid-level provider. I reviewed and agree with the findings presented. I attest that I had a [id number] encounter with the patient on the same day, and personally performed and documented my assessment and findings in the medical record. hx of recurrent CVA was on eliquis and ASA Heparin GTT Hypercoagulable w/u pending CT brain negative for bleed MRI pending AMS persists On Wednesday CRISTINA to asses for cardio-embolic sourse continue Heparin GTT for now daughter present at bedside during rounds Kayla Rosas May 15, 2017 08:38 Hugo Morales MD May 15, 2017 12:20
--- NOTE | 2017-05-15 09:43 | HHI.PR ---
Subjective Remarks f/u; CVA in no acute distress. is more confused today. is not following commands. d/w the RN at the bedside. Objective Vitals Vital Signs Date Time Temp Pulse Resp B/P (MAP) Pulse Ox O2 Delivery O2 Flow Rate FiO2 05/15/17 08:00 97.9 98 22 199/79 (119) 98 05/15/17 04:00 99.0 91 18 186/85 (118) 96 05/15/17 03:45 93 05/15/17 00:00 94 05/15/17 00:00 98 18 157/81 (106) 95 05/14/17 20:00 89 05/14/17 20:00 98.8 90 20 190/87 (121) 96 05/14/17 16:00 97.6 92 18 160/80 (106) 99 05/14/17 12:00 97.5 89 18 187/87 (120) 100 I/O 05/14/17 05/14/17 05/14/17 05/15/17 05/15/17 05/15/17 07:00 15:00 23:00 07:00 15:00 23:00 Intake Total 451 ml 340 ml 1108 ml Balance 451 ml 340 ml 1108 ml Intake Oral 120 ml 240 ml 0 ml IV Total 331 ml 100 ml 1108 ml # Voids 3 3 2 # Bowel Movements 2 0 0 Result Diagram: 05/14/17 1600 05/14/17 1600 Imaging Last Impressions Head CT 05/14/17 0000 Signed Impressions: Service Date/Time: Sunday, May 14, 2017 11:59 - CONCLUSION: 1. Remote infarct left temporal lobe. No acute intracranial abnormalities on CT. Efra Banks MD Head Magnetic Resonance Angiography 05/12/17 0000 Signed Impressions: Service Date/Time: Friday, May 12, 2017 21:08 - CONCLUSION: 1. Negative examination. Reinier Garcia MD Chest X-Ray 05/12/17 0000 Signed Impressions: Service Date/Time: Friday, May 12, 2017 17:37 - CONCLUSION: Fairly well compensated cardiac enlargement Alton Garay MD Carotid Artery Ultrasound 05/12/17 0000 Signed Impressions: Service Date/Time: Friday, May 12, 2017 17:56 - CONCLUSION: Bilateral plaque formation with hemodynamic profile on both sides characteristic of less than 50%% stenosis. Jabari Gonzalez MD Brain MRI 05/12/17 0000 Signed Impressions: Service Date/Time: Friday, May 12, 2017 21:08 - CONCLUSION: 1. Punctate area of acute cortical infarct involving the right occipital cortex. 2. Old area of infarct involving the left temporal lobe. Reinier Garcia MD Abdomen Ultrasound 05/12/17 0000 Signed Impressions: Service Date/Time: Friday, May 12, 2017 17:40 - CONCLUSION: 1. Negative exam other than left renal cyst. Jabari Gonzalez MD Objective Remarks GENERAL: This is a well-nourished, well-developed patient, in no apparent distress. CARDIOVASCULAR: Regular rate and regular rhythm without murmurs, gallops, or rubs. RESPIRATORY: Clear to auscultation. Breath sounds equal bilaterally. No wheezes , rales, or rhonchi. GASTROINTESTINAL: Abdomen soft, non-tender, nondistended. Normal, active bowel sounds MUSCULOSKELETAL: Extremities without clubbing, cyanosis, or edema. NEURO: confused and is not following commands. Medications and IVs Inpatient Medications Apixaban (Eliquis) 2.5 mg BID PO Last administered on 05/13/17at 09:15; Start at 09:00; Stop 05/13/17 at 18:49; Status DC Aspirin (Ecotrin Ec) 81 mg DAILY PO Last administered on 05/15/17at 08:27; Start 05/13/17 at 08:15 Atorvastatin Calcium (Lipitor) 80 mg DAILY PO Last administered on 05/15/17at 08 :27; Start 05/13/17 at 09:00 Cefepime HCl 2000 mg/Sodium Chloride 100 ml @ 200 mls/hr Q24H IV Last administered on 05/14/17at 20:15; Start 05/12/17 at 20:00 Clonidine (Catapres) 0.1 mg ONCE ONCE PO ; Start 05/14/17 at 21:15; Stop at 21:15; Status DC Dextrose (D50w (Vial) Inj) 50 ml UNSCH PRN IV PUSH HYPOGLYCEMIA-SEE COMMENTS; Start 05/12/17 at 17:45 Dextrose/Sodium Chloride 1,000 ml @ 84 mls/hr [id number] IV Last administered on 05/13/17at 05:13; Start 05/12/17 at 19:00 Glucagon (Glucagon Inj) 1 mg UNSCH PRN OTHER HYPOGLYCEMIA-SEE COMMENTS; Start 05/12/17 at 17:45 Heparin Sodium/ Dextrose 250 ml @ 9 mls/hr TITRATE PRN IV Coagulation Management Last administered on 05/15/17at 08:21; Start 05/13/17 at 19:00 Insulin Aspart (NovoLOG SUPPLEMENTAL SCALE) 1 ACHS SLIDING SCALE SQ Last administered on 05/13/17at 09:15; Start 05/12/17 at 21:00 Labetalol HCl (Trandate Inj) 20 mg ONCE ONCE IV PUSH Last administered on 05/12at 15:39; Start 05/12/17 at 15:30; Stop 05/12/17 at 15:31; Status DC Lorazepam (Ativan Inj) 0.5 mg ONCE ONCE IV PUSH Last administered on at 20:35; Start 05/12/17 at 21:00; Stop 05/12/17 at 21:01; Status DC Magnesium Hydroxide (Milk Of Magnesia Liq) 30 ml Q6H PRN PO CONSTIPATION; Start 05/14/17 at 10:45 Midazolam HCl (Versed Inj) 2.5 mg ONCE ONCE IV PUSH ; Start 05/12/17 at 18:30; Stop 05/12/17 at 18:31; Status DC Naloxone HCl (Narcan Inj) 0.4 mg UNSCH PRN IV PUSH SEE LABEL COMMENTS; Start at 16:45 Sodium Chloride 1,000 ml @ 75 mls/hr [id number] IV Last administered on at 00:12; Start 05/13/17 at 08:12 Sodium Chloride (NS Flush) 2 ml BID IV FLUSH Last administered on 05/14/17at 09: 07; Start 05/12/17 at 21:00 A/P Assessment and Plan A/P acute CVA is more confused today. continue aspirin, and lipitor- echo with EF 55% and LVH. neurology and hematology evaluation appreciated;eliquis was stopped and started on Heparin drip. hypercoagulable state panel pending. MRI brain today-pending. cardiology consulted; previously d/w and plan for CRISTINA on Wednesday. PT consulted. possible underlying infection / Right upper extremity cellulitis versus allergic reaction. Daughter reports that this only started on Wednesday after patient's report of being bit by an insect. continue antibiotic- will follow the cultures; will deescalate the antibiotic regimen soon if the cultures remain negative. Hypertension; permissive hypertension for now- continue to monitor. diabetes mellitus; accu-check with SSI chronic renal insufficiency- will monitor right arm DVT ; on Heparin drip. right below knee amputation- diabetic complication Discharge Planning work-up in progress. on Heparin drip. not ready for discharge yet. Donavan De Jesus MD May 15, 2017 09:43
--- NOTE | 2017-05-15 10:02 | RADRPT ---
EXAM DATE/TIME: 05/15/2017 09:11 [facility] COMPARISON: MRI BRAIN W/O CONTRAST, May 12, 2017, 21:08. INDICATIONS : CVA. MEDICAL HISTORY : Hypertension. Hypercholesterolemia. Diabetes mellitus type 2. SURGICAL HISTORY : section. Cholecystectomy. BKA. ENCOUNTER: Initial ACUITY: 1 day PAIN SCORE: 0/10 LOCATION: cranial TECHNIQUE: Multiplanar, multisequence MRI of the brain was performed without contrast. FINDINGS: CEREBRUM: The ventricles are normal for age. No evidence of midline shift, mass lesion, hemorrhage. There con tinues to be a punctate 4 mm area of signal abnormality within the anterior right occipital lobe imme diately posterior to the posterior horn of the right lateral ventricle. This represents a small area of acute infarction. There is encephalomalacia involving portions of the left temporal lobe. No extra axial fluid collections are seen. The pituitary gland and suprasellar cistern are normal in configur ation. WHITE MATTER: There is increased signal within the periventricular white matter. POSTERIOR FOSSA: There is signal abnormality within the left cerebellar peduncle and mid left cerebellar hemisphere li brittanie from prior infarction. DIFFUSION IMAGING: Again noted is the punctate area of abnormal signal in the right occipital lobe. EXTRACRANIAL: The visualized portions of the orbits and paranasal sinuses are unremarkable. CONCLUSION: 1. Persistent small 4 mm punctate areas of suspected acute infarction at the anterior aspect of the r ight occipital lobe. 2. Encephalomalacia of involving the left temporal lobe. 3. Suspected encephalomalacia in signal on amount within the left cerebellar peduncle and left mid ce rebellar lobe. Alton Galvez MD on May 15, 2017 at 9:54 Board Certified Radiologist. This report was verified electronically.
[2017-05-15] MEDS: ACETAMINOPHEN 325 MG TAB PO PRN (12:36)
[2017-05-15 13:28] LABS: HEMATOCRIT 29.5 % (35.0-46.0); HEMOGLOBIN 10.1 GM/DL (11.6-15.3); MEAN CELL VOLUME 92.3 FL (80.0-100.0); MEAN CORPUSCULAR HEMOGLOBIN 31.6 PG (27.0-34.0); MEAN CORPUSCULAR HGB CONC 34.3 % (32.0-36.0); MEAN PLATELET VOLUME 8.6 FL (7.0-11.0); PLATELET COUNT 233 TH/MM3 (150-450); RED CELL DISTRIBUTION WIDTH 14.2 % (11.6-17.2); WHITE BLOOD COUNT 10.1 TH/MM3 (4.0-11.0)
[2017-05-15 16:23] LABS: METHYLMALONIC ACID 0.25 nmol/mL (<=0.40)
[2017-05-15] MEDS: ACETAMINOPHEN/HYDROcodone 325 MG/5 MG TAB PO PRN (17:19)
[2017-05-15] MEDS: CEFEPIME INJ 2,000 MG in SODIUM CHLORIDE 0.9% INJ 100 ML IV SCH (21:04)
[2017-05-16] VITALS (8 sets, daily range): BP systolic 127–158; BP diastolic 64–93; PULSE 79–98; RESP 18–20; TEMP 97.2–98.7; O2SAT 98–99
[2017-05-16] MEDS: ACETAMINOPHEN 325 MG TAB PO PRN ×2 (01:35→17:08)
[2017-05-16] MEDS: SODIUM CHLOR 0.9% 1000 ML INJ 1,000 ML IV SCH ×2 (04:13→16:29)
[2017-05-16] MEDS: DEXT 5%-NACL 0.45% 1000 ML INJ 1,000 ML IV SCH ×2 (04:13→17:35)
[2017-05-16 05:57] LABS: HEMATOCRIT 29.4 % (35.0-46.0); HEMOGLOBIN 9.9 GM/DL (11.6-15.3); MEAN CELL VOLUME 91.8 FL (80.0-100.0); MEAN CORPUSCULAR HGB CONC 33.8 % (32.0-36.0); MEAN PLATELET VOLUME 8.6 FL (7.0-11.0); PLATELET COUNT 247 TH/MM3 (150-450); RED BLOOD COUNT 3.21 MIL/MM3 (4.00-5.30); RED CELL DISTRIBUTION WIDTH 14.2 % (11.6-17.2); WHITE BLOOD COUNT 10.5 TH/MM3 (4.0-11.0)
[2017-05-16] MEDS: INSULIN ASPART SUPPLEMENTAL SCALE SQ SCH ×4 (07:24→22:23)
[2017-05-16] MEDS: SODIUM CHLORIDE 0.9% FLUSH 10 ML FLUSH IV FLUSH SCH ×2 (08:16→21:00)
[2017-05-16] MEDS: ASPIRIN EC 81 MG TABEC PO SCH (08:21)
[2017-05-16] MEDS: ATORVASTATIN 80 MG TAB PO SCH (08:22)
--- NOTE | 2017-05-16 09:08 | HHI.PR ---
Subjective Remarks in no acute distress. awake but still with aphasia. no fever. Objective Vitals Vital Signs Date Time Temp Pulse Resp B/P (MAP) Pulse Ox O2 Delivery O2 Flow Rate FiO2 05/16/17 08:00 97.8 96 20 147/64 (91) 98 05/16/17 04:00 98.2 87 18 127/93 (104) 99 05/16/17 00:07 97.7 84 18 151/68 (95) 98 05/16/17 00:00 84 05/15/17 20:08 86 05/15/17 20:00 98.0 85 18 133/83 (100) 100 05/15/17 18:11 18 05/15/17 16:00 97.4 97 24 181/81 (114) 98 05/15/17 12:00 96.4 95 20 187/87 (120) 99 I/O 05/15/17 05/15/17 05/15/17 05/16/17 05/16/17 05/16/17 07:00 15:00 23:00 07:00 15:00 23:00 Intake Total 1108 ml 580 ml 1500 ml Output Total 600 ml Balance 1108 ml 580 ml 900 ml Intake Oral 0 ml 480 ml 500 ml IV Total 1108 ml 100 ml 1000 ml Output Urine Total 600 ml # Voids 2 4 # Bowel Movements 0 1 Result Diagram: 05/16/17 0450 05/14/17 1600 Imaging Last Impressions Brain MRI 05/15/17 0000 Signed Impressions: Service Date/Time: Monday, May 15, 2017 09:11 - CONCLUSION: 1. Persistent small 4 mm punctate areas of suspected acute infarction at the anterior aspect of the right occipital lobe. 2. Encephalomalacia of involving the left temporal lobe. 3. Suspected encephalomalacia in signal on amount within the left cerebellar peduncle and left mid cerebellar lobe. Alton Galvez MD Head CT 05/14/17 0000 Signed Impressions: Service Date/Time: Sunday, May 14, 2017 11:59 - CONCLUSION: 1. Remote infarct left temporal lobe. No acute intracranial abnormalities on CT. Efra Banks MD Head Magnetic Resonance Angiography 05/12/17 0000 Signed Impressions: Service Date/Time: Friday, May 12, 2017 21:08 - CONCLUSION: 1. Negative examination. Reinier Garcia MD Chest X-Ray 05/12/17 0000 Signed Impressions: Service Date/Time: Friday, May 12, 2017 17:37 - CONCLUSION: Fairly well compensated cardiac enlargement Alton Garay MD Carotid Artery Ultrasound 05/12/17 0000 Signed Impressions: Service Date/Time: Friday, May 12, 2017 17:56 - CONCLUSION: Bilateral plaque formation with hemodynamic profile on both sides characteristic of less than 50%% stenosis. Jabari Gonzalez MD Abdomen Ultrasound 05/12/17 0000 Signed Impressions: Service Date/Time: Friday, May 12, 2017 17:40 - CONCLUSION: 1. Negative exam other than left renal cyst. Jabari Gonzalez MD Objective Remarks GENERAL: This is a well-nourished, well-developed patient, in no apparent distress. CARDIOVASCULAR: Regular rate and regular rhythm without murmurs, gallops, or rubs. RESPIRATORY: Clear to auscultation. Breath sounds equal bilaterally. No wheezes , rales, or rhonchi. GASTROINTESTINAL: Abdomen soft, non-tender, nondistended. Normal, active bowel sounds MUSCULOSKELETAL: Extremities without clubbing, cyanosis, or edema. NEURO: confused and is not following commands. Medications and IVs Inpatient Medications Acetaminophen (Tylenol) 650 mg Q4H PRN PO HEADACHE/PAIN 1-10/FEVER Last administered on 05/16/17 01:35; Start 05/15/17 at 12:30 Acetaminophen/ Hydrocodone Bitart ([place] 5-325 Mg) 1 tab Q6H PRN PO BREAKTHROUGH PAIN Last administered on 05/15/17 17:19; Start 05/15/17 at 16:15 Apixaban (Eliquis) 2.5 mg BID PO Last administered on 05/13/17 09:15; Start at 09:00; Stop 05/13/17 at 18:49; Status DC Aspirin (Ecotrin Ec) 81 mg DAILY PO Last administered on 05/16/17 08:21; Start 05/13/17 at 08:15 Atorvastatin Calcium (Lipitor) 80 mg DAILY PO Last administered on 05/16/17 08 :22; Start 05/13/17 at 09:00 Cefepime HCl 2000 mg/Sodium Chloride 100 ml @ 200 mls/hr Q24H IV Last administered on 2/24/18at 21:04; Start 05/12/17 at 20:00 Clonidine (Catapres) 0.1 mg ONCE ONCE PO ; Start 05/14/17 at 21:15; Stop at 21:15; Status DC Dextrose (D50w (Vial) Inj) 50 ml UNSCH PRN IV PUSH HYPOGLYCEMIA-SEE COMMENTS; Start 05/12/17 at 17:45 Dextrose/Sodium Chloride 1,000 ml @ 84 mls/hr [id number] IV Last administered on 05/13/17at 05:13; Start 05/12/17 at 19:00 Glucagon (Glucagon Inj) 1 mg UNSCH PRN OTHER HYPOGLYCEMIA-SEE COMMENTS; Start 05/12/17 at 17:45 Heparin Sodium/ Dextrose 250 ml @ 9 mls/hr TITRATE PRN IV Coagulation Management Last administered on 05/15/17at 08:21; Start 05/13/17 at 19:00 Insulin Aspart (NovoLOG SUPPLEMENTAL SCALE) 1 ACHS SLIDING SCALE SQ Last administered on 05/15/17at 12:05; Start 05/12/17 at 21:00 Labetalol HCl (Trandate Inj) 20 mg ONCE ONCE IV PUSH Last administered on 05/12at 15:39; Start 05/12/17 at 15:30; Stop 05/12/17 at 15:31; Status DC Lorazepam (Ativan Inj) 0.5 mg ONCE ONCE IV PUSH Last administered on at 20:35; Start 05/12/17 at 21:00; Stop 05/12/17 at 21:01; Status DC Magnesium Hydroxide (Milk Of Magnesia Liq) 30 ml Q6H PRN PO CONSTIPATION; Start 05/14/17 at 10:45 Midazolam HCl (Versed Inj) 2.5 mg ONCE ONCE IV PUSH ; Start 05/12/17 at 18:30; Stop 05/12/17 at 18:31; Status DC Naloxone HCl (Narcan Inj) 0.4 mg UNSCH PRN IV PUSH SEE LABEL COMMENTS; Start at 16:45 Sodium Chloride 1,000 ml @ 75 mls/hr [id number] IV Last administered on at 04:13; Start 05/13/17 at 08:12 Sodium Chloride (NS Flush) 2 ml BID IV FLUSH Last administered on 05/14/17at 09: 07; Start 05/12/17 at 21:00 A/P Assessment and Plan A/P acute CVA still with aphasia. continue aspirin, and lipitor- echo with EF 55% and LVH. neurology and hematology evaluation appreciated;eliquis was stopped and started on Heparin drip. ESR elevated- had a negative rheum work-up in the past. hypercoagulable state panel pending. repeated MRI brain with persistent infarction right occipital lobe cardiology consulted; previously d/w and plan for [facility] on Wednesday. PT consulted. possible underlying infection / Right upper extremity cellulitis versus allergic reaction. Daughter reports that this only started on Wednesday after patient's report of being bit by an insect- improving. continue antibiotic-blood cultures negative- dc Cefepime and start on Ancef; renally dosed per pharmacy. Hypertension; permissive hypertension for now- continue to monitor. diabetes mellitus; accu-check with SSI chronic renal insufficiency- will monitor right arm DVT ; on Heparin drip. right below knee amputation- diabetic complication Discharge Planning work-up in progress. on Heparin drip. not ready for discharge yet. Donavan De Jesus MD May 16, 2017 09:08
--- NOTE | 2017-05-16 10:08 | PD.ONC.PN ---
Subjective Subjective Remarks Afebrile overnight. Patient resting in bed. No family members at bedside. Remains mostly non-verbal and laughs inappropriately at times throughout exam/ interview. Per nurse this has been her baseline since yesterday. moves all extremities, but mostly uses her left side. Objective Data Date Time Temp Pulse Resp B/P (MAP) Pulse Ox O2 Delivery O2 Flow Rate FiO2 05/16/17 08:00 97.8 96 20 147/64 (91) 98 05/16/17 04:00 98.2 87 18 127/93 (104) 99 05/16/17 00:07 97.7 84 18 151/68 (95) 98 05/16/17 00:00 84 05/15/17 20:08 86 05/15/17 20:00 98.0 85 18 133/83 (100) 100 05/15/17 18:11 18 05/15/17 16:00 97.4 97 24 181/81 (114) 98 05/15/17 12:00 96.4 95 20 187/87 (120) 99 05/16/17 05/16/17 05/16/17 07:00 15:00 23:00 Intake Total 1500 ml Output Total 600 ml Balance 900 ml Result Diagram: 05/16/17 0450 05/14/17 1600 Laboratory Results Laboratory Tests Test 05/15/17 13:10 05/15/17 22:23 05/16/17 04:30 05/16/17 04:50 White Blood Count 10.1 TH/MM3 10.5 TH/MM3 Red Blood Count 3.20 MIL/MM3 3.21 MIL/MM3 Hemoglobin 10.1 GM/DL 9.9 GM/DL Hematocrit 29.5 % 29.4 % Mean Corpuscular Volume 92.3 FL 91.8 FL Mean Corpuscular Hemoglobin 31.6 PG 31.0 PG Mean Corpuscular Hemoglobin Concent 34.3 % 33.8 % Red Cell Distribution Width 14.2 % 14.2 % Platelet Count 233 TH/MM3 247 TH/MM3 Mean Platelet Volume 8.6 FL 8.6 FL Activated Partial Thromboplast Time 77.6 SEC 42.2 SEC 59.2 SEC Administered Medications Medications (Trade) Dose Ordered Sig/Kaitlyn Route PRN Reason Start Time Stop Time Status Last Admin Dose Admin Sodium Chloride (NS Flush) 2 ml BID IV FLUSH 05/12/17 21:00 05/14/17 09:07 Dextrose/Sodium Chloride 1,000 ml @ 84 mls/hr [id number] IV 05/12/17 19:00 05/13/17 05:13 Insulin Aspart (NovoLOG SUPPLEMENTAL SCALE) 1 ACHS SLIDING SCALE SQ 05/12/17 21:00 05/15/17 12:05 Atorvastatin Calcium (Lipitor) 80 mg DAILY PO 05/13/17 09:00 05/16/17 08:22 Aspirin (Ecotrin Ec) 81 mg DAILY PO 05/13/17 08:15 05/16/17 08:21 Sodium Chloride 1,000 ml @ 75 mls/hr [id number] IV 05/13/17 08:12 05/16/17 04:13 Heparin Sodium/ Dextrose 250 ml @ 9 mls/hr TITRATE PRN IV Coagulation Management 05/13/17 19:00 05/15/17 08:21 Acetaminophen (Tylenol) 650 mg Q4H PRN PO HEADACHE/PAIN 1-10/FEVER 05/15/17 12:30 05/16/17 01:35 Acetaminophen/ Hydrocodone Bitart ([place] 5-325 Mg) 1 tab Q6H PRN PO BREAKTHROUGH PAIN 05/15/17 16:15 05/15/17 17:19 Objective Remarks GENERAL: Elderly female, lying in bed. SKIN: Warm and dry. HEAD: Normocephalic. EYES: No injection or drainage. NECK: Supple, trachea midline. CARDIOVASCULAR: Regular rate and rhythm RESPIRATORY: Breath sounds equal bilaterally. No accessory muscle use. GASTROINTESTINAL: Abdomen soft, non-tender, nondistended. EXTREMITIES: No cyanosis, or edema. NEUROLOGICAL: tracks with eyes. follows some commands, does not speak during my interview. 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 She was on anticoagulation with warfarin up until 2014 when she suffered an intraparenchymal hemorrhage within the brain involving the left temporoparietal lobe. Her INR at that time was 3.9. This lady was subsequently transitioned to an alternate agent, i.e. Eliquis. Her Eliquis dosing has been reduced to accommodate for her renal dysfunction. Unfortunately she has had continued recurrence of ischemic strokes and the etiology of this has not been ascertained, although cardiac thromboembolic phenomenon/events have been suspected. (2) Normocytic anemia ICD Codes: D64.9 - Anemia, unspecified Plan: --has a normocytic anemia, --no obvious source of bleeding. --iron is low but TIBC is also low suggesting this is an anemia of chronic disease, which is consistent with the patient's multiple comorbidities including CKD. Assessment 66y/o female with recurrent strokes despite being on anticoagulation with intermediate dose Eliquis and antiplatelet therapy with aspirin. HPI (brought forward for continuity of care): Ms. Pedro is a 66-year-old female with a history of recurrent strokes. She started having strokes in 2016. At baseline per the daughter the patient has significant expressive aphasia and at times is confused especially when meeting new people or when she is exasperated or anxious. Ms. Pedro lives on her own but relies on her daughters to be with her throughout the day. Her daughters handle all of her financial affairs and handle all of her personal affairs as well. Per the patient's daughter Ms. Pedro over the past few weeks had been unwell. The patient had a urinary tract infection and as a result was reporting abdominal pain and dizziness. The patient had an ER visit about 2 weeks ago and the patient was recommended antibiotics. Following that she developed nausea, vomiting and diarrhea. These symptoms resolved and on the day of admission, 05/12/2017, the patient was noted to be confused and unable to recognize her daughter. This was at about 12:30/1:00 p.m. on 05/12/2017. The patient was brought into the emergency department where imaging studies were performed. An MRI of the brain revealed an acute ischemic infarct involving the right occipital cortex. Carotid artery ultrasound studies performed on 05/12 revealed bilateral plaque formation with hemodynamic profile on both sides characteristic of less than 50% stenosis. The hematology service has been asked to see the patient to render an opinion regarding appropriate anticoagulation combination with antiplatelet therapy for recurrent strokes as well as to perform a possible prothrombotic work-up. Prior to this stroke the patient had been on anticoagulation with Eliquis 2.5 mg twice daily and aspirin. It should be noted the patient does have chronic renal insufficiency. In the past a prothrombotic work-up had been performed and the patient was noted in 2013 to have an intermediate circulating lupus anticoagulant. In 2013 antiphospholipid antibodies were noted to be uniformly negative. h/o Recurrent strokes. Left temporoparietal parenchymal hematoma diagnosed in June 2014. Diabetes. Hypertension. Hyperlipidemia. Peripheral arterial disease. Plan 1. continue heparin gtt 2. await CRISTINA wednesday 3. continue supportive care Attending Statement The exam, history, and the medical decision-making described in the above note were completed with the assistance of the mid-level provider. I reviewed and agree with the findings presented. I attest that I had a [id number] encounter with the patient on the same day, and personally performed and documented my assessment and findings in the medical record. recurrent CVA on heparin GTT repeat MRI ---> no bleeding non verbal / altered Kayla Rosas May 16, 2017 10:08 Hugo Morales MD May 16, 2017 12:00
[2017-05-16] MEDS: HEPARIN-D5W 25,000 U/250 ML 250 ML IV PRN (17:34)
[2017-05-16] MEDS: ACETAMINOPHEN/HYDROcodone 325 MG/5 MG TAB PO PRN (17:50)
[2017-05-16 23:52] LABS: DRVVT 1:1 MIX ND (CORRECTED); DRVVT CONFIRM ND (NEGATIVE); HEXAGONAL PHASE CONFIRM ND (NEGATIVE)
[2017-05-17] VITALS (7 sets, daily range): BP systolic 140–211; BP diastolic 55–93; PULSE 72–96; RESP 16–20; TEMP 95.3–97.6; O2SAT 98–100
[2017-05-17] MEDS ORDERED: SODIUM CHLORID 0.9% 500 ML IV PRN (03:45)
[2017-05-17] MEDS ORDERED: LACTATED RINGER'S 1000 ML IV PRN (03:45)
[2017-05-17] MEDS: SODIUM CHLOR 0.9% 1000 ML INJ 1,000 ML IV SCH ×3 (04:59→18:26)
[2017-05-17] MEDS: DEXT 5%-NACL 0.45% 1000 ML INJ 1,000 ML IV SCH ×2 (04:59→18:26)
[2017-05-17] MEDS: ONDANSETRON HCL 4 MG/2 ML VIAL IV PUSH PRN ×3 (05:26→17:04)
--- NOTE | 2017-05-17 06:26 | RADRPT ---
EXAM DATE/TIME: 05/17/2017 05:53 [facility] COMPARISON: CHEST SINGLE AP, May 12, 2017, 17:37. INDICATIONS : Short of breath. MEDICAL HISTORY : Stroke. Cardiovascular disease Hypertension. SURGICAL HISTORY : Cholecystectomy. ENCOUNTER: Subsequent ACUITY: 1 week PAIN SCORE: 0/10 LOCATION: Bilateral chest FINDINGS: A single view of the chest demonstrates the lungs to be symmetrically aerated without evidence of mas s, infiltrate or effusion. The cardiac silhouette is enlarged. Osseous structures are intact. CONCLUSION: 1. Rotated exam with compensated cardiomegaly. Aubrey Aldrich MD on May 17, 2017 at 6:25 Board Certified Radiologist. This report was verified electronically.
--- NOTE | 2017-05-17 07:06 | HHI.PR ---
Subjective Remarks sleep now but moves all ext Objective Vital Signs Date Time Temp Pulse Resp B/P (MAP) Pulse Ox O2 Delivery O2 Flow Rate FiO2 05/17/17 06:45 73 18 98 05/17/17 04:00 96.0 79 18 152/67 (95) 98 05/17/17 00:00 96.3 74 18 148/67 (94) 100 05/17/17 00:00 81 05/16/17 20:03 79 05/16/17 20:00 98.7 82 18 158/80 (106) 99 05/16/17 16:00 98.3 88 20 139/85 (103) 99 05/16/17 12:00 97.2 98 20 152/68 (96) 98 05/16/17 08:00 97.8 96 20 147/64 (91) 98 I/O 05/16/17 05/16/17 05/16/17 05/17/17 05/17/17 05/17/17 07:00 15:00 23:00 07:00 15:00 23:00 Intake Total 1500 ml 100 ml 700 ml 100 ml Output Total 600 ml 1000 ml 600 ml Balance 900 ml 100 ml -300 ml -500 ml Intake Oral 500 ml 600 ml IV Total 1000 ml 100 ml 100 ml 100 ml Output Urine Total 600 ml 1000 ml 600 ml # Bowel Movements 0 Result Diagram: 05/16/17 0450 05/14/17 1600 Objective Remarks moves all 4 ext well asleep templ;es nontender but sleep Assessment and Plan Assessment and Plan imp now on hep drip will defer to heme and med team on anticoag as in my consult note but needs change with mult old cva and new one now her esr>140 and was 92 in 2014 crp up some will defer to heme about what they think is there some underlying inflammatory or auto immune cdz? echo neg could consider devyn she had neg rheum agee in past unclear if worth redoing something unusual going on here though besides just mult cva from neuro point of view can dc when heme clears and anticoag differently fu eeg pend for devyn today could consider temp artery bx as has been having zapata i dw heme dr alcala case on wednesday repeat mri wednesday neg new Darrius Moore MD May 17, 2017 07:06
[2017-05-17] MEDS: INSULIN ASPART SUPPLEMENTAL SCALE SQ SCH ×4 (08:00→19:46)
[2017-05-17 08:28] LABS: HEMATOCRIT 30.3 % (35.0-46.0); HEMOGLOBIN 9.7 GM/DL (11.6-15.3); INTERNATIONAL NORMALIZED RATIO 1.1 RATIO; MEAN CELL VOLUME 94.7 FL (80.0-100.0); MEAN CORPUSCULAR HEMOGLOBIN 30.4 PG (27.0-34.0); MEAN CORPUSCULAR HGB CONC 32.1 % (32.0-36.0); MEAN PLATELET VOLUME 8.9 FL (7.0-11.0); PLATELET COUNT 228 TH/MM3 (150-450); RED CELL DISTRIBUTION WIDTH 14.6 % (11.6-17.2); WHITE BLOOD COUNT 8.1 TH/MM3 (4.0-11.0)
--- NOTE | 2017-05-17 08:39 | PD.ONC.PN ---
Subjective Subjective Remarks Patient seen and examined, vital signs, labs, medications, imaging studies, data quality consultant notes and echocardiography reports reviewed. Over the weekend the patient remained on IV heparin. Plans for transesophageal echocardiogram for later today noted. Hypercoagulable workup including circulating lupus anticoagulant was negative ( drawn last week), antiphospholipid antibody titers are pending at this time. This morning, the patient is laying in bed asleep, she is difficult to arouse. The medical records secretary tells me the patient had been nauseated this morning and received some antinausea medications and has since then been drowsy. Objective Data Date Time Temp Pulse Resp B/P (MAP) Pulse Ox O2 Delivery O2 Flow Rate FiO2 05/17/17 08:00 95.3 75 16 140/71 (94) 100 05/17/17 06:45 73 18 98 05/17/17 04:00 96.0 79 18 152/67 (95) 98 05/17/17 00:00 96.3 74 18 148/67 (94) 100 05/17/17 00:00 81 05/16/17 20:03 79 05/16/17 20:00 98.7 82 18 158/80 (106) 99 05/16/17 16:00 98.3 88 20 139/85 (103) 99 05/16/17 12:00 97.2 98 20 152/68 (96) 98 05/17/17 05/17/17 05/17/17 07:00 15:00 23:00 Intake Total 1100 ml Output Total 600 ml Balance 500 ml Result Diagram: 05/17/17 0757 05/14/17 1600 Laboratory Results Laboratory Tests Test 05/17/17 07:57 White Blood Count 8.1 TH/MM3 Red Blood Count 3.20 MIL/MM3 Hemoglobin 9.7 GM/DL Hematocrit 30.3 % Mean Corpuscular Volume 94.7 FL Mean Corpuscular Hemoglobin 30.4 PG Mean Corpuscular Hemoglobin Concent 32.1 % Red Cell Distribution Width 14.6 % Platelet Count 228 TH/MM3 Mean Platelet Volume 8.9 FL Administered Medications Medications (Trade) Dose Ordered Sig/Kaitlyn Route PRN Reason Start Time Stop Time Status Last Admin Dose Admin Sodium Chloride (NS Flush) 2 ml BID IV FLUSH 05/12/17 21:00 05/14/17 09:07 Dextrose/Sodium Chloride 1,000 ml @ 84 mls/hr [id number] IV 05/12/17 19:00 05/13/17 05:13 Insulin Aspart (NovoLOG SUPPLEMENTAL SCALE) 1 ACHS SLIDING SCALE SQ 05/12/17 21:00 05/15/17 12:05 Atorvastatin Calcium (Lipitor) 80 mg DAILY PO 05/13/17 09:00 05/16/17 08:22 Aspirin (Ecotrin Ec) 81 mg DAILY PO 05/13/17 08:15 05/16/17 08:21 Sodium Chloride 1,000 ml @ 75 mls/hr [id number] IV 05/13/17 08:12 05/17/17 05:32 Heparin Sodium/ Dextrose 250 ml @ 9 mls/hr TITRATE PRN IV Coagulation Management 05/13/17 19:00 05/16/17 17:34 Acetaminophen (Tylenol) 650 mg Q4H PRN PO HEADACHE/PAIN 1-10/FEVER 05/15/17 12:30 05/16/17 17:08 Acetaminophen/ Hydrocodone Bitart ([place] 5-325 Mg) 1 tab Q6H PRN PO BREAKTHROUGH PAIN 05/15/17 16:15 05/16/17 17:50 Cefazolin Sodium 1000 mg/Sodium Chloride 100 ml @ 200 mls/hr Q8H IV 05/16/17 10:00 05/17/17 01:34 Ondansetron HCl (Zofran Inj) 4 mg Q6HR PRN IV PUSH NAUSEA OR VOMITING 05/17/17 05:30 05/17/17 05:26 Objective Remarks GENERAL APPEARANCE: Ms. Pedro is a middle-aged lady lying in bed. She is asleep, she is difficult to arouse. There are no signs of respiratory distress or acute illness. She seems very comfortable. HEENT: Head is atraumatic, normocephalic. Conjunctivae are not pale. Sclerae are anicteric. EOMI. PERRLA. Oral exam has no pharyngeal erythema. NECK: No palpable cervical or supraclavicular lymphadenopathy. LUNGS: Good air movement bilaterally. No added breath sounds. HEART: Regular rate and rhythm, S1, S2. No obvious murmurs, rubs or gallops. ABDOMEN: Thin belly, soft, nontender, nondistended. No palpable organ enlargement. EXTREMITIES: Left Leg: No pretibial edema or calf tenderness. Right Leg: Status post Amputation. NEUROLOGIC: Asleep, moving all 4 limbs spontaneously. 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 History (brought forward for continuity of care): has had strokes going back to 2011. She was on anticoagulation with warfarin up until 2014 when she suffered an intraparenchymal hemorrhage within the brain involving the left temporoparietal lobe. Her INR at that time was 3.9. This lady was subsequently transitioned to an alternate agent, i.e. Eliquis. Her Eliquis dosing has been reduced to accommodate for her renal dysfunction. Unfortunately she has had continued recurrence of ischemic strokes and the etiology of this has not been ascertained, although cardiac thromboembolic phenomenon/events have been suspected. (2) Normocytic anemia ICD Codes: D64.9 - Anemia, unspecified Plan: Serum iron studies are within normal limits. Franklin catheter and vitamin B12 levels are within normal limits. Assessment 66y/o female with recurrent strokes despite being on anticoagulation with intermediate dose Eliquis and antiplatelet therapy with aspirin. HPI (brought forward for continuity of care): Ms. Pedro is a 66-year-old female with a history of recurrent strokes. She started having strokes in 2016. At baseline per the daughter the patient has significant expressive aphasia and at times is confused especially when meeting new people or when she is exasperated or anxious. Ms. Pedro lives on her own but relies on her daughters to be with her throughout the day. Her daughters handle all of her financial affairs and handle all of her personal affairs as well. Per the patient's daughter Ms. Pedro over the past few weeks had been unwell. The patient had a urinary tract infection and as a result was reporting abdominal pain and dizziness. The patient had an ER visit about 2 weeks ago and the patient was recommended antibiotics. Following that she developed nausea, vomiting and diarrhea. These symptoms resolved and on the day of admission, 05/12/2017, the patient was noted to be confused and unable to recognize her daughter. This was at about 12:30/1:00 p.m. on 05/12/2017. The patient was brought into the emergency department where imaging studies were performed. An MRI of the brain revealed an acute ischemic infarct involving the right occipital cortex. Carotid artery ultrasound studies performed on 05/12 revealed bilateral plaque formation with hemodynamic profile on both sides characteristic of less than 50% stenosis. The hematology service has been asked to see the patient to render an opinion regarding appropriate anticoagulation combination with antiplatelet therapy for recurrent strokes as well as to perform a possible prothrombotic work-up. Prior to this stroke the patient had been on anticoagulation with Eliquis 2.5 mg twice daily and aspirin. It should be noted the patient does have chronic renal insufficiency. In the past a prothrombotic work-up had been performed and the patient was noted in 2013 to have an intermediate circulating lupus anticoagulant. In 2013 antiphospholipid antibodies were noted to be uniformly negative. h/o Recurrent strokes. Left temporoparietal parenchymal hematoma diagnosed in June 2014. Diabetes. Hypertension. Hyperlipidemia. Peripheral arterial disease. Plan 1. Heparin drip on hold for now for CRISTINA. Await results. Resume heparin drip after CRISTINA has been performed. 2. Homocysteine level results are pending at this time. 3. Antiphospholipid antibody titers are pending at this time. Nando Thacker MD May 17, 2017 08:39
--- NOTE | 2017-05-17 08:42 | HHI.PR ---
Subjective Remarks in no acute distress. however lethargic and briefly opens the eyes to verbal stimuli. for CRISTINA today. Objective Vitals Vital Signs Date Time Temp Pulse Resp B/P (MAP) Pulse Ox O2 Delivery O2 Flow Rate FiO2 05/17/17 08:00 95.3 75 16 140/71 (94) 100 05/17/17 06:45 73 18 98 05/17/17 04:00 96.0 79 18 152/67 (95) 98 05/17/17 00:00 96.3 74 18 148/67 (94) 100 05/17/17 00:00 81 05/16/17 20:03 79 05/16/17 20:00 98.7 82 18 158/80 (106) 99 05/16/17 16:00 98.3 88 20 139/85 (103) 99 05/16/17 12:00 97.2 98 20 152/68 (96) 98 I/O 05/16/17 05/16/17 05/16/17 05/17/17 05/17/17 05/17/17 07:00 15:00 23:00 07:00 15:00 23:00 Intake Total 1500 ml 100 ml 700 ml 1100 ml Output Total 600 ml 1000 ml 600 ml Balance 900 ml 100 ml -300 ml 500 ml Intake Oral 500 ml 600 ml IV Total 1000 ml 100 ml 100 ml 1100 ml Output Urine Total 600 ml 1000 ml 600 ml # Bowel Movements 0 Result Diagram: 05/17/17 0757 05/14/17 1600 Imaging Last Impressions Brain MRI 05/15/17 0000 Signed Impressions: Service Date/Time: Monday, May 15, 2017 09:11 - CONCLUSION: 1. Persistent small 4 mm punctate areas of suspected acute infarction at the anterior aspect of the right occipital lobe. 2. Encephalomalacia of involving the left temporal lobe. 3. Suspected encephalomalacia in signal on amount within the left cerebellar peduncle and left mid cerebellar lobe. Alton Galvez MD Head CT 05/14/17 0000 Signed Impressions: Service Date/Time: Sunday, May 14, 2017 11:59 - CONCLUSION: 1. Remote infarct left temporal lobe. No acute intracranial abnormalities on CT. Efra Banks MD Head Magnetic Resonance Angiography 05/12/17 0000 Signed Impressions: Service Date/Time: Friday, May 12, 2017 21:08 - CONCLUSION: 1. Negative examination. Reinier Garcia MD Chest X-Ray 05/12/17 0000 Signed Impressions: Service Date/Time: Friday, May 12, 2017 17:37 - CONCLUSION: Fairly well compensated cardiac enlargement Alton Garay MD Carotid Artery Ultrasound 05/12/17 0000 Signed Impressions: Service Date/Time: Friday, May 12, 2017 17:56 - CONCLUSION: Bilateral plaque formation with hemodynamic profile on both sides characteristic of less than 50%% stenosis. Jabari Gonzalez MD Abdomen Ultrasound 05/12/17 0000 Signed Impressions: Service Date/Time: Friday, May 12, 2017 17:40 - CONCLUSION: 1. Negative exam other than left renal cyst. Jabari Gonzalez MD Objective Remarks GENERAL: This is a well-nourished, well-developed patient, in no apparent distress. CARDIOVASCULAR: Regular rate and regular rhythm without murmurs, gallops, or rubs. RESPIRATORY: Clear to auscultation. Breath sounds equal bilaterally. No wheezes , rales, or rhonchi. GASTROINTESTINAL: Abdomen soft, non-tender, nondistended. Normal, active bowel sounds MUSCULOSKELETAL: Extremities without clubbing, cyanosis, or edema. NEURO: confused and is not following commands. Medications and IVs Inpatient Medications Acetaminophen (Tylenol) 650 mg Q4H PRN PO HEADACHE/PAIN 1-10/FEVER Last administered on 05/16/17 17:08; Start 05/15/17 at 12:30 Acetaminophen/ Hydrocodone Bitart ([place] 5-325 Mg) 1 tab Q6H PRN PO BREAKTHROUGH PAIN Last administered on 05/16/17at 17:50; Start 05/15/17 at 16:15 Apixaban (Eliquis) 2.5 mg BID PO Last administered on 05/13/17 09:15; Start at 09:00; Stop 05/13/17 at 18:49; Status DC Aspirin (Ecotrin Ec) 81 mg DAILY PO Last administered on 05/16/17 08:21; Start 05/13/17 at 08:15 Atorvastatin Calcium (Lipitor) 80 mg DAILY PO Last administered on 05/16/17 08 :22; Start 05/13/17 at 09:00 Cefazolin Sodium 1000 mg/Sodium Chloride 100 ml @ 200 mls/hr Q8H IV Last administered on 05/17/17at 01:34; Start 05/16/17 at 10:00 Cefepime HCl 2000 mg/Sodium Chloride 100 ml @ 200 mls/hr Q24H IV Last administered on 05/15/17at 21:04; Start 05/12/17 at 20:00; Stop 05/16/17 at 09:09 ; Status DC Clonidine (Catapres) 0.1 mg ONCE ONCE PO ; Start 05/14/17 at 21:15; Stop at 21:15; Status DC Dextrose (D50w (Vial) Inj) 50 ml UNSCH PRN IV PUSH HYPOGLYCEMIA-SEE COMMENTS; Start 05/12/17 at 17:45 Dextrose/Sodium Chloride 1,000 ml @ 84 mls/hr [id number] IV Last administered on 05/13/17at 05:13; Start 05/12/17 at 19:00 Glucagon (Glucagon Inj) 1 mg UNSCH PRN OTHER HYPOGLYCEMIA-SEE COMMENTS; Start 05/12/17 at 17:45 Heparin Sodium/ Dextrose 250 ml @ 9 mls/hr TITRATE PRN IV Coagulation Management Last administered on 05/16/17at 17:34; Start 05/13/17 at 19:00 Insulin Aspart (NovoLOG SUPPLEMENTAL SCALE) 1 ACHS SLIDING SCALE SQ Last administered on 05/15/17at 12:05; Start 05/12/17 at 21:00 Labetalol HCl (Trandate Inj) 20 mg ONCE ONCE IV PUSH Last administered on 05/12at 15:39; Start 05/12/17 at 15:30; Stop 05/12/17 at 15:31; Status DC Lactated Ringer's 1,000 ml @ 30 mls/hr Q24H PRN IV SEE LABEL COMMENTS; Start at 03:45; Stop 05/20/17 at 03:44 Lorazepam (Ativan Inj) 0.5 mg ONCE ONCE IV PUSH Last administered on at 20:35; Start 05/12/17 at 21:00; Stop 05/12/17 at 21:01; Status DC Magnesium Hydroxide (Milk Of Magnesia Liq) 30 ml Q6H PRN PO CONSTIPATION; Start 05/14/17 at 10:45 Midazolam HCl (Versed Inj) 2.5 mg ONCE ONCE IV PUSH ; Start 05/12/17 at 18:30; Stop 05/12/17 at 18:31; Status DC Naloxone HCl (Narcan Inj) 0.4 mg UNSCH PRN IV PUSH SEE LABEL COMMENTS; Start at 16:45 Ondansetron HCl (Zofran Inj) 4 mg Q6HR PRN IV PUSH NAUSEA OR VOMITING Last administered on 05/17/17at 05:26; Start 05/17/17 at 05:30 Sodium Chloride 500 ml @ 30 mls/hr [id number] PRN IV SEE LABEL COMMENTS; Start at 03:45; Stop 05/20/17 at 03:44 Sodium Chloride (NS Flush) 2 ml BID IV FLUSH Last administered on 05/14/17at 09: 07; Start 05/12/17 at 21:00 A/P Assessment and Plan A/P acute CVA still with aphasia. continue Heaprin drip, aspirin, and lipitor- echo with EF 55% and LVH. ESR elevated- had a negative rheum work-up in the past. could consider temporal artery biopsy ; per neurology. hypercoagulable state panel pending. repeated MRI brain with persistent infarction right occipital lobe cardiology consulted; previously d/w and plan for CRISTINA today. neurology and hematology following. PT/ST consulted. possible underlying infection / Right upper extremity cellulitis versus allergic reaction. Daughter reports that this only started on Wednesday after patient's report of being bit by an insect- improving. continue antibiotic-blood cultures negative- dc'ed Cefepime and started on Ancef; renally dosed per pharmacy. Hypertension; permissive hypertension for now- continue to monitor. diabetes mellitus; accu-check with SSI chronic renal insufficiency- will monitor right arm DVT ; on Heparin drip. right below knee amputation- diabetic complication DVT prophylaxis; on Heparin drip d/w today. Discharge Planning work-up in progress. for CRISTINA today. not ready for discharge yet. Donavan De Jesus MD May 17, 2017 08:42
[2017-05-17 08:57] LABS: BICARBONATE 22.5 MEQ/L (21.0-32.0); CALCIUM 8.4 MG/DL (8.5-10.1); CREATININE 2.24 MG/DL (0.50-1.00)
--- NOTE | 2017-05-17 09:50 | PD.CARD.PN ---
Subjective Subjective Remarks patient somnolent but arousable. Family states she has been verbal at times today. CRISTINA planned for this morning. (Dedra Messina) Objective Medications Current Medications Medications (Trade) Dose Ordered Sig/Kaitlyn Route Start Time Stop Time Status Last Admin (NS Flush) 2 ml UNSCH PRN IV FLUSH 05/12/17 16:45 (NS Flush) 2 ml BID IV FLUSH 05/12/17 21:00 05/14/17 09:07 (Narcan Inj) 0.4 mg UNSCH PRN IV PUSH 05/12/17 16:45 Dextrose/Sodium Chloride 1,000 ml @ 84 mls/hr [id number] IV 05/12/17 19:00 05/13/17 05:13 (D50w (Vial) Inj) 50 ml UNSCH PRN IV PUSH 05/12/17 17:45 (Glucagon Inj) 1 mg UNSCH PRN OTHER 05/12/17 17:45 (NovoLOG SUPPLEMENTAL SCALE) 1 ACHS SLIDING SCALE SQ 05/12/17 21:00 05/15/17 12:05 (Lipitor) 80 mg DAILY PO 05/13/17 09:00 05/16/17 08:22 (Ecotrin Ec) 81 mg DAILY PO 05/13/17 08:15 05/16/17 08:21 Sodium Chloride 1,000 ml @ 75 mls/hr [id number] IV 05/13/17 08:12 05/17/17 05:32 Heparin Sodium/ Dextrose 250 ml @ 9 mls/hr TITRATE PRN IV 05/13/17 19:00 05/16/17 17:34 (Milk Of Magnesia Liq) 30 ml Q6H PRN PO 05/14/17 10:45 (Tylenol) 650 mg Q4H PRN PO 05/15/17 12:30 05/16/17 17:08 ([place] 5-325 Mg) 1 tab Q6H PRN PO 05/15/17 16:15 05/16/17 17:50 Cefazolin Sodium 1000 mg/Sodium Chloride 100 ml @ 200 mls/hr Q8H IV 05/16/17 10:00 05/17/17 01:34 Lactated Ringer's 1,000 ml @ 30 mls/hr Q24H PRN IV 05/17/17 03:45 05/20/17 03:44 Sodium Chloride 500 ml @ 30 mls/hr [id number] PRN IV 05/17/17 03:45 05/20/17 03:44 (Zofran Inj) 4 mg Q6HR PRN IV PUSH 05/17/17 05:30 05/17/17 05:26 Vital Signs / I&O Vital Signs Date Time Temp Pulse Resp B/P (MAP) Pulse Ox O2 Delivery O2 Flow Rate FiO2 05/17/17 08:00 95.3 75 16 140/71 (94) 100 05/17/17 06:45 73 18 98 05/17/17 04:00 96.0 79 18 152/67 (95) 98 05/17/17 00:00 96.3 74 18 148/67 (94) 100 05/17/17 00:00 81 05/16/17 20:03 79 05/16/17 20:00 98.7 82 18 158/80 (106) 99 05/16/17 16:00 98.3 88 20 139/85 (103) 99 05/16/17 12:00 97.2 98 20 152/68 (96) 98 I/O 05/16/17 05/16/17 05/16/17 05/17/17 05/17/17 05/17/17 07:00 15:00 23:00 07:00 15:00 23:00 Intake Total 1500 ml 100 ml 700 ml 1100 ml Output Total 600 ml 1000 ml 600 ml Balance 900 ml 100 ml -300 ml 500 ml Intake Oral 500 ml 600 ml IV Total 1000 ml 100 ml 100 ml 1100 ml Output Urine Total 600 ml 1000 ml 600 ml # Bowel Movements 0 Physical Exam GENERAL: SKIN: Warm and dry. HEAD: Atraumatic. Normocephalic. ENT: No nasal bleeding or discharge. NECK: Trachea midline. No JVD. CARDIOVASCULAR: Regular rate and rhythm. no murmurs RESPIRATORY: No accessory muscle use. Clear to auscultation. Breath sounds equal bilaterally. GASTROINTESTINAL: Abdomen soft, non-tender, nondistended. MUSCULOSKELETAL: Extremities without clubbing, cyanosis, or edema. No obvious deformities. NEUROLOGICAL: Awake. No obvious cranial nerve deficits. . Laboratory Laboratory Tests Test 05/17/17 07:57 White Blood Count 8.1 TH/MM3 Red Blood Count 3.20 MIL/MM3 Hemoglobin 9.7 GM/DL Hematocrit 30.3 % Mean Corpuscular Volume 94.7 FL Mean Corpuscular Hemoglobin 30.4 PG Mean Corpuscular Hemoglobin Concent 32.1 % Red Cell Distribution Width 14.6 % Platelet Count 228 TH/MM3 Mean Platelet Volume 8.9 FL Prothrombin Time 11.0 SEC Prothromb Time International Ratio 1.1 RATIO Activated Partial Thromboplast Time 28.0 SEC Blood Urea Nitrogen 23 MG/DL Creatinine 2.24 MG/DL Random Glucose 126 MG/DL Calcium Level 8.4 MG/DL Sodium Level 143 MEQ/L Potassium Level 5.3 MEQ/L Chloride Level 114 MEQ/L Carbon Dioxide Level 22.5 MEQ/L Anion Gap 7 MEQ/L Estimat Glomerular Filtration Rate 27 ML/MIN (Dedra Messina) Assessment and Plan Problem List: (1) History of CVA with residual deficit ICD Codes: I69.30 - Unspecified sequelae of cerebral infarction Status: Acute (2) History of DVT (deep vein thrombosis) ICD Codes: Z86.718 - Personal history of other venous thrombosis and embolism (3) Acute ischemic left posterior cerebral artery stroke ICD Codes: I63.532 - Acute ischemic left posterior cerebral artery stroke Status: Acute Assessment and Plan 66 yo AAF with DM, HTN, history of DVT and multiple CVAs who presented with altered mental status. recurrent CVA with expressive aphasia, multiple territories- rule out cardioembolic source. CRISTINA planned for this morning. no events on tele hypercoagulability workup in progress echo normal EF, LVH (Dedra Messina) Assessment and Plan patient vomited prior to CRISTINA cancelled scheduled for tomorrow 11 am npo p mn (Armando Benjamin MD) Dedra Messina May 17, 2017 09:50 Armando Benjamin MD May 17, 2017 16:51
[2017-05-17] MEDS ORDERED: PROPOFOL 200 MG/20 ML AMP ONE (10:52)
[2017-05-17] MEDS: ATORVASTATIN 80 MG TAB PO SCH (12:52)
[2017-05-17] MEDS: SODIUM CHLORIDE 0.9% FLUSH 10 ML FLUSH IV FLUSH SCH ×2 (12:52→19:46)
[2017-05-17] MEDS: ASPIRIN EC 81 MG TABEC PO SCH (12:52)
[2017-05-17] MEDS: ACETAMINOPHEN/HYDROcodone 325 MG/5 MG TAB PO PRN (19:40)
[2017-05-18] VITALS: BP 122/60; PULSE 84; RESP 18; TEMP 97.8; O2SAT 100
[2017-05-18] MEDS: ACETAMINOPHEN/HYDROcodone 325 MG/5 MG TAB PO PRN (02:02)
[2017-05-18] MEDS: ONDANSETRON HCL 4 MG/2 ML VIAL IV PUSH PRN (02:45)
[2017-05-18 04:00] VITALS: PULSE 80; RESP 18; TEMP 96.5; O2SAT 100
[2017-05-18] MEDS: ACETAMINOPHEN 325 MG TAB PO PRN ×2 (04:57→20:03)
--- NOTE | 2017-05-18 07:41 | HHI.PR ---
Subjective Remarks awake alert small vomit last pm Objective Vital Signs Date Time Temp Pulse Resp B/P (MAP) Pulse Ox O2 Delivery O2 Flow Rate FiO2 05/18/17 06:34 18 05/18/17 04:00 96.5 80 18 100 05/18/17 03:03 18 05/18/17 00:00 97.8 84 18 122/60 (80) 100 05/17/17 20:00 82 05/17/17 20:00 97.6 81 18 140/55 (83) 99 05/17/17 16:00 96.7 96 20 211/91 (131) 99 05/17/17 12:00 95.3 88 18 198/93 (128) 99 05/17/17 08:00 72 05/17/17 08:00 95.3 75 16 140/71 (94) 100 I/O 05/17/17 05/17/17 05/17/17 05/18/17 05/18/17 05/18/17 07:00 15:00 23:00 07:00 15:00 23:00 Intake Total 1100 ml 240 ml 240 ml Output Total 600 ml 1000 ml Balance 500 ml -760 ml 240 ml Intake Oral 240 ml 240 ml IV Total 1100 ml Output Urine Total 600 ml 1000 ml # Voids 4 2 # Bowel Movements 0 0 Result Diagram: 05/17/17 0757 05/17/17 0757 Objective Remarks moves all 4 ext well awake alert follows some comands talking for me looks a lot better templ;es nontender denies zapata abd soft nontender Assessment and Plan Assessment and Plan imp now on hep drip will defer to heme and med team on anticoag as in my consult note but needs change with mult old cva and new one now her esr>140 and was 92 in 2014 crp up some will defer to heme about what they think is there some underlying inflammatory or auto immune cdz? echo neg could consider devyn she had neg rheum agee in past unclear if worth redoing something unusual going on here though besides just mult cva from neuro point of view can dc when heme clears and anticoag differently fu eeg pend for devyn today could consider temp artery bx as has been having zapata i dw heme dr alcala case on wednesday repeat mri wednesday neg new 05/18/17 eeg neg repeat esr ordered no evidence of ta now devyn today unclear to me why vomit issue ? from narcotics i dced looks better today on asa and iv hep ? zantac needed? Darrius Moore MD May 18, 2017 07:41
[2017-05-18 08:00] VITALS: BP_SYST 198; BP_SYST 206; BP_DIAS 86; PULSE 76; RESP 16; TEMP 97.2; O2SAT 97
[2017-05-18] MEDS: INSULIN ASPART SUPPLEMENTAL SCALE SQ SCH ×5 (08:00→20:01)
[2017-05-18] MEDS: DEXT 5%-NACL 0.45% 1000 ML INJ 1,000 ML IV SCH (09:27)
[2017-05-18] MEDS: ASPIRIN EC 81 MG TABEC PO SCH (09:28)
[2017-05-18] MEDS: SODIUM CHLOR 0.9% 1000 ML INJ 1,000 ML IV SCH (09:28)
[2017-05-18] MEDS: SODIUM CHLORIDE 0.9% FLUSH 10 ML FLUSH IV FLUSH SCH ×2 (09:28→21:00)
[2017-05-18] MEDS: ATORVASTATIN 80 MG TAB PO SCH (09:28)
--- NOTE | 2017-05-18 09:35 | PD.ONC.PN ---
Subjective Subjective Remarks Patient seen and examined, vital signs, labs, medications and overnight events reviewed. Patient was unable to undergo CRISTINA yesterday due to nausea and vomiting. The procedure has been rescheduled for later today. This morning the patient's daughter Vanesa is at bedside. Mrs. Pedro is more awake and alert and more interactive this morning. She does not verbalize any complaints, she is mostly able to answer yes or no only. Her daughter provides most of the updates. Objective Data Date Time Temp Pulse Resp B/P (MAP) Pulse Ox O2 Delivery O2 Flow Rate FiO2 05/18/17 08:00 97.2 76 16 206/86 (126) 97 198/86 (123) 05/18/17 06:34 18 05/18/17 04:00 96.5 80 18 100 05/18/17 03:03 18 05/18/17 00:00 97.8 84 18 122/60 (80) 100 05/17/17 20:00 82 05/17/17 20:00 97.6 81 18 140/55 (83) 99 05/17/17 16:00 96.7 96 20 211/91 (131) 99 05/17/17 12:00 95.3 88 18 198/93 (128) 99 05/18/17 05/18/17 05/18/17 07:00 15:00 23:00 Intake Total 240 ml Balance 240 ml Result Diagram: 05/17/17 0757 05/17/17 0757 Administered Medications Medications (Trade) Dose Ordered Sig/Kaitlyn Route PRN Reason Start Time Stop Time Status Last Admin Dose Admin Sodium Chloride (NS Flush) 2 ml BID IV FLUSH 05/12/17 21:00 05/17/17 12:52 Dextrose/Sodium Chloride 1,000 ml @ 84 mls/hr [id number] IV 05/12/17 19:00 05/17/17 18:26 Insulin Aspart (NovoLOG SUPPLEMENTAL SCALE) 1 ACHS SLIDING SCALE SQ 05/12/17 21:00 05/17/17 19:46 Atorvastatin Calcium (Lipitor) 80 mg DAILY PO 05/13/17 09:00 05/17/17 12:52 Aspirin (Ecotrin Ec) 81 mg DAILY PO 05/13/17 08:15 05/17/17 12:52 Sodium Chloride 1,000 ml @ 75 mls/hr [id number] IV 05/13/17 08:12 05/17/17 05:32 Heparin Sodium/ Dextrose 250 ml @ 9 mls/hr TITRATE PRN IV Coagulation Management 05/13/17 19:00 05/16/17 17:34 Acetaminophen (Tylenol) 650 mg Q4H PRN PO HEADACHE/PAIN 1-10/FEVER 05/15/17 12:30 05/18/17 04:57 Cefazolin Sodium 1000 mg/Sodium Chloride 100 ml @ 200 mls/hr Q8H IV 05/16/17 10:00 05/18/17 01:51 Ondansetron HCl (Zofran Inj) 4 mg Q6HR PRN IV PUSH NAUSEA OR VOMITING 05/17/17 05:30 05/18/17 02:45 Objective Remarks GENERAL APPEARANCE: Ms. Pedro is a middle-aged lady lying in bed. She is asleep, she is difficult to arouse. There are no signs of respiratory distress or acute illness. She seems very comfortable. HEENT: Head is atraumatic, normocephalic. Conjunctivae are not pale. Sclerae are anicteric. EOMI. PERRLA. Oral exam has no pharyngeal erythema. NECK: No palpable cervical or supraclavicular lymphadenopathy. LUNGS: Good air movement bilaterally. No added breath sounds. HEART: Regular rate and rhythm, S1, S2. No obvious murmurs, rubs or gallops. ABDOMEN: Thin belly, soft, nontender, nondistended. No palpable organ enlargement. EXTREMITIES: Left Leg: No pretibial edema or calf tenderness. Right Leg: Status post right below the knee Amputation. No edema noted on the left side. NEUROLOGIC: Asleep, moving all 4 limbs spontaneously. Assessment/Plan Problem List: (1) Chronic ischemic left DIRECTOR INDEPENDENT stroke ICD Codes: Z86.73 - Chronic ischemic left DIRECTOR INDEPENDENT stroke Status: Acute Plan: --on heparin gtt and antiplatelet therapy. History (brought forward for continuity of care): has had strokes going back to 2011. She was on anticoagulation with warfarin up until 2014 when she suffered an intraparenchymal hemorrhage within the brain involving the left temporoparietal lobe. Her INR at that time was 3.9. This lady was subsequently transitioned to an alternate agent, i.e. Eliquis. Her Eliquis dosing has been reduced to accommodate for her renal dysfunction. Unfortunately she has had continued recurrence of ischemic strokes and the etiology of this has not been ascertained, although cardiac thromboembolic phenomenon/events have been suspected. (2) Normocytic anemia ICD Codes: D64.9 - Anemia, unspecified Plan: Serum iron studies are within normal limits. Franklin catheter and vitamin B12 levels are within normal limits. Assessment 66y/o female with recurrent strokes despite being on anticoagulation with intermediate dose Eliquis and antiplatelet therapy with aspirin. HPI (brought forward for continuity of care): Ms. Pedro is a 66-year-old female with a history of recurrent strokes. She started having strokes in 2016. At baseline per the daughter the patient has significant expressive aphasia and at times is confused especially when meeting new people or when she is exasperated or anxious. Ms. Pedro lives on her own but relies on her daughters to be with her throughout the day. Her daughters handle all of her financial affairs and handle all of her personal affairs as well. Per the patient's daughter Ms. Pedro over the past few weeks had been unwell. The patient had a urinary tract infection and as a result was reporting abdominal pain and dizziness. The patient had an ER visit about 2 weeks ago and the patient was recommended antibiotics. Following that she developed nausea, vomiting and diarrhea. These symptoms resolved and on the day of admission, 05/12/2017, the patient was noted to be confused and unable to recognize her daughter. This was at about 12:30/1:00 p.m. on 05/12/2017. The patient was brought into the emergency department where imaging studies were performed. An MRI of the brain revealed an acute ischemic infarct involving the right occipital cortex. Carotid artery ultrasound studies performed on 05/12 revealed bilateral plaque formation with hemodynamic profile on both sides characteristic of less than 50% stenosis. The hematology service has been asked to see the patient to render an opinion regarding appropriate anticoagulation combination with antiplatelet therapy for recurrent strokes as well as to perform a possible prothrombotic work-up. Prior to this stroke the patient had been on anticoagulation with Eliquis 2.5 mg twice daily and aspirin. It should be noted the patient does have chronic renal insufficiency. In the past a prothrombotic work-up had been performed and the patient was noted in 2013 to have an intermediate circulating lupus anticoagulant. In 2013 antiphospholipid antibodies were noted to be uniformly negative. h/o Recurrent strokes. Left temporoparietal parenchymal hematoma diagnosed in June 2014. Diabetes. Hypertension. Hyperlipidemia. Peripheral arterial disease. Plan 1. Heparin drip on hold for now for CRISTINA. Await results. Resume heparin drip after CRISTINA has been performed. 2. Homocysteine level results are pending at this time. 3. Antiphospholipid antibody titers are pending at this time. No additional recommendations at this time. Nando Thacker MD May 18, 2017 09:35
[2017-05-18] MEDS ORDERED: SUGAMMADEX SODIUM 200 MG/2 ML VIAL IV PUSH ONE (11:11)
[2017-05-18] MEDS ORDERED: DO NOT ADM ANY ANTICOAGULANT DRUGS PRN (11:53)
[2017-05-18] MEDS ORDERED: PHENYLEPH/NS 1000 MCG/10 ML SYR IV ONE (12:00)
[2017-05-18] MEDS ORDERED: ONDANSETRON HCL 4 MG/2 ML VIAL IV ONE (12:00)
[2017-05-18] MEDS ORDERED: ROCURONIUM INJ 50 MG/5 ML SYRINGE IV PUSH ONE (12:00)
[2017-05-18] MEDS ORDERED: LIDOCAINE HCL 1% PF 5 ML SYRINGE OTHER ONE (12:00)
[2017-05-18] MEDS ORDERED: PROPOFOL 200 MG/20 ML AMP IV ONE (12:00)
[2017-05-18] MEDS ORDERED: LABETALOL HCL 100 MG/20 ML VIAL IV ONE (12:00)
[2017-05-18] MEDS ORDERED: hydrALAZINE HCL 20 MG/ML VIAL ONE (12:22)
[2017-05-18 13:52] LABS: BETA2 GLYCOPROTEIN I AB IGA LESS THAN 9.0 SAU (< OR = 20); BETA2 GLYCOPROTEIN I AB IGG LESS THAN 9.0 SGU (< OR = 20); BETA2 GLYCOPROTEIN I AB IGM LESS THAN 9.0 SMU (< OR = 20)
--- NOTE | 2017-05-18 15:11 | HHI.PR ---
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 No acute event overnight. Daughter by the bedside. Objective Vitals Vital Signs Date Time Temp Pulse Resp B/P (MAP) Pulse Ox O2 Delivery O2 Flow Rate FiO2 05/18/17 12:45 98.5 81 17 163/81 (108) 100 05/18/17 12:30 85 17 184/84 (117) 100 Room Air 05/18/17 12:15 80 17 188/86 (120) 100 Room Air 05/18/17 12:00 80 17 182/84 (116) 100 Room Air 05/18/17 11:52 98.1 82 17 177/81 (113) 100 Simple Mask 6 05/18/17 08:00 97.2 76 16 206/86 (126) 97 198/86 (123) 05/18/17 06:34 18 05/18/17 04:00 96.5 80 18 100 05/18/17 03:03 18 05/18/17 00:00 97.8 84 18 122/60 (80) 100 05/17/17 20:00 82 05/17/17 20:00 97.6 81 18 140/55 (83) 99 05/17/17 16:00 96.7 96 20 211/91 (131) 99 I/O 05/17/17 05/17/17 05/17/17 05/18/17 05/18/17 05/18/17 07:00 15:00 23:00 07:00 15:00 23:00 Intake Total 1100 ml 240 ml 240 ml 300 ml Output Total 600 ml 1000 ml Balance 500 ml -760 ml 240 ml 300 ml Intake Oral 240 ml 240 ml IV Total 1100 ml 300 ml Output Urine Total 600 ml 1000 ml # Voids 4 2 1 # Bowel Movements 0 0 Result Diagram: 05/17/17 0757 05/17/17 0757 Imaging Last Impressions Chest X-Ray 05/17/17 0000 Signed Impressions: Service Date/Time: Wednesday, May 17, 2017 05:53 - CONCLUSION: 1. Rotated exam with compensated cardiomegaly. Aubrey Aldrich MD Brain MRI 05/15/17 0000 Signed Impressions: Service Date/Time: Monday, May 15, 2017 09:11 - CONCLUSION: 1. Persistent small 4 mm punctate areas of suspected acute infarction at the anterior aspect of the right occipital lobe. 2. Encephalomalacia of involving the left temporal lobe. 3. Suspected encephalomalacia in signal on amount within the left cerebellar peduncle and left mid cerebellar lobe. Alton Galvez MD Head CT 05/14/17 0000 Signed Impressions: Service Date/Time: Sunday, May 14, 2017 11:59 - CONCLUSION: 1. Remote infarct left temporal lobe. No acute intracranial abnormalities on CT. Efra Banks MD Head Magnetic Resonance Angiography 05/12/17 0000 Signed Impressions: Service Date/Time: Friday, May 12, 2017 21:08 - CONCLUSION: 1. Negative examination. Reinier Garcia MD Carotid Artery Ultrasound 05/12/17 0000 Signed Impressions: Service Date/Time: Friday, May 12, 2017 17:56 - CONCLUSION: Bilateral plaque formation with hemodynamic profile on both sides characteristic of less than 50%% stenosis. Jabari Gonzalez MD Abdomen Ultrasound 05/12/17 0000 Signed Impressions: Service Date/Time: Friday, May 12, 2017 17:40 - CONCLUSION: 1. Negative exam other than left renal cyst. Jabari Gonzalez MD Objective Remarks GENERAL: NAD SKIN: Warm and dry. HEAD: Normocephalic. EYES: No scleral icterus. No injection or drainage. NECK: Supple, trachea midline. No JVD or lymphadenopathy. CARDIOVASCULAR: Regular rate and rhythm without murmurs, gallops, or rubs. RESPIRATORY: Breath sounds equal bilaterally. No accessory muscle use. GASTROINTESTINAL: Abdomen soft, non-tender, nondistended. MUSCULOSKELETAL: No cyanosis, or edema. Right BKA; 3/5 LUE BACK: Nontender without obvious deformity. No CVA tenderness. 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 Heparin on hold pending CRISTINA Hypercoagulable studies pending Appreciate input from neurology PT/ST consulted. Underlying infection / Right upper extremity cellulitis versus allergic reaction. Currently on Ancef; Monitor response Hypertension; permissive hypertension for now- continue to monitor. Diabetes mellitus; accu-check with SSI Chronic renal insufficiency-continue with IV fluid and monitor BUN and creatinine Right arm DVT ; on Heparin drip per hematology, however on hold pending CRISTINA. Hypercoagulable studies pending DVT prophylaxis; on Heparin drip Problem Qualifiers (1) Type 2 diabetes mellitus: Qualified Codes: E11.8 - Type 2 diabetes mellitus with unspecified complications; Z79.4 - termite helper (current) use of insulin Keny Jj MD May 18, 2017 15:11
[2017-05-18 17:48] VITALS: O2SAT 100
[2017-05-18 19:53] LABS: PHOS SERINE AB IGA LESS THAN 20 U/mL (<20)
[2017-05-18 20:00] VITALS: BP 187/73; PULSE 87; RESP 16; TEMP 97; O2SAT 100
[2017-05-18 21:02] VITALS: BP 139/53; PULSE 86
[2017-05-19] VITALS (8 sets, daily range): BP systolic 140–221; BP diastolic 57–90; PULSE 83–92; RESP 15–18; TEMP 96.8–98.6; O2SAT 96–100
[2017-05-19 03:51] LABS: CARDIOLIPIN AB IGA LESS THAN 11.0 APL (0-11)
[2017-05-19] MEDS: ACETAMINOPHEN 325 MG TAB PO PRN (05:14)
[2017-05-19] MEDS: ASPIRIN EC 81 MG TABEC PO SCH (08:56)
[2017-05-19] MEDS: ATORVASTATIN 80 MG TAB PO SCH (08:56)
--- NOTE | 2017-05-19 08:57 | ECHRPT ---
Indication: Transient cerebral ischemic attack, unspecified CONCLUSIONS Normal left ventricular size and wall thickness. The left ventricular systolic function is normal wi th an estimated ejection fraction in the range of 60-65%. Left ventricular diastolic function parameters a re normal. Normal left atrial appendage size with no evidence of thrombus formation. There is "smoke" in the left atrial appendage and left atrium consistent with low flow state. Atrial appendage velocities are red uced. Normal atrial septal thickness without atrial level shunting by limited color doppler interrogation. No atrial level shunt is demonstrated by color flow Doppler or agitated saline imaging. BP: / HR: Rhythm: MEASUREMENTS (Male / Female) Normal Values Technical Quality: DOPPLER AV Peak Velocity 56.3 cm/s Right Atrial Pressure 10.0 mmHg AV Peak Gradient 1.3 mmHg Pulmonary Artery Systolic 19.9 mmHg TR Peak Velocity 157.0 cm/s Right Ventricular Systoli 19.9 mmHg TR Peak Gradient 9.9 mmHg Medications Complications Proc. Components FINDINGS LEFT VENTRICLE Normal left ventricular size and wall thickness. The left ventricular systolic function is normal wi th an estimated ejection fraction in the range of 60-65%. Left ventricular diastolic function parameters a re normal. RIGHT VENTRICLE Normal right ventricular size and systolic function. LEFT ATRIUM The left atrial size is normal. RIGHT ATRIUM The right atrial size is normal. ATRIAL APPENDAGES Normal left atrial appendage size with no evidence of thrombus formation. There is "smoke" in the left atrial appendage and left atrium consistent with low flow state. Atrial appendage velocities are red uced. ATRIAL SEPTUM Normal atrial septal thickness without atrial level shunting by limited color doppler interrogation. No atrial level shunt is demonstrated by color flow Doppler or agitated saline imaging. AORTA The aortic root and proximal ascending aorta are normal in size on limited imaging. MITRAL VALVE Trace mitral valve regurgitation. AORTIC VALVE Trileaflet aortic valve. No aortic valve stenosis or regurgitation. TRICUSPID VALVE There is trace tricuspid valve regurgitation. VESSELS The inferior vena cava is normal in size. PULMONARY VALVE No pulmonary valve regurgitation or stenosis. PERICADIUM No pericardial effusion. Armando Benjamin MD, FACC (Electronically Signed) Final Date:19 May 2017 08:57
[2017-05-19] MEDS: SODIUM CHLOR 0.9% 1000 ML INJ 1,000 ML IV SCH ×3 (09:03→17:35)
[2017-05-19] MEDS: INSULIN ASPART SUPPLEMENTAL SCALE SQ SCH ×4 (09:03→21:15)
[2017-05-19] MEDS: SODIUM CHLORIDE 0.9% FLUSH 10 ML FLUSH IV FLUSH SCH ×2 (09:06→20:58)
[2017-05-19] MEDS: HEPARIN-D5W 25,000 U/250 ML 250 ML IV PRN (09:15)
--- NOTE | 2017-05-19 09:39 | HHI.PR ---
Subjective Remarks awake alert Objective Vital Signs Date Time Temp Pulse Resp B/P (MAP) Pulse Ox O2 Delivery O2 Flow Rate FiO2 05/19/17 08:00 98.5 86 16 221/90 (133) 96 05/19/17 06:20 18 05/19/17 05:14 85 18 147/68 (94) 05/19/17 04:00 97.9 91 15 200/63 (108) 100 200/57 (104) 05/19/17 00:00 86 05/19/17 00:00 98.6 92 16 140/65 (90) 100 140/65 (90) 05/18/17 21:02 86 139/53 (81) 05/18/17 20:00 97.0 87 16 187/73 (111) 100 187/73 (111) 05/18/17 17:48 100 21 05/18/17 12:45 98.5 81 17 163/81 (108) 100 05/18/17 12:30 85 17 184/84 (117) 100 Room Air 05/18/17 12:15 80 17 188/86 (120) 100 Room Air 05/18/17 12:00 80 17 182/84 (116) 100 Room Air 05/18/17 11:52 98.1 82 17 177/81 (113) 100 Simple Mask 6 I/O 05/18/17 05/18/17 05/18/17 05/19/17 05/19/17 05/19/17 07:00 15:00 23:00 07:00 15:00 23:00 Intake Total 240 ml 300 ml 60 ml 0 ml Output Total 750 ml Balance 240 ml 300 ml -690 ml 0 ml Intake Oral 240 ml 60 ml 0 ml IV Total 300 ml Output Urine Total 750 ml # Voids 2 1 0 # Bowel Movements 0 0 0 Result Diagram: 05/17/17 0757 05/17/17 0757 Objective Remarks moves all 4 ext well awake alert follows some comands talking for me looks a lot better templ;es nontender today again mild bifrontal zapata zapata abd soft nontender Assessment and Plan Assessment and Plan imp now on hep drip will defer to heme and med team on anticoag as in my consult note but needs change with mult old cva and new one now her esr>140 and was 92 in 2014 crp up some will defer to heme about what they think is there some underlying inflammatory or auto immune cdz? echo neg could consider devyn she had neg rheum agee in past unclear if worth redoing something unusual going on here though besides just mult cva from neuro point of view can dc when heme clears and anticoag differently fu eeg pend for devyn today could consider temp artery bx as has been having zapata i dw heme dr alcala case on wednesday repeat mri wednesday neg new 05/18/17 eeg neg repeat esr ordered no evidence of ta now devyn today unclear to me why vomit issue ? from narcotics i dced looks better today on asa and iv hep ? zantac needed? 05/19/17 looks well no judaism tenderness repeat esr 90 clinically not TA but med team could consider temporal artery bx if no other reason for inc esr found devyn shos low flow in left atrium so needs anticaogulation homocystein ue needs folic acid started for anticoag she could do coumadin with inr 2-3 or eliquis at 5 bid dose if ok with heme as renal fx up but had cva on 2.5 bid eliquis so cannot stay on that dose Darrius Moore MD May 19, 2017 09:39
--- NOTE | 2017-05-19 13:01 | HHI.PR ---
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 No acute event overnight. Daughter by the bedside. 05/19/17-patient seen and examined, improving speech and patient alert and oriented 3. No acute event overnight. CRISTINA unremarkable. Objective Vitals Vital Signs Date Time Temp Pulse Resp B/P (MAP) Pulse Ox O2 Delivery O2 Flow Rate FiO2 05/19/17 12:00 97.8 83 18 189/88 (121) 97 05/19/17 08:00 85 05/19/17 08:00 98.5 86 16 221/90 (133) 96 05/19/17 06:20 18 05/19/17 05:14 85 18 147/68 (94) 05/19/17 04:00 97.9 91 15 200/63 (108) 100 200/57 (104) 05/19/17 00:00 86 05/19/17 00:00 98.6 92 16 140/65 (90) 100 140/65 (90) 05/18/17 21:02 86 139/53 (81) 05/18/17 20:00 97.0 87 16 187/73 (111) 100 187/73 (111) 05/18/17 17:48 100 21 I/O 05/18/17 05/18/17 05/18/17 05/19/17 05/19/17 05/19/17 07:00 15:00 23:00 07:00 15:00 23:00 Intake Total 240 ml 300 ml 60 ml 0 ml Output Total 750 ml Balance 240 ml 300 ml -690 ml 0 ml Intake Oral 240 ml 60 ml 0 ml IV Total 300 ml Output Urine Total 750 ml # Voids 2 1 0 # Bowel Movements 0 0 0 Result Diagram: 05/17/17 0757 05/17/17 0757 Imaging Last Impressions Chest X-Ray 05/17/17 0000 Signed Impressions: Service Date/Time: Wednesday, May 17, 2017 05:53 - CONCLUSION: 1. Rotated exam with compensated cardiomegaly. Aubrey Aldrich MD Brain MRI 05/15/17 0000 Signed Impressions: Service Date/Time: Monday, May 15, 2017 09:11 - CONCLUSION: 1. Persistent small 4 mm punctate areas of suspected acute infarction at the anterior aspect of the right occipital lobe. 2. Encephalomalacia of involving the left temporal lobe. 3. Suspected encephalomalacia in signal on amount within the left cerebellar peduncle and left mid cerebellar lobe. Alton Galvez MD Head CT 05/14/17 0000 Signed Impressions: Service Date/Time: Sunday, May 14, 2017 11:59 - CONCLUSION: 1. Remote infarct left temporal lobe. No acute intracranial abnormalities on CT. Efra Banks MD Head Magnetic Resonance Angiography 05/12/17 0000 Signed Impressions: Service Date/Time: Friday, May 12, 2017 21:08 - CONCLUSION: 1. Negative examination. Reinier Garcia MD Carotid Artery Ultrasound 05/12/17 0000 Signed Impressions: Service Date/Time: Friday, May 12, 2017 17:56 - CONCLUSION: Bilateral plaque formation with hemodynamic profile on both sides characteristic of less than 50%% stenosis. Jabari Gonzalez MD Abdomen Ultrasound 05/12/17 0000 Signed Impressions: Service Date/Time: Friday, May 12, 2017 17:40 - CONCLUSION: 1. Negative exam other than left renal cyst. Jabari Gonzalez MD Objective Remarks GENERAL: NAD SKIN: Warm and dry. HEAD: Normocephalic. EYES: No scleral icterus. No injection or drainage. NECK: Supple, trachea midline. No JVD or lymphadenopathy. CARDIOVASCULAR: Regular rate and rhythm without murmurs, gallops, or rubs. RESPIRATORY: Breath sounds equal bilaterally. No accessory muscle use. GASTROINTESTINAL: Abdomen soft, non-tender, nondistended. MUSCULOSKELETAL: No cyanosis, or edema. Right BKA; 4/5 LUE BACK: Nontender without obvious deformity. No CVA tenderness. 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 Hypercoagulable studies pending Appreciate input from neurology PT/ST consulted. CRISTINA shows low flow in left atrium so needs OAC Coumadin INR 2-3 vs Eliquis 5mg BID Underlying infection / Right upper extremity cellulitis versus allergic reaction. Currently on Ancef; Monitor response Hypertension;d/c permissive hypertension and Resume Norvasc and Cozaar Diabetes mellitus; accu-check with SSI. Resume home dose of Levemir Chronic renal insufficiency-continue with IV fluid and monitor BUN and creatinine Right arm DVT ; on Heparin drip per hematology. Hypercoagulable studies pending. CRISTINA shows low flow in left atrium so needs OAC Coumadin INR 2-3 vs Eliquis 5mg BID DVT prophylaxis; on Heparin drip Problem Qualifiers (1) Type 2 diabetes mellitus: Qualified Codes: E11.8 - Type 2 diabetes mellitus with unspecified complications; Z79.4 - FDC (current) use of insulin Keny Jj MD May 19, 2017 13:01
[2017-05-19] MEDS: LOSARTAN 50 MG TAB PO SCH (16:01)
[2017-05-20] VITALS: BP 149/72; PULSE 82; PULSE 85; RESP 16; TEMP 97.9; O2SAT 94
[2017-05-20 04:00] VITALS: BP 150/71; PULSE 81; PULSE 82; RESP 16; TEMP 97.5; O2SAT 95
[2017-05-20 08:00] VITALS: BP 153/67; PULSE 83; RESP 18; TEMP 96.3; O2SAT 99
[2017-05-20] MEDS: INSULIN ASPART SUPPLEMENTAL SCALE SQ SCH ×4 (08:00→20:46)
[2017-05-20] MEDS: ASPIRIN EC 81 MG TABEC PO SCH (08:19)
[2017-05-20] MEDS: LOSARTAN 50 MG TAB PO SCH (08:19)
[2017-05-20] MEDS: SODIUM CHLORIDE 0.9% FLUSH 10 ML FLUSH IV FLUSH SCH ×2 (08:20→20:46)
[2017-05-20] MEDS: ATORVASTATIN 80 MG TAB PO SCH (08:20)
--- NOTE | 2017-05-20 08:55 | PD.ONC.PN ---
Subjective Subjective Remarks Patient seen and examined, vital signs, labs, medications and transesophageal echocardiogram results reviewed. Subjectively; the patient is more awake and alert this morning, she is attempting to converse but her baseline expressive aphasia limits my ability to comprehend and follow her conversation. The patient denies having difficulty breathing, pain, bleeding, chest pain, fevers or chills. She is presently sitting up in bed having breakfast, she's feeding herself. Objective Data Date Time Temp Pulse Resp B/P (MAP) Pulse Ox O2 Delivery O2 Flow Rate FiO2 05/20/17 08:00 96.3 83 18 153/67 (95) 99 05/20/17 04:00 97.5 81 16 150/71 (97) 95 05/20/17 04:00 82 05/20/17 00:00 85 05/20/17 00:00 97.9 82 16 149/72 (97) 94 05/19/17 20:00 97.1 84 16 149/70 (96) 98 05/19/17 17:43 97 21 05/19/17 16:00 96.8 83 18 173/89 (117) 97 05/19/17 12:00 97.8 83 18 189/88 (121) 97 05/20/17 05/20/17 05/20/17 07:00 15:00 23:00 Intake Total 0 ml Output Total 1000 ml 300 ml Balance -1000 ml -300 ml Result Diagram: 05/17/17 0757 05/17/17 0757 Laboratory Results Laboratory Tests Test 05/19/17 14:30 05/19/17 20:30 05/20/17 05:25 Activated Partial Thromboplast Time 46.2 SEC 66.8 SEC 47.5 SEC Administered Medications Medications (Trade) Dose Ordered Sig/Kaitlyn Route PRN Reason Start Time Stop Time Status Last Admin Dose Admin Sodium Chloride (NS Flush) 2 ml BID IV FLUSH 05/12/17 21:00 05/19/17 20:58 Insulin Aspart (NovoLOG SUPPLEMENTAL SCALE) 1 ACHS SLIDING SCALE SQ 05/12/17 21:00 05/18/17 08:00 Atorvastatin Calcium (Lipitor) 80 mg DAILY PO 05/13/17 09:00 05/20/17 08:20 Aspirin (Ecotrin Ec) 81 mg DAILY PO 05/13/17 08:15 05/20/17 08:19 Sodium Chloride 1,000 ml @ 75 mls/hr [id number] IV 05/13/17 08:12 05/19/17 17:35 Heparin Sodium/ Dextrose 250 ml @ 9 mls/hr TITRATE PRN IV Coagulation Management 05/13/17 19:00 05/19/17 09:15 Acetaminophen (Tylenol) 650 mg Q4H PRN PO HEADACHE/PAIN 1-10/FEVER 05/15/17 12:30 05/19/17 05:14 Ondansetron HCl (Zofran Inj) 4 mg Q6HR PRN IV PUSH NAUSEA OR VOMITING 05/17/17 05:30 05/18/17 02:45 Cefazolin Sodium 1000 mg/Sodium Chloride 100 ml @ 200 mls/hr Q12HR IV 05/19/17 21:00 05/20/17 08:20 Amlodipine Besylate (Norvasc) 10 mg DAILY PO 05/19/17 15:00 05/20/17 08:20 Losartan Potassium (Cozaar) 100 mg DAILY PO 05/19/17 15:00 05/20/17 08:19 Objective Remarks GENERAL APPEARANCE: Ms. Pedro is a middle-aged lady lying in bed. She is awake and alert, she appears to be comfortable, she is speaking fluently but her conversation is difficult to understand due to reports being used out of context. She has significant expressive aphasia. There are no signs of respiratory distress or acute illness. HEENT: Head is atraumatic, normocephalic. Conjunctivae are not pale. Sclerae are anicteric. EOMI. PERRLA. Oral exam has no pharyngeal erythema. NECK: No palpable cervical or supraclavicular lymphadenopathy. LUNGS: Good air movement bilaterally. No added breath sounds. HEART: Regular rate and rhythm, S1, S2. No obvious murmurs, rubs or gallops. ABDOMEN: Thin belly, soft, nontender, nondistended. No palpable organ enlargement. EXTREMITIES: Left Leg: No pretibial edema or calf tenderness. Right Leg: Status post right below the knee Amputation. No edema noted on the left side. NEUROLOGIC: Asleep, moving all 4 limbs spontaneously. 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 History (brought forward for continuity of care): has had strokes going back to 2011. She was on anticoagulation with warfarin up until 2014 when she suffered an intraparenchymal hemorrhage within the brain involving the left temporoparietal lobe. Her INR at that time was 3.9. This lady was subsequently transitioned to an alternate agent, i.e. Eliquis. Her Eliquis dosing has been reduced to accommodate for her renal dysfunction. Unfortunately she has had continued recurrence of ischemic strokes and the etiology of this has not been ascertained, although cardiac thromboembolic phenomenon/events have been suspected. (2) Normocytic anemia ICD Codes: D64.9 - Anemia, unspecified Plan: Serum iron studies are within normal limits. Franklin catheter and vitamin B12 levels are within normal limits. Assessment 66y/o female with recurrent strokes despite being on anticoagulation with intermediate dose Eliquis and antiplatelet therapy with aspirin. HPI (brought forward for continuity of care): Ms. Pedro is a 66-year-old female with a history of recurrent strokes. She started having strokes in 2015. At baseline per the daughter the patient has significant expressive aphasia and at times is confused especially when meeting new people or when she is exasperated or anxious. Ms. Pedro lives on her own but relies on her daughters to be with her throughout the day. Her daughters handle all of her financial affairs and handle all of her personal affairs as well. Per the patient's daughter Ms. Pedro over the past few weeks had been unwell. The patient had a urinary tract infection and as a result was reporting abdominal pain and dizziness. The patient had an ER visit about 2 weeks ago and the patient was recommended antibiotics. Following that she developed nausea, vomiting and diarrhea. These symptoms resolved and on the day of admission, 05/12/2017, the patient was noted to be confused and unable to recognize her daughter. This was at about 12:30/1:00 p.m. on 05/12/2017. The patient was brought into the emergency department where imaging studies were performed. An MRI of the brain revealed an acute ischemic infarct involving the right occipital cortex. Carotid artery ultrasound studies performed on 05/12 revealed bilateral plaque formation with hemodynamic profile on both sides characteristic of less than 50% stenosis. The hematology service has been asked to see the patient to render an opinion regarding appropriate anticoagulation combination with antiplatelet therapy for recurrent strokes as well as to perform a possible prothrombotic work-up. Prior to this stroke the patient had been on anticoagulation with Eliquis 2.5 mg twice daily and aspirin. It should be noted the patient does have chronic renal insufficiency. In the past a prothrombotic work-up had been performed and the patient was noted in 2013 to have an intermediate circulating lupus anticoagulant. In 2013 antiphospholipid antibodies were noted to be uniformly negative. h/o Recurrent strokes. Left temporoparietal parenchymal hematoma diagnosed in June 2014. Diabetes. Hypertension. Hyperlipidemia. Peripheral arterial disease. Plan 1. Recurrent ischemic strokes with resultant aphasia, peripheral arterial disease: CRISTINA results reviewed, there is a low-flow state in the left atrium, this is a potential site of thrombus formation. No additional abnormalities were identified. The case was discussed extensively earlier today with Dr. Moore, yesterday I also spoke to Dr. Jj. The specific issue we discussed was secondary prevention of recurrent ischemic strokes. All the physicians agree that there is probably no 1 treatment combination that will be optimal in prevention of recurrent strokes and minimizing the risk of bleeding. Mrs. Pedro in the past has been on warfarin, it appears after extensive review of the medical records that she has never had documented ischemic strokes while on warfarin but she did have a significant intracranial hemorrhage while on warfarin in 2014. She has however had documented ischemic strokes while on Eliquis in combination with aspirin. It would be intuitive to recognize the risk of recurrent ischemic strokes if we resume Eliquis with aspirin in this individual. I suspect transitioning her to Rivaroxaban would likely yield the same results given the bio similarity between the 2 drugs i.e. Eliquis and Rivaroxaban. Resumption of warfarin in combination with aspirin is another consideration. This would however carry a risk of recurrent intracranial hemorrhage which may prove to be fatal. I would suggest discussing resumption of warfarin with the patient's daughter and stressing the need for very tight monitoring of her PT/INR levels while on warfarin. I have reached out to the patient's daughter and left a message to see if we could connect and discuss the treatment options going forward. Unfortunately, regardless of which therapeutic interventions we choose I'm not very optimistic that we will be able to prevent further ischemic strokes. 2. Homocysteine level results are pending at this time. 3. Antiphospholipid antibody titers are negative, circulating lupus anticoagulant is negative, factor V Leiden mutation negative, prothrombin gene mutation negative, anti-thrombin 3 levels are within normal limits. She did have slight elevation in clotting factor VIII. Protein C and protein S levels were also within normal limits. Disposition: Consider bridging to warfarin after discussing the risk of recurrent intracranial hemorrhage with the patient's daughter. I would proceed only if they understand the risk of recurrent intracranial hemorrhage while on warfarin. I will also point out that the majority of cases of intracranial hemorrhage while on warfarin occur when patients have a therapeutic INR. Nando Thacker MD May 20, 2017 08:55
[2017-05-20] MEDS ORDERED: TRESIBA SQ SCH (09:00)
--- NOTE | 2017-05-20 11:09 | HHI.PR ---
Subjective Remarks Follow-up chronic ischemic left BOLT CUTTER stroke/normochromic normocytic anemia 05/18/17-patient seen and examined, currently nothing by mouth pending CRISTINA.+ Aphasia. No acute event overnight. Daughter by the bedside. 05/19/17-patient seen and examined, improving speech and patient alert and oriented 3. No acute event overnight. CRISTINA unremarkable. 05/20/17-patient seen and examined, stable and no complaints. Good appetite. Denies any chest pain or shortness of breath Objective Vitals Vital Signs Date Time Temp Pulse Resp B/P (MAP) Pulse Ox O2 Delivery O2 Flow Rate FiO2 05/20/17 11:01 21 05/20/17 08:00 96.3 83 18 153/67 (95) 99 05/20/17 04:00 97.5 81 16 150/71 (97) 95 05/20/17 04:00 82 05/20/17 00:00 85 05/20/17 00:00 97.9 82 16 149/72 (97) 94 05/19/17 20:00 97.1 84 16 149/70 (96) 98 05/19/17 17:43 97 21 05/19/17 16:00 96.8 83 18 173/89 (117) 97 05/19/17 12:00 97.8 83 18 189/88 (121) 97 I/O 05/19/17 05/19/17 05/19/17 05/20/17 05/20/17 05/20/17 07:00 15:00 23:00 07:00 15:00 23:00 Intake Total 0 ml 340 ml 0 ml Output Total 750 ml 1000 ml 300 ml Balance 0 ml -410 ml -1000 ml -300 ml Intake Oral 0 ml 240 ml 0 ml IV Total 100 ml Output Urine Total 750 ml 1000 ml 300 ml # Voids 0 # Bowel Movements 0 0 Result Diagram: 05/17/17 0757 05/17/17 0757 Objective Remarks GENERAL: NAD SKIN: Warm and dry. HEAD: Normocephalic. EYES: No scleral icterus. No injection or drainage. NECK: Supple, trachea midline. No JVD or lymphadenopathy. CARDIOVASCULAR: Regular rate and rhythm without murmurs, gallops, or rubs. RESPIRATORY: Breath sounds equal bilaterally. No accessory muscle use. GASTROINTESTINAL: Abdomen soft, non-tender, nondistended. MUSCULOSKELETAL: No cyanosis, or edema. Right BKA; 4/5 LUE BACK: Nontender without obvious deformity. No CVA tenderness. 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 Hypercoagulable studies pending Appreciate input from neurology PT/ST consulted. CRISTINA shows low flow in left atrium so needs OAC Coumadin INR 2-3 vs Eliquis 5mg BID. Hematology to decide which anticoagulation pending discussion with patient's daughter today 05/20/17 Underlying infection / Right upper extremity cellulitis versus allergic reaction -resolved d/c Ancef; Monitor response Hypertension;s/p permissive hypertension and continue Norvasc and Cozaar Diabetes mellitus; accu-check with SSI. Resume home dose of Levemir Chronic renal insufficiency-continue with IV fluid and monitor BUN and creatinine Right arm DVT ; on Heparin drip per hematology. Hypercoagulable studies pending. CRISTINA shows low flow in left atrium so needs OAC Coumadin INR 2-3 vs Eliquis 5mg BID. Hematology to decide which anticoagulation pending discussion with patient's daughter today 05/20/17 DVT prophylaxis; on Heparin drip Problem Qualifiers (1) Type 2 diabetes mellitus: Qualified Codes: E11.8 - Type 2 diabetes mellitus with unspecified complications; Z79.4 - retirement (current) use of insulin Keny Jj MD May 20, 2017 11:09
[2017-05-20 12:00] VITALS: BP 164/73; PULSE 79; RESP 18; TEMP 97.5; O2SAT 99
[2017-05-20] MEDS: SODIUM CHLOR 0.9% 1000 ML INJ 1,000 ML IV SCH (12:40)
[2017-05-20] MEDS: HEPARIN-D5W 25,000 U/250 ML 250 ML IV PRN (14:55)
[2017-05-20 16:00] VITALS: BP 143/65; PULSE 86; RESP 18; TEMP 97.1; O2SAT 99
[2017-05-20 20:00] VITALS: BP 189/77; PULSE 84; PULSE 95; RESP 20; TEMP 96.3; O2SAT 100
[2017-05-21] VITALS (8 sets, daily range): BP systolic 144–184; BP diastolic 67–81; PULSE 80–118; RESP 17–20; TEMP 96.9–98.7; O2SAT 96–99
[2017-05-21] MEDS: SODIUM CHLOR 0.9% 1000 ML INJ 1,000 ML IV SCH ×3 (02:08→20:07)
[2017-05-21] MEDS: ACETAMINOPHEN 325 MG TAB PO PRN (02:59)
--- NOTE | 2017-05-21 07:59 | HHI.PR ---
Subjective Remarks awake alert Objective Vital Signs Date Time Temp Pulse Resp B/P (MAP) Pulse Ox O2 Delivery O2 Flow Rate FiO2 05/21/17 04:13 109 05/21/17 04:10 98.4 111 18 152/70 (97) 99 05/21/17 00:14 94 05/21/17 00:00 98.0 88 20 152/68 (96) 99 05/20/17 20:00 95 05/20/17 20:00 96.3 84 20 189/77 (114) 100 05/20/17 16:00 97.1 86 18 143/65 (91) 99 05/20/17 12:00 97.5 79 18 164/73 (103) 99 05/20/17 11:01 21 05/20/17 08:00 96.3 83 18 153/67 (95) 99 I/O 05/20/17 05/20/17 05/20/17 05/21/17 05/21/17 05/21/17 07:00 15:00 23:00 07:00 15:00 23:00 Intake Total 0 ml 1350 ml 480 ml 1360 ml Output Total 1000 ml 300 ml Balance -1000 ml 1050 ml 480 ml 1360 ml Intake Oral 0 ml 480 ml 360 ml IV Total 1350 ml 1000 ml Output Urine Total 1000 ml 300 ml # Voids 3 3 Result Diagram: 05/17/17 0757 05/17/17 0757 Objective Remarks moves all 4 ext well awake alert follows some comands talking for me looks a lot better had zapata yest Assessment and Plan Assessment and Plan imp now on hep drip will defer to heme and med team on anticoag as in my consult note but needs change with mult old cva and new one now her esr>140 and was 92 in 2014 crp up some will defer to heme about what they think is there some underlying inflammatory or auto immune cdz? echo neg could consider devyn she had neg rheum agee in past unclear if worth redoing something unusual going on here though besides just mult cva from neuro point of view can dc when heme clears and anticoag differently fu eeg pend for devyn today could consider temp artery bx as has been having zapata i dw heme dr alcala case on wednesday repeat mri wednesday neg new 05/18/17 eeg neg repeat esr ordered no evidence of ta now devyn today unclear to me why vomit issue ? from narcotics i dced looks better today on asa and iv hep ? zantac needed? 05/19/17 looks well no baptism tenderness repeat esr 90 clinically not TA but med team could consider temporal artery bx if no other reason for inc esr found devyn shos low flow in left atrium so needs anticaogulation homocystein ue needs folic acid started for anticoag she could do coumadin with inr 2-3 or eliquis at 5 bid dose if ok with heme as renal fx up but had cva on 2.5 bid eliquis so cannot stay on that dose 05/21/[address] alcala yest no cva on coumadin had ich with inr 3.9 i rec restart coumadin and daughter will have to follow it closely and be instrument person and make sure she takes med daily and properly and follows no green diet dr alcala could follow also i am recommending bilat temp artery bx for inc esr and hx zapata and mult cva i would rec med team consult gen surgery and do this wednesday and could start coumadin back up wednesday night keep inr 2-2.5 Darrius Moore MD May 21, 2017 07:59
[2017-05-21] MEDS: INSULIN ASPART SUPPLEMENTAL SCALE SQ SCH ×4 (08:00→20:06)
[2017-05-21] MEDS: ASPIRIN EC 81 MG TABEC PO SCH (09:00)
[2017-05-21] MEDS: SODIUM CHLORIDE 0.9% FLUSH 10 ML FLUSH IV FLUSH SCH ×2 (09:00→20:06)
[2017-05-21] MEDS: LOSARTAN 50 MG TAB PO SCH (09:00)
[2017-05-21] MEDS: ATORVASTATIN 80 MG TAB PO SCH (09:00)
--- NOTE | 2017-05-21 11:24 | HHI.PR ---
Subjective Remarks Follow-up chronic ischemic left GARMENT MENDER stroke/normochromic normocytic anemia 05/18/17-patient seen and examined, currently nothing by mouth pending CRISTINA.+ Aphasia. No acute event overnight. Daughter by the bedside. 05/19/17-patient seen and examined, improving speech and patient alert and oriented 3. No acute event overnight. CRISTINA unremarkable. 05/20/17-patient seen and examined, stable and no complaints. Good appetite. Denies any chest pain or shortness of breath 05/21/17-patient seen and examined, denies any headaches. No acute event overnight Objective Vitals Vital Signs Date Time Temp Pulse Resp B/P (MAP) Pulse Ox O2 Delivery O2 Flow Rate FiO2 05/21/17 08:00 96.9 85 17 178/81 (113) 98 05/21/17 04:13 109 05/21/17 04:10 98.4 111 18 152/70 (97) 99 05/21/17 00:14 94 05/21/17 00:00 98.0 88 20 152/68 (96) 99 05/20/17 20:00 95 05/20/17 20:00 96.3 84 20 189/77 (114) 100 05/20/17 16:00 97.1 86 18 143/65 (91) 99 05/20/17 12:00 97.5 79 18 164/73 (103) 99 I/O 05/20/17 05/20/17 05/20/17 05/21/17 05/21/17 05/21/17 07:00 15:00 23:00 07:00 15:00 23:00 Intake Total 0 ml 1350 ml 480 ml 1360 ml Output Total 1000 ml 300 ml Balance -1000 ml 1050 ml 480 ml 1360 ml Intake Oral 0 ml 480 ml 360 ml IV Total 1350 ml 1000 ml Output Urine Total 1000 ml 300 ml # Voids 3 3 Result Diagram: 05/17/17 0757 05/17/17 0757 Objective Remarks GENERAL: NAD SKIN: Warm and dry. HEAD: Normocephalic. EYES: No scleral icterus. No injection or drainage. NECK: Supple, trachea midline. No JVD or lymphadenopathy. CARDIOVASCULAR: Regular rate and rhythm without murmurs, gallops, or rubs. RESPIRATORY: Breath sounds equal bilaterally. No accessory muscle use. GASTROINTESTINAL: Abdomen soft, non-tender, nondistended. MUSCULOSKELETAL: No cyanosis, or edema. Right BKA; 4/5 LUE BACK: Nontender without obvious deformity. No CVA tenderness. 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 Hypercoagulable studies pending Appreciate input from neurology PT/ST consulted. CRISTINA shows low flow in left atrium so needs OAC Coumadin vs Eliquis 5mg BID. H/o MARQUEZ Currently patient denies any MARQUEZ; however in the face of multiple CVA and elevated ESR Neurology recommended biopsy of temporal artery Although there is no evidence of Temporal arteritis at this time, will consult General surgery for evaluation for possible biopsy Will hold on started any steroid because I doubt this is Giant cell arthritis Underlying infection / Right upper extremity cellulitis versus allergic reaction -resolved d/c Ancef; Monitor response Hypertension;s/p permissive hypertension and continue Norvasc and Cozaar Diabetes mellitus; accu-check with SSI. Resume home dose of Levemir Chronic renal insufficiency-continue with IV fluid and monitor BUN and creatinine Right arm DVT ; on Heparin drip per hematology. Hypercoagulable studies pending. CRISTINA shows low flow in left atrium so needs OAC Coumadin vs Eliquis 5mg BID. 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
--- NOTE | 2017-05-21 19:06 | MB ---
cc: Moise Wick MD DATE OF CONSULT: 05/21/2017 REASON FOR CONSULTATION: Temporal artery biopsy. HISTORY OF PRESENT ILLNESS: The patient is an extremely complex 66-year-old female who has had history of multiple CVAs and most recently, on admission on 05/12, had expressive aphasia. This appears to have resolved and the patient was quite conversant today; however, I have been asked to see the patient for an elevated SED rate and to rule out temporal arteritis. Patient reports a very minimal headache and nothing severe. I have reviewed patient's laboratory values and I cannot find a SED rate on present labs. The patient does have multiple other medical problems. She previously was on Coumadin and had intracranial hemorrhage and thus was changed over to Eliquis. When she was on this, she had another stroke. I have been asked to see the patient to consider temporal artery biopsy. The patient is currently on a heparin drip and plans are being made to convert her over potentially to Coumadin. PAST MEDICAL HISTORY: Extensive and includes hypertension, diabetes mellitus, chronic renal disease with renal dysfunction, CVA with some residual weakness and expressive aphasia, right [id number] amputation as a result of diabetic complication, history of C. difficile colitis 04/2016, history of UTIs. PAST SURGERIES: Include cholecystectomy, , right BK amputation, feeding tube placement. PATIENT HAS ALLERGY TO AMOXICILLIN, WHICH CAUSES HIVES, AND CIPROFLOXACIN, WHICH CAUSES HIVES. SOCIAL HISTORY: The patient has never smoked or abused alcohol. PHYSICAL EXAMINATION: Reveals a thin female, in no acute distress. VITALS: BP 184/76, pulse 86, respirations 17, temp 97.4, 96% saturation on room air. Sclerae are anicteric. Pupils are reactive. NECK: Supple. There is no preauricular tenderness to tapping or palpation. There is normal strength in both upper extremities and both lower extremities in the upper leg. The patient has a right [id number] amputation. No aphasia noted on today's exam. LABORATORY VALUES: Demonstrate most recently, WBCs of 8.1, platelets of 228,000. Chemistries demonstrate persistent renal dysfunction with BUN of 23, creatinine of 2.24, potassium is 5.3. CT scan of the head on 05/12 demonstrates no new findings. MRA on the same date demonstrated no evidence aneurysm or vascular malformation. ASSESSMENT: Repeated cerebrovascular accident with possible cardiac origin. Patient had lunch today and is currently on a heparin drip. We will be unable to perform any surgery today. Will plan for possibly providing a specimen on Wednesday; if anything was done later this afternoon or this evening, it would not change her outcome or management. We will see how she does over the weekend and will potentially consider some intervention on Wednesday if all physicians feel it would provide benefit and change her medical management. MD HEMA Bright/SB , 02:35 PM , 07:04 PM
[2017-05-21] MEDS: HEPARIN-D5W 25,000 U/250 ML 250 ML IV PRN (20:05)
--- NOTE | 2017-05-21 20:46 | HHI.PR ---
Addendum to Inpatient Note Addendum Reason: Additional Documentation Additional Information Case discussed with Dr Thacker and he recommended that patient be started on Plavix 75 mg daily and ASA 162mg daily instead of Coumadin, as per the wishes of patient's daughter after this was discussed with her by Oncology. Patient's daughter recommended against Coumadin Keny jJ MD May 21, 2017 20:46
[2017-05-22] VITALS (7 sets, daily range): BP systolic 138–191; BP diastolic 59–86; PULSE 81–92; RESP 16–20; TEMP 96.1–98.3; O2SAT 97–100
[2017-05-22] MEDS: INSULIN ASPART SUPPLEMENTAL SCALE SQ SCH ×4 (08:00→21:00)
[2017-05-22] MEDS: ATORVASTATIN 80 MG TAB PO SCH (08:30)
[2017-05-22] MEDS: ASPIRIN EC 81 MG TABEC PO SCH (08:31)
[2017-05-22] MEDS: SODIUM CHLORIDE 0.9% FLUSH 10 ML FLUSH IV FLUSH SCH ×2 (08:31→21:00)
[2017-05-22] MEDS: LOSARTAN 50 MG TAB PO SCH (08:31)
--- NOTE | 2017-05-22 11:47 | PD.ONC.PN ---
Subjective Subjective Remarks Afebrile Pt reports headache is completely gone Denies bleeding Heparin currently on hold d/t supratherapeutic APTT Objective Data Date Time Temp Pulse Resp B/P (MAP) Pulse Ox O2 Delivery O2 Flow Rate FiO2 05/22/17 08:00 96.5 84 17 191/75 (113) 97 05/22/17 04:00 98.1 84 18 143/65 (91) 98 05/22/17 00:00 98.3 86 20 173/86 (115) 97 05/21/17 20:00 98.7 80 18 144/67 (92) 99 05/21/17 16:00 97.6 118 17 170/80 (110) 96 05/21/17 12:00 97.4 86 17 184/76 (112) 96 05/22/17 05/22/17 05/22/17 07:00 15:00 23:00 Intake Total 360 ml Balance 360 ml Laboratory Results Laboratory Tests Test 05/21/17 17:41 05/22/17 08:36 Erythrocyte Sedimentation Rate 84 mm/hr Activated Partial Thromboplast Time 85.7 SEC Administered Medications Medications (Trade) Dose Ordered Sig/Kaitlyn Route PRN Reason Start Time Stop Time Status Last Admin Dose Admin Sodium Chloride (NS Flush) 2 ml BID IV FLUSH 05/12/17 21:00 05/22/17 08:31 Insulin Aspart (NovoLOG SUPPLEMENTAL SCALE) 1 ACHS SLIDING SCALE SQ 05/12/17 21:00 05/21/17 20:06 Atorvastatin Calcium (Lipitor) 80 mg DAILY PO 05/13/17 09:00 05/22/17 08:30 Aspirin (Ecotrin Ec) 81 mg DAILY PO 05/13/17 08:15 05/22/17 08:31 Sodium Chloride 1,000 ml @ 75 mls/hr [id number] IV 05/13/17 08:12 05/21/17 16:06 Heparin Sodium/ Dextrose 250 ml @ 9 mls/hr TITRATE PRN IV Coagulation Management 05/13/17 19:00 05/21/17 20:05 Magnesium Hydroxide (Milk Of Magnesia Liq) 30 ml Q6H PRN PO CONSTIPATION 05/14/17 10:45 05/21/17 02:59 Acetaminophen (Tylenol) 650 mg Q4H PRN PO HEADACHE/PAIN 1-10/FEVER 05/15/17 12:30 05/21/17 02:59 Ondansetron HCl (Zofran Inj) 4 mg Q6HR PRN IV PUSH NAUSEA OR VOMITING 05/17/17 05:30 05/18/17 02:45 Amlodipine Besylate (Norvasc) 10 mg DAILY PO 05/19/17 15:00 05/22/17 08:31 Losartan Potassium (Cozaar) 100 mg DAILY PO 05/19/17 15:00 05/22/17 08:31 Objective Remarks GENERAL: Older female resting in bed in no obvious distress SKIN: Warm and dry. HEAD: Normocephalic. EYES: No injection or drainage. NECK: Supple, trachea midline. CARDIOVASCULAR: Regular rate and rhythm RESPIRATORY: Breath sounds equal bilaterally. No accessory muscle use. GASTROINTESTINAL: Abdomen soft, non-tender, nondistended. EXTREMITIES: No edema to left lower extremity. Right lower extremity has above knee amputation MUSCULOSKELETAL: Adequate muscle tone. NEUROLOGICAL: Normal speech. Moving all extremities. Assessment/Plan Problem List: (1) Chronic ischemic left CUSTOMS CONSULTANT stroke ICD Codes: Z86.73 - Chronic ischemic left CUSTOMS CONSULTANT stroke Status: Acute Plan: --on heparin gtt and antiplatelet therapy. History (brought forward for continuity of care): has had strokes going back to 2011. She was on anticoagulation with warfarin up until 2014 when she suffered an intraparenchymal hemorrhage within the brain involving the left temporoparietal lobe. Her INR at that time was 3.9. This lady was subsequently transitioned to an alternate agent, i.e. Eliquis. Her Eliquis dosing has been reduced to accommodate for her renal dysfunction. Unfortunately she has had continued recurrence of ischemic strokes and the etiology of this has not been ascertained, although cardiac thromboembolic phenomenon/events have been suspected. (2) Normocytic anemia ICD Codes: D64.9 - Anemia, unspecified Plan: Serum iron studies are within normal limits. Franklin catheter and vitamin B12 levels are within normal limits. Assessment 66y/o female with recurrent strokes despite being on anticoagulation with intermediate dose Eliquis and antiplatelet therapy with aspirin. HPI (brought forward for continuity of care): Ms. Pedro is a 66-year-old female with a history of recurrent strokes. She started having strokes in 2016. At baseline per the daughter the patient has significant expressive aphasia and at times is confused especially when meeting new people or when she is exasperated or anxious. Ms. Pedro lives on her own but relies on her daughters to be with her throughout the day. Her daughters handle all of her financial affairs and handle all of her personal affairs as well. Per the patient's daughter Ms. Pedro over the past few weeks had been unwell. The patient had a urinary tract infection and as a result was reporting abdominal pain and dizziness. The patient had an ER visit about 2 weeks ago and the patient was recommended antibiotics. Following that she developed nausea, vomiting and diarrhea. These symptoms resolved and on the day of admission, 05/12/2017, the patient was noted to be confused and unable to recognize her daughter. This was at about 12:30/1:00 p.m. on 05/12/2017. The patient was brought into the emergency department where imaging studies were performed. An MRI of the brain revealed an acute ischemic infarct involving the right occipital cortex. Carotid artery ultrasound studies performed on 05/12 revealed bilateral plaque formation with hemodynamic profile on both sides characteristic of less than 50% stenosis. The hematology service has been asked to see the patient to render an opinion regarding appropriate anticoagulation combination with antiplatelet therapy for recurrent strokes as well as to perform a possible prothrombotic work-up. Prior to this stroke the patient had been on anticoagulation with Eliquis 2.5 mg twice daily and aspirin. It should be noted the patient does have chronic renal insufficiency. In the past a prothrombotic work-up had been performed and the patient was noted in 2013 to have an intermediate circulating lupus anticoagulant. In 2013 antiphospholipid antibodies were noted to be uniformly negative. h/o Recurrent strokes. Left temporoparietal parenchymal hematoma diagnosed in June 2014. Diabetes. Hypertension. Hyperlipidemia. Peripheral arterial disease. Plan 1. Continue heparin gtt for now. If she is not going to have biopsy for possible temporal arteritis will transition her on Plavix with aspirin. Defer to neurology for definitive plans for biopsy. 2. Monitor CBC, coags. Shreya Mcclure May 22, 2017 11:46
--- NOTE | 2017-05-22 12:00 | HHI.PR ---
Subjective Remarks Follow-up chronic ischemic left UNIT SECRETARY stroke/normochromic normocytic anemia 05/18/17-patient seen and examined, currently nothing by mouth pending CRISTINA.+ Aphasia. No acute event overnight. Daughter by the bedside. 05/19/17-patient seen and examined, improving speech and patient alert and oriented 3. No acute event overnight. CRISTINA unremarkable. 05/20/17-patient seen and examined, stable and no complaints. Good appetite. Denies any chest pain or shortness of breath 05/21/17-patient seen and examined, denies any headaches. No acute event overnight 05/22/17-patient seen and examined, denies any headache and no acute event overnight. Vitals stable. She was seen by general surgery yesterday. Objective Vitals Vital Signs Date Time Temp Pulse Resp B/P (MAP) Pulse Ox O2 Delivery O2 Flow Rate FiO2 05/22/17 08:00 96.5 84 17 191/75 (113) 97 05/22/17 04:00 98.1 84 18 143/65 (91) 98 05/22/17 00:00 98.3 86 20 173/86 (115) 97 05/21/17 20:00 98.7 80 18 144/67 (92) 99 05/21/17 16:00 97.6 118 17 170/80 (110) 96 05/21/17 12:00 97.4 86 17 184/76 (112) 96 I/O 05/21/17 05/21/17 05/21/17 05/22/17 05/22/17 05/22/17 07:00 15:00 23:00 07:00 15:00 23:00 Intake Total 1360 ml 1080 ml 360 ml Balance 1360 ml 1080 ml 360 ml Intake Oral 360 ml 1080 ml 360 ml IV Total 1000 ml # Voids 3 3 3 # Bowel Movements 0 0 Objective Remarks GENERAL: NAD SKIN: Warm and dry. HEAD: Normocephalic. EYES: No scleral icterus. No injection or drainage. NECK: Supple, trachea midline. No JVD or lymphadenopathy. CARDIOVASCULAR: Regular rate and rhythm without murmurs, gallops, or rubs. RESPIRATORY: Breath sounds equal bilaterally. No accessory muscle use. GASTROINTESTINAL: Abdomen soft, non-tender, nondistended. MUSCULOSKELETAL: No cyanosis, or edema. Right BKA; 4/5 LUE BACK: Nontender without obvious deformity. No CVA tenderness. Procedures CRISTINA 05/18/17 A/P Problem List: (1) Acute ischemic left posterior cerebral artery stroke ICD Code: I63.532 - Acute ischemic left posterior cerebral artery stroke Status: Acute (2) Normocytic anemia ICD Code: D64.9 - Anemia, unspecified (3) Type 2 diabetes mellitus ICD Code: E11.9 - Type 2 diabetes mellitus without complications Status: Chronic Assessment and Plan 66-year-old female with Chronic ischemic left UNIT SECRETARY stroke Continue with aspirin, Lipitor. On heparin drip Appreciate input from neurology PT/ST consulted. CRISTINA shows low flow in left atrium so needs OAC Coumadin vs Eliquis 5mg BID. However patient's family does not want her to be on Coumadin Likely will transition to Plavix and continue aspirin if patient doesn't go for temporal artery biopsy H/o MARQUEZ Currently patient denies any MARQUEZ; however in the face of multiple CVA and elevated ESR Neurology recommended biopsy of temporal artery Although there is no evidence of Temporal arteritis at this time Appreciate input from general surgery for consultation for possible biopsy of temporal artery Continue hold on started any steroid because I doubt this is Giant cell arthritis Underlying infection / Right upper extremity cellulitis versus allergic reaction -resolved d/c Ancef; Monitor response Hypertension;s/p permissive hypertension and continue Norvasc and Cozaar Diabetes mellitus; accu-check with SSI. Resume home dose of Levemir Chronic renal insufficiency-continue with IV fluid and monitor BUN and creatinine Right arm DVT ; on Heparin drip per hematology. CRISTINA shows low flow in left atrium so needs OAC Coumadin vs Eliquis 5mg BID. We will likely transition patient to Plavix and aspirin DVT prophylaxis; on Heparin drip Problem Qualifiers (1) Type 2 diabetes mellitus: Qualified Codes: E11.8 - Type 2 diabetes mellitus with unspecified complications; Z79.4 - intermediate (current) use of insulin Keny Jj MD May 22, 2017 12:00
--- NOTE | 2017-05-22 15:30 | RADRPT ---
EXAM DATE/TIME: 05/22/2017 14:10 [facility] COMPARISON: US ARM RIGHT VENOUS DOPPLER, August 03, 2014, 9:30. INDICATIONS : Right arm swelling. MEDICAL HISTORY : Hypercholesterolemia. Hypertension. Deep venous thrombosis. Cerebrovascular accident. Seizures. Synco pe. Numbness. Anticoagulant therapy. GERD. . Arthritis. . Diabetes. Depression. Ane lory. Measles. Cdiff. SURGICAL HISTORY : Cholecystectomy. Right below the knee amputation. ENCOUNTER: Subsequent ACUITY: 1 day PAIN SCORE: 2/10 LOCATION: Right arm. FINDINGS: Limited exam with poor visualization of the basalic and cephalic veins. Brachial and axillary vein p atent. CONCLUSION: Limited exam. No thrombus Flynn Garcia MD FACR on May 22, 2017 at 15:28 Board Certified Radiologist. This report was verified electronically.
[2017-05-22] MEDS: SODIUM CHLOR 0.9% 1000 ML INJ 1,000 ML IV SCH (18:52)
[2017-05-23] VITALS (8 sets, daily range): BP systolic 136–177; BP diastolic 63–74; PULSE 78–85; RESP 16–17; TEMP 96.9–97.5; O2SAT 97–99
[2017-05-23] MEDS: HEPARIN-D5W 25,000 U/250 ML 250 ML IV PRN (04:12)
[2017-05-23] MEDS: INSULIN ASPART SUPPLEMENTAL SCALE SQ SCH ×4 (08:00→21:00)
[2017-05-23] MEDS: LOSARTAN 50 MG TAB PO SCH (08:33)
[2017-05-23] MEDS: ATORVASTATIN 80 MG TAB PO SCH (08:34)
[2017-05-23] MEDS: ASPIRIN EC 81 MG TABEC PO SCH (08:34)
[2017-05-23] MEDS: SODIUM CHLORIDE 0.9% FLUSH 10 ML FLUSH IV FLUSH SCH ×2 (08:34→21:00)
--- NOTE | 2017-05-23 10:41 | HHI.PR ---
Subjective Remarks Follow-up chronic ischemic left MICROFILMER stroke/normochromic normocytic anemia 05/18/17-patient seen and examined, currently nothing by mouth pending CRISTINA.+ Aphasia. No acute event overnight. Daughter by the bedside. 05/19/17-patient seen and examined, improving speech and patient alert and oriented 3. No acute event overnight. CRISTINA unremarkable. 05/20/17-patient seen and examined, stable and no complaints. Good appetite. Denies any chest pain or shortness of breath 05/21/17-patient seen and examined, denies any headaches. No acute event overnight 05/22/17-patient seen and examined, denies any headache and no acute event overnight. Vitals stable. She was seen by general surgery yesterday. 05/23/17-patient seen and examined, resting comfortably and denies any headache. Afebrile Objective Vitals Vital Signs Date Time Temp Pulse Resp B/P (MAP) Pulse Ox O2 Delivery O2 Flow Rate FiO2 05/23/17 08:00 97.3 82 17 177/74 (108) 98 05/23/17 05:10 83 05/23/17 04:00 97.1 82 16 170/65 (100) 97 05/23/17 00:00 97.5 80 16 145/72 (96) 97 05/22/17 20:30 86 05/22/17 20:00 97.4 81 16 176/59 (98) 97 05/22/17 16:00 97.2 92 17 146/75 (98) 100 05/22/17 12:00 96.1 83 17 138/60 (86) 97 I/O 05/22/17 05/22/17 05/22/17 05/23/17 05/23/17 05/23/17 07:00 15:00 23:00 07:00 15:00 23:00 Intake Total 360 ml 360 ml 0 ml Balance 360 ml 360 ml 0 ml Intake Oral 360 ml 360 ml 0 ml # Voids 3 1 0 # Bowel Movements 0 0 0 Imaging Last Impressions Upper Extremity Ultrasound 05/22/17 0000 Signed Impressions: Service Date/Time: Monday, May 22, 2017 14:10 - CONCLUSION: Limited exam. No thrombus Flynn Garcia MD FACR Chest X-Ray 05/17/17 0000 Signed Impressions: Service Date/Time: Wednesday, May 17, 2017 05:53 - CONCLUSION: 1. Rotated exam with compensated cardiomegaly. Aubrey Aldrich MD Brain MRI 05/15/17 0000 Signed Impressions: Service Date/Time: Monday, May 15, 2017 09:11 - CONCLUSION: 1. Persistent small 4 mm punctate areas of suspected acute infarction at the anterior aspect of the right occipital lobe. 2. Encephalomalacia of involving the left temporal lobe. 3. Suspected encephalomalacia in signal on amount within the left cerebellar peduncle and left mid cerebellar lobe. Alton Galvez MD Head CT 05/14/17 0000 Signed Impressions: Service Date/Time: Sunday, May 14, 2017 11:59 - CONCLUSION: 1. Remote infarct left temporal lobe. No acute intracranial abnormalities on CT. Efra Banks MD Head Magnetic Resonance Angiography 05/12/17 0000 Signed Impressions: Service Date/Time: Friday, May 12, 2017 21:08 - CONCLUSION: 1. Negative examination. Reinier Garcia MD Carotid Artery Ultrasound 05/12/17 0000 Signed Impressions: Service Date/Time: Friday, May 12, 2017 17:56 - CONCLUSION: Bilateral plaque formation with hemodynamic profile on both sides characteristic of less than 50%% stenosis. Jabari Gonzalez MD Abdomen Ultrasound 05/12/17 0000 Signed Impressions: Service Date/Time: Friday, May 12, 2017 17:40 - CONCLUSION: 1. Negative exam other than left renal cyst. Jabari Gonzalez MD Objective Remarks GENERAL: NAD SKIN: Warm and dry. HEAD: Normocephalic. EYES: No scleral icterus. No injection or drainage. NECK: Supple, trachea midline. No JVD or lymphadenopathy. CARDIOVASCULAR: Regular rate and rhythm without murmurs, gallops, or rubs. RESPIRATORY: Breath sounds equal bilaterally. No accessory muscle use. GASTROINTESTINAL: Abdomen soft, non-tender, nondistended. MUSCULOSKELETAL: No cyanosis, or edema. Right BKA; 4/5 LUE BACK: Nontender without obvious deformity. No CVA tenderness. Procedures CRISTINA 05/18/17 A/P Problem List: (1) Acute ischemic left posterior cerebral artery stroke ICD Code: I63.532 - Acute ischemic left posterior cerebral artery stroke Status: Acute (2) Normocytic anemia ICD Code: D64.9 - Anemia, unspecified (3) Type 2 diabetes mellitus ICD Code: E11.9 - Type 2 diabetes mellitus without complications Status: Chronic Assessment and Plan 66-year-old female with Chronic ischemic left MICROFILMER stroke Continue with aspirin, Lipitor. On heparin drip Appreciate input from neurology PT/ST consulted. CRISTINA shows low flow in left atrium so needs OAC Coumadin vs Eliquis 5mg BID. However patient's family does not want her to be on Coumadin Likely will transition to Plavix and continue aspirin if patient doesn't go for temporal artery biopsy tomorrow 05/24/17 H/o MARQUEZ Currently patient denies any MARQUEZ; however in the face of multiple CVA and elevated ESR Neurology recommended biopsy of temporal artery Although there is no evidence of Temporal arteritis at this time Appreciate input from general surgery for consultation for possible biopsy of temporal artery Continue hold on started any steroid because I doubt this is Giant cell arthritis Underlying infection / Right upper extremity cellulitis versus allergic reaction -resolved d/c Ancef; Monitor response Hypertension;s/p permissive hypertension and continue Norvasc and Cozaar Diabetes mellitus; accu-check with SSI. Resume home dose of Levemir Chronic renal insufficiency-Improve with IV fluid and monitor BUN and creatinine Right arm DVT ; on Heparin drip per hematology. CRISTINA shows low flow in left atrium so needs OAC Coumadin vs Eliquis 5mg BID. We will likely transition patient to Plavix and aspirin tomorrow 05/24/17 DVT prophylaxis; on Heparin drip Problem Qualifiers (1) Type 2 diabetes mellitus: Qualified Codes: E11.8 - Type 2 diabetes mellitus with unspecified complications; Z79.4 - lobsterman (current) use of insulin Keny Jj MD May 23, 2017 10:41
--- NOTE | 2017-05-23 14:44 | HHI.PR ---
Subjective Subjective Notes No new findings. Discussed artery biopsy with daughter Erik (health care surrogate) Objective Vitals/I&O Vital Signs Date Time Temp Pulse Resp B/P (MAP) Pulse Ox O2 Delivery O2 Flow Rate FiO2 05/23/17 12:00 97.5 85 17 148/67 (94) 97 05/20/17 11:01 21 Labs Laboratory Tests Test 05/22/17 22:22 05/23/17 01:53 05/23/17 12:23 Activated Partial Thromboplast Time 87.8 57.8 60.5 Date/Time Source Procedure Growth Status 05/12/17 19:10 Blood Peripheral Aerobic Blood Culture - Final NO GROWTH IN 5 DAYS Complete 05/12/17 19:10 Blood Peripheral Anaerobic Blood Culture - Final NO GROWTH IN 5 DAYS Complete Lungs: Clear A/P Assessment and Plan Hold heparin in AM Hold any ASA and any other anticoagulants until after surgery at 5 PM tomorrow, 05/24 Discussed with daughter, who agrees to proceed. Likely will be negative, but will justify intermediate anticoagulation with alternative agents, as pt had CVA/bleed while on coumadin. Moise Wick MD May 23, 2017 14:44
--- NOTE | 2017-05-23 15:45 | PD.ONC.PN ---
Subjective Subjective Remarks Pt seen and examined, VS, labs, medications were reviewed. Plans for temporal artery biopsy noted, this procedure has been tentatively scheduled for the afternoon of 05/24/2017. Subjectively; the patient denies acute complaints, she tells me she feels "better". There were no acute medical issues overnight. She is currently sitting in bed with a plate of uneven food in front of her, she seems to be struggling with handling her for Knife. The patient has remained on a heparin infusion. Objective Data Date Time Temp Pulse Resp B/P (MAP) Pulse Ox O2 Delivery O2 Flow Rate FiO2 05/23/17 12:00 97.5 85 17 148/67 (94) 97 05/23/17 08:00 97.3 82 17 177/74 (108) 98 05/23/17 05:10 83 05/23/17 04:00 97.1 82 16 170/65 (100) 97 05/23/17 00:00 97.5 80 16 145/72 (96) 97 05/22/17 20:30 86 05/22/17 20:00 97.4 81 16 176/59 (98) 97 05/22/17 16:00 97.2 92 17 146/75 (98) 100 05/23/17 05/23/17 05/23/17 07:00 15:00 23:00 Intake Total 0 ml Balance 0 ml Laboratory Results Laboratory Tests Test 05/22/17 22:22 05/23/17 01:53 05/23/17 12:23 Activated Partial Thromboplast Time 87.8 SEC 57.8 SEC 60.5 SEC Administered Medications Medications (Trade) Dose Ordered Sig/Kaitlyn Route PRN Reason Start Time Stop Time Status Last Admin Dose Admin Sodium Chloride (NS Flush) 2 ml BID IV FLUSH 05/12/17 21:00 05/23/17 08:34 Insulin Aspart (NovoLOG SUPPLEMENTAL SCALE) 1 ACHS SLIDING SCALE SQ 05/12/17 21:00 05/22/17 16:56 Atorvastatin Calcium (Lipitor) 80 mg DAILY PO 05/13/17 09:00 05/23/17 08:34 Aspirin (Ecotrin Ec) 81 mg DAILY PO 05/13/17 08:15 Future hold 05/23/17 08:34 Heparin Sodium/ Dextrose 250 ml @ 9 mls/hr TITRATE PRN IV Coagulation Management 05/13/17 19:00 Future Hold 05/23/17 04:12 Magnesium Hydroxide (Milk Of Magnjosiah Liq) 30 ml Q6H PRN PO CONSTIPATION 05/14/17 10:45 05/21/17 02:59 Acetaminophen (Tylenol) 650 mg Q4H PRN PO HEADACHE/PAIN 1-10/FEVER 05/15/17 12:30 05/21/17 02:59 Ondansetron HCl (Zofran Inj) 4 mg Q6HR PRN IV PUSH NAUSEA OR VOMITING 05/17/17 05:30 05/18/17 02:45 Amlodipine Besylate (Norvasc) 10 mg DAILY PO 05/19/17 15:00 05/23/17 08:34 Losartan Potassium (Cozaar) 100 mg DAILY PO 05/19/17 15:00 05/23/17 08:33 Objective Remarks GENERAL APPEARANCE: Ms. Pedro is a middle-aged lady lying in bed. She is awake and alert, she appears to be comfortable, she is speaking fluently but her conversation is difficult to understand due to reports being used out of context. She has significant expressive aphasia. There are no signs of respiratory distress or acute illness. HEENT: Head is atraumatic, normocephalic. Conjunctivae are not pale. Sclerae are anicteric. EOMI. PERRLA. Oral exam has no pharyngeal erythema. NECK: No palpable cervical or supraclavicular lymphadenopathy. LUNGS: Good air movement bilaterally. No added breath sounds. HEART: Regular rate and rhythm, S1, S2. No obvious murmurs, rubs or gallops. ABDOMEN: Thin belly, soft, nontender, nondistended. No palpable organ enlargement. EXTREMITIES: Left Leg: No pretibial edema or calf tenderness. Right Leg: Status post right below the knee Amputation. No edema noted on the left side. NEUROLOGIC: Asleep, moving all 4 limbs spontaneously. 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 History (brought forward for continuity of care): has had strokes going back to 2011. She was on anticoagulation with warfarin up until 2014 when she suffered an intraparenchymal hemorrhage within the brain involving the left temporoparietal lobe. Her INR at that time was 3.9. This lady was subsequently transitioned to an alternate agent, i.e. Eliquis. Her Eliquis dosing has been reduced to accommodate for her renal dysfunction. Unfortunately she has had continued recurrence of ischemic strokes and the etiology of this has not been ascertained, although cardiac thromboembolic phenomenon/events have been suspected. (2) Normocytic anemia ICD Codes: D64.9 - Anemia, unspecified Plan: Serum iron studies are within normal limits. Franklin catheter and vitamin B12 levels are within normal limits. Assessment 66y/o female with recurrent strokes despite being on anticoagulation with intermediate dose Eliquis and antiplatelet therapy with aspirin. HPI (brought forward for continuity of care): Ms. Pedro is a 66-year-old female with a history of recurrent strokes. She started having strokes in 2016. At baseline per the daughter the patient has significant expressive aphasia and at times is confused especially when meeting new people or when she is exasperated or anxious. Ms. Pedro lives on her own but relies on her daughters to be with her throughout the day. Her daughters handle all of her financial affairs and handle all of her personal affairs as well. Per the patient's daughter Ms. Pedro over the past few weeks had been unwell. The patient had a urinary tract infection and as a result was reporting abdominal pain and dizziness. The patient had an ER visit about 2 weeks ago and the patient was recommended antibiotics. Following that she developed nausea, vomiting and diarrhea. These symptoms resolved and on the day of admission, 05/12/2017, the patient was noted to be confused and unable to recognize her daughter. This was at about 12:30/1:00 p.m. on 05/12/2017. The patient was brought into the emergency department where imaging studies were performed. An MRI of the brain revealed an acute ischemic infarct involving the right occipital cortex. Carotid artery ultrasound studies performed on 05/12 revealed bilateral plaque formation with hemodynamic profile on both sides characteristic of less than 50% stenosis. The hematology service has been asked to see the patient to render an opinion regarding appropriate anticoagulation combination with antiplatelet therapy for recurrent strokes as well as to perform a possible prothrombotic work-up. Prior to this stroke the patient had been on anticoagulation with Eliquis 2.5 mg twice daily and aspirin. It should be noted the patient does have chronic renal insufficiency. In the past a prothrombotic work-up had been performed and the patient was noted in 2013 to have an intermediate circulating lupus anticoagulant. In 2013 antiphospholipid antibodies were noted to be uniformly negative. h/o Recurrent strokes. Left temporoparietal parenchymal hematoma diagnosed in June 2014. Diabetes. Hypertension. Hyperlipidemia. Peripheral arterial disease. Plan 1. Continue heparin gtt for now, this will be stopped prior to the planned temporal artery biopsy on 05/24/2017. After obtaining the biopsy she may be initiated on anti-platelet therapy with Plavix and aspirin. On 05/21/2017 I had a long discussion with the patient's older daughter Miss Collins. We talked about the role of anticoagulation for management of Mrs. Pedro's recurrent strokes. There are various therapeutic options available which include Eliquis, xarelto and warfarin. I explained to the patient's daughter that the patient had developed ischemic strokes on Eliquis, increasing the dose of Eliquis from 2.5 mg twice a day to 5 mg by mouth twice a day would not be safe practice given the patient's underlying renal insufficiency. Because the patient had developed ischemic strokes while on Eliquis previously it would be optimistic to assume the patient would not have recurrent strokes if we resume this medication. I explained to the patient's daughter that Xarelto is essentially equivalent Eliquis in its mode of action and renal clearance. We talked about anticoagulation with warfarin, I reminded the patient's daughter that the patient developed a hemorrhagic stroke while on warfarin in 2014. I explained to the patient's daughter that it would be a risk to put her back on warfarin with reference to risk of recurrent intracranial hemorrhage. The patient is daughter after much thought told me that she would prefer her mother not go back on warfarin and that she be treated with an alternate anticoagulant or antiplatelet agent. She understands her mother's risk of recurrent strokes remains high regardless of what therapeutic intervention is selected. From a hematologic standpoint there is no identifiable hypercoagulable state. Her prothrombotic workup has been categorically negative. It is my opinion her ischemic strokes are cardiac/vascular in origin. I will defer selection of long-term therapeutic interventions to her neurologist and donkey doctor. Nando Thacker MD May 23, 2017 15:45
[2017-05-23] MEDS ORDERED: LACTATED RINGER'S 1000 ML IV PRN (23:30)
[2017-05-23] MEDS ORDERED: CHLORHEXIDINE GLUCONATE 2 % 1 PACK (2 CLOTHS) TOPICAL PRN (23:30)
[2017-05-23] MEDS ORDERED: METOPROLOL TARTRATE 25 MG TAB PO PRN (23:30)
[2017-05-23] MEDS ORDERED: SODIUM CHLORID 0.9% 500 ML IV PRN (23:30)
[2017-05-23] MEDS ORDERED: POVIDONE IODINE 5% (ANTISEPSIS KIT) 4 APPLICATIONS EACH NARE PRN (23:30)
[2017-05-24] VITALS (9 sets, daily range): BP systolic 138–174; BP diastolic 62–73; PULSE 72–95; RESP 16–18; TEMP 95.9–98.8; O2SAT 95–99
[2017-05-24] MEDS: INSULIN ASPART SUPPLEMENTAL SCALE SQ SCH ×4 (08:00→21:00)
[2017-05-24] MEDS: ATORVASTATIN 80 MG TAB PO SCH (08:53)
[2017-05-24] MEDS: LOSARTAN 50 MG TAB PO SCH (08:53)
[2017-05-24] MEDS: SODIUM CHLORIDE 0.9% FLUSH 10 ML FLUSH IV FLUSH SCH ×2 (08:53→21:00)
--- NOTE | 2017-05-24 11:07 | HHI.PR ---
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 No acute event overnight. Daughter by the bedside. 05/19/17-patient seen and examined, improving speech and patient alert and oriented 3. No acute event overnight. CRISTINA unremarkable. 05/20/17-patient seen and examined, stable and no complaints. Good appetite. Denies any chest pain or shortness of breath 05/21/17-patient seen and examined, denies any headaches. No acute event overnight 05/22/17-patient seen and examined, denies any headache and no acute event overnight. Vitals stable. She was seen by general surgery yesterday. 05/23/17-patient seen and examined, resting comfortably and denies any headache. Afebrile 05/24/17-patient seen and examined,NPO this AM pending temporal artery biopsy. Denies any MARQUEZ. Objective Vitals Vital Signs Date Time Temp Pulse Resp B/P (MAP) Pulse Ox O2 Delivery O2 Flow Rate FiO2 05/24/17 09:08 95 05/24/17 08:00 98.4 95 18 138/63 (88) 96 05/24/17 04:03 84 05/24/17 04:00 95.9 74 16 150/65 (93) 99 05/24/17 00:00 96.7 72 16 145/62 (89) 98 05/23/17 23:59 79 05/23/17 20:00 78 05/23/17 20:00 96.9 79 16 147/64 (91) 99 05/23/17 16:00 97.0 82 17 136/63 (87) 97 05/23/17 12:00 97.5 85 17 148/67 (94) 97 I/O 05/23/17 05/23/17 05/23/17 05/24/17 05/24/17 05/24/17 07:00 15:00 23:00 07:00 15:00 23:00 Intake Total 0 ml 1093 ml 67 ml Balance 0 ml 1093 ml 67 ml Intake Oral 0 ml 960 ml 0 ml IV Total 133 ml 67 ml # Voids 0 3 2 # Bowel Movements 0 0 1 Imaging Last Impressions Upper Extremity Ultrasound 05/22/17 0000 Signed Impressions: Service Date/Time: Monday, May 22, 2017 14:10 - CONCLUSION: Limited exam. No thrombus Flynn Garcia MD FACR Chest X-Ray 05/17/17 0000 Signed Impressions: Service Date/Time: Wednesday, May 17, 2017 05:53 - CONCLUSION: 1. Rotated exam with compensated cardiomegaly. Aubrey Aldrich MD Brain MRI 05/15/17 0000 Signed Impressions: Service Date/Time: Monday, May 15, 2017 09:11 - CONCLUSION: 1. Persistent small 4 mm punctate areas of suspected acute infarction at the anterior aspect of the right occipital lobe. 2. Encephalomalacia of involving the left temporal lobe. 3. Suspected encephalomalacia in signal on amount within the left cerebellar peduncle and left mid cerebellar lobe. Alton Galvez MD Head CT 05/14/17 0000 Signed Impressions: Service Date/Time: Sunday, May 14, 2017 11:59 - CONCLUSION: 1. Remote infarct left temporal lobe. No acute intracranial abnormalities on CT. Efra Banks MD Head Magnetic Resonance Angiography 05/12/17 0000 Signed Impressions: Service Date/Time: Friday, May 12, 2017 21:08 - CONCLUSION: 1. Negative examination. Reinier Garcia MD Carotid Artery Ultrasound 05/12/17 0000 Signed Impressions: Service Date/Time: Friday, May 12, 2017 17:56 - CONCLUSION: Bilateral plaque formation with hemodynamic profile on both sides characteristic of less than 50%% stenosis. Jabari Gonzalez MD Abdomen Ultrasound 05/12/17 0000 Signed Impressions: Service Date/Time: Friday, May 12, 2017 17:40 - CONCLUSION: 1. Negative exam other than left renal cyst. Jabari Gonzalez MD Objective Remarks GENERAL: NAD SKIN: Warm and dry. HEAD: Normocephalic. EYES: No scleral icterus. No injection or drainage. NECK: Supple, trachea midline. No JVD or lymphadenopathy. CARDIOVASCULAR: Regular rate and rhythm without murmurs, gallops, or rubs. RESPIRATORY: Breath sounds equal bilaterally. No accessory muscle use. GASTROINTESTINAL: Abdomen soft, non-tender, nondistended. MUSCULOSKELETAL: No cyanosis, or edema. Right BKA; 4/5 LUE BACK: Nontender without obvious deformity. No CVA tenderness. 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 On heparin drip Appreciate input from neurology PT/ST consulted. CRISTINA shows low flow in left atrium so needs OAC Coumadin vs Eliquis 5mg BID. However patient's family does not want her to be on Coumadin Will transition to Plavix and continue aspirin after temporal artery biopsy today 05/24/17 H/o MARQUEZ Currently patient denies any MARQUEZ; however in the face of multiple CVA and elevated ESR Neurology recommended biopsy of temporal artery Although there is no evidence of Temporal arteritis at this time Appreciate input from general surgery Plan for Temporal artery biopsy today 05/24/17 Continue hold on started any steroid because I doubt this is Giant cell arthritis Underlying infection / Right upper extremity cellulitis versus allergic reaction -resolved d/c Ancef; Monitor response Hypertension;s/p permissive hypertension and continue Norvasc and Cozaar Diabetes mellitus; accu-check with SSI. Continue home dose of Levemir Chronic renal insufficiency-Improve with IV fluid and monitor BUN and creatinine Right arm DVT ; on Heparin drip per hematology. CRISTINA shows low flow in left atrium so needs OAC Coumadin vs Eliquis 5mg BID. Will transition patient to Plavix and aspirin today 05/24/17 DVT prophylaxis; Heparin drip currently on Hold pending temporal artery biopsy Problem Qualifiers (1) Type 2 diabetes mellitus: Qualified Codes: E11.8 - Type 2 diabetes mellitus with unspecified complications; Z79.4 - senior living (current) use of insulin Keny Jj MD May 24, 2017 11:07
[2017-05-24] MEDS ORDERED: LIDOCAINE 1%/EPINEPHrine 1:100,000 SOLN 30 ML VIAL ONE (16:18)
[2017-05-24] MEDS ORDERED: LIDOCAINE HCL 1% PF 10 ML VIAL ONE (16:18)
[2017-05-24] MEDS ORDERED: SODIUM BICARBONATE 8.4% INJ 50 ML ONE (16:18)
[2017-05-25] VITALS: BP 176/74; PULSE 83; RESP 18; TEMP 98.4; O2SAT 95
[2017-05-25] MEDS ORDERED: cloNIDine HCL 0.1 MG TAB PO ONE (01:30)
[2017-05-25 04:00] VITALS: BP 180/75
[2017-05-25] MEDS ORDERED: SODIUM BICARBONATE 8.4% INJ 0 ML ONE (07:25)
[2017-05-25] MEDS ORDERED: LIDOCAINE 1%/EPINEPHrine 1:100,000 SOLN 50 ML VIAL ONE (07:25)
[2017-05-25] MEDS ORDERED: LIDOCAINE HCL 1% 50 ML VIAL ONE (07:43)
[2017-05-25 08:00] VITALS: BP 131/62; PULSE 84; RESP 19; TEMP 97.3; O2SAT 96
[2017-05-25] MEDS: INSULIN ASPART SUPPLEMENTAL SCALE SQ SCH ×4 (08:00→20:26)
[2017-05-25 08:37] LABS: AUTOMATED NEUTROPHIL # 6.8 TH/MM3 (1.8-7.7); BASOPHIL # 0.1 TH/MM3 (0-0.2); BASOPHIL % 0.7 % (0.0-2.0); EOSINOPHIL # 0.2 TH/MM3 (0-0.4); EOSINOPHIL % 1.6 % (0.0-4.0); HEMATOCRIT 26.9 % (35.0-46.0); LYMPH % 22.2 % (9.0-44.0); LYMPHOCYTE # 2.2 TH/MM3 (1.0-4.8); MEAN CELL VOLUME 91.5 FL (80.0-100.0); MEAN CORPUSCULAR HEMOGLOBIN 30.7 PG (27.0-34.0); MEAN CORPUSCULAR HGB CONC 33.6 % (32.0-36.0); MEAN PLATELET VOLUME 8.7 FL (7.0-11.0); MONOCYTE # 0.5 TH/MM3 (0-0.9); NEUT % 70.5 % (16.0-70.0); PLATELET COUNT 282 TH/MM3 (150-450); RED BLOOD COUNT 2.94 MIL/MM3 (4.00-5.30); RED CELL DISTRIBUTION WIDTH 14.3 % (11.6-17.2); WHITE BLOOD COUNT 9.7 TH/MM3 (4.0-11.0)
[2017-05-25] MEDS: ATORVASTATIN 80 MG TAB PO SCH (08:52)
[2017-05-25] MEDS: LOSARTAN 50 MG TAB PO SCH (08:52)
[2017-05-25] MEDS: SODIUM CHLORIDE 0.9% FLUSH 10 ML FLUSH IV FLUSH SCH ×2 (08:52→20:26)
[2017-05-25] MEDS: ASPIRIN EC 81 MG TABEC PO SCH (08:53)
[2017-05-25 08:58] LABS: BICARBONATE 27.7 MEQ/L (21.0-32.0); CALCIUM 8.6 MG/DL (8.5-10.1); CREATININE 2.44 MG/DL (0.50-1.00)
[2017-05-25] MEDS ORDERED: DEXMEDETOMIDINE HCL 200 MCG/2 ML VIAL ONE (10:33)
[2017-05-25] MEDS ORDERED: ACETAMINOPHEN 1000 MG/100 ML 100 ML IV ONE (10:33)
--- NOTE | 2017-05-25 11:18 | HHI.PR ---
Subjective Remarks Follow-up chronic ischemic left APPLIANCE TESTER stroke/normochromic normocytic anemia 05/18/17-patient seen and examined, currently nothing by mouth pending CRISTINA.+ Aphasia. No acute event overnight. Daughter by the bedside. 05/19/17-patient seen and examined, improving speech and patient alert and oriented 3. No acute event overnight. CRISTINA unremarkable. 05/20/17-patient seen and examined, stable and no complaints. Good appetite. Denies any chest pain or shortness of breath 05/21/17-patient seen and examined, denies any headaches. No acute event overnight 05/22/17-patient seen and examined, denies any headache and no acute event overnight. Vitals stable. She was seen by general surgery yesterday. 05/23/17-patient seen and examined, resting comfortably and denies any headache. Afebrile 05/24/17-patient seen and examined,NPO this AM pending temporal artery biopsy. Denies any MARQUEZ. 05/24/17-patient seen and examined, no complaint this AM. NPO this AM. Resting comfortably in bed Objective Vitals Vital Signs Date Time Temp Pulse Resp B/P (MAP) Pulse Ox O2 Delivery O2 Flow Rate FiO2 05/25/17 08:00 97.3 84 19 131/62 (85) 96 05/25/17 04:00 180/75 (110) 05/25/17 00:00 98.4 83 18 176/74 (108) 95 05/24/17 20:00 98.8 95 18 174/73 (106) 96 05/24/17 16:00 97.4 90 16 142/67 (92) 97 05/24/17 15:09 94 05/24/17 12:00 97.4 91 17 146/64 (91) 95 I/O 05/24/17 05/24/17 05/24/17 05/25/17 05/25/17 05/25/17 07:00 15:00 23:00 07:00 15:00 23:00 Intake Total 67 ml 0 ml 0 ml 0 ml Output Total 300 ml 0 ml Balance 67 ml -300 ml 0 ml 0 ml Intake Oral 0 ml 0 ml 0 ml 0 ml IV Total 67 ml Output Urine Total 300 ml 0 ml # Voids 2 4 # Bowel Movements 1 2 Result Diagram: 05/25/17 0805/25/17 08 Objective Remarks GENERAL: NAD SKIN: Warm and dry. HEAD: Normocephalic. EYES: No scleral icterus. No injection or drainage. NECK: Supple, trachea midline. No JVD or lymphadenopathy. CARDIOVASCULAR: Regular rate and rhythm without murmurs, gallops, or rubs. RESPIRATORY: Breath sounds equal bilaterally. No accessory muscle use. GASTROINTESTINAL: Abdomen soft, non-tender, nondistended. MUSCULOSKELETAL: No cyanosis, or edema. Right BKA; 4/5 LUE BACK: Nontender without obvious deformity. No CVA tenderness. 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 heparin drip on hold Appreciate input from neurology PT/ST consulted. CRISTINA shows low flow in left atrium so needs OAC Coumadin vs Eliquis 5mg BID. However patient's family does not want her to be on Coumadin Will transition to Plavix and continue aspirin after temporal artery biopsy today 05/25/17 H/o MARQUEZ Currently patient denies any MARQUEZ; however in the face of multiple CVA and elevated ESR Neurology recommended biopsy of temporal artery Although there is no evidence of Temporal arteritis at this time Appreciate input from general surgery Plan for Temporal artery biopsy today 05/25/17 Continue hold on started any steroid because I doubt this is Giant cell arthritis Underlying infection / Right upper extremity cellulitis versus allergic reaction -resolved d/c Ancef; Monitor response Hypertension;s/p permissive hypertension and continue Norvasc and Cozaar Diabetes mellitus; accu-check with SSI. Continue home dose of Levemir Chronic renal insufficiency-Improve with IV fluid and monitor BUN and creatinine Right arm DVT ; on Heparin drip per hematology. CRISTINA shows low flow in left atrium so needs OAC Coumadin vs Eliquis 5mg BID. Will transition patient to Plavix and aspirin today 05/25/17 DVT prophylaxis; Heparin drip currently on Hold pending temporal artery biopsy Problem Qualifiers (1) Type 2 diabetes mellitus: Qualified Codes: E11.8 - Type 2 diabetes mellitus with unspecified complications; Z79.4 - [facility] (current) use of insulin Keny Jj MD May 25, 2017 11:18
[2017-05-25] MEDS ORDERED: PROPOFOL 200 MG/20 ML AMP IV ONE (12:00)
[2017-05-25] MEDS ORDERED: PHENYLEPH/NS 1000 MCG/10 ML SYR IV ONE (12:00)
[2017-05-25] MEDS ORDERED: ONDANSETRON HCL 4 MG/2 ML VIAL IV ONE (12:00)
[2017-05-25] MEDS ORDERED: GLYCOPYRROLATE 1 MG/5 ML SYRINGE IV PUSH ONE (12:00)
[2017-05-25] MEDS ORDERED: LIDOCAINE HCL 1% PF 5 ML SYRINGE OTHER ONE (12:00)
--- NOTE | 2017-05-25 12:00 | HHI.PR ---
cc: Moise Wick MD Immediate Post Op Note Procedure Date: May 25, 2017 Pre Op Diagnosis: Headaches, R/O temporal arteritis Post Op Diagnosis: Same Surgeon: Moise Wick System Architect(s): None Procedure: Left temporal artery biopsy Complications: None Specimen(s) removed: Left temporal artery to pathology Estimated blood loss: 10 ml Anesthesia: LMA Drains: None IVF (300 ml) Patient to: PACU Patient Condition: Good Date/Time of Procedure: SEE SURGICAL CARE RECORD Moise Wick MD May 25, 2017 12:00
--- NOTE | 2017-05-25 12:40 | MP ---
cc: Moise Wick MD, David J MD DATE OF OPERATION: 05/25/2017 DATE OF PROCEDURE: 05/25/2017 PROCEDURE PERFORMED: Left temporal artery biopsy. PREOPERATIVE DIAGNOSIS: Headaches with previous history of cerebrovascular accidents, rule out temporal arteritis. POSTOPERATIVE DIAGNOSIS: Headaches with previous history of cerebrovascular accidents, rule out temporal arteritis. ANESTHESIA: LMA. SURGEON: Moise Wick MD ESTIMATED BLOOD LOSS: 10 mL. FLUIDS: 300 mL crystalloid. COMPLICATIONS: None. DRAINS: None. SPECIMEN: Left temporal artery to pathology. PROCEDURE IN DETAIL: The patient was taken to the operating room after marking the left side and confirming this with the team. She was placed on the operating table in the supine position. Laryngeal mask anesthesia was instituted. The left side was shaved, prepped and draped. Timeout was taken, confirming the correct patient, site, and procedure to be performed. Incision was made after injecting with local anesthetic in front of the ear and dissection carried down to the artery. Doppler confirmed position of the artery. The distal artery was first located and this was ligated and divided. The artery was then dissected further medially and the temporal vein was ligated and divided to take it off of the artery. The artery was further dissected with the surrounding tissue and when this was completely excised, the artery was ligated with 3-0 silk suture and divided. The specimen was passed off the table and placed into formalin immediately. The wound was reexamined and with hemostasis assured, the wound was closed in 2 layers with interrupted 3-0 Vicryl suture and 5-0 PDS in a running subcuticular fashion. The wound was dressed with Steri-Strips. The patient was extubated and taken back to the recovery room in stable condition. Sponge, needle and instrument counts were reported to be correct. MD HEMA Bright/KD , 12:09 PM , 12:39 PM
[2017-05-25] MEDS ORDERED: DO NOT ADM ANY ANTICOAGULANT DRUGS PRN (13:30)
[2017-05-25 16:00] VITALS: BP 123/72; PULSE 72; RESP 18; TEMP 97.2; O2SAT 98
[2017-05-25] MEDS: HEPARIN-D5W 25,000 U/250 ML 250 ML IV PRN (18:29)
[2017-05-25 20:00] VITALS: BP 131/68; PULSE 76; RESP 18; TEMP 97.5; O2SAT 99
[2017-05-26] VITALS: BP 135/60; PULSE 74; PULSE 80; RESP 18; TEMP 96.3; O2SAT 100
[2017-05-26 04:00] VITALS: BP 137/63; PULSE 82; RESP 18; TEMP 98; O2SAT 99
[2017-05-26 08:00] VITALS: BP 177/81; PULSE 83; RESP 16; TEMP 97.5; O2SAT 100
[2017-05-26] MEDS: INSULIN ASPART SUPPLEMENTAL SCALE SQ SCH ×3 (08:32→16:58)
[2017-05-26] MEDS: LOSARTAN 50 MG TAB PO SCH (08:33)
[2017-05-26] MEDS: ATORVASTATIN 80 MG TAB PO SCH (08:33)
[2017-05-26] MEDS: SODIUM CHLORIDE 0.9% FLUSH 10 ML FLUSH IV FLUSH SCH (08:34)
[2017-05-26] MEDS ORDERED: ASPIRIN 81 MG CHEW TAB CHEW SCH (09:00)
[2017-05-26] MEDS ORDERED: CLOPIDOGREL 75 MG TAB PO SCH (09:00)
--- NOTE | 2017-05-26 10:34 | HHI.PR ---
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 No acute event overnight. Daughter by the bedside. 05/19/17-patient seen and examined, improving speech and patient alert and oriented 3. No acute event overnight. CRISTINA unremarkable. 05/20/17-patient seen and examined, stable and no complaints. Good appetite. Denies any chest pain or shortness of breath 05/21/17-patient seen and examined, denies any headaches. No acute event overnight 05/22/17-patient seen and examined, denies any headache and no acute event overnight. Vitals stable. She was seen by general surgery yesterday. 05/23/17-patient seen and examined, resting comfortably and denies any headache. Afebrile 05/24/17-patient seen and examined,NPO this AM pending temporal artery biopsy. Denies any MARQUEZ. 05/25/17-patient seen and examined, no complaint this AM. NPO this AM. Resting comfortably in bed 05/26/17-patient seen and examined, s/p left temporal artery biopsy yesterday; denies any pain at the site or MARQUEZ. No acute event overnight Objective Vitals Vital Signs Date Time Temp Pulse Resp B/P (MAP) Pulse Ox O2 Delivery O2 Flow Rate FiO2 05/26/17 08:00 97.5 83 16 177/81 (113) 100 05/26/17 04:00 98.0 82 18 137/63 (87) 99 05/26/17 00:00 96.3 80 18 135/60 (85) 100 05/26/17 00:00 74 05/26/17 00:00 74 05/25/17 20:00 97.5 76 18 131/68 (89) 99 05/25/17 16:00 97.2 72 18 123/72 (89) 98 05/25/17 12:30 98.1 68 20 141/73 (95) 100 Nasal Cannula 2 05/25/17 12:15 67 20 139/68 (91) 100 Nasal Cannula 2 05/25/17 11:56 98.1 67 20 140/66 (90) 100 Nasal Cannula 2 Manual Cuff/Palpation I/O 05/25/17 05/25/17 05/25/17 05/26/17 3/7/18 3/7/18 07:00 15:00 23:00 07:00 15:00 23:00 Intake Total 0 ml 300 ml 240 ml Output Total 0 ml 10 ml 100 ml Balance 0 ml 290 ml 140 ml Intake Oral 0 ml 0 ml 240 ml IV Total 300 ml Output Urine Total 0 ml 100 ml Estimated Blood Loss 10 ml Result Diagram: 05/25/17 0802 05/25/17 0802 Imaging Last Impressions Upper Extremity Ultrasound 05/22/17 0000 Signed Impressions: Service Date/Time: Monday, May 22, 2017 14:10 - CONCLUSION: Limited exam. No thrombus Flynn Garcia MD FACR Chest X-Ray 05/17/17 0000 Signed Impressions: Service Date/Time: Wednesday, May 17, 2017 05:53 - CONCLUSION: 1. Rotated exam with compensated cardiomegaly. Aubrey Aldrich MD Brain MRI 05/15/17 0000 Signed Impressions: Service Date/Time: Monday, May 15, 2017 09:11 - CONCLUSION: 1. Persistent small 4 mm punctate areas of suspected acute infarction at the anterior aspect of the right occipital lobe. 2. Encephalomalacia of involving the left temporal lobe. 3. Suspected encephalomalacia in signal on amount within the left cerebellar peduncle and left mid cerebellar lobe. Alton Galvez MD Head CT 05/14/17 0000 Signed Impressions: Service Date/Time: Sunday, May 14, 2017 11:59 - CONCLUSION: 1. Remote infarct left temporal lobe. No acute intracranial abnormalities on CT. Efra Banks MD Head Magnetic Resonance Angiography 05/12/17 0000 Signed Impressions: Service Date/Time: Friday, May 12, 2017 21:08 - CONCLUSION: 1. Negative examination. Reinier Garcia MD Carotid Artery Ultrasound 05/12/17 0000 Signed Impressions: Service Date/Time: Friday, May 12, 2017 17:56 - CONCLUSION: Bilateral plaque formation with hemodynamic profile on both sides characteristic of less than 50%% stenosis. Jabari Gonzalez MD Abdomen Ultrasound 05/12/17 0000 Signed Impressions: Service Date/Time: Friday, May 12, 2017 17:40 - CONCLUSION: 1. Negative exam other than left renal cyst. Jabari Gonzalez MD Objective Remarks GENERAL: NAD SKIN: Warm and dry. HEAD: Normocephalic.bandage over left incision site EYES: No scleral icterus. No injection or drainage. NECK: Supple, trachea midline. No JVD or lymphadenopathy. CARDIOVASCULAR: Regular rate and rhythm without murmurs, gallops, or rubs. RESPIRATORY: Breath sounds equal bilaterally. No accessory muscle use. GASTROINTESTINAL: Abdomen soft, non-tender, nondistended. MUSCULOSKELETAL: No cyanosis, or edema. Right BKA; 4/5 LUE BACK: Nontender without obvious deformity. No CVA tenderness. 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 Appreciate input from neurology PT/ST consulted. CRISTINA shows low flow in left atrium so needs OAC Coumadin vs Eliquis 5mg BID. However patient's family does not want her to be on Coumadin Start Plavix 75 mg daily and change aspirin to 162mg daily H/o MARQUEZ Currently patient denies any MARQUEZ; however in the face of multiple CVA and elevated ESR Neurology recommended biopsy of temporal artery Although there is no evidence of Temporal arteritis at this time Appreciate input from general surgery s/p Left temporal artery biopsy 05/25/17 pending Biopsy report Continue hold on started any steroid because I doubt this is Giant cell arthritis Underlying infection / Right upper extremity cellulitis versus allergic reaction -resolved d/c Ancef; Monitor response Hypertension; continue Norvasc and Cozaar Diabetes mellitus; accu-check with SSI. Continue home dose of Levemir Chronic renal insufficiency-Improve with IV fluid and monitor BUN and creatinine Right arm DVT ; she was on Heparin drip per hematology. CRISTINA shows low flow in left atrium so needs OAC Coumadin vs Eliquis 5mg BID. Start Plavix 75 mg daily and change aspirin to 162mg daily today 05/26/17 DVT prophylaxis; d/c Heparin drip Problem Qualifiers (1) Type 2 diabetes mellitus: Qualified Codes: E11.8 - Type 2 diabetes mellitus with unspecified complications; Z79.4 - [facility] (current) use of insulin Keny Jj MD May 26, 2017 10:33
--- NOTE | 2017-05-26 10:37 | HHI.PR ---
cc: Moise Wick MD Subjective Subjective Notes Eating breakfast No complaints Objective Vitals/I&O Vital Signs Date Time Temp Pulse Resp B/P (MAP) Pulse Ox O2 Delivery O2 Flow Rate FiO2 05/26/17 08:00 97.5 83 16 177/81 (113) 100 05/25/17 12:30 Nasal Cannula 2 Labs Laboratory Tests Test 05/26/17 07:10 Activated Partial Thromboplast Time 47.1 Date/Time Source Procedure Growth Status 05/12/17 19:10 Blood Peripheral Aerobic Blood Culture - Final NO GROWTH IN 5 DAYS Complete 05/12/17 19:10 Blood Peripheral Anaerobic Blood Culture - Final NO GROWTH IN 5 DAYS Complete Cardiovascular: Regular Lungs: Clear Abdomen: Non-distended, Non-tender Extremities: No edema Narrative Exam LEFT congregation---Steri strip in place A/P Assessment and Plan 69 year old female with multiple medical problems; headaches -POD1 temporal artery bx -Regular diet -Okay to start oral anticoagulation -Follow up results with Neurology -GS clear for DC Attending Note - Dr. Wick wound clean and dry; steri strips intact; no pain Will see as needed; no need for F/U my office The exam, history, and the medical decision-making described in the above note were completed with the assistance of the mid-level provider. I reviewed and agree with the findings presented. I attest that I had a [id number] encounter with the patient on the same day, and personally performed and documented my assessment and findings in the medical record. Brandy FriasP/Executive Chef Assistant CORPORATE SAFETY MANAGER May 26, 2017 10:37 Moise Wick MD May 26, 2017 13:39
[2017-05-26] MEDS ORDERED: ASPI81 CHEW (10:41)
[2017-05-26] MEDS ORDERED: PLAV75TA29 PO (10:41)
--- NOTE | 2017-05-26 10:48 | HHI.DS ---
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 Patient's daughter stated the patient usually lives by herself. The daughter visited the patient around 1:15 PM this afternoon because the patient was not answering her telephone a few minutes prior to that. The daughter reports that when she came to the door, the patient came to open the door. But however patient was looking quite "spacey" and would not talk back to the daughter. When she talked back, it did not make sense Patient then walked from the door to the couch and was mostly sleeping and did not talk much. Therefore the daughter thought that patient was having expressive aphasia and decided to call 911. The arrived emergency room at around 1:50 PM or so. While she has been in the emergency room as well, patient was not answering any questions. She had this blank stare to both family member and staffs. Daughter reported that this is how patient usually looks when she had her previous strokes. Daughter also stated that yesterday patient was complaining about abdominal pain. She had vomited once. No coffee color or red color. It was just food. She also had associated diarrhea but this was also normal brown color. Such as 1 times episode. She states that since then, patient has not been eating or drinking well. No fever. no congestion or shortness of breath but since vomiting, she has been coughing a bit on wednesday , had 2 days ago, patient was at dentist - they had to put cap for her implant , no local or anesthesia no antibiotics was needed wednesday, she had seafood with her other daughter. usually get urine infections with symptoms similar to stroke but was not c/o any urinary symptoms did have dizziness on review of records and per maricarmen, pt was here with similar symptoms twice in this month prior . This was on April 26, 2017 and May 03, 2017. Urine cultures were negative. CBC/BMP: 05/25/17 0802 05/25/17 0802 Significant Findings Laboratory Tests Test 05/23/17 12:23 05/25/17 08:02 05/26/17 07:10 Activated Partial Thromboplast Time 60.5 SEC (24.3-30.1) 47.1 SEC (24.3-30.1) Red Blood Count 2.94 MIL/MM3 (4.00-5.30) Hemoglobin 9.0 GM/DL (11.6-15.3) Hematocrit 26.9 % (35.0-46.0) Neutrophils (%) (Auto) 70.5 % (16.0-70.0) Blood Urea Nitrogen 34 MG/DL (7-18) Creatinine 2.44 MG/DL (0.50-1.00) Random Glucose 163 MG/DL (74-106) Chloride Level 108 MEQ/L (98-107) Estimat Glomerular Filtration Rate 24 ML/MIN (>89) Imaging Last Impressions Upper Extremity Ultrasound 05/22/17 0000 Signed Impressions: Service Date/Time: Monday, May 22, 2017 14:10 - CONCLUSION: Limited exam. No thrombus Flynn Garcia MD FACR Chest X-Ray 05/17/17 0000 Signed Impressions: Service Date/Time: Wednesday, May 17, 2017 05:53 - CONCLUSION: 1. Rotated exam with compensated cardiomegaly. Aubrey Aldrich MD Brain MRI 05/15/17 0000 Signed Impressions: Service Date/Time: Monday, May 15, 2017 09:11 - CONCLUSION: 1. Persistent small 4 mm punctate areas of suspected acute infarction at the anterior aspect of the right occipital lobe. 2. Encephalomalacia of involving the left temporal lobe. 3. Suspected encephalomalacia in signal on amount within the left cerebellar peduncle and left mid cerebellar lobe. Alton Galvez MD Head CT 05/14/17 0000 Signed Impressions: Service Date/Time: Sunday, May 14, 2017 11:59 - CONCLUSION: 1. Remote infarct left temporal lobe. No acute intracranial abnormalities on CT. Efra Banks MD Head Magnetic Resonance Angiography 05/12/17 0000 Signed Impressions: Service Date/Time: Friday, May 12, 2017 21:08 - CONCLUSION: 1. Negative examination. Reinier Garcia MD Carotid Artery Ultrasound 05/12/17 0000 Signed Impressions: Service Date/Time: Friday, May 12, 2017 17:56 - CONCLUSION: Bilateral plaque formation with hemodynamic profile on both sides characteristic of less than 50%% stenosis. Jabari Gonzalez MD Abdomen Ultrasound 05/12/17 0000 Signed Impressions: Service Date/Time: Friday, May 12, 2017 17:40 - CONCLUSION: 1. Negative exam other than left renal cyst. Jabari Gonzalez MD PE at Discharge GENERAL: NAD SKIN: Warm and dry. HEAD: Normocephalic.bandage over left incision site EYES: No scleral icterus. No injection or drainage. NECK: Supple, trachea midline. No JVD or lymphadenopathy. CARDIOVASCULAR: Regular rate and rhythm without murmurs, gallops, or rubs. RESPIRATORY: Breath sounds equal bilaterally. No accessory muscle use. GASTROINTESTINAL: Abdomen soft, non-tender, nondistended. MUSCULOSKELETAL: No cyanosis, or edema. Right BKA; 4/5 LUE BACK: Nontender without obvious deformity. No CVA tenderness. 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 Appreciate input from neurology PT/ST consulted. CRISTINA shows low flow in left atrium so needs OAC Coumadin vs Eliquis 5mg BID. However patient's family did not want her to be on Coumadin Started on Plavix 75 mg daily and changed aspirin to 162mg daily H/o MARQUEZ while in the Hospital, patient had no complaint of MARQUEZ; however in the face of multiple CVA and elevated ESR Neurology recommended biopsy of temporal artery Although there is no evidence of Temporal arteritis at this time, and patient was not started on any steroid Appreciated input from general surgery s/p Left temporal artery biopsy 05/25/17 pending Biopsy report. The biopsy report will be sent to neurology who will discuss the result with patient Underlying infection / Right upper extremity cellulitis versus allergic reaction -resolved with Ancef; Hypertension; Initially permissive hypertension was initiated, and after this was discontinued, the patient was started back on her medications including Norvasc and Cozaar Diabetes mellitus; accu-check with SSI. And she was put back on a home dose of Levemir with monitoring of blood glucose Chronic renal insufficiency-Improve with IV fluid and monitor BUN and creatinine Right arm DVT ; she was on Heparin drip per hematology. CRISTINA shows low flow in left atrium so needs OAC Coumadin vs Eliquis 5mg BID. Started on Plavix 75 mg daily and change aspirin to 162mg daily on 05/26/17 DVT prophylaxis; d/c Heparin drip Pt Condition on Discharge: Good Discharge Disposition: Discharge to SNF Discharge Time: > 30 minutes Discharge Instructions DIET: Follow Instructions for: Heart Healthy Diet Activities you can perform: Regular-No Restrictions Follow up Referrals: Neurology PCP Follow-up - 2-3 Days New Medications: Aspirin (Tgt Aspirin) 81 Mg Chw 162 MG CHEW DAILY for Prevent Blood Clot, #30 EA Clopidogrel (Plavix) 75 Mg Tab 75 MG PO DAILY for Prevent Blood Clot, #30 TAB 11 Refills Continued Medications: Amlodipine (Amlodipine) 10 Mg Tab 10 MG PO DAILY for Blood Pressure Management, TAB 0 Refills Atorvastatin (Lipitor) 80 Mg Tab 80 MG PO DAILY for Cholesterol Management, TAB 0 Refills Cholecalciferol (D3 Super Strength) 2,000 Unit Cap 2000 UNITS PO DAILY for Nutritional Supplement, #30 CAP 0 Refills Insulin Degludec Inj (Tresiba Flextouch Pen Inj) 300 unit/3 ML Pen 15 UNITS SQ DAILY for Blood Sugar Management, #15 ML 0 Refills Losartan (Losartan) 100 Mg Tab 100 MG PO DAILY for Blood Pressure Management, #30 TAB 0 Refills Discontinued Medications: Apixaban (Eliquis) 2.5 Mg Tab 2.5 MG PO BID for Blood Clot Prevention, TAB 0 Refills Cephalexin (Keflex) 500 Mg Capsule 500 MG PO Q8H for Infection for 7 Days, #21 CAP 0 Refills Meclizine (Meclizine) 25 Mg Tab 25 MG PO TID PRN for VERTIGO, #30 TAB 0 Refills Keny Jj MD May 26, 2017 10:48
--- NOTE | 2017-05-26 11:07 | HHI.FF ---
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 My clinical findings support the need for the requested home health care services because: Ltd mobility - disease progression Patient has SOB Deconditioned w/ increased weakness I certify that my clinical findings support that this patient is homebound because: Unsteady gait/balance Unsafe to leave home unassisted Poor cardiac reserve Keny Jj MD May 26, 2017 11:07
[2017-05-26 12:00] VITALS: BP 176/77; PULSE 92; RESP 15; TEMP 98.2; O2SAT 98
[2017-05-26 16:00] VITALS: BP 161/71; PULSE 88; RESP 16; TEMP 98.4; O2SAT 98
== END 2017-05-26 19:28 | disposition home health service (06) | DRG 40 ==
LOC: NEPC 14:03 → INTOOBSV 18:24 → NEDA 18:24 → OBSVTOIN 18:24 → N07B 20:14
PROVIDERS: ADMIT Hospitalist; ATTEND Hospitalist
PROC: 03BT0ZX Excision of Left Temporal Artery, Open Approach, Diagnostic (ICD-10-PCS; principal; 2017-05-25 10:50)
DX: I63.532 Cerebral infarction due to unspecified occlusion or stenosis of left posterior cerebral artery (principal); G93.40 Encephalopathy, unspecified; E11.22 Type 2 diabetes mellitus with diabetic chronic kidney disease; E11.51 Type 2 diabetes mellitus with diabetic peripheral angiopathy without gangrene; L03.113 Cellulitis of right upper limb; R47.01 Aphasia; R11.0 Nausea; R70.0 Elevated erythrocyte sedimentation rate; W57.XXXA Bitten or stung by nonvenomous insect and other nonvenomous arthropods, initial encounter; N18.9 Chronic kidney disease, unspecified; D64.9 Anemia, unspecified; I12.9 Hypertensive chronic kidney disease with stage 1 through stage 4 chronic kidney disease, or unspecified chronic kidney disease; E78.5 Hyperlipidemia, unspecified; Z89.511 Acquired absence of right leg below knee; Z88.0 Allergy status to penicillin; Z86.718 Personal history of other venous thrombosis and embolism; Z79.01 Long term (current) use of anticoagulants; Z79.4 Long term (current) use of insulin
CPT/HCPCS: 70450; 70544; 70551; 71045; 76700; 76937; 80048; 80053; 80061; 80307; 81001; 82140; 82550; 82607; 82728; 82746; 82948; 83090; 83540; 83550; 83605; 83921; 84207; 84425; 84484; 85025; 85027; 85610; 85613; 85652; 85730; 86140; 86146; 86147; 86148; 86430; 86592; 87040; 88304; 88305; 93005; 93306; 93312; 93320; 93325; 93880; 93971; 95819; 96374; J0131; J0360; J0690; J0692; J1644; J1815; J2060; J2250; J2370; J2405; J7030; J7120; P9612

== ENCOUNTER 2017-06-04 22:38 | Observation (INO) | payer MEDICARE, MEDICAID ==
[~2017-06-04 22:38] MED LIST changes: -APIX2.5T PO; +ASPI81 CHEW; -CEPH-460 PO; -MECL-62 PO; +PLAV75TA29 PO
[2017-06-04 22:55] VITALS: BP 167/82; PULSE 77; RESP 18; O2SAT 99
--- NOTE | 2017-06-04 23:12 | PD ---
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 Daughter states that she has not been eating very well and has had some fairly hard stools as well. She has had a hysterectomy tubal ligation in the past but is noted that her abdomen is a little bit more distended than usual 2. No fevers no cough no congestion. No blood in the emesis. PFSH Past Medical History Hx Anticoagulant Therapy: Yes Anemia: Yes Arthritis: Yes Blood Disorders: No Anxiety: No Depression: Yes Heart Rhythm Problems: No Cancer: No Cardiovascular Problems: Yes High Cholesterol: Yes Chemotherapy: No Chest Pain: Yes Congestive Heart Failure: No Cerebrovascular Accident: Yes Developmental Delay: No Diabetes: Yes Patient Takes Glucophage: No Diminished Hearing: No Deep Vein Thrombosis: Yes Endocrine: Yes Gastrointestinal Disorders: Yes (NAUSEA/ CRAMPING) GERD: Yes Genitourinary: No Headaches: No Hypertension: Yes Immune Disorder: No Implanted Vascular Access Dvce: No Musculoskeletal: No Neurologic: Yes Psychiatric: No Reproductive: No Respiratory: No Integumentary: Yes (R BKA ULCER.) Immunizations Current: Yes Seizures: Yes Thyroid Disease: No PNEUMOCCOCAL Vaccine (Year): 2 Menopausal: Yes : 6 Para: 4 : 2 Past Surgical History Abdominal Surgery: Yes Cardiac Surgery: No Section: Yes (X 1) Cholecystectomy: Yes Ear Surgery: No Endocrine Surgery: No Eye Surgery: Yes (R PROSTHETIC EYE) Genitourinary Surgery: No Gynecologic Surgery: No Hysterectomy: No Neurologic Surgery: No Oral Surgery: Yes Pacemaker: No Thoracic Surgery: No Other Surgery: Yes (RIGHT BKA with prosthetic) Social History Alcohol Use: No Tobacco Use: No Substance Use: No Allergies-Medications (Allergen,Severity, Reaction): Coded Allergies: amoxicillin (Unverified Allergy, Severe, Hives, 06/04/17) ciprofloxacin (Unverified Allergy, Intermediate, Hives, 06/04/17) Reported Meds & Prescriptions Reported Meds & Active Scripts Active Tgt Aspirin (Aspirin) 81 Mg Chw 162 Mg CHEW DAILY Plavix (Clopidogrel Bisulfate) 75 Mg Tab 75 Mg PO DAILY Reported D3 Super Strength (Cholecalciferol) 2,000 Unit Cap 2,000 Units PO DAILY Tresiba Flextouch Pen Inj (Insulin Degludec Inj) 300 unit/3 ML Pen 15 Units SQ DAILY Losartan (Losartan Potassium) 100 Mg Tab 100 Mg PO DAILY Amlodipine (Amlodipine Besylate) 10 Mg Tab 10 Mg PO DAILY Lipitor (Atorvastatin Calcium) 80 Mg Tab 80 Mg PO DAILY Review of Systems Except as stated in HPI: all other systems reviewed are Neg Physical Exam Narrative GENERAL: Well-developed, well-nourished, quiet and reserved. Daughter does most of the history giving peer SKIN: Focused skin assessment warm/dry. HEAD: Atraumatic. Normocephalic. EYES: Pupils equal and round. No scleral icterus. No injection or drainage. ENT: No nasal bleeding or discharge. Mucous membranes pink and moist. NECK: Trachea midline. No JVD. CARDIOVASCULAR: Regular rate and rhythm. No murmur appreciated. RESPIRATORY: No accessory muscle use. Clear to auscultation. Breath sounds equal bilaterally. GASTROINTESTINAL: Abdomen soft, non-tender, nondistended. Hepatic and splenic margins not palpable. MUSCULOSKELETAL: No obvious deformities. No clubbing. No cyanosis. No edema. NEUROLOGICAL: Awake and alert. Cranial nerves II through XII grossly intact and nonfocal, 5 out of 5 strength in all 4 extremities per PSYCHIATRIC: Appropriate mood and affect; insight and judgment normal. Data Data Last Documented VS Vital Signs Date Time Temp Pulse Resp B/P (MAP) Pulse Ox O2 Delivery O2 Flow Rate FiO2 06/04/17 23:23 18 99 Room Air 06/04/17 22:55 77 167/82 (110) Orders Orders Complete Blood Count With Diff (06/04/17 23:10) Comprehensive Metabolic Panel (06/04/17 23:10) Lipase (06/04/17 23:10) Lactic Acid (06/04/17 23:10) Prothrombin Time / Inr (Pt) (06/04/17 23:10) Act Partial Throm Time (Ptt) (06/04/17 23:10) Urinalysis - C+S If Indicated (06/04/17 23:10) Iv Access Insert/Monitor (06/04/17 23:10) Ecg Monitoring (06/04/17 23:10) Oximetry (06/04/17 23:10) Ondansetron Inj (Zofran Inj) (06/04/17 23:15) Sodium Chloride 0.9% Flush (Ns Flush) (06/04/17 23:15) Electrocardiogram (06/04/17 23:10) Sodium Chlorid 0.9% 500 Ml Inj (Ns 500 M (06/04/17 23:15) Ct Abd/Pel W/O Iv Contrast (06/04/17 23:47) Sodium Chlorid 0.9% 500 Ml Inj (Ns 500 M (06/05/17 02:00) Admit Order (Ed Use Only) (06/05/17 ) Acetaminophen (Tylenol) (06/05/17 03:00) Labs Laboratory Tests Test 06/04/17 23:10 06/04/17 23:16 Lactic Acid Level 1.3 mmol/L White Blood Count 11.6 TH/MM3 Red Blood Count 2.94 MIL/MM3 Hemoglobin 9.1 GM/DL Hematocrit 26.8 % Mean Corpuscular Volume 91.2 FL Mean Corpuscular Hemoglobin 30.9 PG Mean Corpuscular Hemoglobin Concent 33.9 % Red Cell Distribution Width 14.1 % Platelet Count 284 TH/MM3 Mean Platelet Volume 8.4 FL Neutrophils (%) (Auto) 69.3 % Lymphocytes (%) (Auto) 23.9 % Monocytes (%) (Auto) 4.6 % Eosinophils (%) (Auto) 1.7 % Basophils (%) (Auto) 0.5 % Neutrophils # (Auto) 8.0 TH/MM3 Lymphocytes # (Auto) 2.8 TH/MM3 Monocytes # (Auto) 0.5 TH/MM3 Eosinophils # (Auto) 0.2 TH/MM3 Basophils # (Auto) 0.1 TH/MM3 CBC Comment DIFF FINAL Differential Comment Prothrombin Time 10.4 SEC Prothromb Time International Ratio 1.0 RATIO Activated Partial Thromboplast Time 28.3 SEC Blood Urea Nitrogen 31 MG/DL Creatinine 2.24 MG/DL Random Glucose 150 MG/DL Total Protein 7.6 GM/DL Albumin 3.0 GM/DL Calcium Level 8.1 MG/DL Alkaline Phosphatase 95 U/L Aspartate Amino Transf (AST/SGOT) 17 U/L Alanine Aminotransferase (ALT/SGPT) 32 U/L Total Bilirubin 0.2 MG/DL Sodium Level 130 MEQ/L Potassium Level 3.9 MEQ/L Chloride Level 96 MEQ/L Carbon Dioxide Level 23.8 MEQ/L Anion Gap 10 MEQ/L Estimat Glomerular Filtration Rate 27 ML/MIN Lipase 758 U/L [facility] Medical Decision Making Medical Screen Exam Complete: Yes Emergency Medical Condition: Yes Differential Diagnosis Obstruction, pancreatitis, constipation, cholecystitis, gastritis or enteritis, electrolyte abnormality peer Narrative Course Patient was roomed in the emergency department, she appears well but somewhat reserved. Lipase is found to be somewhat elevated and given her mild dementia I think it be reasonable to hold her as an observation status for IV fluid hydration and pretest p.o. tolerance. Her daughter states that any p.o. water she has been taking at home has just been thrown right back up. This was discussed with Dr. Castillo who is agreeable for observation status. Last 24 hours Impressions Abdomen/Pelvis CT 06/04/17 [id number] Signed Impressions: Service Date/Time: Monday, June 05, 2017 00:10 - CONCLUSION: 1. Stable examination with atherosclerotic calcification in the hilum of both kidneys. No obvious stones. 2. 2.9 cm benign appearing cyst off the medial lower pole of left kidney. 3. Trace pericardial effusion, unchanged. Reyes Bourne MD Diagnosis Primary Impression: Pancreatitis Admitting Information Admitting Physician Requests: Observation Condition: Stable Dante Parson MD Jun 04, 2017 23:12
[2017-06-04] MEDS ORDERED: ONDANSETRON HCL 4 MG/2 ML VIAL IVP ONE (23:15)
[2017-06-04] MEDS ORDERED: SODIUM CHLORID 0.9% 500 ML INJ 500 ML IV ONE (23:15)
[2017-06-04] MEDS ORDERED: SODIUM CHLORIDE 0.9% FLUSH 10 ML FLUSH IV FLUSH PRN (23:15)
[2017-06-04 23:23] VITALS: RESP 18; O2SAT 99
[2017-06-05] VITALS (8 sets, daily range): BP systolic 141–192; BP diastolic 62–81; PULSE 78–99; RESP 16–20; TEMP 98–98.4; O2SAT 92–100
[2017-06-05 00:19] LABS: BASOPHIL # 0.1 TH/MM3 (0-0.2); BASOPHIL % 0.5 % (0.0-2.0); EOSINOPHIL # 0.2 TH/MM3 (0-0.4); EOSINOPHIL % 1.7 % (0.0-4.0); HEMATOCRIT 26.8 % (35.0-46.0); HEMOGLOBIN 9.1 GM/DL (11.6-15.3); LYMPH % 23.9 % (9.0-44.0); LYMPHOCYTE # 2.8 TH/MM3 (1.0-4.8); MEAN CELL VOLUME 91.2 FL (80.0-100.0); MEAN CORPUSCULAR HEMOGLOBIN 30.9 PG (27.0-34.0); MEAN CORPUSCULAR HGB CONC 33.9 % (32.0-36.0); MEAN PLATELET VOLUME 8.4 FL (7.0-11.0); MONO % 4.6 % (0.0-8.0); MONOCYTE # 0.5 TH/MM3 (0-0.9); NEUT % 69.3 % (16.0-70.0); PLATELET COUNT 284 TH/MM3 (150-450); RED BLOOD COUNT 2.94 MIL/MM3 (4.00-5.30); RED CELL DISTRIBUTION WIDTH 14.1 % (11.6-17.2); WHITE BLOOD COUNT 11.6 TH/MM3 (4.0-11.0)
[2017-06-05 00:34] LABS: PROTHROMBIN TIME - PATIENT 10.4 SEC (9.8-11.6)
[2017-06-05 00:51] LABS: ALT (GPT) 32 U/L (10-53); AST (GOT) 17 U/L (15-37); BICARBONATE 23.8 MEQ/L (21.0-32.0); BLOOD UREA NITROGEN 31 MG/DL (7-18); CALCIUM 8.1 MG/DL (8.5-10.1); CHLORIDE 96 MEQ/L (98-107); CREATININE 2.24 MG/DL (0.50-1.00); GLOMERULAR FILTRATION RATE 27 ML/MIN (>89); GLUCOSE,RANDOM 150 MG/DL (74-106); SODIUM (NA) 130 MEQ/L (136-145)
[2017-06-05 00:53] LABS: ALKALINE PHOSPHATASE 95 U/L (45-117); TOTAL BILIRUBIN ADULT 0.2 MG/DL (0.2-1.0); TOTAL PROTEIN 7.6 GM/DL (6.4-8.2)
--- NOTE | 2017-06-05 01:06 | RADRPT ---
EXAM DATE/TIME: 06/05/2017 00:10 [facility] COMPARISON: CT ABDOMEN & PELVIS W/O CONTRAST, February 06, 2017, 13:58. INDICATIONS : Abdominal pain. ORAL CONTRAST: No oral contrast ingested. RADIATION DOSE: 15.17 CTDIvol (mGy) MEDICAL HISTORY : Hypertension. Deep venous thrombosis. SURGICAL HISTORY : Cholecystectomy. ENCOUNTER: Initial ACUITY: 1 day PAIN SCALE: 5/10 LOCATION: abdomen TECHNIQUE: Volumetric scanning of the abdomen and pelvis was performed. Using automated exposure control and ad justment of the mA and/or kV according to patient size, radiation dose was kept as low as reasonably achievable to obtain optimal diagnostic quality images. DICOM format image data is available electro nically for review and comparison. FINDINGS: LOWER LUNGS: The visualized lower lungs are clear. Trace pericardial effusion, unchanged. LIVER: Homogeneous density without lesion. There is no dilation of the biliary tree. No calcified gallston es. SPLEEN: Normal size without lesion. PANCREAS: Within normal limits. KIDNEYS: Normal in size and shape. Punctate calcifications in the hilum of both kidneys I believe are vascular in origin. There is scattered atherosclerotic calcifications throughout the visualized abdominal and pelvic vasculature. Stable 2.9 cm cyst off the medial lower pole of the left kidney. ADRENAL GLANDS: Within normal limits. VASCULAR: There is no aortic aneurysm. BOWEL/MESENTERY: The stomach, small bowel, and colon demonstrate no acute abnormality. There is no free intraperitone al air or fluid. ABDOMINAL WALL: Within normal limits. RETROPERITONEUM: There is no lymphadenopathy. BLADDER: No wall thickening or mass. REPRODUCTIVE: Within normal limits. INGUINAL: There is no lymphadenopathy or hernia. MUSCULOSKELETAL: Within normal limits for patient age. CONCLUSION: 1. Stable examination with atherosclerotic calcification in the hilum of both kidneys. No obvious sto ronnie. 2. 2.9 cm benign appearing cyst off the medial lower pole of left kidney. 3. Trace pericardial effusion, unchanged. Reyes Bourne MD on June 05, 2017 at 1:01 Board Certified Radiologist. This report was verified electronically.
[2017-06-05] MEDS ORDERED: SODIUM CHLORID 0.9% 500 ML INJ 500 ML IV ONE (02:00)
[2017-06-05] MEDS ORDERED: NALOXONE HCL 0.4 MG/ML AMP IV PUSH PRN (03:00)
[2017-06-05] MEDS ORDERED: ONDANSETRON HCL 4 MG/2 ML VIAL IVP PRN (03:00)
[2017-06-05] MEDS ORDERED: ACETAMINOPHEN 500 MG CPLT PO ONE (03:00)
[2017-06-05] MEDS: SODIUM CHLOR 0.9% 1000 ML INJ 1,000 ML IV SCH ×4 (04:20→23:52)
--- NOTE | 2017-06-05 05:12 | HHI.HP ---
[facility] Paul Manley DO Admission Diagnosis Pancreatitis Diagnoses: Travel History International Travel<30 Days: No Contact w/Intl Traveler <30 Da: No Traveled to Known Affected Are: No History of Present Illness 67-year-old female with past medical history significant for hypertension, diabetes mellitus, history of CVA, chronic kidney disease and right arm DVT presents to the emergency department for evaluation of nausea and vomiting for the past several days. History obtained from ED records. Per EP documentation , the daughter states that her mother has not been eating very well and has had some fairly hard stools. The patient complains of severe constipation stating that her "rectum isn't working right." She endorses epigastric pain, worse with palpation and states that her "bowels are not moving." Patient is confused and is unable to directly answer some of my questions. Patient was discharged on 05/26/17 after an acute ischemic left posterior cerebral artery stroke. She was also worked up for temporal arteritis at that time with a biopsy showing calcification with no substantial inflammation noted. Review of Systems ROS Limitations: Clinical Condition Unable to obtain secondary to patient's clinical condition Past Family Social History Past Medical History (Obtained from medical records) htn dm cva- residual weakness- but more of balance issue, and fear of falling down ckd right arm DVT chronic anticoagulation on eliquis right below knee amputation- diabetic complication hx of cdiff 04/2016 hx of UTIs Past Surgical History cholecystectomy c section right bka feeding tube Reported Medications Reported Meds & Active Scripts Active Tgt Aspirin (Aspirin) 81 Mg Chw 162 Mg CHEW DAILY Plavix (Clopidogrel Bisulfate) 75 Mg Tab 75 Mg PO DAILY Reported D3 Super Strength (Cholecalciferol) 2,000 Unit Cap 2,000 Units PO DAILY Tresiba Flextouch Pen Inj (Insulin Degludec Inj) 300 unit/3 ML Pen 15 Units SQ DAILY Losartan (Losartan Potassium) 100 Mg Tab 100 Mg PO DAILY Amlodipine (Amlodipine Besylate) 10 Mg Tab 10 Mg PO DAILY Lipitor (Atorvastatin Calcium) 80 Mg Tab 80 Mg PO DAILY Allergies: Coded Allergies: amoxicillin (Unverified Allergy, Severe, Hives, 06/04/17) ciprofloxacin (Unverified Allergy, Intermediate, Hives, 06/04/17) Family History parents- dm, htn Social History never smoked never etoh abuse or drug abuse lives by herself, but daughter is there majority of the time Physical Exam Vital Signs Vital Signs Date Time Temp Pulse Resp B/P (MAP) Pulse Ox O2 Delivery O2 Flow Rate FiO2 06/05/17 03:11 83 18 173/81 (111) 99 Room Air 06/04/17 23:23 18 99 Room Air 06/04/17 22:55 77 18 167/82 (110) 99 Room Air Physical Exam GENERAL: female, lying in bed SKIN: No rashes, ecchymoses or lesions. Cool and dry. HEAD: Atraumatic. Normocephalic. No temporal or scalp tenderness. EYES: Pupils equal round and reactive. Extraocular motions intact. No scleral icterus. No injection or drainage. ENT: Nose without bleeding, purulent drainage or septal hematoma. Throat without erythema, tonsillar hypertrophy or exudate. Uvula midline. Airway patent. NECK: Trachea midline. No JVD or lymphadenopathy. Supple, nontender, no meningeal signs. CARDIOVASCULAR: Regular rate and rhythm without murmurs, gallops, or rubs. RESPIRATORY: Clear to auscultation. Breath sounds equal bilaterally. No wheezes , rales, or rhonchi. GASTROINTESTINAL: Abdomen soft, tender to palpation in the epigastrium, nondistended. No hepato-splenomegaly, or palpable masses. No guarding. MUSCULOSKELETAL: Right BKA. NEUROLOGICAL: Awake and alert. 4/5 left upper extremity. Confused. Laboratory Laboratory Tests Test 06/04/17 23:10 06/04/17 23:16 Lactic Acid Level 1.3 White Blood Count 11.6 Red Blood Count 2.94 Hemoglobin 9.1 Hematocrit 26.8 Mean Corpuscular Volume 91.2 Mean Corpuscular Hemoglobin 30.9 Mean Corpuscular Hemoglobin Concent 33.9 Red Cell Distribution Width 14.1 Platelet Count 284 Mean Platelet Volume 8.4 Neutrophils (%) (Auto) 69.3 Lymphocytes (%) (Auto) 23.9 Monocytes (%) (Auto) 4.6 Eosinophils (%) (Auto) 1.7 Basophils (%) (Auto) 0.5 Neutrophils # (Auto) 8.0 Lymphocytes # (Auto) 2.8 Monocytes # (Auto) 0.5 Eosinophils # (Auto) 0.2 Basophils # (Auto) 0.1 CBC Comment DIFF FINAL Differential Comment Prothrombin Time 10.4 Prothromb Time International Ratio 1.0 Activated Partial Thromboplast Time 28.3 Blood Urea Nitrogen 31 Creatinine 2.24 Random Glucose 150 Total Protein 7.6 Albumin 3.0 Calcium Level 8.1 Alkaline Phosphatase 95 Aspartate Amino Transf (AST/SGOT) 17 Alanine Aminotransferase (ALT/SGPT) 32 Total Bilirubin 0.2 Sodium Level 130 Potassium Level 3.9 Chloride Level 96 Carbon Dioxide Level 23.8 Anion Gap 10 Estimat Glomerular Filtration Rate 27 Lipase 758 Result Diagram: 06/04/17231506/04/172315 Caprini VTE Risk Assessment Caprini VTE Risk Assessment: Mod/High Risk (score >= 2) Caprini Risk Assessment Model Point Value = 1 Point Value = 2 Point Value = 3 Point Value = 5 Age 41-60 Minor surgery BMI > 25 kg/m2 Swollen legs Varicose veins or History of unexplained or recurrent spontaneous Oral contraceptives or hormone replacement Sepsis (< 1 month) Serious lung disease, including pneumonia (< 1 month) Abnormal pulmonary function Acute myocardial infarction Congestive heart failure (< 1 month) History of inflammatory bowel disease Medical patient at bed rest Age 61-74 Arthroscopic surgery Major open surgery (> 45 min) Laparoscopic surgery (> 45 min) Malignancy Confined to bed (> 72 hours) Immobilizing plaster cast Central venous access Age >= 75 History of VTE Family history of VTE Factor V Leiden Prothrombin [id number] Lupus anticoagulant Anticardiolipin antibodies Elevated serum homocysteine Heparin-induced thrombocytopenia Other congenital or acquired thrombophilia Stroke (< 1 month) Elective arthroplasty Hip, pelvis, or leg fracture Acute spinal cord injury (< 1 month) Prophylaxis Regimen Total Risk Factor Score Risk Level Prophylaxis Regimen 0-1 Low Early ambulation 2 Moderate Order ONE of the following: *Sequential Compression Device (SCD) *Heparin 5000 units SQ BID 3-4 Higher Order ONE of the following medications: *Heparin 5000 units SQ TID *Enoxaparin/Lovenox 40 mg SQ daily (WT < 150 kg, CrCl > 30 mL/min) *Enoxaparin/Lovenox 30 mg SQ daily (WT < 150 kg, CrCl > 10-29 mL/min) *Enoxaparin/Lovenox 30 mg SQ BID (WT < 150 kg, CrCl > 30 mL/min) AND/OR *Sequential Compression Device (SCD) 5 or more Highest Order ONE of the following medications: *Heparin 5000 units SQ TID (Preferred with Epidurals) *Enoxaparin/Lovenox 40 mg SQ daily (WT < 150 kg, CrCl > 30 mL/min) *Enoxaparin/Lovenox 30 mg SQ daily (WT < 150 kg, CrCl > 10-29 mL/min) *Enoxaparin/Lovenox 30 mg SQ BID (WT < 150 kg, CrCl > 30 mL/min) AND *Sequential Compression Device (SCD) Assessment and Plan Assessment and Plan Assessment/plan: 1. Pancreatitis/abdominal pain/intractable nausea/vomiting/constipation CT of the abdomen/pelvis without evidence of acute disease Lipase elevated at 758 IV fluid hydration Zofran Amita-Colace, milk of magnesia, Senokot, Dulcolax and lactulose when necessary constipation 2. History of recent CVA Continue aspirin/Plavix 3. CKD Creatinine 2.24, at baseline Monitor renal function 4. Diabetes mellitus Holding home long-acting insulin as patient is nothing by mouth Sliding scale insulin Monitor blood glucose Resume home medication once patient tolerating by mouth 5. Hypertension/hyperlipidemia Continue home medications 6. Hyponatremia Sodium 130, baseline 143 on 05/25/17 Normal saline Fluid restriction FEN NPO Electrolytes: monitor and replete prn ASA/Plavix NS at 100 cc/hr Cheyanne Castillo MD Jun 05, 2017 05:12
[2017-06-05] MEDS ORDERED: DEXTROSE 50% IN WATER 50 ML VIAL(D50) IV PUSH PRN (05:15)
[2017-06-05] MEDS ORDERED: MAGNESIUM HYDROXIDE SUSP 30 ML CUP PO PRN (05:15)
[2017-06-05] MEDS ORDERED: SENNOSIDES 8.6 MG TAB PO PRN (05:15)
[2017-06-05] MEDS ORDERED: LACTULOSE SYRUP 20 GM/30 ML CUP PO PRN (05:15)
[2017-06-05] MEDS ORDERED: GLUCAGON 1 MG/ML VIAL OTHER PRN (05:15)
[2017-06-05] MEDS ORDERED: BISACODYL 10 MG SUPP RECTAL PRN (05:15)
[2017-06-05] MEDS: INSULIN ASPART SUPPLEMENTAL SCALE SQ SCH ×4 (08:00→23:10)
[2017-06-05] MEDS: ATORVASTATIN 80 MG TAB PO SCH (08:46)
[2017-06-05] MEDS: LOSARTAN 50 MG TAB PO SCH (08:46)
[2017-06-05] MEDS: DOCUSATE SODIUM 50 MG/SENNA 8.6 MG TAB PO SCH ×2 (08:46→23:10)
[2017-06-05] MEDS: ASPIRIN 81 MG CHEW TAB CHEW SCH (08:46)
[2017-06-05] MEDS: SODIUM CHLORIDE 0.9% FLUSH 10 ML FLUSH IV FLUSH SCH ×2 (08:47→23:10)
[2017-06-05] MEDS: CLOPIDOGREL 75 MG TAB PO SCH (08:47)
[2017-06-05 09:43] LABS: BILIRUBIN, URINE NEG (NEG); BLOOD, URINE NEG (NEG); GLUCOSE,URINE NEG (NEG); KETONE, URINE NEG (NEG); NITRITE,URINE NEG (NEG); SQUAMOUS EPITHELIAL CELL URINE <1 /hpf (0-5); URINE LEUKOCYTE ESTERASE SMALL (NEG)
[2017-06-05 09:46] LABS: URINE COLOR STRAW (YELLW/STRAW)
--- NOTE | 2017-06-05 13:58 | HHI.PR ---
Subjective Remarks Follow-up visit abdominal pain, vomiting, nausea, pancreatitis. Patient seen and examined today laying in bed. Reports abdominal pain has improved. States he moved her bowels. Denies pain and discomfort. Denies SOB/ dyspnea. Denies chest pain, palpitations, headaches, dizziness. Denies fevers, chills, n/v/d. Denies dysuria. Objective Vitals Vital Signs Date Time Temp Pulse Resp B/P (MAP) Pulse Ox O2 Delivery O2 Flow Rate FiO2 06/05/17 12:00 98.0 83 20 164/75 (104) 100 06/05/17 09:40 79 16 148/62 (90) 100 Room Air 06/05/17 07:38 98.1 79 16 183/78 (113) 100 Room Air 06/05/17 06:00 78 18 173/74 (107) 97 Room Air 06/05/17 03:11 83 18 173/81 (111) 99 Room Air 06/04/17 23:23 18 99 Room Air 06/04/17 22:55 77 18 167/82 (110) 99 Room Air I/O 06/04/17 06/04/17 06/04/17 06/05/17 06/05/17 06/05/17 07:00 15:00 23:00 07:00 15:00 23:00 Intake Total 1000 ml Output Total 600 ml Balance 1000 ml -600 ml Intake IV Total 1000 ml Output Urine Total 600 ml # Voids 2 Result Diagram: 06/04/17 2316 06/04/17 2316 Imaging Last Impressions Abdomen/Pelvis CT 06/04/17 2347 Signed Impressions: Service Date/Time: Monday, June 05, 2017 00:10 - CONCLUSION: 1. Stable examination with atherosclerotic calcification in the hilum of both kidneys. No obvious stones. 2. 2.9 cm benign appearing cyst off the medial lower pole of left kidney. 3. Trace pericardial effusion, unchanged. Reyes Bourne MD Objective Remarks GENERAL: This is a well-nourished, well-developed patient, in no apparent distress. SKIN: Warm and dry HEENT: Normocephalic. Pupils equal round and reactive. Nose without bleeding. Airway patent. NECK: Trachea midline. CARDIOVASCULAR: Regular rate and rhythm without murmurs, gallops, or rubs. RESPIRATORY: Clear to auscultation. Breath sounds equal bilaterally. No wheezes , rales, or rhonchi. GASTROINTESTINAL: Abdomen soft, nondistended. Bowel Sounds normoactive x4. Nontender to palpate on exam MUSCULOSKELETAL: Extremities without clubbing, cyanosis, or edema. Right BKA NEUROLOGICAL: Awake and alert. Oriented to time, place, person. No focal neuro deficit. Moves all extremities. Normal speech. A/P Problem List: (1) Pancreatitis ICD Code: K85.90 - Acute pancreatitis without necrosis or infection, unspecified Status: Acute (2) Chronic renal failure, stage 4 (severe) ICD Code: N18.4 - Chronic kidney disease, stage 4 (severe) Status: Acute (3) Type 2 diabetes mellitus ICD Code: E11.9 - Type 2 diabetes mellitus without complications Status: Chronic Assessment and Plan Patient is a 67-year-old female with past medical history significant for hypertension, diabetes mellitus, history of CVA, chronic kidney disease and right arm DVT presents to the emergency department for evaluation of nausea and vomiting for the past several days. Pancreatitis/abdominal pain/intractable nausea/vomiting/constipation CT of the abdomen/pelvis without evidence of acute disease Lipase elevated at 758 IV fluid hydration, has not gotten continuous dose due to IV access. Will restart IV if unable to tolerate clears. Clear liquids trial Zofran PRN Amita-Colace, milk of magnesia, Senokot, Dulcolax and lactulose when necessary constipation History of recent CVA Continue aspirin/Plavix CKD Creatinine 2.24, at baseline Monitor renal function Diabetes mellitus Holding home long-acting insulin as patient is nothing by mouth Sliding scale insulin Monitor blood glucose Resume home medication once patient tolerating by mouth Hypertension/hyperlipidemia Continue home medications Hyponatremia Sodium 130, baseline 143 on 05/25/17 Normal saline Fluid restriction DVT prop heparin Discharge Planning When clinically improved Soren Olivas Jun 05, 2017 13:58
[2017-06-05] MEDS ORDERED: ACETAMINOPHEN 325 MG TAB PO PRN (14:00)
[2017-06-05] MEDS: HEPARIN SODIUM - SQ 10,000 UNITS/ML VIAL SQ SCH ×2 (15:06→23:10)
--- NOTE | 2017-06-05 18:29 | EKG ---
Date Performed: 06/04/2017 Time Performed: 23:21:04 PTAGE: 67 years EKG: Sinus rhythm MODERATE VOLTAGE CRITERIA FOR LVH, CONSIDER NORMAL VARIANT BORDERLINE ECG Compared to PREVIOUS TRACING , QRS voltage is slightly more prominent, otherwise no change. PREVIOUS TRACIN05/12/2017 19.04 DOCTOR: Trey Mora Interpretating Date/Time 06/05/2017 18:27:59
[2017-06-05] MEDS ORDERED: cloNIDine HCL 0.1 MG TAB PO PRN (23:30)
[2017-06-06 03:35] VITALS: BP 152/70; PULSE 83; RESP 17; TEMP 98.3; O2SAT 97
[2017-06-06] MEDS: SODIUM CHLOR 0.9% 1000 ML INJ 1,000 ML IV SCH (06:32)
[2017-06-06 07:00] VITALS: BP 134/59; PULSE 101; RESP 16; TEMP 98; O2SAT 98
--- NOTE | 2017-06-06 07:44 | HHI.DCPOC ---
Discharge Care Plan Diagnosis: (1) Type 2 diabetes mellitus (2) Chronic renal failure, stage 4 (severe) (3) Pancreatitis Your Health Problems Are: Appetite Changes Goals to Promote Your Health * To prevent worsening of your condition and complications * To maintain your health at the optimal level Directions to Meet Your Goals Take your medications as prescribed Follow your dietary instruction Follow activity as directed Keep your appointments as scheduled Take your immunizations and boosters as scheduled If your symptoms worsen call your PCP, if no PCP go to Urgent Care Center or Emergency Room Smoking is Dangerous to Your Health. Avoid second hand smoke Call the 24-hour hour crisis hotline for domestic abuse at Soren Olivas Jun 06, 2017 07:44
[2017-06-06] MEDS: INSULIN ASPART SUPPLEMENTAL SCALE SQ SCH (08:00)
--- NOTE | 2017-06-06 08:31 | HHI.DS ---
Discharge Summary Admission Date Jun 05, 2017 at 02:51 Discharge Date: Jun 06, 2017 Admitting Diagnosis Pancreatitis (1) Pancreatitis ICD Code: K85.90 - Acute pancreatitis without necrosis or infection, unspecified Status: Acute (2) Chronic renal failure, stage 4 (severe) ICD Code: N18.4 - Chronic kidney disease, stage 4 (severe) Status: Acute (3) Type 2 diabetes mellitus ICD Code: E11.9 - Type 2 diabetes mellitus without complications Status: Chronic Procedures None Brief History - From Admission 67-year-old female with past medical history significant for hypertension, diabetes mellitus, history of CVA, chronic kidney disease and right arm DVT presents to the emergency department for evaluation of nausea and vomiting for the past several days. History obtained from ED records. Per EP documentation , the daughter states that her mother has not been eating very well and has had some fairly hard stools. The patient complains of severe constipation stating that her "rectum isn't working right." She endorses epigastric pain, worse with palpation and states that her "bowels are not moving." Patient is confused and is unable to directly answer some of my questions. Patient was discharged on 05/26/17 after an acute ischemic left posterior cerebral artery stroke. She was also worked up for temporal arteritis at that time with a biopsy showing calcification with no substantial inflammation noted. CBC/BMP: 06/04/17 2316 06/04/17 2316 Significant Findings Laboratory Tests Test 06/04/17 23:10 06/04/17 23:16 06/05/17 07:50 White Blood Count 11.6 TH/MM3 (4.0-11.0) Red Blood Count 2.94 MIL/MM3 (4.00-5.30) Hemoglobin 9.1 GM/DL (11.6-15.3) Hematocrit 26.8 % (35.0-46.0) Neutrophils # (Auto) 8.0 TH/MM3 (1.8-7.7) Blood Urea Nitrogen 31 MG/DL (7-18) Creatinine 2.24 MG/DL (0.50-1.00) Random Glucose 150 MG/DL (74-106) Albumin 3.0 GM/DL (3.4-5.0) Calcium Level 8.1 MG/DL (8.5-10.1) Sodium Level 130 MEQ/L (136-145) Chloride Level 96 MEQ/L (98-107) Estimat Glomerular Filtration Rate 27 ML/MIN (>89) Lipase 758 U/L (73-393) Urine Protein 30 mg/dL (NEG-TRACE) Urine Leukocyte Esterase SMALL (NEG) Imaging Last Impressions Abdomen/Pelvis CT 06/04/17 6420 Signed Impressions: Service Date/Time: Monday, June 05, 2017 00:10 - CONCLUSION: 1. Stable examination with atherosclerotic calcification in the hilum of both kidneys. No obvious stones. 2. 2.9 cm benign appearing cyst off the medial lower pole of left kidney. 3. Trace pericardial effusion, unchanged. Reyes Bourne MD PE at Discharge GENERAL: This is a well-nourished, well-developed patient, in no apparent distress. SKIN: Warm and dry HEENT: Normocephalic. Pupils equal round and reactive. Nose without bleeding. Airway patent. NECK: Trachea midline. CARDIOVASCULAR: Regular rate and rhythm without murmurs, gallops, or rubs. RESPIRATORY: Clear to auscultation. Breath sounds equal bilaterally. No wheezes , rales, or rhonchi. GASTROINTESTINAL: Abdomen soft, nondistended. Bowel Sounds normoactive x4. Nontender to palpate on exam MUSCULOSKELETAL: Extremities without clubbing, cyanosis, or edema. Right BKA NEUROLOGICAL: Awake and alert. Oriented to time, place, person. No focal neuro deficit. Moves all extremities. Normal speech. Pt update on day of discharge In nad. No n/v/d/c. Eatign well. Pain is controlled. Hospital Course GENERAL: This is a well-nourished, well-developed patient, in no apparent distress. SKIN: Warm and dry HEENT: Normocephalic. Pupils equal round and reactive. Nose without bleeding. Airway patent. NECK: Trachea midline. CARDIOVASCULAR: Regular rate and rhythm without murmurs, gallops, or rubs. RESPIRATORY: Clear to auscultation. Breath sounds equal bilaterally. No wheezes , rales, or rhonchi. GASTROINTESTINAL: Abdomen soft, nondistended. Bowel Sounds normoactive x4. Nontender to palpate on exam MUSCULOSKELETAL: Extremities without clubbing, cyanosis, or edema. Right BKA NEUROLOGICAL: Awake and alert. Oriented to time, place, person. No focal neuro deficit. Moves all extremities. Normal speech. Pt Condition on Discharge: Stable Discharge Disposition: Discharge Home Discharge Time: > 30 minutes Discharge Instructions DIET: Follow Instructions for: Heart Healthy Diet Activities you can perform: Regular-No Restrictions Follow up Referrals: PCP Follow-up - 2-3 Days Continued Medications: Amlodipine (Amlodipine) 10 Mg Tab 10 MG PO DAILY for Blood Pressure Management, TAB 0 Refills Aspirin (Tgt Aspirin) 81 Mg Chw 162 MG CHEW DAILY for Prevent Blood Clot, #30 EA Atorvastatin (Lipitor) 80 Mg Tab 80 MG PO DAILY for Cholesterol Management, TAB 0 Refills Cholecalciferol (D3 Super Strength) 2,000 Unit Cap 2000 UNITS PO DAILY for Nutritional Supplement, #30 CAP 0 Refills Clopidogrel (Plavix) 75 Mg Tab 75 MG PO DAILY for Prevent Blood Clot, #30 TAB 11 Refills Insulin Degludec Inj (Tresiba Flextouch Pen Inj) 300 unit/3 ML Pen 15 UNITS SQ DAILY for Blood Sugar Management, #15 ML 0 Refills Losartan (Losartan) 100 Mg Tab 100 MG PO DAILY for Blood Pressure Management, #30 TAB 0 Refills Lilibeth Cuellar MD Jun 06, 2017 08:30
[2017-06-06 08:55] LABS: AUTOMATED NEUTROPHIL # 6.7 TH/MM3 (1.8-7.7); BASOPHIL # 0.1 TH/MM3 (0-0.2); BASOPHIL % 0.7 % (0.0-2.0); EOSINOPHIL # 0.1 TH/MM3 (0-0.4); EOSINOPHIL % 1.1 % (0.0-4.0); HEMATOCRIT 33.4 % (35.0-46.0); HEMOGLOBIN 11.3 GM/DL (11.6-15.3); LYMPH % 22.9 % (9.0-44.0); LYMPHOCYTE # 2.1 TH/MM3 (1.0-4.8); MEAN CELL VOLUME 90.5 FL (80.0-100.0); MEAN CORPUSCULAR HEMOGLOBIN 30.7 PG (27.0-34.0); MEAN CORPUSCULAR HGB CONC 33.9 % (32.0-36.0); MEAN PLATELET VOLUME 8.7 FL (7.0-11.0); MONO % 2.9 % (0.0-8.0); MONOCYTE # 0.3 TH/MM3 (0-0.9); NEUT % 72.4 % (16.0-70.0); PLATELET COUNT 276 TH/MM3 (150-450); RED BLOOD COUNT 3.69 MIL/MM3 (4.00-5.30); RED CELL DISTRIBUTION WIDTH 14.6 % (11.6-17.2); WHITE BLOOD COUNT 9.3 TH/MM3 (4.0-11.0)
[2017-06-06] MEDS: LOSARTAN 50 MG TAB PO SCH (09:08)
[2017-06-06] MEDS: ATORVASTATIN 80 MG TAB PO SCH (09:09)
[2017-06-06] MEDS: ASPIRIN 81 MG CHEW TAB CHEW SCH (09:09)
[2017-06-06] MEDS: DOCUSATE SODIUM 50 MG/SENNA 8.6 MG TAB PO SCH (09:09)
[2017-06-06] MEDS: CLOPIDOGREL 75 MG TAB PO SCH (09:09)
[2017-06-06] MEDS: HEPARIN SODIUM - SQ 10,000 UNITS/ML VIAL SQ SCH (09:10)
[2017-06-06] MEDS: SODIUM CHLORIDE 0.9% FLUSH 10 ML FLUSH IV FLUSH SCH (09:10)
[2017-06-06 09:20] LABS: BICARBONATE 22.5 MEQ/L (21.0-32.0); CALCIUM 8.8 MG/DL (8.5-10.1); CREATININE 2.29 MG/DL (0.50-1.00)
== END 2017-06-06 14:32 | disposition home or self-care (01) ==
LOC: NEPE 22:38 → NEDA 06-05 02:51 → NEDH 06-05 09:54 → NEPGCP 06-05 13:41
PROVIDERS: ADMIT Hospitalist; ATTEND Hospitalist
DX: K85.90 Acute pancreatitis without necrosis or infection, unspecified (principal); I12.9 Hypertensive chronic kidney disease with stage 1 through stage 4 chronic kidney disease, or unspecified chronic kidney disease; N18.4 Chronic kidney disease, stage 4 (severe); E11.22 Type 2 diabetes mellitus with diabetic chronic kidney disease; I63.532 Cerebral infarction due to unspecified occlusion or stenosis of left posterior cerebral artery; K21.9 Gastro-esophageal reflux disease without esophagitis; D64.9 Anemia, unspecified; E87.1 Hypo-osmolality and hyponatremia; E78.5 Hyperlipidemia, unspecified; R53.1 Weakness; K59.00 Constipation, unspecified; E78.00 Pure hypercholesterolemia, unspecified; R07.9 Chest pain, unspecified; R56.9 Unspecified convulsions; Z86.73 Personal history of transient ischemic attack (TIA), and cerebral infarction without residual deficits; Z89.511 Acquired absence of right leg below knee; Z79.01 Long term (current) use of anticoagulants; Z79.02 Long term (current) use of antithrombotics/antiplatelets; Z79.82 Long term (current) use of aspirin; Z87.440 Personal history of urinary (tract) infections; Z79.4 Long term (current) use of insulin
CPT/HCPCS: 74176; 76937; 80048; 80053; 81001; 82948; 83605; 83690; 85025; 85610; 85730; 93005; 96361; 96372; 96374; 97162; 99285; G0378; G8987; G8988; J1644; J1815; J2405; J7030; J7040